=== PATIENT | male | born 1965 | race Caucasian/White ===

== ENCOUNTER 2017-01-05 07:19 | Emergency (ER) | payer MEDICAID ==
--- NOTE | 2017-01-05 07:18 | EDPHY ---
HPI/HX/ROS/PE/MDM Narrative: CHIEF COMPLAINT: Seizures HPI: The patient is a 51 y/o male arriving via EMS from the detox center after two witnessed seizures this morning. He was admitted to the [facility] yesterday morning at 10:00am with a RAMY of 305. This morning staff saw him seizing on the ground next to a low cot. The seizure broke for a short time and then started again and persisted until EMS arrived and gave 2.5mg IV Versed. EMS does not know if he received Librium while at the [facility]. He has been arousable to painful stimuli and disoriented en route. His prehospital BGL was 127. Upon assessment here he remains confused, but denies pain or injury anywhere. no pain REVIEW OF SYSTEMS: Unable to obtain secondary to patient's condition. PMH: Per ANGELO, he was at [facility] 1 week ago for chronic shoulder pain SOCIAL HISTORY: Lives in [place]. Alcohol abuse. PHYSICAL EXAM: General:Patient is alert, in no acute distress. ENT:Eyes are normal to inspection. ENT inspection shows mild tongue abrasions, otherwise normal. Neck: Normal inspection. Full range of motion. Respiratory:No respiratory distress. Breath sounds normal bilaterally. Cardiovascular: Tachycardic regular rate and rhythm. Strong peripheral pulses. Normal cap refill. Abdomen:The abdomen is nontender to palpation. There are no peritoneal signs. Back: Normal to inspection. No tenderness to palpation. Skin: Normal color. No rash. Warm and diaphoretic. Extremities: Normal appearance. Full range of motion. Neuro: Oriented to self only. Normal motor function. Normal sensory function. ED Course: This is a 51 y/o male who presents for evaluation after at least 2 witnessed tonic-clonic seizures this morning while at the detox center. He is disoriented , tachycardic, and diaphoretic upon arrival. He has mild tongue abrasions on exam. Plan for basic labs and symptom management. 2mg IV Ativan and 1L IV NS administered. Chest x-ray: negative. Reassessed patient. He is now completely alert and oriented. He is no longer tachycardic. He denies any injuries or pain. He does not want to go back to the [facility] because he thinks they will just discharge him since he's no longer intoxicated. He will receive a dose of Librium here prior to discharge. I've recommended going to the [facility] if he wishes to detox. He's also been referred to [facility] for further follow up. Case management has consulted on options for transportation from here as well as further treatment. Return precautions discussed. - Data Points Imaging: Discussed imaging studies w/ faculty i on call medical assistant Radiologist, I viewed and interpreted images myself Laboratory Results: Laboratory Results 01/05/17 07:17 01/05/17 07:17 01/05/17 01/05/17 07:17 07:17 WBC 6.10 10^3/uL 10^3/uL (3.80-9.50) RBC 4.32 10^6/uL L 10^6/uL (4.40-6.38) Hgb 13.6 g/dL L g/dL (13.7-17.5) Hct 39.8 % L % (40.0-51.0) MCV 92.1 fL fL (81.5-99.8) MCH 31.5 pg pg (27.9-34.1) MCHC 34.2 g/dL g/dL (32.4-36.7) RDW 15.0 % % (11.5-15.2) Plt Count 186 10^3/uL 10^3/uL (150-400) MPV 9.4 fL fL (8.7-11.7) Neut % (Auto) 51.7 % % (39.3-74.2) Lymph % (Auto) 31.3 % % (15.0-45.0) [place] % (Auto) 13.9 % H % (4.5-13.0) Eos % (Auto) 1.6 % % (0.6-7.6) Baso % (Auto) 1.3 % % (0.3-1.7) Nucleat RBC Rel Count 0.0 % % (0.0-0.2) Absolute Neuts (auto) 3.15 10^3/uL 10^3/uL (1.70-6.50) Absolute Lymphs (auto) 1.91 10^3/uL 10^3/uL (1.00-3.00) Absolute Monos (auto) 0.85 10^3/uL H 10^3/uL (0.30-0.80) Absolute Eos (auto) 0.10 10^3/uL 10^3/uL (0.03-0.40) Absolute Basos (auto) 0.08 10^3/uL 10^3/uL (0.02-0.10) Absolute Nucleated RBC 0.00 10^3/uL 10^3/uL (0-0.01) Immature Gran % 0.2 % % (0.0-1.1) Immature Gran # 0.01 10^3/uL 10^3/uL (0.00-0.10) Sodium 140 mEq/L mEq/L (134-144) Potassium 3.8 mEq/L mEq/L (3.5-5.2) Chloride 100 mEq/L mEq/L (97-110) Carbon Dioxide 14 mEq/l L mEq/l (22-31) Anion Gap 26 mEq/L H mEq/L (8-16) BUN 10 mg/dL mg/dL (7-23) Creatinine 0.9 mg/dL mg/dL (0.7-1.3) Estimated GFR > 60 Glucose 172 mg/dL H mg/dL (70-100) Calcium 9.4 mg/dL mg/dL (8.5-10.4) Medications Given: Discontinued Medications Chlordiazepoxide HCl (Librium) 25 mg PO EDNOW ONE Stop: 01/05/17 11:48 Last Admin: 01/05/17 12:36 Dose: 25 mg Sodium Chloride (Ns) 1,000 mls @ 0 mls/hr IV EDNOW ONE; Wide Open PRN Reason: Protocol Stop: 01/05/17 07:19 Last Admin: 01/05/17 07:32 Dose: 1,000 mls Lorazepam (Ativan Injection) 2 mg IVP EDNOW ONE Stop: 01/05/17 07:18 Last Admin: 01/05/17 07:32 Dose: 2 mg General Initial Vital Signs: Initial Vital Signs Temperature (C) 36.8 C 01/05/17 07:28 Heart Rate 130 H 01/05/17 07:28 Respiratory Rate 17 01/05/17 07:28 Blood Pressure 120/73 01/05/17 07:28 O2 Sat (%) 93 01/05/17 07:28 O2 Delivery Mode Nasal Cannula O2 (L/minute) 2 Allergies/Adverse Reactions: No Known Allergies Allergy (Unverified 01/05/17 07:31) Home Medications: Medication Instructions Recorded NK [No Known Home Meds] 01/05/17 Departure - Departure Disposition: Home, Routine, Self-Care Clinical Impression: Withdrawal seizures Qualifiers: Complication of substance-induced condition: uncomplicated Qualified Code(s): F19.230 - Other psychoactive substance dependence with withdrawal, uncomplicated Condition: Good Instructions: Nonepileptic Seizures (ED), Alcohol Withdrawal (ED) Additional Instructions: Follow up with the [facility] if you wish to detox from alcohol. Return to the ED for any worsening of condition. Referrals: Patient,NotPresent [Unknown] - As per Instructions Luis Fernando Haque MD [Non Staff Provider (MD)] - As per Instructions [facility],. [Clinic] - As per Instructions Report Scribed for: Demian Medley Report Scribed by: Roberta Dubois Date of Report: 01/05/17 Time of Report: 07:24 Physician Review and Approval Statement: Portions of this note were transcribed by an ED scribe. I personally performed the history, physical exam, and medical decision making; and confirm the accuracy of the information in the transcribed note.
[~2017-01-05 07:19] MED LIST: LORazepam 2 MG/ML INJ IVP ONE; NS 1,000 ML IV ONE
[2017-01-05 07:31] VITALS: TEMP 98.2
[2017-01-05 07:55] LABS: % IMMATURE GRANULYOCYTES 0.2 % (0.0-1.1); ABSOLUTE IMMATURE GRANULOCYTES 0.01 10^3/uL (0.00-0.10); ADD DIFF? NO; ADD MORPH? NO; ADD SCAN? NO; ATYPICAL LYMPHOCYTE FLAG 0 (0-99); FRAGMENT RBC FLAG 0 (0-99); HEMATOCRIT 39.8 % (40.0-51.0); HEMOGLOBIN 13.6 g/dL (13.7-17.5); LEFT SHIFT FLG 0 (0-99); LIPEMIA HEMOLYSIS FLAG 90 (0-99); MEAN CELL HEMOGLOBIN 31.5 pg (27.9-34.1); MEAN CELL HEMOGLOBIN CONCENTR. 34.2 g/dL (32.4-36.7); MEAN CELL VOLUME 92.1 fL (81.5-99.8); MEAN PLATELET VOLUME 9.4 fL (8.7-11.7); PLATELET CLUMPS FLAG 20 (0-99); PLATELET COUNT 186 10^3/uL (150-400); RED BLOOD CELL COUNT 4.32 10^6/uL (4.40-6.38)
[2017-01-05 08:12] LABS: ANION GAP 26 mEq/L (8-16); CALCIUM 9.4 mg/dL (8.5-10.4); CARBON DIOXIDE 14 mEq/l (22-31); CHLORIDE 100 mEq/L (97-110); CREATININE 0.9 mg/dL (0.7-1.3); GLOMERULAR FILTRATION RATE > 60; GLUCOSE 172 mg/dL (70-100); POTASSIUM 3.8 mEq/L (3.5-5.2); SODIUM 140 mEq/L (134-144)
[2017-01-05] MEDS ORDERED: chlordiazePOXIDE 25 MG CAP PO ONE ×2 (11:47)
[2017-01-05] MEDS ORDERED: IBUPROFEN 600 MG TAB PO ONE (13:04)
[2017-01-05] MEDS ORDERED: CHLORDIAZEPOXIDE 25MG PREPK#6 BTL TAKEHOME ONE (13:05)
[2017-01-05 13:09] VITALS: BP 129/80; PULSE 98; RESP 16; O2SAT 98
== END 2017-01-05 13:22 | disposition home or self-care (01) ==
LOC: EDUNIT#
PROC: 3E0337Z Introduction of Electrolytic and Water Balance Substance into Peripheral Vein, Percutaneous Approach (ICD-10-PCS; principal; 2017-01-05)
DX: R56.9 Unspecified convulsions (principal); F19.230 Other psychoactive substance dependence with withdrawal, uncomplicated; E86.9 Volume depletion, unspecified
CPT/HCPCS: 96374; J2060

== ENCOUNTER 2017-04-06 19:32 | Emergency (ER) | payer MEDICAID ==
[2017-04-06 19:41] VITALS: BP 120/83; PULSE 92; RESP 18; TEMP 98.2; O2SAT 93
[2017-04-06] MEDS ORDERED: DEXAMETHASONE 10 MG/ML VIAL ONE (20:28)
[2017-04-06] MEDS ORDERED: TDAP ADULT 0.5 ML INJ (BOOSTRIX) IM ONE ×2 (20:29→23:04)
--- NOTE | 2017-04-06 22:15 | EDPHY ---
General Narrative: CHIEF COMPLAINT: Mechanical fall, eyebrow laceration HISTORY OF PRESENT ILLNESS: Patient reports by EMS with reports of mechanical fall and intoxication. He is reportedly on an [facility] hold for acute alcohol intoxication. Patient denies falling. He says that "the [place] police did this to me," referring to laceration above the right eyebrow. He denies headache. Denies loss of consciousness. He denies neck pain. He denies any injury or pain elsewhere. He does want us to fix the laceration but has no other complaints of any kind. He does not know when his last tetanus shot was. Does have a strong odor of alcohol. No modifying factors. No other associated complaints. REVIEW OF SYSTEMS: Ten systems reviewed and are negative unless otherwise noted in the HPI PCP: [facility] SPECIALISTS: None PAST MEDICAL HISTORY: Denies PAST SURGICAL HISTORY: Denies SOCIAL HISTORY: Daily smoker. Daily alcohol user. Denies drug use FAMILY HISTORY: Noncontributory EXAMINATION General Appearance: Alert, no distress Head: normocephalic. Complex laceration over the right eyebrow per no Soto sign. No raccoon eyes. Eyes: Pupils equal and round, no conjunctival pallor or injection. EOMs intact ENT, Mouth: Mucous membranes moist. Airway patent Neck: C-collar in place. Midline trachea Respiratory: Mild rhonchi. No wheezing or crackles. No diminishment. Cardiovascular: Regular rate and rhythm. No murmur. Gastrointestinal: Abdomen is soft and nontender Back: non-tender, no bony abnormalities Neurological: GCS 15. Cranial nerves 2-12 grossly intact. A&O, nonfocal, strength is symmetric in all 4 limbs. No pronator drift. Normal finger-to- nose. Skin: Warm and dry, no rash. There is a 6 cm, complex, jagged laceration above the right eyebrow extending into the eyebrow. There is exposure of the subcutaneous tissue. No exposure of the galea or frontalis. No foreign body. Range of the eyebrow and eyelid is retain. Extremities: Nontender, no pedal edema. Symmetric range of motion. Psychiatric: Mood and affect normal DIFFERENTIAL DIAGNOSES: Including but not limited to complex laceration, intracranial hemorrhage, closed head injury, concussion, basilar skull fracture, frontal skull fracture, laceration with tendon injury, laceration with galea injury MDM: 8:30 p.m. Mechanical fall with apparent acute alcohol intoxication. Given the patient's toxication, he cannot be cleared with nexus criteria. He denies headache or neck pain but he is in a C-collar. I have ordered CT scans of the head and cervical spine. He appears to be neuro intact distally. There is an extensive laceration above the right eyebrow that will require suture repair. He is resting comfortably in no acute distress with stable vital signs. 9:30 p.m. Notified by radiologist Dr. Rahman. CT scan of the head reveals no acute findings. CT scan of the cervical spine reveals chronic changes without any acute findings. At this time I re-evaluated the patient cleared the C-collar. Also at this time he will not let me close the laceration. He is walking around the room trying to take pictures of the laceration. He will not let me start at this time. 11:05 p.m. Patient has finally come down and let me close laceration. This was a very complex laceration taking 60 min to closed. Three layer closure tolerated well. Excellent and symmetric range of motion of the eyebrows postprocedure. No injury to the galea or frontalis exposure. We discussed daily wound care. We discussed follow up with primary care physician for wound check. Augmentin prophylaxis due to the complexity of the laceration. First dose here. We discussed ED precautions. Return here in 7 days for suture removal. He is comfortable this plan. He is on an [facility] hold, and [place] [employer] been notified that he is ready for discharge back to the [facility]. I have provided the on-call plastic surgeon for him as he is asking for a non emergent, chronic issue to be addressed by plastic surgeon. PROCEDURE: Laceration repair Consent: Verbal Location: Right forehead and eyebrow Length of repair: 6 cm Complexity: Complex Layer involvement: Full-thickness Anesthesia: Local per 1% lidocaine plain and 0.5% Marcaine, 12 mL total Irrigation: Extensive Debridement: Small excisional debridement Procedure description: Following good anesthesia, the wound was copiously irrigated. Wound bed was explored with a sterile glove, and there is no foreign body noted. There was a total of 1 cm excisional debridement. No injury to the galea. No injury to the frontalis muscle. Normal movement of the levator palpebrae superioris. Wound borders were approximated well with good hemostasis. Tolerated well without complication. Suture/Staple material: Subcutaneous layer: 5-0 Vicryl, 11 simple running sutures. cutaneous layer: 6-0 Prolene, 21 simple interrupted sutures. Wound care: Routine as discussed Suture/Staple removal: 7 Days SUPERVISION: Patient was independently examined, but I discussed the case with my secondary supervising physician Dr. Campos - Diagnostics Imaging Results: Imaging Impressions Cervical Spine CT 04/06/17 20:24 Impression: Head CT: 1. No acute intracranial abnormalities. 2. Right frontal scalp laceration. 3. Mild generalized volume loss. 4. Subtle supratentorial chronic microvascular ischemic changes. Cervical Spine: 1. No acute abnormalities. 2. Multilevel degenerative changes, as above. 3. Cannot exclude ligament, spinal cord and/or vascular abnormalities on this exam. If there is persistent pain or neurologic deficit, consider MRI and/or flexion and extension radiographs of the cervical spine. Dr. Rahman discussed these findings by telephone with Cody Blackman on 2017 at 21:[address] 04/06/17 20:24 Impression: Head CT: 1. No acute intracranial abnormalities. 2. Right frontal scalp laceration. 3. Mild generalized volume loss. 4. Subtle supratentorial chronic microvascular ischemic changes. Cervical Spine: 1. No acute abnormalities. 2. Multilevel degenerative changes, as above. 3. Cannot exclude ligament, spinal cord and/or vascular abnormalities on this exam. If there is persistent pain or neurologic deficit, consider MRI and/or flexion and extension radiographs of the cervical spine. Dr. Rahman discussed these findings by telephone with Cody Blackman on 2017 at 21:54 hours. - History Smoking Status: Current every day smoker - Objective Vital Signs: Initial Vital Signs Temperature (C) 98.2 F 04/06/17 19:40 Heart Rate 92 04/06/17 19:40 Respiratory Rate 18 04/06/17 19:40 Blood Pressure 120/83 H 04/06/17 19:40 O2 Sat (%) 93 04/06/17 19:40 O2 Delivery Mode Room Air Allergies/Adverse Reactions: No Known Allergies Allergy (Verified 04/06/17 19:41) Home Medications: Medication Instructions Recorded Amoxicillin/Clavulanate Pot 875 mg PO BID #14 tab 04/06/17 [Augmentin 875 MG TAB (*)] Medications Given: Discontinued Medications Amoxicillin/Clavulanate Potassium (Augmentin 875mg) 875 mg PO EDNOW ONE PRN Reason: Protocol Stop: 04/06/17 23:08 Last Admin: 04/06/17 23:11 Dose: 875 mg Departure - Departure Disposition: Law Enforcement/Court/[facility] Clinical Impression: Laceration of eyebrow, right, complicated Qualifiers: Encounter type: initial encounter Qualified Code(s): S01.111A - Laceration without foreign body of right eyelid and periocular area, initial encounter Closed head injury Qualifiers: Encounter type: initial encounter Qualified Code(s): S09.90XA - Unspecified injury of head, initial encounter Acute alcohol intoxication Qualifiers: Complication of substance-induced condition: uncomplicated Qualified Code(s): F10.929 - Alcohol use, unspecified with intoxication, unspecified Condition: Good Instructions: Care For Your Stitches (ED), Facial Laceration (ED) Additional Instructions: 1. Daily wound care as discussed 2. Augmentin as prescribed to completion 3. Follow up with primary care physician as discussed and provided 4. Return to emergency department in 7 days for suture removal Referrals: Ida Sargent MD [[facility] Primary Care Provider] - As per Instructions [facility],. [Clinic] - As per Instructions Rasta Bloom MD [Medical Doctor] - As per Instructions Prescriptions: Amoxicillin/Clavulanate Pot [Augmentin 875 MG TAB (*)] 875 mg PO BID #14 tab
[2017-04-06] MEDS ORDERED: AMOXICILLIN/CLAVULANATE POT 875/125 MG TAB PO ONE (23:07)
== END 2017-04-06 23:53 ==
LOC: EDUNIT#
PROC: 0HQ1XZZ Repair Face Skin, External Approach (ICD-10-PCS; principal; 2017-04-06)
DX: S01.111A Laceration without foreign body of right eyelid and periocular area, initial encounter (principal); S09.90XA Unspecified injury of head, initial encounter; F10.929 Alcohol use, unspecified with intoxication, unspecified; F17.200 Nicotine dependence, unspecified, uncomplicated; W18.39XA Other fall on same level, initial encounter
CPT/HCPCS: J1100

== ENCOUNTER 2017-04-08 19:54 | Emergency (ER) | payer MEDICAID ==
[2017-04-08 20:07] VITALS: BP 141/109; PULSE 91; RESP 18; O2SAT 93
--- NOTE | 2017-04-08 20:24 | EDPHY ---
H & P Time Seen by Provider: 04/08/17 20:14 HPI/ROS: Chief complaint. Head injury HPI. 52-year-old male seen 2 days ago in the emergency department when he was drunk and fell down sustaining laceration to his right forehead. He had a negative head and cervical spine CT. He had stitches placed. He would like his stitches checked. He otherwise has no complaints ROS Constitutional. no fever/chills, no weakness Eyes. no problems with vision ENT. no sore throat, no nasal drainage Cardiovascular. no chest pain Respiratory. no shortness of breath, no cough Abdominal. no abdominal pain, no nausea/vomiting, no diarrhea . no problems urinating MS. no calf pain/swelling, no neck/back pain, no joint pain Skin. Stitches right forehead Lymph. no swollen glands Neuro. no headache, no dizziness, no difficulty walking or with speech Past Medical/Surgical History: Past medical history significant alcoholism and asthma Social History: Single, daily smoker, no alcohol Smoking Status: Current every day smoker Physical Exam: General Appearance: Alert well-developed male no distress vital signs stable Eyes: Pupils equal and round no pallor or injection. ENT, Mouth: Mucous membranes are moist. Respiratory: There are no retractions, lungs are clear to auscultation. Cardiovascular: Regular rate and rhythm. Gastrointestinal: Abdomen is soft and nontender, no masses, bowel sounds normal. Neurological: Awake and alert, sensory and motor exams grossly normal. Skin: Stitches in the right forehead are crusted over but intact. There is no signs of infection. Musculoskeletal: Neck is supple nontender. Extremities symmetrical, full range of motion. Psychiatric: Patient is oriented X 3, there is no agitation. Constitutional: Initial Vital Signs Heart Rate 91 04/08/17 20:05 Respiratory Rate 18 04/08/17 20:05 Blood Pressure 141/109 H 04/08/17 20:05 O2 Sat (%) 93 04/08/17 20:05 O2 Delivery Mode Room Air Allergies/Adverse Reactions: No Known Allergies Allergy (Verified 04/08/17 20:08) Home Medications: Medication Instructions Recorded Amoxicillin/Clavulanate Pot 875 mg PO BID #14 tab 04/06/17 [Augmentin 875 MG TAB (*)] Medical Decision Making ED Course/Re-evaluation: Patient remained stable. He and I discussed care of his sutures including daily cleaning and then use of antibiotic ointment. I gave the patient multiple packages of antibiotic ointment to be applied after gentle washcloth and water cleaning. We discussed time of return for stitches out. He expresses understanding and agreement Differential Diagnosis: I considered suture dehiscence, infection. Departure - Departure Disposition: Home, Routine, Self-Care Clinical Impression: Laceration Instructions: Care For Your Stitches (ED) Additional Instructions: Clean you stitches twice daily with washcloth and water. Apply antibiotic ointment twice daily. Return in 4 days for stitches out. Referrals: NONE *PRIMARY CARE P,. [Primary Care Provider] - As per Instructions
== END 2017-04-08 20:49 | disposition home or self-care (01) ==
DX: Z48.01 Encounter for change or removal of surgical wound dressing (principal); J45.909 Unspecified asthma, uncomplicated; F17.200 Nicotine dependence, unspecified, uncomplicated
CPT/HCPCS: G0463

== ENCOUNTER 2017-05-06 13:26 | Emergency (ER) | payer MEDICAID ==
--- NOTE | 2017-05-06 14:00 | EDPHY ---
H & P Time Seen by Provider: 05/06/17 13:45 HPI/ROS: CHIEF COMPLAINT: Altered mental status HISTORY OF PRESENT ILLNESS: Head laceration sutured 04/06/16. Patient admits to drinking heavily today , says beer. Found behind [employer] unable to walk. No other medical complaints. REVIEW OF SYSTEMS: Eye: no change in vision ENT: no sore throat Cardiac: no chest pain or syncope Pulmonary: no cough or SOB Abdomen: no vomiting, diarrhea, abdominal pain Musculoskeletal: no back pain Skin: no rash Neuro: no headache Constitutional: no fever : no urinary symptoms A comprehensive 10 point review of systems is otherwise negative aside from elements mentioned in the history of present illness. PAST MEDICAL HISTORY: Alcoholism and asthma Social history: Homeless General Appearance: Sleepy but conversant, cooperative. Eyes: No scleral icterus. ENT, Mouth: Normal mucous membranes. No tongue laceration or abrasion. Well- healed laceration or the right eyebrow. Respiratory: Normal respiratory effort, breath sounds equal, lungs are clear to auscultation. Cardiovascular: Regular rate and rhythm. Gastrointestinal: Abdomen is soft and non tender. Neurological: Face is symmetric and moves all 4 extremities. Does answer questions and follows commands but speech is slurred consistent with alcohol intoxication. Skin: Warm and dry, no rashes. No drainage pus redness or evidence of infection on the right eyebrow wound. Musculoskeletal: No extremity or spinal tenderness. Psychiatric: Unable due to intoxication Emergency Department course/MDM: Initial heart rate 121, O2 sat 88%. Will monitor with serial vital signs. Sutures removed in ED. 1933: Patient is ambulatory and has no complaints. Not tachycardic , 91% on room air, not tachypneic and no respiratory distress, does not feel short of breath, ambulatory Smoking Status: Current every day smoker Constitutional: Initial Vital Signs Temperature (C) 36.2 C 05/06/17 13:26 Heart Rate 121 H 05/06/17 13:26 Respiratory Rate 16 05/06/17 13:26 Blood Pressure 116/83 H 05/06/17 13:26 O2 Sat (%) 88 L 05/06/17 13:26 O2 Delivery Mode Room Air O2 (L/minute) 2 Home Medications: Medication Instructions Recorded Amoxicillin/Clavulanate Pot 875 mg PO BID #14 tab 04/06/17 [Augmentin 875 MG TAB (*)] Medical Decision Making Differential Diagnosis: Differential diagnosis considered for altered mental status including but not limited to hypoglycemia, infectious process, electrolyte abnormality, head injury and intoxicants. Departure - Departure Disposition: Home, Routine, Self-Care Clinical Impression: Alcoholic intoxication Qualifiers: Complication of substance-induced condition: uncomplicated Qualified Code(s): F10.920 - Alcohol use, unspecified with intoxication, uncomplicated Condition: Good Instructions: Alcohol Intoxication (ED) Referrals: [facility],. [Clinic] - As per Instructions
[2017-05-06 19:35] VITALS: BP 120/82; PULSE 97; RESP 16; TEMP 98.2; O2SAT 91
== END 2017-05-06 19:37 | disposition home or self-care (01) ==
LOC: EDUNIT#
DX: F10.920 Alcohol use, unspecified with intoxication, uncomplicated (principal); J45.909 Unspecified asthma, uncomplicated; F17.200 Nicotine dependence, unspecified, uncomplicated

== ENCOUNTER 2017-06-06 09:30 | Emergency (ER) | payer MEDICAID ==
--- NOTE | 2017-06-06 09:33 | EDPHY ---
H & P - Medical/Surgical History Hx Asthma: Yes Hx Chronic Respiratory Disease: No Hx Diabetes: No Hx Cardiac Disease: No Hx Renal Disease: No Hx Cirrhosis: No Hx Alcoholism: Yes Hx HIV/AIDS: No Hx Splenectomy or Spleen Trauma: No Other PMH: asthma, , ETOH - Social History Smoking Status: Current every day smoker Time Seen by Provider: 06/06/17 09:31 HPI/ROS: CHIEF COMPLAINT: "I kissed the concrete with my face" HISTORY OF PRESENT ILLNESS: 52-year-old homeless male, history of alcoholism, arrives via ambulance after the staff of [facility] called 911 because the patient was standing in front of the restaurant with blood on his face. Upon EMS arrival the patient was walking, was waving hello at the ambulance. Patient 's history of alcoholism, states that he last had a drink of alcohol few hours ago, states that he sustained a mechanical fall, tripped on the sidewalk impacting the forehead and bridge of his nose with positive loss of consciousness. This was a brief loss of consciousness. This was not a seizure according the patient. He currently states that he is feeling well. His main complaint is abrasion to the nose and chronic left shoulder pain. Regarding his left shoulder he states that he has a diagnosed rotator cuff tear left shoulder and has been unable to follow up with orthopedic surgeon. This has been ongoing issue for the patient he denies acute injury or acute trauma to this area. Otherwise he denies: Nausea, vomiting, chest pain or trauma, back pain or trauma, midline C-spine pain or trauma, peripheral paresthesia, weakness , numbness, assault. REVIEW OF SYSTEMS: A ten point review of systems was performed and is negative with the exception of the items mentioned in the HPI PAST MEDICAL/SURGICAL HISTORY: no anticoagulant use, asthma. Tetanus is up-to- date per patient. SOCIAL HISTORY: Homeless. History of alcoholism. Chronic tobacco use. PHYSICAL EXAM 1) GENERAL: Foul smelling, unkept, Appears to be in no acute distress. Answering questions appropriately. Alert oriented to person place time events 2) HEAD: Normocephalic, abrasion to the glabella 3) HEENT: Pupils equal, round, reactive to light bilaterally. Negative Horners. Nasopharynx, oropharynx, clear. No deformity or angulation of nose. Abrasion to the bridge of nose . No septal hematoma. No rhinorrhea. No oral trauma. Ears bilaterally with normal tympanic membranes. No hemotympanum. No fluid or blood in the external auditory canal. No raccoon eyes. No Soto sign. Poor dentition. Teeth are normally aligned with no gross malocclusion, TMJ bilaterally nontender, facial bones nontender including the zygomatic arch, maxilla mandible. No signs of trauma to the tongue such as abrasion laceration. 4) NECK: No cervical collar is on. Posterior cervical spine is nontender, no stepoff, no effusion. Full range of motion which does not elicit any midline cervical spine pain, no posterior midline tenderness, no step-off. 5) LUNGS: Clear to auscultation bilaterally, no wheezes, no rhonchi, no retractions. No obvious signs of trauma. No chest wall pain. No flaring, no grunting. Moving symmetrically. No crepitus. 6) HEART: [Regular rate and rhythm, 7) ABDOMEN: No guarding, no rebound, no focal tenderness, no peritoneal signs, no signs of trauma, no ecchymosis 8) MUSCULOSKELETAL: Bilateral socks are wet. Socks were taken off and the visualized. No evidence of trench foot. He has been given dry socks. 9) BACK: No midline vertebral tenderness, no fluctuance, no step-off, no obvious trauma, no visual or palpable abnormality. 10) SKIN: No laceration. DIFFERENTIAL DIAGNOSIS: Not necessarily in any particular order, my differential diagnosis includes, but is not limited to, concussion, skull fracture, intraparenchymal contusion, subarachnoid, subdural and epidural hematoma. The patient understands that this diagnosis is provisional and can never be 100% accurate. (Irvin Beard) Constitutional: Initial Vital Signs Temperature (C) 36.5 C 06/06/17 09:38 Heart Rate 79 06/06/17 09:38 Respiratory Rate 18 06/06/17 09:38 Blood Pressure 146/100 H 06/06/17 09:38 O2 Sat (%) 96 06/06/17 09:38 O2 Delivery Mode Room Air Allergies/Adverse Reactions: Sulfa (Sulfonamide Antibiotics) Allergy (Verified 06/06/17 09:41) Home Medications: Medication Instructions Recorded NK [No Known Home Meds] 06/06/17 Medical Decision Making - Diagnostics Imaging Results: Images reviewed myself (Irvin Berad) ED Course/Re-evaluation: 9:38 a.m.:Head CT ordered in this patient for trauma for the following indication: Loss of consciousness and visible head trauma. Will hold on imaging of cervical spine as he is clinically sober, answering questions appropriately, has negative Bruneian cervical spine CT decision-making tool. Care of patient under supervision of secondary supervising physician Dr Ryley Paul. 10:30 a.m.: Re-evaluation, is answering questions appropriately. CT imaging of the head interpreted by Dr. Grant Lopez is negative for posttraumatic sequelae. Patient has been re-evaluated with serial examinations. He does have a history of chronic tobacco abuse. I spent greater than 3 min with the patient discussing tobacco cessation and education. I think the patient can be discharged at this time with follow-up information. (Irvin Beard) I did not see this patient while he was in the emergency department. However his care was discussed with the PA while the patient was in the department. I agree with treatment plan and management (Ryley Paul) Departure - Departure Disposition: Home, Routine, Self-Care Clinical Impression: Forehead abrasion, Homeless single person, History of alcoholism, Abrasion of nose, Head injury Condition: Good Instructions: Head Injury (ED), Abrasion (ED) Additional Instructions: ALTHOUGH THERE IS NO EVIDENCE OF SERIOUS HEAD INJURY AT THIS TIME, DELAYED SIGNS CAN APPEAR 24 TO 48 HOURS AFTER INJURY. PLEASE RETURN TO THE EMERGENCY DEPARTMENT (ED) IMMEDIATELY IF YOU HAVE INCREASED HEADACHE, PERSISTENT HEADACHE , VOMITING, WEAKNESS, CONFUSION OR VISUAL PROBLEMS. Referrals: [facility],. [Clinic] - 1-2 days without fail
[2017-06-06 13:01] VITALS: BP 165/85
--- NOTE | 2017-06-06 19:08 | ASMTCMCOM ---
CM Note CM Note Notes: Pt presented to ED via EMS after sustaining a fall and hitting his head. Patient was intoxicated, tripped and fell. Pt medically cleared. Patient provided bus pass, a dry pair of pants, and resource lists. Pt states he has completed Coordinated Entry and can stay at the [facility] but prefers to sleep outside in his tent. Pt aware [facility] is open we discussed that he may want to stay at [facility] the next couple of nights. Pt offered a cab to the [facility] navigation center in order resume case mgmt and P[facility] services but pt declined stating he wants to go get his bike at [employer] but will follow up with them eventually. CM available for further assistance. Date Signed: 06/06/2017 07:08 PM Electronically Signed By:Shanita Lopez RN
--- NOTE | 2017-06-06 19:09 | ASDISCHSUM ---
Discharge Information Plan Status:Homeless/Group Home Medically Cleared to Leave: Discharge Date:06/06/2017 12:58 PM CM D/C Disposition:Streets (Homeless) ADT D/C Disposition:Home, Routine, Self-Care Projected Discharge Date:06/06/2017 12:58 PM Transportation at D/C:Bus Ticket Discharge Delay Reason: Follow-Up Date:06/06/2017 12:58 PM Discharge Slot: Final Diagnosis: Placement Information Patient Contact Information Contact Name:SHEEBATriston Relationship: Address: Home Phone: Work Phone: City: Alternate Phone: State/Zip Code: Email: Financial Information Financial Class:Medicaid Primary Plan Desc:MEDICAID HEALTH FIRST CLERICAL ADMINISTRATOR Primary Plan Number:[id number] Secondary Plan Desc: Secondary Plan Number: Assessment Information [facility] CM Progress Note CM Note CM Note Notes: Pt presented to ED via EMS after sustaining a fall and hitting his head. Patient was intoxicated, tripped and fell. Pt medically cleared. Patient provided bus pass, a dry pair of pants, and resource lists. Pt states he has completed Coordinated Entry and can stay at the [facility] but prefers to sleep outside in his tent. Pt aware [facility] is open we discussed that he may want to stay at [facility] the next couple of nights. Pt offered a cab to the [facility] navigation center in order resume case mgmt and [facility] services but pt declined stating he wants to go get his bike at [employer] but will follow up with them eventually. CM available for further assistance. Date Signed: 06/06/2017 07:08 PM Electronically Signed By:Shanita Lopez RN Intervention Information
== END 2017-06-06 12:58 | disposition home or self-care (01) ==
LOC: EDBD → EDUNIT#
DX: S09.90XA Unspecified injury of head, initial encounter (principal); S00.81XA Abrasion of other part of head, initial encounter; S00.31XA Abrasion of nose, initial encounter; F10.21 Alcohol dependence, in remission; J45.909 Unspecified asthma, uncomplicated; F17.200 Nicotine dependence, unspecified, uncomplicated; Z59.0 Homelessness; W01.198A Fall on same level from slipping, tripping and stumbling with subsequent striking against other object, initial encounter; Y92.480 Sidewalk as the place of occurrence of the external cause; Y99.8 Other external cause status; Y93.89 Activity, other specified

== ENCOUNTER 2017-06-09 16:47 | Emergency (ER) | payer MEDICAID ==
[2017-06-09] MEDS ORDERED: IBUPROFEN 800 MG TAB PO ONE (16:51)
--- NOTE | 2017-06-09 16:54 | EDPHY ---
H & P Stated Complaint: bilateral shoulder pain. chronic Time Seen by Provider: 06/09/17 16:51 HPI/ROS: HPI CHIEF COMPLAINT: Right shoulder pain. HISTORY OF PRESENT ILLNESS: Patient 52-year-old male he is homeless, drinks alcohol, presents emergency with right shoulder pain. Patient reports that he has been recently falling he had a recent fall was seen in the emergency room for this and had a CT scan that was negative for acute trauma. He presents today stating that his right shoulder is hurting him worse. It is musculoskeletal nature. It is worse after he moves his right shoulder. He is unsure if he fell. He has been drinking alcohol. He denies neck pain or headache. Denies abdominal pain chest pain or shortness of breath. Pain is located to the right lateral shoulder. It is worse with movement and tender to palpation over the lateral right shoulder. Past Medical History: Homelessness, alcohol use Past Surgical History: No recent surgery Social History: homeless, daily alcohol use Family History: Noncontributory ROS REVIEW OF SYSTEMS: A comprehensive 10 point review of systems is otherwise negative aside from elements mentioned in the history of present illness. Exam Constitutional smells of alcohol, triage nursing summary reviewed, vital signs reviewed, awake/alert. Eyes normal conjunctivae and sclera, EOMI, PERRLA. HENT normal inspection, atraumatic, moist mucus membranes, no epistaxis, neck supple/ no meningismus, no raccoon eyes. Respiratory clear to auscultation bilaterally, normal breath sounds, no respiratory distress, no wheezing. Cardiovascular rate normal, regular rhythm, no murmur, no edema, distal pulses normal. Gastrointestinal soft, non-tender, no rebound, no guarding, normal bowel sounds, no distension, no pulsatile mass. Genitourinary no CVA tenderness. Musculoskeletal right shoulder: Tender palpation over the right lateral shoulder. Full range of motion but with range of motion he has discomfort. Axillary nerve is intact. Distally his right arm has good distal pulse, good cap refill. 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 no midline vertebral tenderness, full range of motion, no calf swelling, no tenderness of extremities, no meningismus, good pulses, neurovascularly intact. Skin pink, warm, & dry, no rash, skin atraumatic. Neurologic awake, alert and oriented x 3, AAOx3, moves all 4 extremities equally, motor intact, sensory intact, CN II-XII intact, normal cerebellar, normal vision, normal speech. Psychiatric normal mood/affect. Heme/Lymph/Immune no lymphadenopathy. Differential Diagnosis: Includes but is not limited to alcohol intoxication, daily alcohol use, right shoulder strain, right shoulder dislocation, AC joint separation, shoulder fracture soft tissue injury Medical Decision Making: Plan for this patient ibuprofen 800 mg, x-ray the right shoulder. Re-evaluate. Re-evaluation: X-ray of the right shoulder reviewed by myself. Shows degenerative joint disease. Hardware appears to be in place. I do not appreciate any acute new fracture malalignment. X-ray reviewed. Degenerative joint disease and arthritis. No acute fracture. Recommend ice, anti-inflammatory pain medicine. Updated patient. Return precautions discussed. Source: Patient, EMS - Personal History Current Tetanus/Diphtheria Vaccine: Unsure Current Tetanus Diphtheria and Acellular Pertussis (TDAP): Unsure - Medical/Surgical History Hx Asthma: Yes Hx Chronic Respiratory Disease: No Hx Diabetes: No Hx Cardiac Disease: No Hx Renal Disease: No Hx Cirrhosis: No Hx Alcoholism: Yes Hx HIV/AIDS: No Hx Splenectomy or Spleen Trauma: No Other PMH: asthma, , ETOH - Social History Smoking Status: Current every day smoker Constitutional: Initial Vital Signs Temperature (C) 36.7 C 06/09/17 16:48 Heart Rate 108 H 06/09/17 16:48 Respiratory Rate 18 06/09/17 16:48 Blood Pressure 164/80 H 06/09/17 16:48 O2 Sat (%) 94 06/09/17 16:48 O2 Delivery Mode Room Air Allergies/Adverse Reactions: Sulfa (Sulfonamide Antibiotics) Allergy (Verified 06/09/17 16:48) Home Medications: Medication Instructions Recorded NK [No Known Home Meds] 06/06/17 Medical Decision Making - Diagnostics Imaging Results: Imaging Impressions Shoulder X-Ray 06/09/17 16:50 Impression: Old posttraumatic and postsurgical features with areas of secondarily-acquired degenerative osteoarthrosis, similar to a previous study of December 2016. - Data Points Medications Given: Discontinued Medications Ibuprofen (Motrin) 800 mg PO EDNOW ONE Stop: 06/09/17 16:52 Last Admin: 06/09/17 16:55 Dose: 800 mg Departure - Departure Disposition: Home, Routine, Self-Care Clinical Impression: Shoulder strain Qualifiers: Encounter type: initial encounter Laterality: right Qualified Code(s): S46.911A - Strain of unspecified muscle, fascia and tendon at shoulder and upper arm level, right arm, initial encounter Condition: Good Instructions: Rotator Cuff Injury (ED) Additional Instructions: 1. Please follow up with her primary care doctor. 2. Return emergency room if you have any worsening symptoms questions or concerns. 3. Your medically cleared for [facility]. Referrals: Patient,NotPresent [Primary Care Provider] - As per Instructions
[2017-06-09 17:48] VITALS: BP 133/77; PULSE 106; RESP 88; TEMP 97.9; O2SAT 105
== END 2017-06-09 18:05 | disposition home or self-care (01) ==
LOC: EDUNIT#
DX: S46.911A Strain of unspecified muscle, fascia and tendon at shoulder and upper arm level, right arm, initial encounter (principal); J45.909 Unspecified asthma, uncomplicated; F17.200 Nicotine dependence, unspecified, uncomplicated; X58.XXXA Exposure to other specified factors, initial encounter

== ENCOUNTER 2017-06-13 06:33 | Inpatient (IN) | payer MEDICAID ==
--- NOTE | 2017-06-13 06:49 | EDPHY ---
H & P Stated Complaint: fall from standing at [facility] - Personal History Current Tetanus/Diphtheria Vaccine: Unsure Current Tetanus Diphtheria and Acellular Pertussis (TDAP): Unsure - Medical/Surgical History Hx Asthma: Yes Hx Chronic Respiratory Disease: No Hx Diabetes: No Hx Cardiac Disease: No Hx Renal Disease: No Hx Cirrhosis: No Hx Alcoholism: Yes Hx HIV/AIDS: No Hx Splenectomy or Spleen Trauma: No Other PMH: asthma, , ETOH - Social History Smoking Status: Current every day smoker Time Seen by Provider: 06/13/17 06:37 Constitutional: Initial Vital Signs Temperature (C) 36.9 C 06/13/17 06:34 Heart Rate 123 H 06/13/17 06:34 Respiratory Rate 16 06/13/17 06:34 Blood Pressure 124/85 H 06/13/17 06:34 O2 Sat (%) 92 06/13/17 06:34 O2 Delivery Mode Room Air Allergies/Adverse Reactions: Sulfa (Sulfonamide Antibiotics) Allergy (Verified 06/09/17 16:48) Home Medications: Medication Instructions Recorded NK [No Known Home Meds] 06/06/17 Medical Decision Making - Diagnostics Imaging Results: Imaging Impressions Shoulder X-Ray 06/13/17 06:53 Impression: Negative for acute abnormality with postoperative and degenerative changes noted. Head CT 06/13/17 09:44 Impression: 1. No acute intracranial findings. 2. Diffuse cerebral atrophy with periventricular and subcortical low attenuation consistent with chronic microvascular ischemic gliosis. Findings discussed with Alexis Araya MD on 06/13/2017 at 10:33 a.m. Procedures: My involvement the care this patient is solely for procedure. Please see the note of the attending physician for all other aspects of care. PROCEDURE: Incision and Drainage Consent: Verbal and 2 provider consent Location: Left shoulder Length: 2 cm Complexity: Complex Anesthesia: Local per 1% lidocaine with epinephrine, 5 mL Procedure description: Left shoulder range of motion tested is symmetric to the right pre procedure. The radial pulses are symmetric pre procedure. After time-out the left shoulder was prepped, sterile fashion. The above was infused with good anesthesia. The shoulder was again prepped to chlorhexidine preps. 2 cm incision made over a previous existing scar. Blunt dissection performed. No loculations. Expression of nearly 50 mL of purulent appearing serous/ synovial fluid. This was swabbed for wound culture. The incision was flush with 30 cc sterile saline. I did not place any packing. I applied a sterile ABD dressing. Expressed: 50 mL serous and purulent appearing serous/synovial fluid. EBL minimal Wound care: Daily dressing changes as discussed Follow-up: 2 day wound check (Cody Blackman) ED Course/Re-evaluation: CHIEF COMPLAINT: Fall from standing HISTORY OF PRESENT ILLNESS: 52-year-old chronic alcohol abuser and alcoholic who was at the [facility] when he fell onto the concrete. It was witnessed by the [facility] staff. He fell onto his left shoulder. The patient is complaining of bilateral shoulder pain but has no other complaints. He states that the other shoulder was injury years ago. The acute injury today is the left shoulder. Although at times he says the acute injuries the right shoulder any is a spider bite on his left shoulder. He is fairly intoxicated. He came by ambulance. REVIEW OF SYSTEMS: A 10 point review of systems was performed and is negative with the exception of the elements mentioned in the history of present illness. PHYSICAL EXAM: HR, BP, O2 Sat, RR. Temp noted General Appearance: Alert, well hydrated, appropriate, and non-toxic appearing. Head: Atraumatic without scalp tenderness or obvious injury Eyes: Pupils equal, round, reactive to light and accommodation, EOMI, no trauma , no injection. Ears: Clear bilaterally, no perforation, normal landmarks Nose: Atraumatic, no rhinorrhea, clear. Throat: There is no erythema or exudates, no lesions, normal tonsils, mucus membranes moist. Neck: Supple, 2+ carotid upstroke, nontender, no lymphadenopathy. Respiratory: No retractions, no distress, no wheezes, and no accessory muscle use. Lungs are clear to auscultation bilaterally. Cardiovascular: Regular rate and rhythm, no murmurs, rubs, or gallops. Bilateral carotid, radial, dorsalis pedis, and posterior tibial pulses intact. Good capillary refill all extremities. Gastrointestinal: Abdomen is soft, nontender, non-distended, no masses, no rebound, no guarding, no peritoneal signs. Musculoskeletal: Normal active ROM of all extremities, atraumatic. Neurological: Alert, appropriate, and interactive. The patient has normal DTRs and non-focal cranial nerves, motor, sensory, and cerebellar exam. Skin: Abscess left shoulder, swelling right shoulder otherwise, No rashes, good turgor, no nodules on palpation. Past medical history: Chronic alcoholic Past surgical history: Patient denies Family history: Noncontributory Social history: Single, not employed, abuses alcohol, [place] [address] DIAGNOSTICS/PROCEDURES/CRITICAL CARE TIME: Study: Right shoulder Indication: Trauma Results: After viewing the images myself on the PACS system. My interpretation of the images is: no acute process. The radiologist interpretation is pending at the time of this dictation. I have discussed the above x-rays with the radiologist. Study: CT of the head Indication: Difficulty ambulating Results: CT scan of the body parts was obtained. The results of the study are negative for acute findings. The study was read by the radiologist, Dr. Roblero. I viewed the images myself on the PACS system. DIFFERENTIAL DIAGNOSIS: The differential diagnosis for the patient's trauma included but was not limited to intracranial injury, long bone and pelvic bone fractures, spinal injury, intra-abdominal injury, and intra-thoracic injury. MEDICAL DECISION MAKING: This patient is intoxicated and a poor historian. He claims both shoulders hurt. I believe the right shoulder maybe the traumatic shoulder since the looks slightly swollen although he has normal range of motion. The left shoulder appears to hurt him because there is an abscess. 9:30 AM- I reassessed this patient and attempted to have him walk. He had a very unsteady gait. He will continue to be monitored in the ED until his is able to ambulate and then will be discharge to the [facility]. 9:40 AM- The patient's breathalyzer was 0.00, though he continues to behave as though intoxicated. Plan for labs including CBC, basic metabolic panel, lipase, liver enzymes, and coagulation, and head CT to further evaluate patient's condition. 10:30 AM- The patient's CT shows cerebellar atrophy consistent with alcohol abuse but no acute findings. Labs are indicative of slight electrolyte abnormalities but no etiology of his symptoms. It is unclear what his baseline is. I will contact the [facility] to determine baseline. 10:42 AM- I consulted the [facility] who confirms his current stat is not his baseline. He usually is active, able to ride a bike and camp, and walks with a normal gait. He will be admitted for further evaluation. 10:50 AM- I spoke with the hospitalist service regarding admission for this patient. Dr. Papo Monaco will be the admitting physician. MRI ordered to evaluate cerebellar disfunction or possible stroke. I will consult with neurology. (Alexis Araya) - Data Points Laboratory Results: Laboratory Results 06/13/17 09:37 06/13/17 06/13/17 09:50 09:37 PT 14.4 SEC SEC (12.0-15.0) INR 1.10 (0.83-1.16) APTT 33.3 SEC SEC (23.0-38.0) Sodium 138 mEq/L mEq/L (135-145) Potassium 3.2 mEq/L L mEq/L (3.5-5.2) Chloride 102 mEq/L mEq/L (97-110) Carbon Dioxide 22 mEq/l mEq/l (22-31) Anion Gap 14 mEq/L mEq/L (8-16) BUN 47 mg/dL H mg/dL (7-23) Creatinine 1.5 mg/dL H mg/dL (0.7-1.3) Estimated GFR 49 Glucose 103 mg/dL H mg/dL (70-100) Calcium 9.7 mg/dL mg/dL (8.5-10.4) Total Bilirubin 1.0 mg/dL mg/dL (0.1-1.4) Conjugated Bilirubin 0.7 mg/dL H mg/dL (0.0-0.5) Unconjugated Bilirubin 0.3 mg/dL mg/dL (0.0-1.1) AST 51 IU/L IU/L (17-59) ALT 44 IU/L IU/L (21-72) Alkaline Phosphatase 90 IU/L IU/L (38-126) Total Protein 6.6 g/dL g/dL (6.3-8.2) Albumin 3.0 g/dL L g/dL (3.5-5.0) Lipase 14 IU/L L IU/L (23-300) Departure - Departure Disposition: [facility] Acute Clinical Impression: Unable to ambulate, unable to speak Condition: Fair Report Scribed for: Alexis Araya Report Scribed by: Suzanne Mooney Date of Report: 06/13/17 Time of Report: 09:51
[2017-06-13 09:52] LABS: PLATELET COUNT 131 10^3/uL (150-400)
[2017-06-13 10:01] LABS: INR 1.1 (0.83-1.16); PROTIME(PATIENT) 14.4 SEC (12.0-15.0)
[2017-06-13] MEDS ORDERED: NS 1,000 ML IV ONE (11:46)
--- NOTE | 2017-06-13 12:59 | ASMTCMCOM ---
CM Note CM Note Notes: Pt presented to the ED via EMS after having a mechanical fall at the [facility] this morning. Pt had stayed there overnight. Pt complained of shoulder pain after the fall and after a shoulder xray and head CT were negative for acute findings, pt was going to be discharged but pt was unable to walk or talk coherently. Pt's BAL is 0. Pt continues to present with incoherent speech, decreased alertness and ability to respond, a shuffled gait and is not able to provide medical history so unable to complete MRI form at this time. Pt admitted for continued monitoring and hoping patient's cognition improves in order to complete MRI form. It is unclear whether he had a withdrawal seizure but providers would think pt's postictal presentation would have cleared by now if he did. This CM called [facility] to see if they had any past medical history on patient. Patient has never been seen there but has a new patient appt scheduled for this 06/15/17. Spoke with [facility] staff to see if they had any PMH or info. on patient. Pt has never been enrolled with their services but patient has been at their detox center several times. This CM met patient in the ED on 06/06/18 and he was able to talk, walk, ride his bike, and carry his large backpack and camping gear. Pt stated he had completed the [facility] and was referred to the [facility] system but that he prefers to camp outside. Pt was seen at [facility] mid-December per ED MD's ANGELO search on pt's first visit to [facility] on 01/05/18. Pt has also been to the [facility] in the past (labs were recently drawn 06/10/17); spoke with medical staff ([phone]) there and they said they can't release information without his consent/VARSHA. Staff said that they do not ask a full PMH during intake anyway so it is unknown whether they have any valuable info. Exact DC needs unknown. CM to follow. Date Signed: 06/13/2017 12:58 PM Electronically Signed By:Shanita Lopez RN
[2017-06-13] MEDS: THIAMINE HCL 500 MG in NS 500 ML IV SCH ×2 (13:24→22:16)
[2017-06-13] MEDS ORDERED: NS 2,400 ML IV ONE (16:14)
--- NOTE | 2017-06-13 16:18 | PDGENHP ---
History and Physical History and Physical: CC: Patient comes to the ER having fallen with shoulder pain HISTORY: This patient who has a history of alcoholism has been to our ER several times just recently with falls and injuries including complaints of showed bilateral shoulder pain. He was for seen for the 1st time ever at our ER here in December 2016 sent over from the alcohol recovery center after having had a couple of alcohol withdrawal seizures. It is not clear to me how much or if at all he has been drinking recently but he was apparently outside the alcohol recovery center today when he fell to the ground on a concrete sidewalk and complained again of shoulder pain. The staff there called for paramedics and he was transported to the ER here complaining of shoulder pain. The patient is unable to provide any history to me now at this point due to altered mentation, which is much worse today than in the past and worse now than when he was in the ER today. Reviewing his ER chart however in a he has come here for most of his recent ER visits with reasonably good mentation able to have a fairly normal conversation other than 1 time when he reportedly had seizures. Today he was noted to be fairly confused. In the ER it seems that they were concerned today that he had acute changes in his cerebellar function as he was falling and had an abnormal cerebellar exam today. However quite notable is that he has had numerous falls with injury recently and has had previous ER visits so that I do not think his ataxia is necessarily new at this point but probably worsening. Other than a complaint of bilateral shoulder pain not able to really get any other acute history from the patient or the ER notes. The patient was repeat reportedly outside the alcohol recovery center when he fell today, is not clear to me whether he was visiting therefore a rehabilitation therapy session or had some other more acute issue going on related to alcohol. The patient apparently has had previous shoulder surgeries but I do not at this time no any of the details of those surgeries they were done elsewhere and I can 't tell where. ROS: A comprehensive 10 system review revealed no other significant findings PAST MEDICAL HISTORY: Alcoholism Alcohol withdrawal seizure Previous shoulder surgeries FAMILY MEDICAL HISTORY: Unknown, patient able to tell us SOCIAL HISTORY: As best I can tell he is homeless, known to drink alcohol heavily uncertain whether he is continuing to drink now or had stopped sometime in the recent past Unknown if he uses any street drugs MEDICATIONS: The patients list has been reconciled by our clinical pharmacist in the EMR. I have reviewed the list and ordered appropriate medicines. PHYSICAL EXAMINATION: Vital Signs: He has been tachycardic with sinus rhythm around 110-115 since arrival here, blood pressures have been good, respirations okay, highest temperature so far 37.7 Flat Finisher: Sinus tachycardia from ER Examination: General: It is awake but obtunded, mumbling incoherently, follows occasional commands for opening his mouth or something simple like that but basic otherwise is extremely confused and unable to communicate, quite weak, no tremor Skin: warm, dry, good color, no rash HEENT: Has overall poor dentition, but no obvious acute sores are infections, mouth is dry but otherwise normal Neck: no mass or jvd Resps: relaxed Lungs: clear breath sounds Heart: regular, no murmur audible but heart tones very quiet Abdomen: soft, nondistended, nontender, +BS, no mass Upper Extremities: Right shoulder has a very large effusion with warmth and clearly tenderness and almost no range of motion due to pain; left shoulder has been incised for a similar infusion in the ER apparently they report having removed 50 cc of purulent fluid. There is a 0.7 cm incision over the anterior lateral aspect of the left shoulder from which I was able to express approximately 100 cc of brown purulent fluid though this fluid continues to flow from the wound even after I have expressed all this fluid. Again the left shoulder like the right has almost no range of motion due to severe pain with movement. Still leave the upper extremities fairly unremarkable except for a couple of small recent abrasions. Lower Extremities: There is a significant blood blister between toes 4 and 5 on the right foot and a couple of other abrasions around the feet and ankles No Bleeding or bruising IV site: 1 peripheral IV in each arm with no abnormal findings there LABORATORY DATA: Chemistry panel with a creatinine of 1.5 with the recent baseline is 0.9, potassium a little bit low at 3.2 CBC with a white blood cell count 7.7 but with greater than 1000 bands, mild anemia and thrombocytopenia present and an INR is 1.1 Microbiology data: The initial study of the fluid from his left shoulder from the ER shows gram- positive cocci in chains and along with white blood cells RADIOLOGY STUDIES: X-rays of the right shoulder show evidence of hardware left over from previous surgery otherwise unremarkable No x-rays were done the left shoulder There is a CT scan of the head showing some diffuse atrophy but no acute changes ASSESSMENT: -acute severe sepsis with organ failure -acute bilateral septic arthritis of shoulders is highly suspected with streptococcal infection by g stain -acute encephalopathy * Suspect mostly due to sepsis however could not rule out Wernicke-Korsakoff syndrome encephalopathy at this time -acute renal failure due to sepsis -severe ataxia, with fall today and several recent falls in the outpatient setting with ER visits * Again Wernicke-Korsakoff syndrome is highly suspected but he may have a in alcohol cerebellar ataxia or other causes as well * Ongoing high fall risk with high risk of further injuries -hypokalemia -alcoholism PLANS: -as the left shoulder had been incised I expressed much pus as I could in the time available to me and this was I estimate well over 100 cc but fluid is still coming from the wound; I believe he is going to need both shoulders surgically cleaned out and followed very closely for resolution of the infection along with antibiotics -I ordered sepsis protocol at this time with further laboratory study, fluid boluses, blood cultures; will follow up on the laboratory data and the hemodynamic response to fluid resuscitation -I have ordered stat antibiotics with vancomycin and Zosyn -I asked Dr. Fraga to come to the room and examined the patient with her at the bedside -Dr. Fraga has hold the [employer] orthopedist [place] the patient he will be coming by shortly; NPO for now -will need to follow renal function very closely -stat doses of thiamin ordered by the [facility] Korsakoff syndrome protocol; will need to follow his neurologic function very closely -will order echocardiogram to assess valve function and anatomy and look for vegetations -this patient has had a whole withdrawal seizures in the past so I have ordered seizure precautions. Will treat need to trying get information from the alcohol recovery center in terms of what we know about whether he has been drinking recently. He could potentially have alcohol withdrawal here. He will need to be monitored closely for alcohol withdrawal syndromes -fall risk precautions -DVT prophylaxis I have reviewed the patient's case in detail with Dr. Yumiko Fraga I have reviewed the patient's past medical records as part of this assessment, including previous hospital records including several ER visits with imaging studies and laboratory data and physicians notes
[2017-06-13] MEDS ORDERED: PIPERACILLIN/TAZO 4.5 GM/DEX 100 ML IV SCH ×2 (16:30→18:00)
[2017-06-13] MEDS ORDERED: ONDANSETRON 4 MG/2 ML VIAL IVP PRN (16:38)
[2017-06-13 16:57] LABS: PLATELET COUNT 114 10^3/uL (150-400)
[2017-06-13] MEDS ORDERED: VANCOMYCIN 1.5 GM in D5W 250 ML IV SCH (17:00)
--- NOTE | 2017-06-13 17:34 | PDMN ---
Medical Necessity Medical necessity: Pt meets IP criteria per MD; est los >2 mn for eval/tx of severe sepsis w/organ failure, acute bilateral septic arthritis of shoulders, acute encephalopathy, severe ataxia & hypokalemia; admit for further workup/ monitoring, Surgery/ID consult, IVFs, IV Thiamine, IV abx & therapies; hx alcoholism, alcohol withdrawl seizures; per H&P & order 06/13/17
[2017-06-13] MEDS ORDERED: PROTOCOL POTASSIUM 1 DOSE MISC PRN (17:43)
[2017-06-13] MEDS: POTASSIUM Cl (KCl) 100 ML IV SCH ×4 (18:14→21:34)
[2017-06-13] MEDS: NS 1,000 ML IV SCH (18:29)
[2017-06-13 19:38] LABS: HEPATITIS B SURFACE ANTIGEN NEGATIVE (NEGATIVE)
[2017-06-13 19:55] LABS: HEPATITIS C ANTIBODY TOTAL NEGATIVE (NEGATIVE); HIV TYPE 1 AND 2 NEGATIVE (NEGATIVE)
--- NOTE | 2017-06-13 20:09 | GCON ---
[f rep st] CONSULTATION INFECTIOUS DISEASE CONSULTATION DATE OF CONSULTATION: 06/13/2017 REFERRING PHYSICIAN: Mingo Monaco MD REASON FOR CONSULTATION: Sepsis, likely due to bilateral shoulder septic arthritis versus abscess due to Streptococcus. HISTORY OF PRESENT ILLNESS: A 52-year-old male, who by review of medical records, is a chronic alcohol abuser and has multiple recent visits to the [facility] emergency room 05/06/2017, 05/09/2017, , , and today for a variety of reasons, most recently after several falls. Today, in the emergency room, he was at the [facility] and fell and subsequently was brought to the emergency room by ambulance for further evaluation. In the emergency room, patient was found to have a swollen shoulder and underwent superficial aspiration with Gram stain showing GPCs in chains. The patient was admitted by hospitalist and started on IV vancomycin. Blood cultures were taken prior to initiating IV antibiotics. Patient does endorse bilateral shoulder pain, left greater than right, otherwise is a difficult historian due to delirium from sepsis. PAST MEDICAL HISTORY: Only thing available is chronic alcohol abuse. It appears that he has had prior shoulder surgeries on exam. SOCIAL HISTORY: Single, not employed, [place] the [address], abuses alcohol. FAMILY HISTORY: Not obtainable due to confusion. ALLERGIES: Documented in his chart is sulfa. MEDICATIONS: Vancomycin 1.5 g IV daily. Also on fluids, thiamin, subcu heparin. REVIEW OF SYSTEMS: Review of records shows he did not endorse other complaints other than shoulder pain. PHYSICAL EXAMINATION: VITAL SIGNS: BP 124/96, HR 108, saturation 91% on room air, T 37.7. GENERAL: This is a disheveled male lying in bed in no respiratory distress. HEENT: Injected conjunctivae. Pupils are reactive bilaterally. No jaundice. OROPHARYNX: Very dry mucous membranes. Poor dentition. Tongue midline. NECK: Supple. No meningismus. CARDIOVASCULAR: Tachycardic, possible suggestion of systolic murmur. CHEST: Clear to auscultation bilaterally. ABDOMEN: Soft, nontender. EXTREMITIES: Patient has extreme limited range of motion of his bilateral shoulders with severe pain with motion. He had purulence draining laterally from the left shoulder and a softball sized swelling over his right shoulder that was warm to touch and tender to palpation. His hips, knees, ankles, wrist, and elbows had intact range of motion. SKIN: Patient had scattered excoriations throughout, including his bilateral knees. NEUROLOGIC: The patient is tremulous, is following simple commands. Full neuro exam is difficult. LABORATORY DATA: White count 7.7, hematocrit 36, platelets 131, 48% neutrophils , 21% bands, 8% lymphocytes, 23% monocytes. Creatinine 1.5. LFTs normal except a slightly elevated conjugated bilirubin 0.5. Lipase 14. Drug screen is pending. INR 1.1. Blood cultures are pending. IMAGING: The patient underwent a head CT without contrast that showed no acute intracranial findings with diffuse cerebral atrophy and chronic microvascular ischemic gliosis. ASSESSMENT AND PLAN: This is a 52-year-old male with low-grade fever, confusion , evidence of bilateral inflammation of bilateral shoulders, unclear depth abscess versus septic arthritis bilaterally with initial Gram stain of the left showing GPCs in chains. Although lactate is negative, hemodynamics are consistent with sepsis, likely due to a process at shoulder. Further strongly suspect simultaneous bacteremia and we will continue to follow blood cultures. Start empiric vancomycin, although unlikely that this is enterococcal. We will await further ID and likely narrow to Rocephin as soon as additional information is available. Thank you for this consultation. Time 75 min >50% time spent with review of records, coordination of care. The patient was discussed with Dr. Aponte, who will consult for therapeutics, and Dr. Monaco, who is managing medical components of patient's care. /[id number]/MODL MTDD
[2017-06-13] MEDS ORDERED: ACETAMINOPHEN 650 MG/20.3 ML UDCUP PO PRN (20:27)
[2017-06-13] MEDS: ACETAMINOPHEN 650 MG SUPP PR PRN (21:15)
[2017-06-13] MEDS: POTASSIUM Cl (KCl) 10 MEQ in D5W 100 ML IV SCH ×2 (22:50→23:59)
[2017-06-14] MEDS ORDERED: LIDO/EPI 2%** Not for Epidural 20 ML MDV IF ONE (00:30)
[2017-06-14] MEDS: POTASSIUM Cl (KCl) 10 MEQ in D5W 100 ML IV SCH ×6 (01:48→13:51)
[2017-06-14] MEDS: NS 1,000 ML IV SCH (04:59)
[2017-06-14] MEDS: THIAMINE HCL 500 MG in NS 500 ML IV SCH ×2 (05:00→13:49)
[2017-06-14 05:36] LABS: PLATELET COUNT 118 10^3/uL (150-400)
[2017-06-14] MEDS: HEPARIN 5,000 UNIT/0.5 ML INJ SC SCH ×2 (07:48→14:06)
[2017-06-14] MEDS ORDERED: POTASSIUM Cl (KCl) 100 ML IV SCH (08:15)
[2017-06-14] MEDS ORDERED: PROTOCOL MAGNESIUM 1 DOSE IV PRN (08:37)
--- NOTE | 2017-06-14 09:01 | GCON ---
[f rep st] CONSULTATION REFERRING PHYSICIAN: Dr. Araya/Dr. Fraga REASON FOR CONSULTATION: Bilateral shoulder swelling, possible infection. HISTORY OF PRESENT ILLNESS: This patient is a 52-year-old male, presented to the ER today after [facility], when he fell on the concrete. This was witnessed by the staff, onto his left shoulder and he was complaining about shoulder pain but had no other complaints. ER re ports that he came in by ambulance. He was very intoxicated. I was consulted by the ID staff about the findings in his shoulder as well as by the ER staff. An aspiration in the left shoulder was perf ormed with aspiration of a purulent material. The right shoulder was not aspirated. There was some swelling of the right shoulder. I saw the patient in his room on the floor. He was somewhat confuse d, mumbling however, he did indicate he had some pain in his left shoulder. REVIEW OF SYSTEMS: A 10-point review of systems was performed is negative, except for that mentioned above. PHYSICAL EXAM: GENERAL: The patient is alert and oriented to name. He has to be prompted. MUSCULO SKELETAL: Left shoulder, there is a small incision over the left shoulder with drainage of purulent material. Pressure on this area produces pain. There is diffuse swelling of the right shoulder. Th ere is a fluctuant area over the anterior right shoulder. I was notified by the ID staff that this i s a potential abscess. This was noted by the ER staff, and palpation of this area appears to cause s ome pain, however the patient is unable to verbalize this. LABORATORY DATA: The patient's white count was 7.77. Microbiology of the Gram stain of the shoulder aspiration yielded gram-positive cocci in chains. IMAGING: X-ray of the right shoulder is negative. ASSESSMENT/PLAN: The patient appears to have an abscess in the left shoulder. He, by exam, appears to have an abscess in the right shoulder. In speaking with Dr. Fraga, patient appears to be septic. It is unclear if he is stable for operative procedure at this moment. We discussed that at bedside and he may be a temporizing measure to decompress the abscess. I recommend CT of bilateral shoulder s with IV contrast to determine the exact site of abscess of both shoulders. I will tentatively plan on taking the patient to the operating room tomorrow afternoon, pending the review of his CT scans. DESCRIPTION OF PROCEDURE: Verbal consent was obtained. The bilateral shoulders were prepped and nate ped in the sterile fashion. 2% lidocaine with epinephrine was infiltrated. Left shoulder prior inci daniel was extended by a couple cm, straight down to the abscess cavity, purulent material was expresse d. This was irrigated copiously with sterile saline and then packed with iodoform packing strips. S terile dressing was applied. Over the anterior right shoulder, a small incision was made. No purule nt material was expressed from this area. This was irrigated with sterile saline. Decision was made to loosely close this area. No purulent material was expressed from here. This was closed with a 3 -0 nylon suture. A sterile dressing was applied to this as well. /[id number]/MODL
--- NOTE | 2017-06-14 09:03 | HOSPPROG ---
Hospitalist Progress Note Assessment/Plan: DIAGNOSES: -acute severe sepsis with organ failure * Sepsis notably improved since last evening, still a bit tachycardic and with significant bandemia and fever is present -streptococcal bacteremia, final identification pending -acute bilateral septic arthritis of shoulders with streptococcal infection by g stain -acute encephalopathy * Appears improved since yesterday with better alertness and attention, still hard to assess his mentation fully but seems better oriented * Suspect mostly due to sepsis however could not rule out Wernicke-Korsakoff syndrome encephalopathy at this time -acute renal failure due to sepsis * Improving in near baseline at this point -severe ataxia, with fall on day of admission and several recent injury falls in the outpatient setting with ER visits * Again Wernicke-Korsakoff syndrome is highly suspected but he may have a in alcohol related cerebellar ataxia or other causes as well * Ongoing high fall risk with high risk of further injuries -hypokalemia * Improving, needing ongoing replacement -alcoholism PLANS: -continue IV antibiotics follow cultures for complete identification of organisms -continue hydration -CT scan of shoulders now -anticipate likely trip to OR for further washout of shoulders -NPO for the moment until decision about OR -continue high dose thiamin for now and will add multivitamins -fall risk precautions -begin PT and OT -electrolyte replacements -will trying get more information from the alcohol recovery center regarding his recent alcohol use, will watch carefully for any signs of potential alcohol withdrawal starting up -once we have shoulder situation stabilized will get MRI of brain to see if any other abnormalities pertinent to his ataxia and his speech difficulties SUBJECTIVE: This morning the patient has admits to bilateral shoulder pain, though due to inability for him to speak clearly am unable to really converse with him well and not really able to clarify any other symptoms he may have He is able to indicate to us that he is hungry and thirsty OBJECTIVE Vitals reviewed: Current temperature 38 degrees, pulse still a bit fast in the mid 90s but has slow down from yesterday, blood pressure is good respirations look relaxed Manager Transfusion, my review: Sinus Exam: More alert today alert, and seems probably better oriented but neurologic exam is difficult due to inability of him to speak clearly. The inability to speak clearly appears likely due to weakness and dryness in his mouth, hard to rule out a more neurologic expressive aphasia but I do not think this is likely present. He is moving all of his extremities though again minimal movement of his shoulders due to pain; no tremor, no anxiety, does not seem really confused , is quite attentive to me in the nursing staff and appears to understand what I am saying him as he is able as a nod his head yes and no skin warm dry color ok; the abrasions on his arms lower legs and ankles look okay today with no sign of infection resps not labored lungs clear BSs heart regular abd soft nondistended nontender, bowel sounds present limbs both shoulders were further incised and drained yesterday at the bedside by Dr. Aponte; there is still drainage coming from each shoulder with some erythema and warmth though much less swelling, there is minimal range of motion of both shoulders due to pain but it is slightly better in the right shoulder today than last evening iv site ok Microbiology data: Strep growing from blood culture not fully identified, g stain on the left shoulder fluid has g positive cocci in chains Laboratory data: Now 3300 bands, stable mild anemia and thrombocytopenia Renal function improved now close to baseline, potassium still low after some replacement last night, Liver enzymes and TSH normal HIV, hepatitis C studies are negative, hepatitis-B studies pending Objective: Vital Signs Temp Pulse Resp BP Pulse Ox 38 C 92 20 141/94 H 93 06/14/17 07:18 06/14/17 07:18 06/14/17 07:18 06/14/17 07:18 06/14/17 07:18 Microbiology 06/13/17 16:55 Blood Panel (PCR) - Final Blood Streptococcus Laboratory Results 06/14/17 05:23 06/14/17 05:23 06/13/17 06/14/17 06/15/17 06:59 06:59 06:59 Intake Total 3350 Output Total 1850 Balance 1500 PT 14.4 SEC (12.0-15.0) 06/13/17 09:50 INR 1.10 (0.83-1.16) 06/13/17 09:50 ICD10 Worksheet Patient Problems: Problems Problem Status Onset Unable to ambulate Acute Acute alcohol intoxication Acute Closed head injury Acute Laceration of eyebrow, right, complicated Acute
--- NOTE | 2017-06-14 09:24 | PCMIDPN ---
Assessment/Plan: #Sepsis due to streptococcal bacteremia with B shoulder infection, with a suggestion of embolic lesions B great toes, concern for endocarditis. Improvement overnight, more interactive (oriented today), improved hemodynamics. Inappropriately low wbc, although large portion of bands. --dc vancomycin --start ceftriaxone 2gm IV daily. Sl elevated bili on admit now resolved, likely due to sepsis --repeat blood cx after 48 hours antibiotics --appreciate ortho, getting imaging R shoulder --TTE in light of bacteremia, multifocal disease and possible emboli lesions to eval for endocarditis #ARF : resolved meds vancomycin 1.5gm IV daily Microbiology 06/13/17 16:55 Blood Cx 2/2 Streptococcus 06/13/17 09:14 Shoulder - Swab Wound Culture - Preliminary Strep Dysgalactiae Grp C/G HIV, HCV negative Subjective: whispering responses but oriented x 4 B shoulder pain Objective: Vital Signs Temp Pulse Resp BP Pulse Ox 38 C 92 20 141/94 H 93 06/14/17 07:18 06/14/17 07:18 06/14/17 07:18 06/14/17 07:18 06/14/17 07:18 Microbiology 06/13/17 16:55 Blood Panel (PCR) - Final Blood Streptococcus Laboratory Results 06/14/17 05:23 06/14/17 05:23 06/13/17 06/14/17 06/15/17 05:59 05:59 05:59 Intake Total 3350 Output Total 1850 Balance 1500 - Physical Exam General Appearance: alert, other (discheveled ) EENT: pale conjunctiva, dry mucous membranes, poor dentition, No scleral icterus Respiratory: lungs clear, No accessory muscle use Neck: supple Cardiac/Chest: regular rate, rhythm Extremities: pedal edema (mild), other (scattered excoriations) Abdomen: non-tender, soft Skin: embolic lesions (possible B great toes) Neuro/Psych: alert, oriented x 3 - Line/s PIV Lines: other (R forearm), No drainage, No erythema - Time Spent With Patient Time Spent with Patient: greater than 35 minutes (reviewed with Dr. Monaco and Dr. Aponte) Time Spent with Patient: Greater than 35 minutes spent on this patients care, greater than 50% of time spent counseling, educating, and coordinating care regarding the above mentioned plan. ICD10 Worksheet Patient Problems: Problems Problem Status Onset Unable to ambulate Acute Acute alcohol intoxication Acute Closed head injury Acute Laceration of eyebrow, right, complicated Acute
[2017-06-14] MEDS ORDERED: IOPAMIDOL (ISOVUE-300) 100 ML BTL ONE (10:08)
[2017-06-14] MEDS: cefTRIAXone 2 GM in STERILE WATER INJ 20 ML IV SCH (11:57)
--- NOTE | 2017-06-14 14:10 | ECHO ---
[email or web address] [address] [address] Main: [phone] Fax: Transthoracic Echocardiogram Name: MAYURI WETZEL MR#: [id number] Study Date: 06/14/2017 Study Time: 10:58 AM Date of : 1965 Age: 52 year(s) Height: 172.7 cm (68 in.) Weight: 81.65 kg (180 lb.) BSA: 1.95 m2 Gender: Male Examination: Echo Indication: Streptococcus bacteremia, embolic lesions LE, Eval for Endocarditis Image Quality: Contrast: Requested by: Yumiko Fraga BP: 141 mmHg/94 mmHg Heart Rate: Rhythm: Indication: Streptococcus bacteremia, embolic lesions LE, Eval for Endocarditis Procedure Staff Extension Edger: Dominique Harrington RD Reading Physician: Kayla Arana MD Requesting Provider: Conclusions: Normal size left ventricle. Low normal left ventricular systolic function. The ejection fraction is visually estimated to be 50 %. No regional wall motion abnormality. Normal size right ventricle. Normal RV function. The left atrium is moderately dilated. Mild mitral valve regurgitation is present. Nonspecific mitral valve thickening. There is no previous echocardiogram for comparison. No obvious valvular vegetation. Consider DURAN if ongoing clinical suspicion for endocarditis. Measurements: Chambers Valvular Assessment AV/MV Valvular Assessment TV/PV Normal Normal Normal Name Value Range Name Value Range Name Value Range Ao Lorena (2D): 3.5 cm (1.4 cm-2.6 AV Vmax: 1.38 m/s (1 m/s-1.7 TR Vmax: 2.48 mm/s ( - ) cm) m/s) TR PGmax: 25 mmHg ( - ) IVSd (2D): 1.0 cm (0.6 cm-1.1 AV maxP mmHg ( - ) syst. PAP: 35 mmHg ( - ) cm) AV meanP mmHg ( - ) PV Vmax: 0.99 m/s (0.6 m/s-0.9 LVDd (2D): 5.2 cm (4.2 cm-5.9 LVOT Vmax: 1.08 m/s (0.7 m/s-1.1 m/s) cm) m/s) PV PGmax: 4 mmHg ( - ) LVDs (2D): 3.1 cm (2.1 cm-4 ROSEMARY (Vmax): 2.7 cm2 ( - ) cm) ROSEMARY (VTI): 2.7 cm ( - ) LVPWd (2D): 0.9 cm (0.6 cm-1 MV E Vmax: 0.74 m/s ( - ) cm) MV A Vmax: 0.58 m/s ( - ) LVOTd 2.1 cm 2.1 cm mm MV E/A: 1.28 ( - ) LVEF (BP): 48 % (>=55 %) MV PHT: 0.055 s ( - ) Visual EF: 50 % MVA (PHT): 4.0 s ( - ) Patient: MAYURI WETZEL Study Date: 06/14/2017 Page 1 of 2 10:58 AM RVDd(2D): 2.9 cm (1.9 cm-3.8 cmmm) Continued Measurements: Chambers Valvular Assessment AV/MV Valvular Assessment TV/PV Name Value Name Value Name Value LADs: 3.7 cm MV DecTime: 190 m/s CVP (est.): 10 mmHg LADs Lon.6 cm MV E/E' Septal: 6.80 LA Area: 19.7 cm2 MV E/E' Lateral: 5.00 LA Volume: 79 ml LA Volume Index: 40.5 ml/m2 RA Area: 21.8 cm2 Additional Vessels Name Value Ao Ascendin.2 cm Inferior Vena Cava: 2.7 cm Findings: Left Ventricle: Normal size left ventricle. Low normal left ventricular systolic function. The ejection fraction is visually estimated to be 50 %. No regional wall motion abnormality. Right Ventricle: Normal size right ventricle. Normal RV function. Left Atrium: The left atrium is moderately dilated. Right Atrium: The right atrium is normal in size. Mitral Valve: Mild mitral valve regurgitation is present. No mitral stenosis is present. There is no mitral valve vegetation. Nonspecific mitral valve thickening. Aortic Valve: The aortic valve is normal in appearance. There is no aortic valve regurgitation. No aortic valve stenosis is present. There is no aortic valve vegetation. Tricuspid Valve: The tricuspid valve appears normal. Trivial tricuspid valve regurgitation. Right ventricular systolic pressure measures 35mmHg. No tricuspid valve vegetation. Pulmonic Valve: The pulmonic valve is normal in appearance and function. There is no pulmonary valve vegetation. IVC: The IVC is dilated. Pericardium: No pericardial effusion. No pleural effusion. (No Signature Object) Patient: MAYURI WETZEL Study Date: 06/14/2017 Page 2 of 2 10:58 AM [id number]
--- NOTE | 2017-06-14 15:46 | SOAPPROG ---
SOAP Progress Note Assessment/Plan: Assessment: R shoulder abscess and septic shoulder joint, L shoulder abscess -CT scan with contrast of B/L shoulders reviewed. Images show large R shoulder fluid collection extending to shoulder joint. There is a more superficial L shoulder fluid collection that has been drained. In addition, images show severe end stage OA of B/L shoulders. Plan: -With a large R shoulder fluid collection extending into jt indicating likely abscess and septic joint, I would recommend I&D. Plan on surgery this evening. However, I have communicated with the pts nurse to contact the primary medical team to ascertain whether the patient is stable for general anesthesia and surgery. He has pos blood cx. Currently on 3L oxygen. The CT scan shows a poss fluid collection adjacent to the C-spine. If the primary service feels that this fluid collection is of concern, I woud recommend consultation with the spine team. 06/14/17 15:39 06/14/17 15:53 Subjective: Pt seen this afternoon. His mental status and improve somewhat and he was able to tell me that he has had shoulder pain for a long time. I recommended CT with contrast for both shoulders last night to determine site of possible infxn and to assess presence of septic jt. Objective: Vital Signs Temp Pulse Resp BP Pulse Ox 37.3 C 86 16 169/92 H 90 L 06/14/17 15:14 06/14/17 15:14 06/14/17 15:14 06/14/17 15:14 06/14/17 15:14 Microbiology 06/13/17 16:55 Blood Panel (PCR) - Final Blood Streptococcus Laboratory Results 06/14/17 05:23 06/14/17 05:23 06/13/17 06/14/17 06/15/17 05:59 05:59 05:59 Intake Total 3350 Output Total 1850 1225 Balance 1500 -1225 PT 14.4 SEC (12.0-15.0) 06/13/17 09:50 INR 1.10 (0.83-1.16) 06/13/17 09:50 Gen: lying in bed B/L shoulder -dressings in place with mild serosang breakthrough -passive motion of both shoulders produces pain ICD10 Worksheet Patient Problems: Problems Problem Status Onset Unable to ambulate Acute Acute alcohol intoxication Acute Closed head injury Acute Laceration of eyebrow, right, complicated Acute
[2017-06-14] MEDS ORDERED: BUPIVACAINE/EPI 0.5% 30 ML SDV ONE ×2 (18:39→21:40)
[2017-06-14] MEDS ORDERED: POLYMYXIN B SULFATE 500,000 UNIT/10 ML SYR IRR ONE ×2 (18:40→21:40)
[2017-06-14] MEDS ORDERED: BACITRACIN 50,000 UNITS/10 ML SYR IRR ONE (18:40)
[2017-06-14] MEDS ORDERED: LR 1,000 ML IV ONE (19:27)
--- NOTE | 2017-06-14 20:46 | PDHPUP ---
History & Physical Update H&P update statement: This history and physical update is based on an assessment of the patient which was completed after admission or registration (within 24 hours), but prior to the surgery/procedure. H&P update: H&P reviewed & patient examined, changes noted (CT scan performed showing large R shoulder abscess communicating with joint)
[2017-06-14] MEDS ORDERED: PROPOFOL 200 MG/20 ML VIAL ONE (20:58)
[2017-06-14] MEDS ORDERED: RANITIDINE 50 MG/2 ML VIAL ONE (21:01)
[2017-06-14] MEDS ORDERED: ONDANSETRON 4 MG/2 ML VIAL ONE (21:01)
[2017-06-14] MEDS ORDERED: VANCOMYCIN 1 GM VIAL ONE (21:27)
[2017-06-14] MEDS ORDERED: fentaNYL 100 MCG/2 ML INJ ONE (21:31)
[2017-06-14] MEDS ORDERED: fentaNYL 100 MCG/2 ML INJ IVP PRN (22:04)
[2017-06-14] MEDS ORDERED: ONDANSETRON 4 MG/2 ML VIAL IVP PRN (22:04)
[2017-06-14] MEDS ORDERED: NALOXONE HCL 0.4 MG/ML INJ IVP PRN (22:04)
--- NOTE | 2017-06-14 22:07 | PDANEPAE ---
ANE History of Present Illness Emergent I&D Shoulders ANE Past Medical History - Pulmonary History Hx Oxygen in Use at Home: No Hx Sleep Apnea: No Sleep Apnea Screening Result - Last Documented: Positive - Endocrine History Hx Diabetes: No ANE Review of Systems Review of Systems: - Exercise capacity Exercise capacity: unable to assess ANE Patient History - Allergies Allergies/Adverse Reactions: Sulfa (Sulfonamide Antibiotics) Allergy (Verified 06/09/17 16:48) - Home Medications Home Medications: NK [No Known Home Meds] 06/06/17 [Last Taken Unknown] - NPO status NPO Since - Liquids (Date): 06/13/17 NPO Since - Solids (Date): 06/13/17 - Smoking Hx Smoking Status: Current every day smoker ANE Labs/Vital Signs - Labs Result Diagrams: 06/14/17 05:23 06/14/17 05:23 - Vital Signs Blood Pressure: 136/77 Heart Rate: 86 Respiratory Rate: 16 O2 Sat (%): 91 Height: 172.72 cm Weight: 82 kg ANE Physical Exam - Airway Neck exam: FROM Mallampati Score: Class 2 Mouth exam: poor dentition - Pulmonary Pulmonary: clear to auscultation - Cardiovascular Cardiovascular: tachycardia ANE Anesthesia Plan Anesthesia Plan: GA w LMA Urgent/Emergent Case: Edward conteh completed preop but documented later for safe timely pt care
--- NOTE | 2017-06-14 23:28 | POSTANESTH ---
Post Anesthetic Evaluation Cardiovascular Status: Normal, Stable Respiratory Status: Normal, Stable Level of Consciousness/Mental Status: Mildly Sleepy, Arousable Pain Control: Adequate, Prn Tx Ordered Nausea/Vomiting Control: Adequate, Prn Tx Ordered
[2017-06-15] MEDS: THIAMINE HCL 500 MG in NS 500 ML IV SCH ×3 (01:03→13:47)
[2017-06-15] MEDS: HEPARIN 5,000 UNIT/0.5 ML INJ SC SCH ×2 (01:05→08:04)
[2017-06-15] MEDS ORDERED: NS IV SCH (01:53)
[2017-06-15] MEDS ORDERED: POTASSIUM ACETATE IV SCH (01:53)
[2017-06-15] MEDS: POTASSIUM Cl (KCl) 10 MEQ in NS 100 ML IV SCH ×6 (02:25→21:51)
[2017-06-15] MEDS: hydrALAZINE 20 MG/ML VIAL IVP PRN ×2 (04:44→12:50)
--- NOTE | 2017-06-15 09:19 | SOAPPROG ---
SOAP Progress Note Assessment/Plan: Assessment: POD#1 s/p I&D B/L shoulders -abcesses communicated with B/L GH joints Plan: -DARRYL drains in place, will be managed by me -reinforce dressings as needed -abx -appreciate care of medical and ID teams 06/14/17 15:39 06/14/17 15:53 06/15/17 09:15 Subjective: Sleeping this morning. Opens eyes to name. No issues per nursing staff Objective: Vital Signs Temp Pulse Resp BP Pulse Ox 36.8 C 89 20 158/84 H 97 06/15/17 08:00 06/15/17 08:00 06/15/17 08:00 06/15/17 08:00 06/15/17 08:00 Microbiology 06/14/17 21:55 Gram Stain - Final Shoulder - Eswab 06/14/17 21:55 Mycobacterial Smear (ANDREW) - Final Shoulder - Eswab Mycobacterial Culture - Final 06/13/17 16:55 Blood Panel (PCR) - Final Blood Streptococcus Laboratory Results 06/14/17 05:23 06/15/17 01:15 06/14/17 06/15/17 06/16/17 05:59 05:59 05:59 Intake Total 3350 1600 368 Output Total 1850 1305 40 Balance 1500 295 328 PT 14.4 SEC (12.0-15.0) 06/13/17 09:50 INR 1.10 (0.83-1.16) 06/13/17 09:50 DARRYL drains since surgery R shoulder 75cc L shoulder 40cc B/L shoulder -dressings in place with mild serosang breakthrough R shoulder -serosang drainage from DARRYL's ICD10 Worksheet Patient Problems: Problems Problem Status Onset Unable to ambulate Acute Acute alcohol intoxication Acute Closed head injury Acute Laceration of eyebrow, right, complicated Acute
--- NOTE | 2017-06-15 09:41 | HOSPPROG ---
Hospitalist Progress Note Assessment/Plan: DIAGNOSES: -acute severe sepsis with organ failure * Sepsis notably improved since last evening, still a bit tachycardic and with significant bandemia and fever is present -streptococcal dysgalactiae bacteremia * Significant suspicion for endocarditis, nothing on TTE, given his mentation and overall picture would question the utility of DURAN, may be best to just treat him for full course since he will need a prolonged course of antibiotic for his joint infections either way -acute bilateral septic arthritis of shoulders with strep -acute encephalopathy * Today appears worse, likely due to the anesthesia from last night but will need to continue following * Suspect mostly due to sepsis however could not rule out Wernicke-Korsakoff syndrome encephalopathy at this time; however at this time will want to get MRI to make sure that there is not either stroke or brain abscess or other possible contributor intracranially -acute renal failure due to sepsis * Improving in near baseline at this point -severe ataxia, with fall on day of admission and several recent injury falls in the outpatient setting with ER visits * Again Wernicke-Korsakoff syndrome is highly suspected but he may have a in alcohol related cerebellar ataxia or other causes as well * Unable to assess at this time due to his mental status, ongoing high fall risk with high risk of further injuries -hypokalemia * Improving, needing ongoing replacement -alcoholism PLANS: -continue IV antibiotics with Rocephin at this time -continue hydration -MRI of brain today to be certain no abscess or stroke or other concerning features -continue high dose thiamin for now and will add multivitamins as he becomes able to swallow -fall risk precautions -begin PT and OT as he is able -electrolyte replacements -will trying get more information from the alcohol recovery center regarding his recent alcohol use, will watch carefully for any signs of potential alcohol withdrawal starting up Will review case again today with Infectious Disease and with Dr. 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: Sinus Exam: More currently notably less alert today not very interactive at all skin warm dry color ok; the abrasions on his arms lower legs and ankles look okay today with no sign of infection resps not labored lungs clear BSs heart regular abd soft nondistended nontender, bowel sounds present limbs both shoulders explored and irrigated in the OR last night, drains in place with serosanguineous fluid at this point much better than what was originally coming from the joints; the patient's mentation at this point precludes examination for pain in range of motion iv site ok Microbiology data: Strep dysgalactiae growing from all cultures at this point Laboratory data: Potassium remains low, Hepatitis B studies now back negative so all viral serologies are negative Echocardiogram with no vegetations seen though some nonspecific mitral valve thickening on transthoracic study, no other concerning findings Objective: Vital Signs Temp Pulse Resp BP Pulse Ox 36.8 C 89 20 158/84 H 97 06/15/17 08:00 06/15/17 08:00 06/15/17 08:00 06/15/17 08:00 06/15/17 08:00 Microbiology 06/14/17 21:55 Gram Stain - Final Shoulder - Eswab 06/14/17 21:55 Mycobacterial Smear (ANDREW) - Final Shoulder - Eswab Mycobacterial Culture - Final 06/13/17 16:55 Blood Panel (PCR) - Final Blood Streptococcus Laboratory Results 06/14/17 05:23 06/15/17 01:15 06/14/17 06/15/17 06/16/17 06:59 06:59 06:59 Intake Total 3350 1968 Output Total 1850 1305 40 Balance 1500 663 -40 PT 14.4 SEC (12.0-15.0) 06/13/17 09:50 INR 1.10 (0.83-1.16) 06/13/17 09:50 - Time Spent With Patient Time Spent with Patient: greater than 35 minutes Time Spent with Patient: Greater than 35 minutes spent on this patients care, greater than 50% of time spent counseling, educating, and coordinating care regarding the above mentioned plan. ICD10 Worksheet Patient Problems: Problems Problem Status Onset Unable to ambulate Acute Acute alcohol intoxication Acute Closed head injury Acute Laceration of eyebrow, right, complicated Acute
[2017-06-15] MEDS: cefTRIAXone 2 GM in STERILE WATER INJ 20 ML IV SCH (10:02)
--- NOTE | 2017-06-15 12:38 | ASMTCMCOM ---
CM Note CM Note Notes: SWer consulted with beside RN today regarding Pt's medical status. RN states that Pt. is very ill and may have to go to ICU at some point due to aspiration concerns. Notably, Pt. had bilateral shoulder surgeries on 06/14/17. Pt. to have an MRI of the brain today to try to assess more about his cognitive status. Should Proxy decision-maker need to be established, RN states that Pt. has mumbled that he has a "sister in [place]" and friends in [place]. States father is incarcerated in [place]. Await completion of PT, OT, and EGG BUYER evals to help direct d/c planning process. Due to Pt's Medicaid benefit, will likely need to do ULTC 100 when PT/OT consults come in. Date Signed: 06/15/2017 12:38 PM Electronically Signed By:Shanita Dickinson LCSW
[2017-06-15] MEDS: KETOROLAC 30 MG/1 ML SDV IVP SCH (13:46)
[2017-06-15] MEDS ORDERED: MAGNESIUM SULF 1 GM/DEXTROSE 100 ML IV ONE ×2 (16:00→21:45)
--- NOTE | 2017-06-15 16:22 | PCMIDPN ---
Assessment/Plan: Assessment: Group C strep bacteremia with bilateral involvement of shoulder joints. Status post washout. Patient is stable on ceftriaxone. Will continue this treatment and anticipated duration of 4 weeks from blood culture clearance. 2D echocardiogram is negative for vegetation on all viewed valves. Plan: 1. Continue IV ceftriaxone. 2. Follow up with repeat blood cultures. 3. Follow clinical course. 06/15/17 16:19 Subjective: Patient is currently sleeping in his hospital bed. He has an oxygen face mask on. He is status post I and D of both shoulders. Objective: Ceftriaxone # 2 Vital Signs Temp Pulse Resp BP Pulse Ox 36.7 C 108 H 17 180/92 H 93 06/15/17 12:00 06/15/17 12:00 06/15/17 12:00 06/15/17 12:50 06/15/17 12:00 Microbiology 06/14/17 21:55 Gram Stain - Final Shoulder - Eswab 06/13/17 16:55 Blood Panel (PCR) - Final Blood Streptococcus 06/14/17 21:55 Mycobacterial Smear (ANDREW) - Final Shoulder - Eswab Mycobacterial Culture - Final Laboratory Results 06/14/17 05:23 06/15/17 14:30 06/14/17 06/15/17 06/16/17 05:59 05:59 05:59 Intake Total 3350 1600 368 Output Total 1850 1305 40 Balance 1500 295 328 - Physical Exam General Appearance: WD/WN, no apparent distress, non-toxic, No alert Respiratory: lungs clear, normal breath sounds, No respiratory distress Cardiac/Chest: regular rate, rhythm, No tachycardia Extremities: other (Bilateral shoulder status post incision and drainage.), No normal inspection, No inflammation Skin: normal color, warm/dry, No rash ICD10 Worksheet Patient Problems: Problems Problem Status Onset Unable to ambulate Acute Acute alcohol intoxication Acute Closed head injury Acute Laceration of eyebrow, right, complicated Acute
[2017-06-15] MEDS ORDERED: GADOBUTROL 10 ML VIAL IVP ONE (18:11)
[2017-06-16] MEDS: POTASSIUM Cl (KCl) 10 MEQ in NS 100 ML IV SCH ×6 (00:47→22:56)
[2017-06-16] MEDS: THIAMINE HCL 500 MG in NS 500 ML IV SCH ×4 (01:02→21:49)
[2017-06-16] MEDS: KETOROLAC 30 MG/1 ML SDV IVP SCH ×6 (01:03→23:55)
--- NOTE | 2017-06-16 08:43 | HOSPPROG ---
Hospitalist Progress Note Assessment/Plan: DIAGNOSES: -acute severe sepsis with organ failure * Sepsis notably improved since last evening, still a bit tachycardic and with significant bandemia and fever is present -streptococcal dysgalactiae bacteremia * Significant suspicion for endocarditis, nothing on TTE, given his mentation and overall picture would question the utility of DURAN, may be best to just treat him for full course since he will need a prolonged course of antibiotic for his joint infections either way -acute bilateral septic arthritis of shoulders with strep -acute encephalopathy - ?? MRI with dural enhancement * I can arouse him briefly today but remains still extremely obtunded, did get some narcotic pain medicine overnight * Differential diagnosis including meningitis, Wernicke Korsakoff's syndrome, delirium from sepsis and other factors -acute renal failure due to sepsis * Resolved -severe ataxia, with fall on day of admission and several recent injury falls in the outpatient setting with ER visits * Again Wernicke-Korsakoff syndrome is highly suspected but he may have an alcohol related cerebellar ataxia or other causes as well * Unable to assess at this time due to his mental status, ongoing high fall risk with high risk of further injuries -hypokalemia * Improving, needing ongoing replacement -alcoholism PLANS: -will review MRI findings with Infectious Disease -continue IV antibiotics with Rocephin at least 4 weeks of therapy -continue hydration -continue high dose thiamin for now and will add multivitamins as he becomes able to swallow -fall risk precautions -begin PT and OT as he is able -electrolyte replacements SUBJECTIVE: Unable to assess symptoms due to mentation today Yesterday evening did have some agitation associated with faster heart rates, appear to be in lot of pain and seem to respond to pain medication OBJECTIVE Vitals reviewed: Current temperature 38 degrees, blood pressure is good, still occasional mild tachycardia greater than 100 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, my review: Sinus Exam: Remains severely attended, moving all extremities, pupils normal, no tremor skin warm dry color ok; the abrasions on his arms lower legs and ankles look okay today with no sign of infection resps not labored lungs clear BSs heart regular abd soft nondistended nontender, bowel sounds present limbs both both shoulders with serosanguineous fluid in the surgical drains pain in range of motion difficult to assess due to his mentation iv site ok Microbiology data: Strep dysgalactiae growing from all cultures at this point Laboratory data: Potassium remains low, but improving I reviewed images of MRI scan: mostly remarkable for some dural enhancement suggesting possibility of meningitis; no abscess hemorrhage or stroke, some of the images are significantly degraded by motion artifact I reviewed images from his abdominal and chest x-rays. The abdomen is unremarkable. The chest x-ray is read by the radiologist as consistent with chronic heart failure though I think these changes are more likely related to other parts of his clinical scenario including recumbency and poor inspiration. He actually has normal echocardiogram in terms of muscle and valve function and does not clinically have any sign or history of heart failure Objective: Vital Signs Temp Pulse Resp BP Pulse Ox 38.0 C 107 H 18 127/67 H 92 06/16/17 07:59 06/16/17 07:59 06/16/17 07:59 06/16/17 07:59 06/16/17 07:59 Microbiology 06/14/17 21:55 Gram Stain - Final Shoulder - Eswab 06/14/17 21:55 Mycobacterial Smear (ANDREW) - Final Shoulder - Eswab Mycobacterial Culture - Final 06/13/17 16:55 Blood Panel (PCR) - Final Blood Streptococcus Laboratory Results 06/14/17 05:23 06/16/17 04:57 06/15/17 06/16/17 06/17/17 06:59 06:59 06:59 Intake Total 1968 3350 Output Total 1305 2570 Balance 663 780 PT 14.4 SEC (12.0-15.0) 06/13/17 09:50 INR 1.10 (0.83-1.16) 06/13/17 09:50 - Time Spent With Patient Time Spent with Patient: greater than 35 minutes Time Spent with Patient: Greater than 35 minutes spent on this patients care, greater than 50% of time spent counseling, educating, and coordinating care regarding the above mentioned plan. ICD10 Worksheet Patient Problems: Problems Problem Status Onset Unable to ambulate Acute Acute alcohol intoxication Acute Closed head injury Acute Laceration of eyebrow, right, complicated Acute
[2017-06-16] MEDS: POTASSIUM Cl (KCl) 50 ML IV SCH ×4 (08:44→13:09)
--- NOTE | 2017-06-16 09:32 | PCMIDPN ---
Assessment/Plan: 1. Group C/G streptococcal bacteremia with seeding of both shoulders status post incision and drainage: Appreciate orthopedic assistance. Please see #2 for antibiotic change. TTE negative. No murmur audible on exam. 2. Possible osteomyelitis of left 5th metatarsal head and left great toe, as well as right 1st metatarsal head: Foul-smelling pus extruded from left 5th metatarsal head and great toe. Will obtain MRIs of both feet today to further evaluate for osteomyelitis. Will call podiatry to see him today. Change ceftriaxone to Unasyn for additional anaerobic coverage. Would prefer to not add metronidazole given neurologic effects associated with this antibiotic, although these are typically seen with long-term use. Culture of left great toe purulence sent. 3. Altered mental status: Suspect this is multifactorial. The patient's neck is quite supple. Meningitis , or an infectious encephalitis seems less likely. Will obtain vitamin B12 and syphilis IgG. TSH was within normal limits. Over 35 min was spent with this patient today. 06/16/17 09:32 Subjective: Patient is difficult to arouse, but once I aroused him, he knew he was in [place], and knew he was at the hospital. Extremely somnolent. Objective: Ceftriaxone 2 g IV daily day 3 T-max 38 degrees Vital Signs Temp Pulse Resp BP Pulse Ox 38.0 C 107 H 18 127/67 H 92 06/16/17 07:59 06/16/17 07:59 06/16/17 07:59 06/16/17 07:59 06/16/17 07:59 Microbiology 06/14/17 21:55 Gram Stain - Final Shoulder - Eswab 06/14/17 21:55 Mycobacterial Smear (ANDREW) - Final Shoulder - Eswab Mycobacterial Culture - Final 06/13/17 16:55 Blood Panel (PCR) - Final Blood Streptococcus Laboratory Results 06/14/17 05:23 06/16/17 04:57 06/15/17 06/16/17 06/17/17 05:59 05:59 05:59 Intake Total 1600 3718 Output Total 1305 2570 Balance 295 1148 Blood cultures x2 on June 15 no growth so far June 14 shoulder cultures with group C/G Streptococcus Blood cultures June 13 with group C/G Streptococcus, ANDREW to ceftriaxone less than 0.0625 - Physical Exam General Appearance: other (Somnolent, facial mask in place.) EENT: other (Dry mucous membranes) Respiratory: lungs clear Cardiac/Chest: regular rate, rhythm Extremities: other (Left great toe with onychomycosis, gross pus squeezed out of plantar aspect of the great toe. Extremely foul smelling. Pus also extruded from plantar aspect of left 5th metatarsal head. No significant cellulitic component to these areas. Right foot notable for fluctuant area along plantar aspect of 1st metatarsal head, as well as dry cracked skin. The patient also has a hemorrhagic area noted between the 4th and 5th toes) Abdomen: non-tender, soft Skin: other (The patient's shoulders are covered in dressings. I did not take these off. DARRYL bulbs with sero sanguinous drainage), No embolic lesions Neuro/Psych: other (His neck is supple. Difficult to arouse. Knows that he is in [place], and knows that he is in the hospital. Pupils are pinpoint.) ICD10 Worksheet Patient Problems: Problems Problem Status Onset Unable to ambulate Acute Acute alcohol intoxication Acute Closed head injury Acute Laceration of eyebrow, right, complicated Acute
[2017-06-16] MEDS: MULTIVITAMINS 1 EACH TAB PO SCH (09:49)
[2017-06-16] MEDS: cefTRIAXone 2 GM in STERILE WATER INJ 20 ML IV SCH (09:51)
[2017-06-16] MEDS: AMPICILLIN/SULBACTAM 3 GM VIAL IV SCH ×4 (10:05→23:55)
--- NOTE | 2017-06-16 10:06 | PCMIDPN ---
Assessment/Plan: 1. Group C/G streptococcal bacteremia with seeding of both shoulders status post incision and drainage: Appreciate orthopedic assistance. Please see #2 for antibiotic change. TTE negative. No murmur audible on exam. 2. Possible osteomyelitis of left 5th metatarsal head and left great toe, as well as right 1st metatarsal head: Foul-smelling pus extruded from left 5th metatarsal head and great toe. Will obtain MRIs of both feet today to further evaluate for osteomyelitis. Will call podiatry to see him today. Change ceftriaxone to Unasyn for additional anaerobic coverage. Would prefer to not add metronidazole given neurologic effects associated with this antibiotic, although these are typically seen with long-term use. Culture of left great toe purulence sent. 3. Altered mental status: Suspect this is multifactorial. The patient's neck is quite supple. Meningitis , or an infectious encephalitis seems less likely. Will obtain vitamin B12 and syphilis IgG. TSH was within normal limits. Over 35 min was spent with this patient today. 06/16/17 09:32 Objective: Vital Signs Temp Pulse Resp BP Pulse Ox 38.0 C 107 H 18 127/67 H 92 06/16/17 07:59 06/16/17 07:59 06/16/17 07:59 06/16/17 07:59 06/16/17 07:59 Microbiology 06/14/17 21:55 Gram Stain - Final Shoulder - Eswab 06/14/17 21:55 Mycobacterial Smear (ANDREW) - Final Shoulder - Eswab Mycobacterial Culture - Final 06/13/17 16:55 Blood Panel (PCR) - Final Blood Streptococcus Laboratory Results 06/14/17 05:23 06/16/17 04:57 06/15/17 06/16/17 06/17/17 05:59 05:59 05:59 Intake Total 1600 3718 Output Total 3417 8290 Balance 295 1148 ICD10 Worksheet Patient Problems: Problems Problem Status Onset Unable to ambulate Acute Acute alcohol intoxication Acute Closed head injury Acute Laceration of eyebrow, right, complicated Acute
[2017-06-16] MEDS: ACETAMINOPHEN 650 MG SUPP PR PRN (10:07)
--- NOTE | 2017-06-16 10:37 | GOP ---
[f rep st] OPERATIVE REPORT DATE OF OPERATION: 06/14/2017 SURGEON: Eric Aponte MD ANESTHESIA: General. PREOPERATIVE DIAGNOSIS: Right shoulder septic arthritis and abscess; left shoulder abscess. POSTOPERATIVE DIAGNOSIS: Right shoulder septic arthritis and abscess; left shoulder septic arthritis and abscess. PROCEDURE PERFORMED: Irrigation, debridement, and arthrotomy of left and right glenohumeral joints for septic arthritis and abscess. FINDINGS: ESTIMATED BLOOD LOSS: 50 cc. INDICATIONS: This is a 52-year-old male, who presented to the hospital the prior day. He was found [facility] at [facility] by the staff. He is homeless, unknown to the ER staff. In the ER, the staff noticed changes in his mental status. Aspiration of left shoulder was performed by the ER staff, and purulent material was drained. I was notified by the ED staff of presence of possible abscesses with concern for possible septic joint. At the time, sepsis was impending and was unclear if the patient would be stable enough for the OR. I saw the patient that night, performed provisional I and D of both shoulders at bedside to decompress the abscesses. On I and D of the right shoulder, no purulent material was identified, although there was a large area of fluctuation and swelling of the right shoulder. As the target for I and D was unknown, I recommended a CT scan with IV contrast of the shoulders. This was done the following morning. I reviewed the CT scans. There was a large fluid collection in the right shoulder deep to the deltoid, extending to glenohumeral joint. In the left shoulder, there was a small mass, which appeared to have been drained. Thus, I decided to take the patient to the OR. Prior to the procedure, the patient was seen in the preoperative holding area. His mental status was fluctuating. I did discuss with both the hospitalist and ID physicians about the medical necessity for this procedure due to the patient' s condition as a life-saving procedure. The policy at this institution does not include 2 physician consent, however, I did confirm their recommendations in the preoperative holding area with a nurse as a witness. I was able to explain to the patient that I and D of both shoulders was necessary as a life-saving procedure. He was able to verbalize and nod. This was witnessed by the OR staff. It is my medical opinion that this procedure is necessary for the patient 's well-being, and decided to proceed. DESCRIPTION OF PROCEDURE: The patient was seen in the preoperative holding area and discussion with him was as noted above. He was then taken to the operative suite. Care was taken to transfer the patient from the [place] to the operating table. Care was taken to pad all bony prominences prior to induction of anesthesia. General anesthesia was induced by the anesthesia team. Time-out was called including surgical and anesthesia teams, confirming the surgical site and procedure to be performed. One gram of vancomycin was given prior to incision. I addressed the right shoulder first. I extended a deltopectoral-type approach to the prior small incision. I performed a standard deltopectoral approach. Upon entering the shoulder joint, visualized large swelling at the joint. The patient did not appear to have an intact subscapularis. This was a bulging capsule. Upon entering that capsule, there was release of pus under pressure about 200 cc worth. At this point, I then began irrigating copiously with sterile saline. I used many liters, over 6 L, and continued irrigating the glenohumeral joint. This patient had severe arthritis of the shoulder as seen on the CT scan, both shoulders actually, and likely has cuff arthropathy. I was able to palpate the subacromial space. I irrigated that. After irrigating, again , checked the shoulder. There was again some purulent material identified, and likely pockets of pus in the deltoid. These were manually decompressed and irrigated again with several more liters. After this was done, I left the shoulder joint open to drain, placed a Aj drain into the shoulder joint. I loosely closed the deltopectoral interval with monofilament suture, and then loosely closed the shoulder with nylon suture. A sterile dressing was applied. The drain was sewed in. I then turned my attention to the left side. This was prepped in usual sterile fashion. I extended the prior I and D incision by several centimeters, digitally palpated a split in the deltoid, and as I palpated the subacromial area, I immediately palpated the humeral head. This patient clearly has cuff arthropathy, essentially no rotator cuff. This prior abscess cavity clearly communicated with the joint. Most of it had decompressed , however, I was able to decompress some more pus. Then I irrigated copiously again with many liters sterile saline, and again placed a drain into the joint. A sterile dressing was applied. This patient tolerated the procedure well. He was then transferred to the PACU in fair condition. POSTOPERATIVE PLAN: The patient will be admitted to the hospitalist service. He will be followed by ID service and he will be followed by me in the hospital. We will follow his drain output. Plan on pulling the drain when this decreases. /[id number]/MODL MTDD
[2017-06-16] MEDS: NS 1,000 ML IV SCH (13:06)
--- NOTE | 2017-06-16 13:35 | PDCONSULT ---
[facility] Note: Podiatric Surgery Consult note Patient seen at bedside, awake and oriented. No lower extremity complaints Objective Superficial wounds noted between the 4th and 5th toes and sub 1st metatarsal head right foot. No edema, erythema, drainage, sign of infection noted. Open full thickness wounds noted sub 1st IPJ and sub 5th metatarsal head left foot. These wounds do not probe deep to bone. There is edema, erythema, purulent drainage, and mild malodor noted. No crepitation to suggest necrotizing infection. No proximal streaking noted. Neurovascular status is grossly intact to the foot bilaterally. DP/PT pulses are +3/4 bilaterally and CFT is <3 seconds to all digits. Assessment/Plan 1) Full thickness wounds left foot 2) Cellulitis left foot 3) Partial thickness wounds right foot Continue broad spectrum IV antibiotics. Would culture left foot. Proceed with MRIs to evaluate for abscess and osteomyelitis. If MRI is negative for surgical issue, infectious disease will manage pedal infections. Dry sterile dressing bilateral foot QD PRN.
[2017-06-16] MEDS: LORazepam 2 MG/ML INJ IV PRN ×2 (14:19→18:17)
--- NOTE | 2017-06-16 14:40 | WOCRNPDOC ---
MENG Advanced Assessment Note - Skin Integrity Problem, Advanced Assess Left Lateral Pedal Blister Dressing Type: Open to Air Wound Bed Color: Brown Wound Bed Constitution: Dried Exudate, Draining Sangenous Blister Wound Edges: Well Defined Site Measurement - Head-to-Toe Length X Width X Depth (cm): 1x1x0.2 Skin Integrity Problem Comment: Patient with wound of unknown etiology. This RN able to express purulent fluid from small wound. Cleaned with NS and gauze. Q tip to wound bed demonstrates discreet wound. Podiatry to see shortly. Wound care will round again next week. Left First Toe Blister Dressing Type: Open to Air Exudate Color: Yellow, Red Exudate Characteristic(s): Bloody, Purulent [place] Wound Tissue: Swollen, Dry [place] Wound Swelling: Moderate Wound Bed Color: Brown Wound Bed Constitution: Dried Exudate, De-roofed Sanguineous blister Wound Edges: Well Defined Site Measurement - Head-to-Toe Length X Width X Depth (cm): 1x1x0.2 Skin Integrity Problem Comment: Patient with wound to his left great toe of unknown etiology. Patient is homeless and is, at this time, unable to explain the origins. Currenlty awaiting MRI to rule out osteomyelitis. This RN able to express purulent fluid from small wound. Cleaned with NS and gauze. Q tip to wound bed demonstrates discreet wound. Podiatry to see shortly. Wound care will round again next week. Right Lateral Pedal Blister Dressing Type: Open to Air Exudate Amount: None Bushra Wound Tissue: Intact, Dry Wound Bed Color: Purple Wound Bed Constitution: Intact Sanguineous Blister Wound Edges: Well Defined Site Measurement - Head-to-Toe Length X Width X Depth (cm): 4.3x1.5xintact Skin Integrity Problem Comment: Patient with an intact sanguinous blister to the plantar surface just below the 5th digit and between the 4th and 5th digit. No fluctuance noted. As area is intact will work to keep dry. Wound care will round again early next week.
--- NOTE | 2017-06-16 18:06 | SOAPPROG ---
SOAP Progress Note Assessment/Plan: Assessment: POD#2 s/p I&D B/L shoulders -abcesses communicated with B/L GH joints -assisted nurse this evening in un-clogging the R shoulder drain. The patient appeared to have partially pulled out the drain as well. -has periods of tachycardia and a tmax of 38.6 this am. There may be other sources of infection. I will continue the drains and moniter the shoulders. Plan: -DARRYL drains in place, will be managed by me -reinforce dressings as needed -IV abx -appreciate care of medical and ID teams 06/16/17 18:07 Subjective: Pt condition has not changed much per staff. Mentation waxes and wanes. He has had periods of tachycardia. There appear to be new sources of infection, namely in the feet. Objective: Vital Signs Temp Pulse Resp BP Pulse Ox 36.9 C 91 18 150/99 H 92 06/16/17 15:40 06/16/17 15:40 06/16/17 15:40 06/16/17 15:40 06/16/17 15:40 Microbiology 06/14/17 21:55 Gram Stain - Final Shoulder - Eswab 06/16/17 09:28 Gram Stain - Final Toe - Anaerobic Tube/Swab 06/14/17 21:55 Mycobacterial Smear (ANDREW) - Final Shoulder - Eswab Mycobacterial Culture - Final 06/13/17 16:55 Blood Panel (PCR) - Final Blood Streptococcus Laboratory Results 06/14/17 05:23 06/16/17 16:47 06/15/17 06/16/17 06/17/17 05:59 05:59 05:59 Intake Total 1600 3718 Output Total 1305 2570 45 Balance 295 1148 -45 PT 14.4 SEC (12.0-15.0) 06/13/17 09:50 INR 1.10 (0.83-1.16) 06/13/17 09:50 Tmax 38.6 this am Drains R 125 L 90 R shoulder -dressing changed -the patient had partially pulled the drain. This was remedied. There is continued cloudy serosang output -wound clean L shoulder -dressing changed -cloudy serosang output ICD10 Worksheet Patient Problems: Problems Problem Status Onset Unable to ambulate Acute Acute alcohol intoxication Acute Closed head injury Acute Laceration of eyebrow, right, complicated Acute
[2017-06-17] MEDS: LORazepam 2 MG/ML INJ IV PRN ×3 (00:29→13:00)
[2017-06-17] MEDS: THIAMINE HCL 500 MG in NS 500 ML IV SCH ×3 (05:14→21:03)
[2017-06-17] MEDS: KETOROLAC 30 MG/1 ML SDV IVP SCH ×2 (05:15→11:35)
[2017-06-17 05:37] LABS: PLATELET COUNT 321 10^3/uL (150-400)
[2017-06-17] MEDS: AMPICILLIN/SULBACTAM 3 GM VIAL IV SCH ×4 (05:42→23:34)
[2017-06-17] MEDS: MULTIVITAMINS 1 EACH TAB PO SCH (10:49)
[2017-06-17] MEDS ORDERED: POTASSIUM CL 10 MEQ TAB PO ONE ×2 (11:12→21:08)
[2017-06-17] MEDS: hydrALAZINE 20 MG/ML VIAL IVP PRN (11:36)
--- NOTE | 2017-06-17 12:04 | ASMTCMCOM ---
CM Note CM Note Notes: Pt. is improving slowly per RN. PT was able to assess Pt. and is recommeding SNF at this time. Pt. has Medicaid and will require ULTC 100 process and a call to [facility] for LTC Medicaid financial application. Notably, RN states Pt. has told her that Pt. has historically traveled between [place] and [place] to live and has a sister in [place]. 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 Per RN, Pt. has been "living outside for months". CM to follow for d/c POC. Date Signed: 06/17/2017 12:03 PM Electronically Signed By:Shanita Dickinson LCSW
[2017-06-17] MEDS: IBUPROFEN 800 MG TAB PO PRN (16:04)
--- NOTE | 2017-06-17 17:32 | HOSPPROG ---
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 -IV thiamine * Etohism * Hypernatremia -taking lots of free liquids today - recheck AM * Ankylosing spondylitis Subjective: No complaints Objective: Vital Signs Temp Pulse Resp BP Pulse Ox 36.8 C 105 H 19 163/92 H 91 L 06/17/17 15:38 06/17/17 15:38 06/17/17 15:38 06/17/17 15:38 06/17/17 15:38 Microbiology 06/14/17 21:55 Gram Stain - Final Shoulder - Eswab 06/16/17 09:28 Gram Stain - Final Toe - Anaerobic Tube/Swab 06/13/17 16:40 Blood Culture - Final Blood Strep Dysgalactiae Grp C/G 06/13/17 16:55 Blood Culture - Final Blood Strep Dysgalactiae Grp C/G Blood Panel (PCR) - Final Streptococcus Laboratory Results 06/17/17 05:27 06/17/17 05:27 06/16/17 06/17/17 06/18/17 05:59 05:59 05:59 Intake Total 3718 1740 4347 Output Total 2570 2015 800 Balance 1148 -275 3547 PT 14.4 SEC (12.0-15.0) 06/13/17 09:50 INR 1.10 (0.83-1.16) 06/13/17 09:50 MRI brain - some dural enhancement CXR viewed, my personal interpretation is - possible CHF - Physical Exam Constitutional: no apparent distress, appears nourished, not in pain Cardiovascular: regular rate and rhythym, no murmur, rub, or gallop Respiratory: no respiratory distress, no rales or rhonchi, clear to auscultation Gastrointestinal: normoactive bowel sounds, soft, non-tender abdomen, no palpable masses Skin: no rashes or abrasions, no fluctuance, no induration Neurologic: AAOx3, sensation intact bilaterally Psychiatric: interacting appropriately, not anxious, not encephalopathic, thought process linear ICD10 Worksheet Patient Problems: Problems Problem Status Onset Unable to ambulate Acute Acute alcohol intoxication Acute Closed head injury Acute Laceration of eyebrow, right, complicated Acute
--- NOTE | 2017-06-17 18:55 | PCMIDPN ---
Assessment/Plan: Assessment/Plan: 1. Group C/G strep bacteremia with b/l septic shoulders: - Currently on Unasyn -cx from shoulders with Group c/G strep -s/p wash out (06/15/17) and drains in both shoulders -appreciate ortho - wbc elevated but likely multifactorial given #1,,#2, and recent wash out. - recheck labs in Am. 2. Left great tode and 5th toe wounds with purulent drainage, r/o osteo -Cx showing staph aurues and Group C/G strep -currently on unasyn - appreciate podiatry eval - MRI pending Meds unasyn 3g q6- Subjective: afebrile. wants to go home. denies sob, abd pain or diarrhea. drains in b/l shoulders. Objective: Vital Signs Temp Pulse Resp BP Pulse Ox 36.8 C 105 H 19 163/92 H 91 L 06/17/17 15:38 06/17/17 15:38 06/17/17 15:38 06/17/17 15:38 06/17/17 15:38 Microbiology 06/14/17 21:55 Gram Stain - Final Shoulder - Eswab 06/16/17 09:28 Gram Stain - Final Toe - Anaerobic Tube/Swab 06/13/17 16:40 Blood Culture - Final Blood Strep Dysgalactiae Grp C/G 06/13/17 16:55 Blood Culture - Final Blood Strep Dysgalactiae Grp C/G Blood Panel (PCR) - Final Streptococcus Laboratory Results 06/17/17 05:27 06/17/17 05:27 06/16/17 06/17/17 06/18/17 05:59 05:59 05:59 Intake Total 6438 1740 5482 Output Total 0019 2014 1100 Balance 9229 -069 7452 - Physical Exam General Appearance: alert, no apparent distress Respiratory: lungs clear Cardiac/Chest: regular rate, rhythm Extremities: other (left foot dressed) Abdomen: normal bowel sounds, non-tender, soft, No distended ICD10 Worksheet Patient Problems: Problems Problem Status Onset Unable to ambulate Acute Acute alcohol intoxication Acute Closed head injury Acute Laceration of eyebrow, right, complicated Acute
--- NOTE | 2017-06-17 19:24 | SOAPPROG ---
SOAP Progress Note Assessment/Plan: Assessment: POD#3 s/p I&D B/L shoulders -abcesses communicated with B/L GH joints -continues to be tachycardic. Afebrile today -drain output in L shoulder steadily dropping Drain output 4/5 4/6 Today L R L R L R 90 125 40 75 20 80 Plan: -DARRYL drains in place, will be managed by me -will cont to moniter labs, vitals, drain output to assess need for repeat washout -reinforce dressings as needed -IV abx -appreciate care of medical and ID teams 06/17/17 19:24 Subjective: Spoke with Mr. Al this evening. His mental status is the best I have experienced thus far. Does endorse pain in both shoulders. Objective: Vital Signs Temp Pulse Resp BP Pulse Ox 36.8 C 105 H 19 163/92 H 91 L 06/17/17 15:38 06/17/17 15:38 06/17/17 15:38 06/17/17 15:38 06/17/17 15:38 Microbiology 06/14/17 21:55 Gram Stain - Final Shoulder - Eswab 06/16/17 09:28 Gram Stain - Final Toe - Anaerobic Tube/Swab 06/13/17 16:40 Blood Culture - Final Blood Strep Dysgalactiae Grp C/G 06/13/17 16:55 Blood Culture - Final Blood Strep Dysgalactiae Grp C/G Blood Panel (PCR) - Final Streptococcus Laboratory Results 06/17/17 05:27 06/17/17 05:27 06/16/17 06/17/17 06/18/17 05:59 05:59 05:59 Intake Total 3718 1740 5427 Output Total 0 2014 1100 Balance 1148 -712 2593 PT 14.4 SEC (12.0-15.0) 06/13/17 09:50 INR 1.10 (0.83-1.16) 06/13/17 09:50 B/L shoulders -new dressings, reinforced by nursing staff -serosang drain output ICD10 Worksheet Patient Problems: Problems Problem Status Onset Unable to ambulate Acute Acute alcohol intoxication Acute Closed head injury Acute Laceration of eyebrow, right, complicated Acute
[2017-06-18] MEDS: IBUPROFEN 800 MG TAB PO PRN ×2 (02:36→09:40)
[2017-06-18] MEDS: THIAMINE HCL 500 MG in NS 500 ML IV SCH ×3 (04:43→21:41)
[2017-06-18 05:26] LABS: PLATELET COUNT 394 10^3/uL (150-400)
[2017-06-18] MEDS: AMPICILLIN/SULBACTAM 3 GM VIAL IV SCH ×3 (06:08→18:04)
[2017-06-18] MEDS ORDERED: MAGNESIUM SULF 1 GM/DEXTROSE 100 ML IV ONE (07:40)
[2017-06-18] MEDS: MULTIVITAMINS 1 EACH TAB PO SCH (09:41)
[2017-06-18] MEDS: ENOXAPARIN 40 MG/0.4 ML SYR SC SCH (09:41)
--- NOTE | 2017-06-18 12:41 | PCMIDPN ---
Assessment/Plan: Assessment/Plan: 1. Group C/G strep bacteremia with b/l septic shoulders: - Currently on Unasyn -cx from shoulders with Group c/G strep -s/p wash out (06/15/17) and drains in both shoulders -appreciate ortho - wbc elevated but likely multifactorial given #1,,#2, and recent wash out. starting to trend down. - recheck labs in Am. 2. Left great toe and 5th toe wounds with purulent drainage, r/o osteo -Cx showing staph aurues (sensi still pending) and Group C/G strep -currently on unasyn - appreciate podiatry eval - MRI pending. three unsuccessful attempts. -Reviewed limited Right foot MRI images with Dr. Wren. no obvious osteo. small joint effusion. no obvious abscess pocket but limited study. -will check plain xray Left foot to further evaluate erosion changes, gas in soft tissues, etc. -Recommend podiatry f/u to evaluate for possible I & D great toe wound etc. -will coordinate with hospitalist team and podiatry. - care coordinated with podiatry. plan for possible bedside I & D tomorrow. Meds unasyn 3g q6- Subjective: afebrile. more oriented today. c/o pain.. denies sob. occasional cough. denies abd pain. three attempts to have MRI have been unsuccessful. pt went again this morning. patient very restless in mri scanner. only few images maybe were captured. Objective: Vital Signs Temp Pulse Resp BP Pulse Ox 36.8 C 93 18 144/94 H 96 06/18/17 03:32 06/18/17 03:32 06/18/17 03:32 06/18/17 03:32 06/18/17 03:32 Microbiology 06/16/17 09:28 Gram Stain - Final Toe - Anaerobic Tube/Swab 06/14/17 21:55 Gram Stain - Final Shoulder - Eswab 06/13/17 16:40 Blood Culture - Final Blood Strep Dysgalactiae Grp C/G 06/13/17 16:55 Blood Culture - Final Blood Strep Dysgalactiae Grp C/G Blood Panel (PCR) - Final Streptococcus Laboratory Results 06/18/17 04:43 06/18/17 04:43 06/17/17 06/18/17 06/19/17 05:59 05:59 05:59 Intake Total 1740 8127 Output Total 2014 2843 Ejznvob -706 6110 - Physical Exam General Appearance: alert, no apparent distress Respiratory: lungs clear Cardiac/Chest: regular rate, rhythm Extremities: swelling, other (b/l shoulder dressing with drains) Abdomen: normal bowel sounds, non-tender, soft, No distended Skin: other (left foot: mild erythema involving great toe extending down medial side. able to express pus out from plantar wound. warm/hot to touch. tender. 5th toe wound with eschar. unable to express out pus. right foot wtih eschar also unable to express out any pus. right foot without erythema and not warm to touch. ) - Time Spent With Patient Time Spent with Patient: greater than 35 minutes Time Spent with Patient: Greater than 35 minutes spent on this patients care, greater than 50% of time spent counseling, educating, and coordinating care regarding the above mentioned plan. ICD10 Worksheet Patient Problems: Problems Problem Status Onset Unable to ambulate Acute Acute alcohol intoxication Acute Closed head injury Acute Laceration of eyebrow, right, complicated Acute
[2017-06-18] MEDS: LORazepam 2 MG/ML INJ IV PRN (13:00)
--- NOTE | 2017-06-18 15:50 | SOAPPROG ---
SOAP Progress Note Assessment/Plan: Assessment: POD#4 s/p I&D B/L shoulders -abcesses communicated with B/L GH joints -tachycardia improving, afebrile last 24 hr. WBC dropped today -drain output increased yesterday. The appearance of R drain output is improving. The left drain appeared somewhat seropurulent today. I flushed out the drain with 30cc saline. Will continue to monitor the appearance of the drainage. If a return to OR is necessary I would wash out both shoulders. Drain output 4/5 4/6 Today L R L R L R 90 125 40 75 70 195 Plan: -DARRYL drains in place, maintain -will cont to moniter labs, vitals, drain output to assess need for repeat washout -reinforce dressings as needed -there is purulent drainage from the left great toe that is being managed by the podiatry service -IV abx -appreciate care of medical and ID teams 06/18/17 15:55 Subjective: Mr. Al states that both shoulders are hurting. Objective: Vital Signs Temp Pulse Resp BP Pulse Ox 36.6 C 90 18 146/86 H 91 L 06/18/17 08:00 06/18/17 08:00 06/18/17 08:00 06/18/17 08:00 06/18/17 08:00 Microbiology 06/15/17 20:45 Urine Culture - Final Urine,Catheterized 06/16/17 09:28 Gram Stain - Final Toe - Anaerobic Tube/Swab 06/14/17 21:55 Gram Stain - Final Shoulder - Eswab 06/13/17 16:40 Blood Culture - Final Blood Strep Dysgalactiae Grp C/G 06/13/17 16:55 Blood Culture - Final Blood Strep Dysgalactiae Grp C/G Blood Panel (PCR) - Final Streptococcus Laboratory Results 06/18/17 04:43 06/18/17 04:43 06/17/17 06/18/17 06/19/17 05:59 05:59 05:59 Intake Total 2937 0347 Output Total 20146 4488 Balance -275 8406 -1071 PT 14.4 SEC (12.0-15.0) 06/13/17 09:50 INR 1.10 (0.83-1.16) 06/13/17 09:50 R shoulder -serosang drain output L shoulder -drain output seropurulent. I irrigated with 30 cc saline B/L UE NV intact distally - Time Spent With Patient Time Spent With Patient: 20m ICD10 Worksheet Patient Problems: Problems Problem Status Onset Unable to ambulate Acute Acute alcohol intoxication Acute Closed head injury Acute Laceration of eyebrow, right, complicated Acute
[2017-06-18] MEDS ORDERED: ALTEPLASE 2 MG VIAL IVP PRN (16:01)
--- NOTE | 2017-06-18 16:26 | HOSPPROG ---
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 Tried MRI 3 times and still didn't complete study Objective: Vital Signs Temp Pulse Resp BP Pulse Ox 36.6 C 98 14 158/93 H 91 L 06/18/17 16:00 06/18/17 16:00 06/18/17 16:00 06/18/17 16:00 06/18/17 16:00 Microbiology 06/16/17 09:28 Gram Stain - Final Toe - Anaerobic Tube/Swab 06/15/17 20:45 Urine Culture - Final Urine,Catheterized 06/14/17 21:55 Gram Stain - Final Shoulder - Eswab Laboratory Results 06/18/17 04:43 06/18/17 04:43 06/17/17 06/18/17 06/19/17 05:59 05:59 05:59 Intake Total 1740 8127 Output Total 2014 8940 6383 Balance -275 8752 -7553 PT 14.4 SEC (12.0-15.0) 06/13/17 09:50 INR 1.10 (0.83-1.16) 06/13/17 09:50 d/w Dr. Rothman - she think podiatry needs to bring to OR MRI feet - no obvious osteo Xray foot - no osteo seen - Physical Exam Constitutional: no apparent distress, appears nourished, not in pain Cardiovascular: regular rate and rhythym, no murmur, rub, or gallop Respiratory: no respiratory distress, no rales or rhonchi, clear to auscultation Gastrointestinal: normoactive bowel sounds, soft, non-tender abdomen, no palpable masses Musculoskeletal: joint tenderness, pain with ROM (shoulder bilateral), No normal joint ROM Neurologic: AAOx3, sensation intact bilaterally Psychiatric: interacting appropriately, not anxious, not encephalopathic, thought process linear ICD10 Worksheet Patient Problems: Problems Problem Status Onset Unable to ambulate Acute Acute alcohol intoxication Acute Closed head injury Acute Laceration of eyebrow, right, complicated Acute
[2017-06-18] MEDS ORDERED: POTASSIUM CL 10 MEQ TAB PO ONE (22:52)
[2017-06-19] MEDS: IBUPROFEN 800 MG TAB PO PRN ×3 (00:10→22:36)
[2017-06-19] MEDS: AMPICILLIN/SULBACTAM 3 GM VIAL IV SCH ×5 (00:14→23:46)
[2017-06-19] MEDS: THIAMINE HCL 500 MG in NS 500 ML IV SCH ×3 (04:45→21:45)
[2017-06-19 05:21] LABS: PLATELET COUNT 465 10^3/uL (150-400)
--- NOTE | 2017-06-19 07:48 | SOAPPROG ---
SOAP Progress Note Assessment/Plan: Assessment: 1) Full thickness wounds left foot with cellulitis. 2) Partial thickness wounds right foot with no SOI. Plan: 06/19/17 07:55 My intention was to perform bedside I&D/clean up of the left great toe this morning, however nursing is staff unprepared. I will return later today to perform this minor bedside procedure. Continue abx per ID. Continue BID DSD left foot prn. Subjective: Patient seen at bedside today for evaluation of bilateral feet. Patient denies any pain or other pedal complaints at this time. Objective: Vital Signs Temp Pulse Resp BP Pulse Ox 36.4 C 84 16 150/93 H 93 06/19/17 04:00 06/19/17 04:00 06/19/17 04:00 06/19/17 04:00 06/19/17 04:00 Microbiology 06/16/17 09:28 Gram Stain - Final Toe - Anaerobic Tube/Swab 06/15/17 20:45 Urine Culture - Final Urine,Catheterized Laboratory Results 06/19/17 04:45 06/19/17 04:45 06/18/17 06/19/17 06/20/17 05:59 05:59 05:59 Intake Total 8127 1000 Output Total 2665 6485 Balance 5462 -5485 PT 14.4 SEC (12.0-15.0) 06/13/17 09:50 INR 1.10 (0.83-1.16) 06/13/17 09:50 Patient is awake and oriented. Superficial wounds noted plantar right foot sub 1st metatarsal head and between toes 4-5. No edema, erythema, increased warmth noted. No fluctuance noted. No sign of infection noted. Full thickness wounds sub 1st IPJ and sub 5th metatarsal head left foot. Purulent drainage noted sub 1st IPJ. Mild edema, malodor, and erythema noted. No proximal streaking, no soft tissue crepitation. Neurovascular status is grossly intact to bilateral lower extremity. MRI right foot evaluated. incomplete study. No bony edema to suggest osteomyelitis, no fluid collection noted. ICD10 Worksheet Patient Problems: Problems Problem Status Onset Unable to ambulate Acute Acute alcohol intoxication Acute Closed head injury Acute Laceration of eyebrow, right, complicated Acute
--- NOTE | 2017-06-19 08:00 | SOAPPROG ---
SOAP Progress Note Assessment/Plan: Assessment: POD#5 s/p I&D B/L shoulders -abcesses communicated with B/L GH joints -tachycardia resolved. Afebrile. Leukocytosis continues to improve -drain output has dropped today. The appearance of the drainage is improved today - becoming more clear Drain output 4/5 4/6 4/7 4/8 L R L R L R L R 90 125 40 75 70 195 90 95 Plan: -DARRYL drains in place, maintain. I'll check on the drains again this afternoon. May pull this evening or tmrw. -will cont to moniter labs, vitals, drain output to assess need for repeat washout -reinforce dressings as needed -the left great toe is being managed by the podiatry service -IV abx -appreciate care of medical and ID teams 06/18/17 15:55 06/19/17 07:56 06/19/17 07:56 06/19/17 07:57 Subjective: Les states that his shoulder pain is "marginally improved" Objective: Vital Signs Temp Pulse Resp BP Pulse Ox 36.4 C 84 16 150/93 H 93 06/19/17 04:00 06/19/17 04:00 06/19/17 04:00 06/19/17 04:00 06/19/17 04:00 Microbiology 06/16/17 09:28 Gram Stain - Final Toe - Anaerobic Tube/Swab 06/15/17 20:45 Urine Culture - Final Urine,Catheterized Laboratory Results 06/19/17 04:45 06/19/17 04:45 06/18/17 06/19/17 06/20/17 05:59 05:59 05:59 Intake Total 8127 1000 Output Total 2665 6485 Balance 5172 -2013 PT 14.4 SEC (12.0-15.0) 06/13/17 09:50 INR 1.10 (0.83-1.16) 06/13/17 09:50 B/L shoulder -drain output serosanguinous, becoming more clear compared to last few days -dressings with mild breakthrough - Time Spent With Patient Time Spent With Patient: 15m ICD10 Worksheet Patient Problems: Problems Problem Status Onset Unable to ambulate Acute Acute alcohol intoxication Acute Closed head injury Acute Laceration of eyebrow, right, complicated Acute
[2017-06-19] MEDS ORDERED: BUPIVACAINE 0.5% 30 ML SDV IF ONE (08:15)
[2017-06-19] MEDS ORDERED: BUPIVACAINE/EPI 0.5% 30 ML SDV IF ONE (08:30)
[2017-06-19] MEDS: MULTIVITAMINS 1 EACH TAB PO SCH (08:42)
[2017-06-19] MEDS: ENOXAPARIN 40 MG/0.4 ML SYR SC SCH (08:42)
[2017-06-19] MEDS ORDERED: POTASSIUM CL 10 MEQ TAB PO ONE ×2 (10:53→21:46)
--- NOTE | 2017-06-19 13:46 | PCMIDPN ---
Assessment/Plan: 1. Group C/G streptococcal bacteremia with seeding of both shoulders status post incision and drainage: Appreciate orthopedic assistance. Drains may be pulled this evening. Continue Unasyn as is for now, please see# 2. Blood cultures have cleared. PICC line was placed earlier. 2. Left great toe infection/5th metatarsal superficial infection/right superficial 1st metatarsal head infection: Sincerely appreciate Podiatry assistance. To have bedside debridement of left great toe today. Of note, the MRI done was of the right lower extremity, which is the less worrisome foot, although plain film of the left foot showed no evidence of osteomyelitis. Suspect this has been going on for a while, therefore plain film should be helpful. I did call the micro lab; await anaerobic culture, which should be available later this afternoon. If no obvious anaerobes, fine to change back to ceftriaxone to cover MSSA and group C/ G strep. Subjective: Much more alert today. Knows where he is, the date, president, and is making jokes with me. To have bedside debridement of his left great toe and foot later today. Objective: Unasyn 3 g IV q.6 hours day 3, antibiotics day 6 Afebrile Vital Signs Temp Pulse Resp BP Pulse Ox 36.8 C 95 18 145/92 H 92 06/19/17 11:02 06/19/17 11:02 06/19/17 11:02 06/19/17 11:02 06/19/17 11:02 Microbiology 06/16/17 09:28 Gram Stain - Final Toe - Anaerobic Tube/Swab 06/15/17 20:45 Urine Culture - Final Urine,Catheterized Laboratory Results 06/19/17 04:45 06/19/17 04:45 06/18/17 06/19/17 06/20/17 05:59 05:59 05:59 Intake Total 8127 1000 500 Output Total 1475 1976 2950 Balance 8115 -5372 -7322 Toe cultures from June 16 show 4+ group C/G streptococci and 2+ MSSA Blood cultures June 15 no growth Right foot MRI without obvious osteomyelitis Left foot x-ray no obvious osteomyelitis - Physical Exam General Appearance: alert, no apparent distress EENT: pharynx normal, No thrush Respiratory: lungs clear Cardiac/Chest: regular rate, rhythm, No systolic murmur Extremities: other (Both of the patient's shoulders are dressed; I did not take the dressings down. DARRYL bulbs in place with minimal serosanguineous drainage. PICC line right upper extremity. Patient's left great toe, plantar aspect is callused, and extruding a small amount of purulence. The 5th metatarsal head, plantar aspect is bleeding slightly, with no obvious fluctuance or surrounding cellulitis. The right foot has a hemorrhagic area between his 4th and 5th toes on the plantar aspect. 1st metatarsal head on the right, plantar aspect callus , but no obvious fluctuance, cellulitis or other.) ICD10 Worksheet Patient Problems: Problems Problem Status Onset Unable to ambulate Acute Acute alcohol intoxication Acute Closed head injury Acute Laceration of eyebrow, right, complicated Acute
--- NOTE | 2017-06-19 15:08 | ASMTCMCOM ---
CM Note CM Note Notes: Spoke with patient briefly, however he was not well enough to sustain a conversation today. Patient's nurse states he needs to rest and everything else needs to wait until tomorrow. The ULTC was completed but I will need to get patient's signiture tomorrow and fax it then to [facility]. Contacted Tangela ([employer] outreach) who will start patient's LTM application tomorrow as well. ULTC 100 is in patient's chart in the back.CM will follow. Date Signed: 06/19/2017 03:07 PM Electronically Signed By:Celine Olsen LCSW
--- NOTE | 2017-06-19 15:41 | HOSPPROG ---
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 -IV thiamine Etohism Hypernatremia -resolved Ankylosing spondylitis marceol: dc proph: lmwh Subjective: case d./w dr rivera Objective: Vital Signs Temp Pulse Resp BP Pulse Ox 36.8 C 95 18 145/92 H 92 06/19/17 11:02 06/19/17 11:02 06/19/17 11:02 06/19/17 11:02 06/19/17 11:02 Microbiology 06/16/17 09:28 Gram Stain - Final Toe - Anaerobic Tube/Swab 06/14/17 21:55 Gram Stain - Final Shoulder - Eswab 06/15/17 20:45 Urine Culture - Final Urine,Catheterized Laboratory Results 06/19/17 04:45 06/19/17 04:45 06/18/17 06/19/17 06/20/17 05:59 05:59 05:59 Intake Total 8127 1000 500 Output Total 2665 6485 2840 Balance 5462 -5453 -2340 PT 14.4 SEC (12.0-15.0) 06/13/17 09:50 INR 1.10 (0.83-1.16) 06/13/17 09:50 - Physical Exam Constitutional: no apparent distress, chronically ill appearing Eyes: PERRL, anicteric sclera Ears, Nose, Mouth, Throat: moist mucous membranes, hearing normal Cardiovascular: regular rate and rhythym, no murmur, rub, or gallop, No tachycardia Respiratory: no respiratory distress, no rales or rhonchi Gastrointestinal: normoactive bowel sounds, soft, non-tender abdomen Genitourinary: no bladder fullness, marcelo in urethra Skin: warm, normal color Musculoskeletal: other (R shoulder incision c/d/i. drain in place. L shoulder w purulence in drain. ), No full muscle strength Neurologic: AAOx3, sensation intact bilaterally Psychiatric: interacting appropriately, not anxious Lymph, Heme, Immunologic: no cervical LAD ICD10 Worksheet Patient Problems: Problems Problem Status Onset Unable to ambulate Acute Acute alcohol intoxication Acute Closed head injury Acute Laceration of eyebrow, right, complicated Acute
[2017-06-19] MEDS ORDERED: MAGNESIUM SULF 1 GM/DEXTROSE 100 ML IV ONE (15:58)
--- NOTE | 2017-06-19 16:14 | SOAPPROG ---
SOAP Progress Note Assessment/Plan: Assessment: 1) Full thickness wound left great toe s/p I&D with debridement. 2) partial thickness wound sub 5th metatarsal head left foot. 2) Partial thickness wounds right foot with no SOI. Plan: 06/19/17 16:15 Patient seen at bedside. After written consent the left great toe was anesthetized with 2ml 0.5% Marcaine with epi. The foot was scrubbed, prepped, draped in the usual aseptic manner. All devitalized tissue was debrided from the plantar aspect of the left great toe and passed from the field. A small incision was made proximal to this wound which now measures 1.5 x 1.0 x 1.0 cm upon debridement. No drainable fluid collection noted. The wound was then flushed with normal saline solution and packed with iodoform gauze and a DSD was placed on the left foot. Patient tolerated procedure well. *Continue abx per ID. Appreciate ID management. *Continue BID iodoform packing and DSD left foot prn. *Patient may be full weightbearing and given a surgical shoe for help ambulating PRN. *Will follow. 06/19/17 16:14 06/19/17 16:19 Subjective: Patient seen at bedside, no pedal complains Objective: Vital Signs Temp Pulse Resp BP Pulse Ox 36.8 C 95 18 145/92 H 92 06/19/17 11:02 06/19/17 11:02 06/19/17 11:02 06/19/17 11:02 06/19/17 11:02 Microbiology 06/16/17 09:28 Gram Stain - Final Toe - Anaerobic Tube/Swab 06/14/17 21:55 Gram Stain - Final Shoulder - Eswab 06/15/17 20:45 Urine Culture - Final Urine,Catheterized Laboratory Results 06/19/17 04:45 06/19/17 04:45 06/18/17 06/19/17 06/20/17 05:59 05:59 05:59 Intake Total 8127 1000 500 Output Total 0392 6404 4791 Balance 1720 -7901 -7195 PT 14.4 SEC (12.0-15.0) 06/13/17 09:50 INR 1.10 (0.83-1.16) 06/13/17 09:50 Necrosis of the plantar aspect of the left great toe. Full thickness wound measuring 1.5cm x 1cm x 1cm. Exposed tendon and joint capsule, no exposed bone. Mild edema, erythema, and malodor. no increased warmth or proximal streaking. No drainable fluid collection or signs of osteomyelitis noted upon exploration. - Time Spent With Patient Time Spent With Patient: 30 min ICD10 Worksheet Patient Problems: Problems Problem Status Onset Unable to ambulate Acute Acute alcohol intoxication Acute Closed head injury Acute Laceration of eyebrow, right, complicated Acute
[2017-06-20] MEDS: THIAMINE HCL 500 MG in NS 500 ML IV SCH ×3 (04:25→21:44)
[2017-06-20] MEDS: IBUPROFEN 800 MG TAB PO PRN ×2 (05:01→14:57)
[2017-06-20] MEDS: AMPICILLIN/SULBACTAM 3 GM VIAL IV SCH ×3 (05:41→17:30)
[2017-06-20] MEDS: ENOXAPARIN 40 MG/0.4 ML SYR SC SCH (10:14)
[2017-06-20] MEDS: MULTIVITAMINS 1 EACH TAB PO SCH (10:15)
[2017-06-20] MEDS ORDERED: MAGNESIUM SULF 1 GM/DEXTROSE 100 ML IV ONE (10:22)
[2017-06-20] MEDS ORDERED: POTASSIUM CL 10 MEQ TAB PO ONE (10:22)
--- NOTE | 2017-06-20 11:21 | SOAPPROG ---
SOAP Progress Note Assessment/Plan: Assessment: POD#6 s/p I&D B/L shoulders -jj communicated with B/L GH joints. He has hardware in the R shoulder from a prior surgery. Discussed with ID about duration of treatment and possible need for suppression consider presence of hardware (2 small screws and an anchor) -drains pulled yesterday. Mod serous drainage from the L shoulder today -clinically improved today. He was sitting up in a chair and talking Plan: -daily dressing changes -reinforce dressings as needed -the left great toe is being managed by the podiatry service -IV abx -appreciate care of medical and ID teams -can start more aggressive PT/OT for shoulder ROM I had a discussion w/ Mr. Al regarding his shoulders. He has severe OA in both shoulders. He was likely compensating well prior to this episode. It will likely take him months to return to his prior level of function, and he may not return at all. At this point will encourage working on ROM to prevent stiffness. 06/20/17 11:22 Subjective: Feels better today. Sitting up in a chair. Concerned that shoulders hurt with movement Objective: Vital Signs Temp Pulse Resp BP Pulse Ox 36.8 C 94 14 145/84 H 88 L 06/20/17 08:00 06/20/17 08:00 06/20/17 08:00 06/20/17 08:00 06/20/17 08:00 Microbiology 06/16/17 09:28 Gram Stain - Final Toe - Anaerobic Tube/Swab 06/14/17 21:55 Gram Stain - Final Shoulder - Eswab Laboratory Results 06/19/17 04:45 06/20/17 04:20 06/19/17 06/20/17 06/21/17 05:59 05:59 05:59 Intake Total 1000 2143 Output Total 6485 7150 400 Balance -5485 -5007 -400 PT 14.4 SEC (12.0-15.0) 06/13/17 09:50 INR 1.10 (0.83-1.16) 06/13/17 09:50 L shoulder -dressing changed, there was mod serous breakthough R shoulder -dressing clean and dry -pain with any attempted elevation or FF of the shoulder - Time Spent With Patient Time Spent With Patient: 15m ICD10 Worksheet Patient Problems: Problems Problem Status Onset Unable to ambulate Acute Acute alcohol intoxication Acute Closed head injury Acute Laceration of eyebrow, right, complicated Acute
--- NOTE | 2017-06-20 11:50 | PCMIDPN ---
Assessment/Plan: Assessment/Plan: 1. Group C/G strep bacteremia with b/l septic shoulders: - Currently on Unasyn -cx from shoulders with Group c/G strep -s/p wash out (06/15/17) both shoulders, drains out -appreciate ortho.Discussed with ortho today. Has screws and anchor present in right shoulder from before that were surround by infectious fluid. Likely will need suppression after acute course of therapy. - wbc improving - follow labs periodically - care coordinated with hospitalist team 2. Left great toe and 5th toe wounds with purulent drainage, r/o osteo -Cx showing MSSA and Group C/G strep plus anaerobe. -currently on unasyn - appreciate podiatry eval -s/p I & D.wound packed. 3. Rue swelling: - Check USG to r/o DVT Meds unasyn 3g q6- Subjective: afebrile. d/o pain involving left foot occasionally and shoulders. denies sob, abd pain. had two loose stools today. Objective: Vital Signs Temp Pulse Resp BP Pulse Ox 36.8 C 94 14 145/84 H 88 L 06/20/17 08:00 06/20/17 08:00 06/20/17 08:00 06/20/17 08:00 06/20/17 08:00 Microbiology 06/16/17 09:28 Gram Stain - Final Toe - Anaerobic Tube/Swab 06/14/17 21:55 Gram Stain - Final Shoulder - Eswab Laboratory Results 06/19/17 04:45 06/20/17 04:20 06/19/17 06/20/17 06/21/17 05:59 05:59 05:59 Intake Total 1000 2143 Output Total 6485 7150 400 [facility]5485 -5007 -400 - Physical Exam General Appearance: alert, no apparent distress Respiratory: lungs clear Cardiac/Chest: regular rate, rhythm Extremities: swelling (RUE swelling with diffuse swelling down to hand. picc line noted. ) Abdomen: normal bowel sounds, non-tender, soft, No distended Skin: No erythema - Time Spent With Patient Time Spent with Patient: greater than 35 minutes Time Spent with Patient: Greater than 35 minutes spent on this patients care, greater than 50% of time spent counseling, educating, and coordinating care regarding the above mentioned plan. ICD10 Worksheet Patient Problems: Problems Problem Status Onset Unable to ambulate Acute Acute alcohol intoxication Acute Closed head injury Acute Laceration of eyebrow, right, complicated Acute
--- NOTE | 2017-06-20 14:48 | ASMTCMCOM ---
CM Note CM Note Notes: Patient signed ULTC 100 and it was faxed to [facility]. Patient states he does want rehab care to get stronger. Patient is in a great deal of pain today so he wasn't able to engage in a conversation about which choice of facilities he wants. Referrals were sent to [facility], [facility], and [facility] just to get the process started. A conversation is needed with patient when he is able to think clearly and can understand the requirements of a rehab stay. Tangela daily Ahmet did take application today for LTM. CM will follow. Date Signed: 06/20/2017 02:47 PM Electronically Signed By:Celine Olsen LCSW
--- NOTE | 2017-06-20 15:00 | HOSPPROG ---
Hospitalist Progress Note Assessment/Plan: 52 yo M w b/l septic arthritis of shoulder UE dvt: remove picc therapeutic lovenox Severe sepsis - Group C/G strep with seeding bilateral shoulders -IV Unasyn septic physiology has resolved Bilateral septic arthritis of shoulders s/p I&D Cellulitis/abscess of bilateral feet - possible osteomyelitis -MRI bilateral feet - poor study - patient could not tolerate study -podiatry following - suspect he just needs surgical exploration -still pus draining from toe appreciate podiatry assistance Metabolic encephalopathy - unclear significance of dural enhancement on MRI 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 -IV thiamine Etohism Hypernatremia -resolved Ankylosing spondylitis marcelo: dc proph: therapeutically anticoagulated Subjective: case d/w dr herring Objective: Vital Signs Temp Pulse Resp BP Pulse Ox 36.9 C 98 20 147/90 H 88 L 06/20/17 12:00 06/20/17 12:00 06/20/17 12:00 06/20/17 12:00 06/20/17 12:00 Microbiology 06/16/17 09:28 Gram Stain - Final Toe - Anaerobic Tube/Swab 06/14/17 21:55 Gram Stain - Final Shoulder - Eswab Laboratory Results 06/19/17 04:45 06/20/17 04:20 06/19/17 06/20/17 06/21/17 05:59 05:59 05:59 Intake Total 1000 2143 Output Total 6485 7150 400 Balance -5485 -5007 -400 PT 14.4 SEC (12.0-15.0) 06/13/17 09:50 INR 1.10 (0.83-1.16) 06/13/17 09:50 - Physical Exam Constitutional: no apparent distress, appears nourished, chronically ill appearing Eyes: PERRL, anicteric sclera Ears, Nose, Mouth, Throat: moist mucous membranes, hearing normal Cardiovascular: regular rate and rhythym, no murmur, rub, or gallop Respiratory: no respiratory distress, no rales or rhonchi Gastrointestinal: normoactive bowel sounds, soft, non-tender abdomen Genitourinary: no bladder fullness, No marcelo in urethra Skin: warm, normal color Musculoskeletal: other (RUE edematous) Neurologic: AAOx3 ICD10 Worksheet Patient Problems: Problems Problem Status Onset Unable to ambulate Acute Acute alcohol intoxication Acute Closed head injury Acute Laceration of eyebrow, right, complicated Acute
--- NOTE | 2017-06-20 16:28 | SOAPPROG ---
SOAP Progress Note Assessment/Plan: Assessment: 1) Full thickness wound left great toe s/p I&D with debridement. 2) partial thickness wound sub 5th metatarsal head left foot. 2) Partial thickness wounds right foot with no SOI. Plan: 06/19/17 16:15 *Continue abx per ID. Appreciate ID management. *Continue BID iodoform packing and DSD left foot prn. Wound care per nursing. *Patient may be full weightbearing and given a surgical shoe for help ambulating PRN. 06/19/17 16:14 06/19/17 16:19 06/20/17 16:27 Subjective: Patient seen at bedside, no pedal complains. He is awake and oriented Objective: Vital Signs Temp Pulse Resp BP Pulse Ox 36.9 C 98 20 147/90 H 88 L 06/20/17 12:00 06/20/17 12:00 06/20/17 12:00 06/20/17 12:00 06/20/17 12:00 Microbiology 06/16/17 09:28 Gram Stain - Final Toe - Anaerobic Tube/Swab 06/14/17 21:55 Gram Stain - Final Shoulder - Eswab Laboratory Results 06/19/17 04:45 06/20/17 04:20 06/19/17 06/20/17 06/21/17 05:59 05:59 05:59 Intake Total 1000 2143 Output Total 6485 7150 400 [facility] -5485 -5007 -400 PT 14.4 SEC (12.0-15.0) 06/13/17 09:50 INR 1.10 (0.83-1.16) 06/13/17 09:50 Full thickness wounds left foot as noted before. Left great toe is s/p debridement. wound is 1.5 x 1 x 1 cm with a healthy grannular base. No edema, erythema, drainage, or malodor noted. No gross sign of infection noted bilateral feet. Neurovascular status is grossly intact to the LE bilaterally. ICD10 Worksheet Patient Problems: Problems Problem Status Onset Unable to ambulate Acute Acute alcohol intoxication Acute Closed head injury Acute Laceration of eyebrow, right, complicated Acute
[2017-06-20] MEDS: ENOXAPARIN 80 MG/0.8 ML SYR SC SCH (21:44)
[2017-06-21] MEDS: AMPICILLIN/SULBACTAM 3 GM VIAL IV SCH ×5 (01:12→23:50)
[2017-06-21] MEDS: IBUPROFEN 800 MG TAB PO PRN (01:16)
[2017-06-21] MEDS: THIAMINE HCL 500 MG in NS 500 ML IV SCH ×2 (05:22→14:53)
[2017-06-21] MEDS ORDERED: POTASSIUM CL 10 MEQ TAB PO ONE (07:44)
[2017-06-21] MEDS ORDERED: MAGNESIUM SULF 1 GM/DEXTROSE 100 ML IV ONE (08:03)
--- NOTE | 2017-06-21 08:44 | SOAPPROG ---
SOAP Progress Note Assessment/Plan: Assessment: POD#7 s/p I&D B/L shoulders -yfnesses communicated with B/L GH joints. He has hardware in the R shoulder from a prior surgery. Discussed with ID about duration of treatment and possible need for suppression consider presence of hardware (2 small screws and an anchor) -R shoulder wound dry. Mod drainage from the L shoulder today -clinically improved today. He was sitting up in a chair and talking Plan: -daily dressing changes -reinforce dressings as needed -the left great toe is being managed by the podiatry service -IV abx -appreciate care of medical and ID teams -can start more aggressive PT/OT for shoulder ROM I had a discussion w/ Mr. Al regarding his shoulders. He has severe OA in both shoulders. He was likely compensating well prior to this episode. It will likely take him months to return to his prior level of function, and he may not return at all. At this point will encourage working on ROM to prevent stiffness. 06/20/17 11:22 06/21/17 08:41 Subjective: Sitting up eating breakfast. Complains that his shoulders don't work well Objective: Vital Signs Temp Pulse Resp BP Pulse Ox 36.8 C 108 H 18 133/84 H 90 L 06/21/17 07:10 06/21/17 07:10 06/21/17 07:10 06/21/17 07:10 06/21/17 07:10 Microbiology 06/15/17 17:19 Blood Culture - Final Blood 06/15/17 17:26 Blood Culture - Final Blood 06/16/17 09:28 Gram Stain - Final Toe - Anaerobic Tube/Swab 06/14/17 21:55 Gram Stain - Final Shoulder - Eswab Laboratory Results 06/19/17 04:45 06/21/17 06:10 06/20/17 06/21/17 06/22/17 05:59 05:59 05:59 Intake Total 2143 1310 Output Total 1077 2980 Balance -5007 -1665 PT 14.4 SEC (12.0-15.0) 06/13/17 09:50 INR 1.10 (0.83-1.16) 06/13/17 09:50 L shoulder -mod drainage from drain site -unable to abduct or FF at the shoulder R shoulder -incision is clean and dry ICD10 Worksheet Patient Problems: Problems Problem Status Onset Unable to ambulate Acute Acute alcohol intoxication Acute Closed head injury Acute Laceration of eyebrow, right, complicated Acute
[2017-06-21] MEDS: ENOXAPARIN 80 MG/0.8 ML SYR SC SCH ×2 (09:00→21:46)
[2017-06-21] MEDS: MULTIVITAMINS 1 EACH TAB PO SCH (09:04)
[2017-06-21] MEDS: LORazepam 2 MG/ML INJ IV PRN (14:35)
[2017-06-21] MEDS: [UNRECOGNIZED DRUG - MIXTURE] TP PRN (14:39)
--- NOTE | 2017-06-21 14:44 | ASMTCMCOM ---
CM Note CM Note Notes: Today SWer sent more LTC Medicaid referrals via Allscripts. Please see Allscripts for acceptances. [facility] is complete. Await contact from [facility]. Date Signed: 06/21/2017 02:44 PM Electronically Signed By:Shanita Dickinson LCSW
[2017-06-21] MEDS ORDERED: oxyCODONE IR 5 MG TAB PO PRN (14:47)
[2017-06-21] MEDS ORDERED: IBUPROFEN 800 MG TAB PO SCH (14:47)
--- NOTE | 2017-06-21 14:51 | HOSPPROG ---
Hospitalist Progress Note Assessment/Plan: 52 yo M w b/l septic arthritis of shoulder UE dvt: dvt below picc so left in follow exam therapeutic lovenox pain: uncontrolled today start scheduled ibuprofen and oxycodone plus prn oxycodone Severe sepsis - Group C/G strep with seeding bilateral shoulders -IV Unasyn septic physiology has resolved Bilateral septic arthritis of shoulders s/p I&D Cellulitis/abscess of bilateral feet - possible osteomyelitis -MRI bilateral feet - poor study - patient could not tolerate study -podiatry following - suspect he just needs surgical exploration -still pus draining from toe appreciate podiatry assistance Metabolic encephalopathy - unclear significance of dural enhancement on MRI 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 case d/w dr garcia Objective: Vital Signs Temp Pulse Resp BP Pulse Ox 36.6 C 98 16 145/90 H 94 06/21/17 11:01 06/21/17 11:01 06/21/17 11:01 06/21/17 11:01 06/21/17 11:01 Microbiology 06/16/17 09:28 Gram Stain - Final Toe - Anaerobic Tube/Swab 06/15/17 17:19 Blood Culture - Final Blood 06/15/17 17:26 Blood Culture - Final Blood 06/14/17 21:55 Gram Stain - Final Shoulder - Eswab Laboratory Results 06/19/17 04:45 06/21/17 06:10 06/20/17 06/21/17 06/22/17 05:59 05:59 05:59 Intake Total 2143 1310 Output Total 7114 2975 Balance -5009 -9755 PT 14.4 SEC (12.0-15.0) 06/13/17 09:50 INR 1.10 (0.83-1.16) 06/13/17 09:50 - Physical Exam Constitutional: no apparent distress, appears nourished, No not in pain Eyes: PERRL, anicteric sclera Ears, Nose, Mouth, Throat: moist mucous membranes, hearing normal Cardiovascular: regular rate and rhythym, no murmur, rub, or gallop Respiratory: no respiratory distress, no rales or rhonchi Gastrointestinal: normoactive bowel sounds, soft, non-tender abdomen Genitourinary: no bladder fullness, no bladder tenderness Skin: warm, normal color Musculoskeletal: full muscle strength Neurologic: AAOx3 ICD10 Worksheet Patient Problems: Problems Problem Status Onset Unable to ambulate Acute Acute alcohol intoxication Acute Closed head injury Acute Laceration of eyebrow, right, complicated Acute
[2017-06-21] MEDS: oxyCODONE IR 5 MG TAB PO SCH ×3 (15:19→21:47)
[2017-06-21] MEDS: IBUPROFEN 800 MG TAB PO SCH ×2 (15:19→21:47)
--- NOTE | 2017-06-21 16:10 | PCMIDPN ---
Assessment/Plan: # Sepsis due to multifocal disease due to streptococcal bacteremia with B shoulder infection now with changes under 5th metatarsal head on the left foot suggestive of osteo. Still with significant swelling B shoulder and R shoulder w persistent erythema. No labs for couple days but patient with initial bandemia then leukocytosis --continue IV unasyn to cover toe isolates --needs MRI L foot to understand 5th met head --check labs tomorrow # ARF : resolved # Severe seborrhea vs rosacea face/scalp: start by applying lubriderm to his face meds unaysn 3gm IV q6hrs Microbiology 06/13/17 16:55 Blood Cx 2/2 Streptococcus Grp C/G: PCN ANDREW <0.91805 06/13/17 09:14 Shoulder - Swab Wound Culture Strep Dysgalactiae Grp C/G HIV, HCV negative 06/15/17 blood cx (2) negative L great toe: MSSA, group strep, fingoldia Subjective: c/o R>L shoulder pain denies foot pain no diarrhea Objective: Vital Signs Temp Pulse Resp BP Pulse Ox 36.9 C 101 H 18 159/92 H 94 06/21/17 15:25 06/21/17 15:25 06/21/17 15:25 06/21/17 15:25 06/21/17 15:25 Microbiology 06/14/17 21:55 Gram Stain - Final Shoulder - Eswab 06/16/17 09:28 Gram Stain - Final Toe - Anaerobic Tube/Swab 06/15/17 17:19 Blood Culture - Final Blood 06/15/17 17:26 Blood Culture - Final Blood Laboratory Results 06/19/17 04:45 06/21/17 06:10 06/20/17 06/21/17 06/22/17 05:59 05:59 05:59 Intake Total 2143 1310 Output Total 5994 3513 Balance -9792 -1041 - Physical Exam General Appearance: alert, no apparent distress EENT: pale conjunctiva, poor dentition, No scleral icterus Respiratory: No accessory muscle use Cardiac/Chest: tachycardia, systolic murmur Extremities: other (L foot with small ulcertion tip of great toe, no obvious bone; 5th met sole of foot with bulla suggestive of underlying infetion) Abdomen: non-tender, soft Male Genitalia: No marcelo Skin: rash (scaly MP eruption face and scalp) Neuro/Psych: normal mood/affect, oriented x 3 - Time Spent With Patient Time Spent with Patient: greater than 35 minutes Time Spent with Patient: Greater than 35 minutes spent on this patients care, greater than 50% of time spent counseling, educating, and coordinating care regarding the above mentioned plan. ICD10 Worksheet Patient Problems: Problems Problem Status Onset Unable to ambulate Acute Acute alcohol intoxication Acute Closed head injury Acute Laceration of eyebrow, right, complicated Acute
[2017-06-21] MEDS ORDERED: GADOBUTROL 10 ML VIAL IVP ONE (17:56)
[2017-06-22] MEDS: oxyCODONE IR 5 MG TAB PO SCH ×6 (01:49→21:30)
[2017-06-22] MEDS: IBUPROFEN 800 MG TAB PO SCH ×2 (05:03→15:34)
[2017-06-22] MEDS: AMPICILLIN/SULBACTAM 3 GM VIAL IV SCH ×3 (05:04→19:24)
[2017-06-22 07:54] LABS: PLATELET COUNT 635 10^3/uL (150-400)
[2017-06-22] MEDS: MULTIVITAMINS 1 EACH TAB PO SCH (10:11)
[2017-06-22] MEDS: ENOXAPARIN 80 MG/0.8 ML SYR SC SCH ×2 (10:12→21:29)
--- NOTE | 2017-06-22 12:44 | SOAPPROG ---
SOAP Progress Note Assessment/Plan: Assessment: POD#8 s/p I&D B/L shoulders -jj communicated with B/L GH joints. He has hardware in the R shoulder from a prior surgery. Discussed with ID about duration of treatment and possible need for suppression consider presence of hardware (2 small screws and an anchor) -R shoulder wound dry. Mod drainage from the L shoulder drain site, appears to be clearing up. Will moniter -shoulders feel better today per pt Plan: -daily dressing changes -reinforce dressings as needed -the left great toe is being managed by the podiatry service -IV abx -appreciate care of medical and ID teams -can start more aggressive PT/OT for shoulder ROM -if the pt is still here at about 2 wks post op I will remove the sutures I had a discussion w/ Mr. Al regarding his shoulders. He has severe OA in both shoulders. He was likely compensating well prior to this episode. It will likely take him months to return to his prior level of function, and he may not return at all. At this point will encourage working on ROM to prevent stiffness. Subjective: "Shoulders feel a little better." Sitting up in a chair and taking a nap this afternoon Objective: Vital Signs Temp Pulse Resp BP Pulse Ox 36.8 C 117 H 18 96/71 L 91 L 06/22/17 11:25 06/22/17 11:25 06/22/17 11:25 06/22/17 11:25 06/22/17 11:25 Microbiology 06/16/17 09:28 Gram Stain - Final Toe - Anaerobic Tube/Swab 06/14/17 21:55 Gram Stain - Final Shoulder - Eswab 06/15/17 17:19 Blood Culture - Final Blood 06/15/17 17:26 Blood Culture - Final Blood Laboratory Results 06/22/17 07:40 06/22/17 07:40 06/21/17 06/22/17 06/23/17 05:59 05:59 05:59 Intake Total 1310 1620 Output Total 2975 350 Balance -1665 1270 PT 14.4 SEC (12.0-15.0) 06/13/17 09:50 INR 1.10 (0.83-1.16) 06/13/17 09:50 R shoulder -incision clean and dry and healing well L shoulder -incision clean and healing -there is mod serous drainage from the drain site - Time Spent With Patient Time Spent With Patient: 15m ICD10 Worksheet Patient Problems: Problems Problem Status Onset Unable to ambulate Acute Acute alcohol intoxication Acute Closed head injury Acute Laceration of eyebrow, right, complicated Acute
--- NOTE | 2017-06-22 14:12 | PCMIDPN ---
Assessment/Plan: Assessment: Group C strep bacteremia with bilateral involvement of shoulder joints. Status post washout. Patient also has soft tissue involvement in the dorsal lateral aspect of his left foot. No evidence of osteomyelitis on MRI with contrast. Patient is stable on Unasyn. Will continue this treatment and anticipated duration of 4 weeks from blood culture clearance. 2D echocardiogram is negative for vegetation on all viewed valves. Plan: 1. Continue IV Unasyn. 2. Follow up with repeat blood cultures. 3. Follow clinical course. 06/22/17 14:11 Subjective: Up in his chair in his hospital room. Patient states that he has had no fevers or chills. Tolerating antibiotic without issue. Is able to move his shoulders better than he was last week. No significant fevers or chills. Objective: Unasyn # 6 (antibiotics # 9) Vital Signs Temp Pulse Resp BP Pulse Ox 36.8 C 117 H 18 96/71 L 91 L 06/22/17 11:25 06/22/17 11:25 06/22/17 11:25 06/22/17 11:25 06/22/17 11:25 Microbiology 06/16/17 09:28 Gram Stain - Final Toe - Anaerobic Tube/Swab 06/14/17 21:55 Gram Stain - Final Shoulder - Eswab Laboratory Results 06/22/17 07:40 06/22/17 07:40 06/21/17 06/22/17 06/23/17 05:59 05:59 05:59 Intake Total 1310 1620 Output Total 2975 350 Balance -1665 1270 - Physical Exam General Appearance: WD/WN, alert, no apparent distress, non-toxic Respiratory: lungs clear, normal breath sounds, No respiratory distress Cardiac/Chest: regular rate, rhythm, No tachycardia, No systolic murmur Extremities: non-tender, normal inspection Skin: normal color, warm/dry, No rash Neuro/Psych: alert, normal mood/affect, oriented x 3 ICD10 Worksheet Patient Problems: Problems Problem Status Onset Unable to ambulate Acute Acute alcohol intoxication Acute Closed head injury Acute Laceration of eyebrow, right, complicated Acute
--- NOTE | 2017-06-22 16:14 | HOSPPROG ---
Hospitalist Progress Note Assessment/Plan: 52 yo M w b/l septic arthritis of shoulder UE dvt: dvt below picc so left in follow exam therapeutic lovenox pain: uncontrolled today start scheduled ibuprofen and oxycodone plus prn oxycodone improved today 06/22 Severe sepsis - Group C/G strep with seeding bilateral shoulders -IV Unasyn septic physiology has resolved Bilateral septic arthritis of shoulders s/p I&D Cellulitis/abscess of bilateral feet - possible osteomyelitis -MRI bilateral feet - poor study - patient could not tolerate study -podiatry following - suspect he just needs surgical exploration -still pus draining from toe appreciate podiatry assistance Metabolic encephalopathy - unclear significance of dural enhancement on MRI 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 -IV thiamine X 8 days Etohism Hypernatremia -resolved Ankylosing spondylitis marcelo: so proph: therapeutically anticoagulated dispo: will need snf Subjective: case d/w dr judge Objective: Vital Signs Temp Pulse Resp BP Pulse Ox 37.3 C 94 18 113/72 95 06/22/17 15:09 06/22/17 15:09 06/22/17 15:09 06/22/17 15:09 06/22/17 15:09 Microbiology 06/16/17 09:28 Gram Stain - Final Toe - Anaerobic Tube/Swab 06/14/17 21:55 Gram Stain - Final Shoulder - Eswab Laboratory Results 06/22/17 07:40 06/22/17 07:40 06/21/17 06/22/17 06/23/17 05:59 05:59 05:59 Intake Total 1310 1620 Output Total 2975 350 Balance -1665 1270 PT 14.4 SEC (12.0-15.0) 06/13/17 09:50 INR 1.10 (0.83-1.16) 06/13/17 09:50 - Physical Exam Constitutional: no apparent distress, appears nourished, other (more alert than yesterday) Eyes: PERRL, anicteric sclera Ears, Nose, Mouth, Throat: moist mucous membranes, hearing normal Cardiovascular: regular rate and rhythym, no murmur, rub, or gallop Respiratory: no respiratory distress, no rales or rhonchi Gastrointestinal: normoactive bowel sounds, soft, non-tender abdomen Genitourinary: no bladder fullness, No marcelo in urethra Skin: warm, normal color Musculoskeletal: No full muscle strength, No no muscle tenderness ICD10 Worksheet Patient Problems: Problems Problem Status Onset Unable to ambulate Acute Acute alcohol intoxication Acute Closed head injury Acute Laceration of eyebrow, right, complicated Acute
--- NOTE | 2017-06-22 16:39 | ASMTCMCOM ---
CM Note CM Note Notes: Today Zackery met w/ Pt. in room. He was groggy, sleepy and unable to have a conversation about d/c planning. Bladimir from [facility] came to see Pt. today. Bladimir reports that she was speaking with her administration and learned that her business office had contacted Pt. in his room. Pt. stated he didn't want to commit to a 30-day stay. Pt. quite groggy and may not have been educated about Medicaid rules. Pt. denied from several LTCs thus far. Please see Allscripts. OT still recommending SNF. PT has not been able to see Pt. in two days due to grogginess. CM to follow for d/c POC. CM Dielectric Tester has been alerted to difficulty of d/c plan thus far. Date Signed: 06/22/2017 04:38 PM Electronically Signed By:Shanita Dickinson LCSW
[2017-06-22] MEDS: ALTEPLASE 2 MG VIAL IVP PRN (19:54)
[2017-06-22] MEDS: IBUPROFEN 200 MG TAB PO SCH (21:30)
[2017-06-23] MEDS: AMPICILLIN/SULBACTAM 3 GM VIAL IV SCH ×4 (00:27→18:15)
[2017-06-23] MEDS: oxyCODONE IR 5 MG TAB PO SCH ×3 (01:35→09:51)
[2017-06-23] MEDS: IBUPROFEN 200 MG TAB PO SCH ×3 (05:00→20:59)
--- NOTE | 2017-06-23 10:03 | PCMIDPN ---
Assessment/Plan: 1. Group C/G streptococcal bacteremia with seeding of both shoulders status post incision and drainage: Continue Unasyn as is. No new recommendations at this point in time. 2. Left great toe infection/5th metatarsal superficial infection/right superficial 1st metatarsal head infection: No evidence of osteomyelitis on either side. Continue wound care. Continue Unasyn. Also needs to use lotion on the bottoms of his feet; nurse was informed. 3. Seborrheic dermatitis: Ketoconazole shampoo daily. 4. Disposition: Unclear at this point in time. The patient needs a snf facility, but has been refusing this. Presently, he is not able to answer questions about this and a cogent manner given recent ingestion of narcotics this morning for pain. Subjective: Alert, sitting up in chair, but very tangential. Denies diarrhea, or significant discomfort. Says his shoulders are still painful. Tried to broach a snf facility, but patient is really unable to answer questions as he received oxycodone this morning at 6:00 a.m. For pain and is mildly confused. Objective: Unasyn 3 g IV q.6 hours day 7 (antibiotics day 10) T-max 37.7 degrees Vital Signs Temp Pulse Resp BP Pulse Ox 36.8 C 85 15 152/88 H 90 L 06/23/17 04:00 06/23/17 08:30 06/23/17 08:30 06/23/17 08:30 06/23/17 08:30 Microbiology 06/16/17 09:28 Gram Stain - Final Toe - Anaerobic Tube/Swab 06/14/17 21:55 Gram Stain - Final Shoulder - Eswab Laboratory Results 06/22/17 07:40 06/22/17 07:40 06/22/17 06/23/17 06/24/17 05:59 05:59 05:59 Intake Total 1620 400 400 Output Total 350 200 Balance 1270 200 400 No new microbiology. presence of finegoldia from foot noted - Physical Exam General Appearance: alert, no apparent distress EENT: No thrush Respiratory: coarse breath sounds Cardiac/Chest: regular rate, rhythm, No systolic murmur Extremities: other (Shoulders dressed. I did take down the dressings. Incisions look fine with suture in place. Minimal harris-incisional erythema. Patient had decline in his right upper extremity with some distal forearm swelling consistent with history of clot. No tingling or numbness in the hands. Patient's left foot was unwrapped. Plantar aspect of left great toe looks better. Devitalized tissue has been removed, although the plantar aspect of his foot shows extremely dry, cracked skin. 5th metatarsal head with superficial ulceration that looks clean.) Abdomen: non-tender, soft ICD10 Worksheet Patient Problems: Problems Problem Status Onset Unable to ambulate Acute Acute alcohol intoxication Acute Closed head injury Acute Laceration of eyebrow, right, complicated Acute
[2017-06-23] MEDS: ENOXAPARIN 80 MG/0.8 ML SYR SC SCH ×2 (10:07→20:59)
[2017-06-23] MEDS: MULTIVITAMINS 1 EACH TAB PO SCH (10:07)
[2017-06-23] MEDS: KETOCONAZOLE 2% 120 ML SHAMPOO TP SCH (10:15)
--- NOTE | 2017-06-23 11:41 | HOSPPROG ---
Hospitalist Progress Note Assessment/Plan: 52 yo M w b/l septic arthritis of shoulder # Group C/G Streptococcus bacteremia - with seeding of the bilateral shoulders and soft tissue infection of bilateral feet Status post I&D of bilateral shoulders by Orthopedic surgery MRI foot (personally reviewed and interpreted) shows no evidence of osteomyelitis of the left foot Notable new patch of red erythema below the right shoulder incision - warm on palpation an indurated - continue IV Unasyn- will need minimum 4 weeks IV antibiotics - continue wound care - geovanna right arm erythema/cellulitis for monitoring - continue p.o. Anti inflammatories # Metabolic encephalopathy - patient reportedly clearing since initial admission - remains somnolent on examination today Oxygen saturations 90% on 2 L - stop scheduled narcotics - p.r.n. oxycodone - continue p.o. 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 Panda from Infectious Disease- we will continue current antibiotics and reduce the dosing on narcotic medications Subjective: Pain improved Objective: Vital Signs Temp Pulse Resp BP Pulse Ox 36.8 C 85 15 152/88 H 90 L 06/23/17 04:00 06/23/17 08:30 06/23/17 08:30 06/23/17 08:30 06/23/17 08:30 Microbiology 06/16/17 09:28 Gram Stain - Final Toe - Anaerobic Tube/Swab 06/14/17 21:55 Gram Stain - Final Shoulder - Eswab Laboratory Results 06/22/17 07:40 06/22/17 07:40 06/22/17 06/23/17 06/24/17 05:59 05:59 05:59 Intake Total 1620 400 400 Output Total 350 200 Balance 1270 200 400 PT 14.4 SEC (12.0-15.0) 06/13/17 09:50 INR 1.10 (0.83-1.16) 06/13/17 09:50 - Physical Exam Constitutional: chronically ill appearing Eyes: anicteric sclera Ears, Nose, Mouth, Throat: dry mucous membranes Cardiovascular: regular rate and rhythym Respiratory: no respiratory distress Gastrointestinal: normoactive bowel sounds Genitourinary: no bladder fullness Skin: other (10 x 15 cm patch of erythema low the right deltoid) Musculoskeletal: No asymmetric calves Neurologic: No AAOx3 Psychiatric: encephalopathic, other (Somnolent) Lymph, Heme, Immunologic: no cervical LAD ICD10 Worksheet Patient Problems: Problems Problem Status Onset Unable to ambulate Acute Acute alcohol intoxication Acute Closed head injury Acute Laceration of eyebrow, right, complicated Acute
[2017-06-23] MEDS: [UNRECOGNIZED DRUG - MIXTURE] TP PRN (12:01)
--- NOTE | 2017-06-23 18:27 | SOAPPROG ---
SOAP Progress Note Assessment/Plan: Assessment: POD#9 s/p I&D B/L shoulders -jj communicated with B/L GH joints. He has hardware in the R shoulder from a prior surgery. Discussed with ID about duration of treatment and possible need for suppression considering presence of hardware (2 small screws and an anchor) -R shoulder wound dry. The left shoulder drainage from the drain site persists, but appears to have decreased. Will continue to moniter -erythematous area over the R lateral arm is indurated, without fluctuance. Will moniter this area as well Plan: -daily dressing changes for L shoulder. -reinforce dressings as needed -the left great toe is being managed by the podiatry service -IV abx -appreciate care of medical and ID teams -can start more aggressive PT/OT for shoulder ROM. I discussed pendulums with the patient today. -if the pt is still here at about 2 wks post op I will remove the sutures I had a discussion w/ Mr. Al regarding his shoulders. He has severe OA in both shoulders. He was likely compensating well prior to this episode. It will likely take him months to return to his prior level of function, and he may not return at all. At this point will encourage working on ROM to prevent stiffness. 06/23/17 18:24 Subjective: Sleeping this evening. He is concerned about the decreased function of his shoulders Objective: Vital Signs Temp Pulse Resp BP Pulse Ox 36.8 C 90 12 115/72 90 L 06/23/17 15:21 06/23/17 15:21 06/23/17 15:21 06/23/17 15:21 06/23/17 15:21 Microbiology 06/16/17 09:28 Gram Stain - Final Toe - Anaerobic Tube/Swab Anaerobic Culture - Final Staphylococcus Aureus Strep Dysgalactiae Grp C/G Finegoldia Magna 06/14/17 21:55 Gram Stain - Final Shoulder - Eswab Laboratory Results 06/22/17 07:40 06/22/17 07:40 06/22/17 06/23/17 06/24/17 05:59 05:59 05:59 Intake Total 9721 636 2134 Output Total 350 200 Balance 9714 513 2732 PT 14.4 SEC (12.0-15.0) 06/13/17 09:50 INR 1.10 (0.83-1.16) 06/13/17 09:50 R shoulder -incision clean and dry -there is a marked ~4x4cm erythematous area of induration over the AL arm. This area is firm and not fluctuant L shoulder -dressing changed, there is still mod serosanguinous drainage from the drain site ICD10 Worksheet Patient Problems: Problems Problem Status Onset Unable to ambulate Acute Acute alcohol intoxication Acute Closed head injury Acute Laceration of eyebrow, right, complicated Acute
[2017-06-23] MEDS: oxyCODONE IR 5 MG TAB PO PRN (19:48)
[2017-06-24] MEDS: AMPICILLIN/SULBACTAM 3 GM VIAL IV SCH ×4 (00:22→18:14)
[2017-06-24] MEDS: oxyCODONE IR 5 MG TAB PO PRN ×4 (03:13→19:06)
[2017-06-24] MEDS: IBUPROFEN 200 MG TAB PO SCH ×3 (05:27→21:47)
[2017-06-24] MEDS: MULTIVITAMINS 1 EACH TAB PO SCH (07:57)
[2017-06-24] MEDS: ENOXAPARIN 80 MG/0.8 ML SYR SC SCH ×2 (07:57→21:47)
--- NOTE | 2017-06-24 09:45 | PCMIDPN ---
Assessment/Plan: # Sepsis due to multifocal disease due to streptococcal bacteremia with B shoulder septic arthritis s/p washout. Drains out bilaterally. Erythema on right shoulder is improving --continue IV unasyn to cover toe isolates and group C/G strep # Severe seborrhea vs rosacea face/scalp: Lubriderm and ketoconazole meds unaysn 3gm IV q6hrs Microbiology 06/13/17 16:55 Blood Cx 2/2 Streptococcus Grp C/G: PCN ANDREW <[id number] 06/13/17 09:14 Shoulder - Swab Wound Culture Strep Dysgalactiae Grp C/G HIV, HCV negative 06/15/17 blood cx (2) negative L great toe: MSSA, group strep, fingoldia Subjective: Patient reports a history of ankylosing spondylitis, also reports significant infection 1 year ago requiring IV antibiotics Roosevelt Choi Shoulder pain controlled Occasional loose stool Objective: Vital Signs Temp Pulse Resp BP Pulse Ox 36.7 C 110 H 18 140/78 H 90 L 06/24/17 07:47 06/24/17 07:47 06/24/17 07:47 06/24/17 07:47 06/24/17 07:47 Microbiology 06/16/17 09:28 Gram Stain - Final Toe - Anaerobic Tube/Swab Anaerobic Culture - Final Staphylococcus Aureus Strep Dysgalactiae Grp C/G Finegoldia Magna 06/14/17 21:55 Gram Stain - Final Shoulder - Eswab Laboratory Results 06/22/17 07:40 06/22/17 07:40 06/23/17 06/24/17 06/25/17 05:59 05:59 05:59 Intake Total 400 1540 Output Total 200 400 Balance 200 1140 - Physical Exam General Appearance: alert, no apparent distress EENT: poor dentition Respiratory: lungs clear, No accessory muscle use Cardiac/Chest: regular rate, rhythm, No systolic murmur Extremities: swelling (Right arm swelling with PICC line in place, known distal DVT), other (Mid range of motion of bilateral shoulders, right shoulder with [id number] swelling persisting, lateral erythema over the deltoid is significantly faded, patient's with minimal drainage.) Skin: other (Scaly maculopapular eruption on face and scalp consistent with seborrheic dermatitis) Neuro/Psych: alert, normal mood/affect, oriented x 3 - Line/s RUE PICC Lines: other (swelling), No drainage, No erythema - Time Spent With Patient Time Spent with Patient: greater than 35 minutes (Care coordinated Dr Cheng) Time Spent with Patient: Greater than 35 minutes spent on this patients care, greater than 50% of time spent counseling, educating, and coordinating care regarding the above mentioned plan. ICD10 Worksheet Patient Problems: Problems Problem Status Onset Unable to ambulate Acute Acute alcohol intoxication Acute Closed head injury Acute Laceration of eyebrow, right, complicated Acute
--- NOTE | 2017-06-24 14:45 | HOSPPROG ---
Hospitalist Progress Note Assessment/Plan: 52 yo M w b/l septic arthritis of shoulder # Group C/G Streptococcus bacteremia - with seeding of the bilateral shoulders and soft tissue infection of bilateral feet Status post I&D of bilateral shoulders by Orthopedic surgery MRI foot (personally reviewed and interpreted) shows no evidence of osteomyelitis of the left foot Improved erythema below the right shoulder incision - I&D incision healing well - continue IV Unasyn- will need minimum 4 weeks IV antibiotics - continue wound care - continue p.o. Anti inflammatories # Metabolic encephalopathy - patient reportedly clearing since initial admission - remains somnolent on examination today Oxygen saturations 92% on 2 L - stop scheduled narcotics - p.r.n. oxycodone - continue p.o. 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 Fraga- we will begin arranging long-term disposition Subjective: feeling a bit better today Objective: Vital Signs Temp Pulse Resp BP Pulse Ox 36.6 C 88 14 133/91 H 84 L 06/24/17 11:34 06/24/17 11:34 06/24/17 11:34 06/24/17 11:34 06/24/17 11:50 Microbiology 06/16/17 09:28 Gram Stain - Final Toe - Anaerobic Tube/Swab Anaerobic Culture - Final Staphylococcus Aureus Strep Dysgalactiae Grp C/G Finegoldia Magna 06/14/17 21:55 Gram Stain - Final Shoulder - Eswab Laboratory Results 06/22/17 07:40 06/22/17 07:40 06/23/17 06/24/17 06/25/17 05:59 05:59 05:59 Intake Total 400 1540 250 Output Total 200 400 Balance 200 1140 250 PT 14.4 SEC (12.0-15.0) 06/13/17 09:50 INR 1.10 (0.83-1.16) 06/13/17 09:50 - Physical Exam Constitutional: no apparent distress, chronically ill appearing Eyes: anicteric sclera Ears, Nose, Mouth, Throat: moist mucous membranes Cardiovascular: regular rate and rhythym Respiratory: no respiratory distress Gastrointestinal: normoactive bowel sounds Genitourinary: no bladder fullness Skin: warm Musculoskeletal: No asymmetric calves Neurologic: AAOx3 Psychiatric: interacting appropriately Lymph, Heme, Immunologic: no cervical LAD ICD10 Worksheet Patient Problems: Problems Problem Status Onset Unable to ambulate Acute Acute alcohol intoxication Acute Closed head injury Acute Laceration of eyebrow, right, complicated Acute
[2017-06-24] MEDS: KETOCONAZOLE 2% 120 ML SHAMPOO TP SCH (17:09)
--- NOTE | 2017-06-24 18:46 | ASMTCMCOM ---
CM Note CM Note Notes: Pt seems to be a difficult placement, needs SNF, has been declined by several places (see Shanita Castillo's note on 06/22). But has been approved by [facility] for SNF stay, call Lucinda at [facility] [phone] when placement found. Complicating matters is the fact that [facility] called pt and asked if he would agree to 30 day stay at SNF, pt extremely groggy and has poor insight to his present physical needs stated "no". So [facility] declined him, CM to meet with pt to explain the need for SNF and the fact that days in the hospital are a part of those 30 days, so stay at SNF may not be that long. DC Plan: SNF Date Signed: 06/24/2017 06:45 PM Electronically Signed By:Kirsten Perez RN
[2017-06-25] MEDS: AMPICILLIN/SULBACTAM 3 GM VIAL IV SCH ×5 (00:38→23:50)
[2017-06-25] MEDS: oxyCODONE IR 5 MG TAB PO PRN ×3 (03:14→17:41)
[2017-06-25] MEDS: IBUPROFEN 200 MG TAB PO SCH ×3 (05:16→21:01)
[2017-06-25] MEDS: ENOXAPARIN 80 MG/0.8 ML SYR SC SCH ×2 (08:29→21:01)
[2017-06-25] MEDS: MULTIVITAMINS 1 EACH TAB PO SCH (08:29)
[2017-06-25] MEDS: KETOCONAZOLE 2% 120 ML SHAMPOO TP SCH (08:30)
--- NOTE | 2017-06-25 11:56 | PCMIDPN ---
Assessment/Plan: # Sepsis due to multifocal disease due to streptococcal bacteremia with B shoulder septic arthritis s/p washout. The left great toe abscess s/p I&D with polymicrobial Gram stain including MSSA Streptococcus and Finegoldia. Erythema right lateral shoulder stable and fairly minimal --continue IV unasyn to cover toe isolates and group C/G strep --the guidelines suggest 2-3 weeks of IV therapy for septic arthritis due to Streptococcus but due to complexity of case including multifocal disease and concomitant bacteremia would probably increased duration to 4 weeks, stop date --main issue ongoing is lack of understanding of severity of infection and his general debility --ID to see every couple days # Severe seborrhea vs rosacea face/scalp: Lubriderm and ketoconazole meds unaysn 3gm IV q6hrs Microbiology 06/13/17 16:55 Blood Cx 2/2 Streptococcus Grp C/G: PCN ANDREW <0.01268, ceftriaxone <0.0625 06/13/17 09:14 Shoulder - Swab Wound Culture Strep Dysgalactiae Grp C/G HIV, HCV negative 06/15/17 blood cx (2) negative L great toe: MSSA, group strep, fingoldia Subjective: Patient less clear today, mumbling many responses. Pain is controlled Objective: Vital Signs Temp Pulse Resp BP Pulse Ox 36.7 C 101 H 16 120/70 92 06/25/17 08:36 06/25/17 08:36 06/25/17 08:36 06/25/17 08:36 06/25/17 08:36 Laboratory Results 06/25/17 05:20 06/25/17 05:20 06/24/17 06/25/17 06/26/17 05:59 05:59 05:59 Intake Total 1540 1450 Output Total 400 Balance 1140 1450 - Physical Exam General Appearance: alert, no apparent distress EENT: poor dentition Respiratory: lungs clear, No accessory muscle use Cardiac/Chest: regular rate, rhythm, No systolic murmur Extremities: other (Very faint erythema right deltoid with associated mild induration; incisions bilaterally on shoulders healing well) Skin: No rash Neuro/Psych: alert - Line/s RUE PICC Lines: other (Associated swelling with known DVT), No drainage, No erythema - Time Spent With Patient Time Spent with Patient: greater than 25 minutes (Care coordinated with Dr. Cheng) Time Spent with Patient: Greater than 25 minutes spent on this patients care, greater than 50% of time spent counseling, educating, and coordinating care regarding the above mentioned plan. ICD10 Worksheet Patient Problems: Problems Problem Status Onset Unable to ambulate Acute Acute alcohol intoxication Acute Closed head injury Acute Laceration of eyebrow, right, complicated Acute
--- NOTE | 2017-06-25 12:03 | PDIAF ---
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 PICC Care - Routine: Yes - Orders Diet Texture: Regular Texture Diet, Thin Liquids, Meds Whole in Puree, Meds Crushed in Puree - Labs/Radiology CBC w/diff Date: 07/03/17 (weekly monday) CMP Date: 07/03/17 (weekly monday) CRP Date: 07/03/17 (weekly monday) - Follow Up Care Current Providers and Referrals: NONE *PRIMARY CARE P,. [Primary Care Provider] - As per Instructions Yumiko Fraga MD [Medical Doctor] - follow up in 1 week
--- NOTE | 2017-06-25 13:09 | HOSPPROG ---
Hospitalist Progress Note Assessment/Plan: 52 yo M w b/l septic arthritis of shoulder # Group C/G Streptococcus bacteremia - with seeding of the bilateral shoulders and soft tissue infection of bilateral feet Status post I&D of bilateral shoulders by Orthopedic surgery MRI foot (personally reviewed and interpreted) shows no evidence of osteomyelitis of the left foot Improved erythema below the right shoulder incision - I&D incision healing well- decreased edema of left foot - continue IV Unasyn- will need minimum 4 weeks IV antibiotics - continue wound care - continue p.o. Anti inflammatories # Metabolic encephalopathy - much clearer today - stop scheduled narcotics - p.r.n. oxycodone - continue p.o. 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 Fraga- continue planning for dispo- incisions look stable Subjective: feels sad Objective: Vital Signs Temp Pulse Resp BP Pulse Ox 36.7 C 101 H 16 120/70 92 06/25/17 08:36 06/25/17 08:36 06/25/17 08:36 06/25/17 08:36 06/25/17 08:36 Laboratory Results 06/25/17 05:20 06/25/17 05:20 06/24/17 06/25/17 06/26/17 05:59 05:59 05:59 Intake Total 1540 1450 Output Total 400 Balance 1140 1450 PT 14.4 SEC (12.0-15.0) 06/13/17 09:50 INR 1.10 (0.83-1.16) 06/13/17 09:50 - Physical Exam Constitutional: no apparent distress Eyes: anicteric sclera Ears, Nose, Mouth, Throat: other (dermatitis improved) Cardiovascular: regular rate and rhythym Respiratory: no respiratory distress Gastrointestinal: normoactive bowel sounds Genitourinary: no bladder fullness Skin: warm Musculoskeletal: No asymmetric calves Neurologic: AAOx3 Psychiatric: poor insight Lymph, Heme, Immunologic: no cervical LAD ICD10 Worksheet Patient Problems: Problems Problem Status Onset Unable to ambulate Acute Acute alcohol intoxication Acute Closed head injury Acute Laceration of eyebrow, right, complicated Acute
--- NOTE | 2017-06-25 18:36 | SOAPPROG ---
SOAP Progress Note Assessment/Plan: Assessment: POD#11 s/p I&D B/L shoulders -jj communicated with B/L GH joints. He has hardware in the R shoulder from a prior surgery. Discussed with ID about duration of treatment and possible need for suppression considering presence of hardware (2 small screws and anchors) - L shoulder drainage from the drain site continues to decrease, will moniter -erythematous area over the R lateral arm is improving -leukocytosis has resolved Plan: -daily dressing changes for L shoulder. -reinforce dressings as needed -the left great toe is being managed by the podiatry service -IV abx -appreciate care of medical and ID teams -cont PT/OT for shoulder ROM. -if the pt is still here at about 2 wks post op I will remove the sutures I had a discussion w/ Mr. Al regarding his shoulders. He has severe OA in both shoulders. He was likely compensating well prior to this episode. It will likely take him months to return to his prior level of function, and he may not return at all. At this point will encourage working on ROM to prevent stiffness. 06/25/17 18:36 Subjective: Shoulder pain is stable. Concerned about function. Has been working ROM with PT Objective: Vital Signs Temp Pulse Resp BP Pulse Ox 37.2 C 90 16 127/82 H 94 06/25/17 15:33 06/25/17 15:33 06/25/17 15:33 06/25/17 15:33 06/25/17 15:33 Microbiology 06/14/17 21:55 Gram Stain - Final Shoulder - Eswab Laboratory Results 06/25/17 05:20 06/25/17 05:20 06/24/17 06/25/17 06/26/17 05:59 05:59 05:59 Intake Total 1540 1450 850 Output Total 400 Balance 1140 1450 850 PT 14.4 SEC (12.0-15.0) 06/13/17 09:50 INR 1.10 (0.83-1.16) 06/13/17 09:50 R shoulder -incision and drain site are clean and dry -normal passive ROM with arm at side, crepitus with motion L shoulder -incision clean and dry -there is serosanguinous drainage from the former drain site -normal passive ROM with arm at side, crepitus with motion ICD10 Worksheet Patient Problems: Problems Problem Status Onset Unable to ambulate Acute Acute alcohol intoxication Acute Closed head injury Acute Laceration of eyebrow, right, complicated Acute
[2017-06-26] MEDS: oxyCODONE IR 5 MG TAB PO PRN ×5 (01:30→23:01)
[2017-06-26] MEDS: AMPICILLIN/SULBACTAM 3 GM VIAL IV SCH ×3 (05:43→18:27)
[2017-06-26] MEDS: IBUPROFEN 200 MG TAB PO SCH ×3 (05:43→21:08)
[2017-06-26] MEDS: MULTIVITAMINS 1 EACH TAB PO SCH (10:01)
[2017-06-26] MEDS: ENOXAPARIN 80 MG/0.8 ML SYR SC SCH ×2 (10:01→21:08)
[2017-06-26] MEDS: KETOCONAZOLE 2% 120 ML SHAMPOO TP SCH (10:19)
--- NOTE | 2017-06-26 17:34 | ASMTCMCOM ---
CM Note CM Note Notes: Spoke with patient who states he is willing to stay in rehab for 30 days if he can figure out how to retrieve his belongings before he goes. Spoke with [employer] and they do have his backpack and bicycle and they can keep his things for 60 days until the end of July. Contacted [employer] to clear up the 30 day rule miscommunication, letting them know patient will commit to 30 days. Anisha said she would take it before her checking department supervisor but she was doubtful the disposition would be different. Spoke with patient again to let him know his belongings were safe. Patient was grateful and relieved.Patient espressed he would be interested in facilities in the [facility]. Will pursue this tomorrow with referrals to facilities in that area. Also contacted [facility] and sent them the [facility]. Sourav will get back to me tomorrow with their decision. CM will follow. Date Signed: 06/26/2017 05:33 PM Electronically Signed By:Celine Olsen LCSW
--- NOTE | 2017-06-26 19:19 | SOAPPROG ---
SOAP Progress Note Assessment/Plan: Assessment: POD#12 s/p I&D B/L shoulders -jj communicated with B/L GH joints. He has hardware in the R shoulder from a prior surgery. Discussed with ID about duration of treatment and possible need for suppression considering presence of hardware (2 small screws and anchors) - L shoulder drainage from the drain site continues unchanged today - mild serosang drainage. Will moniter. If it doesn't dry up I would consider repeat I&D, however the patient has been improving overall. He did inform me today that he had a wound over that shoulder from a "spider bite" in the past that drained for 7 months and was treated with IV abx, wound vac. -leukocytosis has resolved Plan: -daily dressing changes for L shoulder. -reinforce dressings as needed -the left great toe is being managed by the podiatry service -IV abx -appreciate care of medical and ID teams -cont PT/OT for shoulder ROM. -if the pt is still here at about 2 wks post op I will remove the sutures I had a discussion w/ Mr. Al regarding his shoulders. He has severe OA in both shoulders. He was likely compensating well prior to this episode. It will likely take him months to return to his prior level of function, and he may not return at all. At this point will encourage working on ROM to prevent stiffness. Subjective: Still having pain in the shoulders. Worked with PT today on the shoulders. Thinks he has advanced some ROM Objective: Vital Signs Temp Pulse Resp BP Pulse Ox 36.4 C 100 16 119/75 96 06/26/17 15:50 06/26/17 15:50 06/26/17 15:50 06/26/17 15:50 06/26/17 15:50 Microbiology 06/14/17 21:55 Gram Stain - Final Shoulder - Eswab Laboratory Results 06/25/17 05:20 06/25/17 05:20 06/25/17 06/26/17 06/27/17 05:59 05:59 05:59 Intake Total 1450 850 Balance 1450 850 PT 14.4 SEC (12.0-15.0) 06/13/17 09:50 INR 1.10 (0.83-1.16) 06/13/17 09:50 R shoulder -incision healing well L shoulder -mild serosang drainage in the gauze. Some dark serosang fluid can be expressed from the drain site ICD10 Worksheet Patient Problems: Problems Problem Status Onset Unable to ambulate Acute Acute alcohol intoxication Acute Closed head injury Acute Laceration of eyebrow, right, complicated Acute
--- NOTE | 2017-06-26 19:49 | HOSPPROG ---
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 Anti inflammatories # Metabolic encephalopathy - baseline today - stop scheduled narcotics - p.r.n. oxycodone - continue p.o. 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 -IV thiamine X 8 days # Etoh abuse # Hypernatremia-resolved # Ankylosing spondylitis # proph: therapeutically anticoagulated # disposition> 2 midnights as remains acutely quite ill requiring IV antibiotics and high-level monitoring and supportive care I have discussed the case with CM - working on placement Subjective: still very stiff in bilateral shoulders Objective: Vital Signs Temp Pulse Resp BP Pulse Ox 36.4 C 100 16 119/75 96 06/26/17 15:50 06/26/17 15:50 06/26/17 15:50 06/26/17 15:50 06/26/17 15:50 Microbiology 06/14/17 21:55 Gram Stain - Final Shoulder - Eswab Laboratory Results 06/25/17 05:20 06/25/17 05:20 06/25/17 06/26/17 06/27/17 05:59 05:59 05:59 Intake Total 1450 850 500 Balance 1450 850 500 PT 14.4 SEC (12.0-15.0) 06/13/17 09:50 INR 1.10 (0.83-1.16) 06/13/17 09:50 - Physical Exam Eyes: anicteric sclera Ears, Nose, Mouth, Throat: moist mucous membranes Cardiovascular: regular rate and rhythym Respiratory: no respiratory distress Gastrointestinal: normoactive bowel sounds Genitourinary: no bladder fullness Skin: warm Musculoskeletal: No asymmetric calves Neurologic: AAOx3 Psychiatric: interacting appropriately, No encephalopathic Lymph, Heme, Immunologic: no cervical LAD ICD10 Worksheet Patient Problems: Problems Problem Status Onset Unable to ambulate Acute Acute alcohol intoxication Acute Closed head injury Acute Laceration of eyebrow, right, complicated Acute
[2017-06-27] MEDS: AMPICILLIN/SULBACTAM 3 GM VIAL IV SCH ×5 (01:07→23:41)
[2017-06-27] MEDS: oxyCODONE IR 5 MG TAB PO PRN ×4 (06:20→23:50)
[2017-06-27] MEDS: IBUPROFEN 200 MG TAB PO SCH ×3 (06:21→22:23)
[2017-06-27] MEDS: ENOXAPARIN 80 MG/0.8 ML SYR SC SCH ×2 (09:50→22:24)
[2017-06-27] MEDS: MULTIVITAMINS 1 EACH TAB PO SCH (09:50)
[2017-06-27] MEDS: KETOCONAZOLE 2% 120 ML SHAMPOO TP SCH (11:10)
--- NOTE | 2017-06-27 13:21 | ASMTCMCOM ---
CM Note CM Note Notes: A notarized letter signed by the patient and witnessed will need to be prepared for patient's things to be picked up at the police department by anyone other than the patient. We may need to assist patient with this so he can have his glasses, cell phone and personal items before he goes to a SNF placement. Zee Ivan can pick them up and bring them to the hospital but it will have to be when she returns from vacation. She has meetings the rest of this week and vacation next week. Will see if our business banking manager, Mindy, might be able to do this prior to patient leaving. The SNF in [place] is unable to take patient at this time. Have another call in to [facility] to see if they can work with us to place patient. CM will follow. Date Signed: 06/27/2017 01:20 PM Electronically Signed By:Celine Olsen LCSW
--- NOTE | 2017-06-27 14:59 | PCMIDPN ---
Assessment/Plan: Assessment/Plan: 1. Group C/G strep bacteremia with b/l septic shoulders: - Currently on Unasyn -cx from shoulders with Group c/G strep -s/p wash out (06/15/17) both shoulders, drains out - Has screws and anchor present in right shoulder from before that were surround by infectious fluid. Likely will need suppression after acute course of therapy. - Discussed with ortho today. He will schedule for wash out of left shoulder tomorrow. Appreciate their care. - wbc improving - follow labs periodically - care coordinated with hospitalist team -Will need prolonged atbx plus oral suppression thereafter given HW as stated above. 2. Left great toe and 5th toe wounds with small abscess great toe -Cx showing MSSA and Group C/G strep, Finegoldia--left great toe -currently on unasyn - appreciate podiatry eval Meds unasyn 3g q6- Subjective: afebrile. much more oriented than last week. more interactive. wants to get better. denies sob, abd pain, or diarrhea. less pain involving left foot. shoulder still with decreased ROM but a little bettter. Objective: Vital Signs Temp Pulse Resp BP Pulse Ox 36.6 C 111 H 18 120/77 92 06/27/17 08:00 06/27/17 08:00 06/27/17 08:00 06/27/17 08:00 06/27/17 08:00 Microbiology 06/14/17 21:55 Gram Stain - Final Shoulder - Eswab Laboratory Results 06/25/17 05:20 06/25/17 05:20 06/26/17 06/27/17 06/28/17 05:59 05:59 05:59 Intake Total 850 500 Balance 850 500 - Physical Exam General Appearance: alert, no apparent distress Respiratory: lungs clear Cardiac/Chest: regular rate, rhythm Extremities: other (RUE picc noted. less overall swelling of forearm and arm compared to last week. ) Abdomen: normal bowel sounds, non-tender, soft, No distended Skin: erythema (Left shoulder wiht fluctuance and erythema. seropurulent drainage when area palpated. warmth. Right shoulder incision site without ovelrying erythema. one small area of erythema just medial to incision site. area lateral to incision site indurated but wihtout erythema. left foot: great toe wound noted, clean base, no pus expressed out. lateral foot with supeficial wound, no pus, less tender on palpation compared to last week. ) ICD10 Worksheet Patient Problems: Problems Problem Status Onset Unable to ambulate Acute Acute alcohol intoxication Acute Closed head injury Acute Laceration of eyebrow, right, complicated Acute
--- NOTE | 2017-06-27 15:16 | HOSPPROG ---
Hospitalist Progress Note Assessment/Plan: 52 yo M w b/l septic arthritis of shoulder # Group C/G Streptococcus bacteremia - with seeding of the bilateral shoulders and soft tissue infection of bilateral feet Status post I&D of bilateral shoulders by Orthopedic surgery- - will likely need I&D on left again - Dr. Rothman contacting [facility] today - continue IV Unasyn- will need minimum 4 weeks IV antibiotics - continue wound care - continue p.o. Anti inflammatories # Metabolic encephalopathy - baseline today - stop scheduled narcotics - p.r.n. oxycodone - continue p.o. Anti inflammatories # acute hypoxic respiratory failure - Oxygen saturations 92% on RA - work on weaning O2 today # RUE DVT- dvt below picc so left in place - follow exam - therapeutic lovenox - transition to Eliquis after final shoulder I&D complete- plan still pending # Severe sepsis - Group C/G strep with seeding bilateral shoulders- WBC 19-> 7 -septic physiology has resolved # Bilateral septic arthritis of shoulders s/p I&D- ortho following daily -left shoulder is more fluctuant and erythematous with draining - continue Unasyn - as above suspect may need repeat I&D # bilateral toe infections- MRI foot (personally reviewed and interpreted) shows no evidence of osteomyelitis of the left foot -continue wound care and IV antibiotics # 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 -IV thiamine X 8 days # Etoh abuse # Hypernatremia-resolved # Ankylosing spondylitis # proph: therapeutically anticoagulated # disposition> 2 midnights as remains acutely quite ill requiring IV antibiotics and high-level monitoring and supportive care I have discussed the case with ID - will review left should with Ortho - continue IV abx Subjective: left shoulder feels moran Objective: Vital Signs Temp Pulse Resp BP Pulse Ox 36.6 C 111 H 18 120/77 92 06/27/17 08:00 06/27/17 08:00 06/27/17 08:00 06/27/17 08:00 06/27/17 08:00 Microbiology 06/14/17 21:55 Gram Stain - Final Shoulder - Eswab Laboratory Results 06/25/17 05:20 06/25/17 05:20 06/26/17 06/27/17 06/28/17 05:59 05:59 05:59 Intake Total 850 500 Balance 850 500 PT 14.4 SEC (12.0-15.0) 06/13/17 09:50 INR 1.10 (0.83-1.16) 06/13/17 09:50 - Physical Exam Constitutional: chronically ill appearing Eyes: anicteric sclera Ears, Nose, Mouth, Throat: moist mucous membranes Cardiovascular: regular rate and rhythym Respiratory: no respiratory distress Gastrointestinal: normoactive bowel sounds Genitourinary: no bladder fullness Skin: warm, fluctuance (increased drainage and erythema), other Musculoskeletal: No asymmetric calves Neurologic: AAOx3 Psychiatric: interacting appropriately Lymph, Heme, Immunologic: no cervical LAD ICD10 Worksheet Patient Problems: Problems Problem Status Onset Unable to ambulate Acute Acute alcohol intoxication Acute Closed head injury Acute Laceration of eyebrow, right, complicated Acute
--- NOTE | 2017-06-27 16:31 | ASMTCMCOM ---
CM Note CM Note Notes: Yajaira Bucio did not call back today. CM to follow up with them tomorrow. CM will follow. Date Signed: 06/27/2017 04:30 PM Electronically Signed By:Celine Olsen LCSW
[2017-06-28] MEDS: IBUPROFEN 200 MG TAB PO SCH ×3 (05:39→23:46)
[2017-06-28] MEDS: oxyCODONE IR 5 MG TAB PO PRN ×2 (05:39→10:00)
[2017-06-28] MEDS: AMPICILLIN/SULBACTAM 3 GM VIAL IV SCH ×4 (05:39→23:49)
[2017-06-28 06:48] LABS: PLATELET COUNT 542 10^3/uL (150-400)
[2017-06-28] MEDS: ENOXAPARIN 80 MG/0.8 ML SYR SC SCH (09:13)
[2017-06-28] MEDS: MULTIVITAMINS 1 EACH TAB PO SCH (09:24)
--- NOTE | 2017-06-28 13:04 | HOSPPROG ---
Hospitalist Progress Note Assessment/Plan: 52 yo M w b/l septic arthritis of shoulder # Group C/G Streptococcus bacteremia - with seeding of the bilateral shoulders and soft tissue infection of bilateral feet Status post I&D of bilateral shoulders by Orthopedic surgery- Discussed with Dr. Aponte, back to OR today for washout - continue IV Unasyn- will need minimum 4 weeks IV antibiotics - continue wound care - continue p.o. Anti inflammatories # Metabolic encephalopathy - baseline today - stopped scheduled narcotics - p.r.n. 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 -s/p IV thiamine -start po thiamine # Etoh abuse # Hypernatremia-resolved # Ankylosing spondylitis # proph: therapeutically anticoagulated # disposition: cont inpt Objective: Vital Signs Temp Pulse Resp BP Pulse Ox 37.5 C 94 16 140/95 H 93 06/28/17 07:55 06/28/17 07:55 06/28/17 07:55 06/28/17 07:55 06/28/17 07:55 Microbiology 06/14/17 21:55 Gram Stain - Final Shoulder - Eswab Anaerobic Culture - Final Strep Dysgalactiae Grp C/G Laboratory Results 06/28/17 06:40 06/25/17 05:20 06/27/17 06/28/17 06/29/17 05:59 05:59 05:59 Intake Total 500 1500 Output Total 325 Balance 500 1175 PT 14.4 SEC (12.0-15.0) 06/13/17 09:50 INR 1.10 (0.83-1.16) 06/13/17 09:50 ICD10 Worksheet Patient Problems: Problems Problem Status Onset Unable to ambulate Acute Acute alcohol intoxication Acute Closed head injury Acute Laceration of eyebrow, right, complicated Acute
[2017-06-28] MEDS: KETOCONAZOLE 2% 120 ML SHAMPOO TP SCH (13:30)
[2017-06-28] MEDS ORDERED: EPINEPHrine 1 MG/ML INJ ONE (15:18)
[2017-06-28] MEDS ORDERED: POLYMYXIN B SULFATE 500,000 UNIT/10 ML SYR IRR ONE ×2 (15:19→17:22)
[2017-06-28] MEDS ORDERED: BACITRACIN 50,000 UNITS/10 ML SYR IRR ONE ×2 (15:19→17:22)
[2017-06-28] MEDS ORDERED: BUPIVACAINE/EPI 0.5% 30 ML SDV ONE (15:19)
[2017-06-28] MEDS ORDERED: LR 1,000 ML IV ONE (15:43)
--- NOTE | 2017-06-28 16:45 | PDHPUP ---
History & Physical Update H&P update statement: This history and physical update is based on an assessment of the patient which was completed after admission or registration (within 24 hours), but prior to the surgery/procedure. H&P update: H&P reviewed & patient examined, changes noted (The L shoulder has been persistently draining and is now more fluctuant. Decision made to repear I& D)
[2017-06-28] MEDS ORDERED: LIDO/EPI 1% **for epidural** 30 ML SDV ONE (16:46)
[2017-06-28] MEDS ORDERED: MIDAZOLAM 2 MG/2 ML VIAL ONE (16:59)
--- NOTE | 2017-06-28 17:03 | PDANEPAE ---
ANE History of Present Illness 52 yo male with septic shoulder. ANE Past Medical History - Cardiovascular History Hx Hypertension: No Hx Arrhythmias: No Hx Chest Pain: No Hx Coronary Artery / Peripheral Vascular Disease: No Hx Palpitations: No - Pulmonary History Hx COPD: No Hx Asthma/Reactive Airway Disease: Yes Hx Recent Upper Respiratory Infection: No Hx Oxygen in Use at Home: No Hx Sleep Apnea: No Sleep Apnea Screening Result - Last Documented: Positive - Endocrine History Hx Diabetes: No Hypothyroid: No Obesity: no - Renal History Hx Renal Disorders: No - Liver History Hx Hepatic Disorders: No - Cancer History Hx Cancer: No - GI History Hx Gastrointestinal Disorders: No ANE Review of Systems Review of Systems: - Systems Muscolosketal: Reports: joint pain (shoulder pain L > R, 10/20) ANE Patient History - Allergies Allergies/Adverse Reactions: Sulfa (Sulfonamide Antibiotics) Allergy (Verified 06/09/17 16:48) - Home Medications Home Medications: NK [No Known Home Meds] 06/06/17 [Last Taken Unknown] - NPO status NPO Since - Liquids (Date): 06/28/17 NPO Since - Liquids (Time): 07:30 (juice) NPO Since - Solids (Date): 06/28/17 NPO Since - Solids (Time): 07:30 (fruit) - Anes Hx Anes Hx: no prior problems - Smoking Hx Smoking Status: Never smoked (chewed tobacco for a few years) Marijuana use: Yes - Alcohol Use Alcohol Use: Heavy - Family Anes Hx Family Anes Hx: neg - N/A ANE Labs/Vital Signs - Labs Result Diagrams: 06/28/17 06:40 06/25/17 05:20 - Vital Signs Blood Pressure: 129/84 Heart Rate: 81 Respiratory Rate: 16 O2 Sat (%): 92 Height: 172.72 cm Weight: 82 kg ANE Physical Exam - Airway Neck exam: decreased ROM Mallampati Score: Class 3 Mouth exam: small mouth opening - Pulmonary Pulmonary: clear to auscultation - Cardiovascular Cardiovascular: regular rate and rhythym - ASA Status ASA Status: IV ANE Anesthesia Plan Anesthesia Plan: GA w LMA
[2017-06-28] MEDS ORDERED: MIDAZOLAM 2 MG/2 ML VIAL IVP ONE (17:05)
[2017-06-28] MEDS ORDERED: DEXAMETHASONE 4 MG/ML VIAL ONE (17:12)
[2017-06-28] MEDS ORDERED: LIDOCAINE 2% 5 ML SDV ONE (17:12)
[2017-06-28] MEDS ORDERED: PROPOFOL 200 MG/20 ML VIAL ONE (17:13)
[2017-06-28] MEDS ORDERED: ONDANSETRON 4 MG/2 ML VIAL ONE (18:52)
[2017-06-28] MEDS ORDERED: NALOXONE HCL 0.4 MG/ML INJ IVP PRN (18:54)
[2017-06-28] MEDS ORDERED: oxyCODONE IR 5 MG TAB PO PRN (18:54)
[2017-06-28] MEDS ORDERED: PROMETHAZINE HCL 25 MG/ML INJ IVP PRN (18:54)
[2017-06-28] MEDS ORDERED: LR 500 ML IV PRN (18:54)
[2017-06-28] MEDS ORDERED: DIAZEPAM 5 MG/ML 1 ML SYR IVP PRN (18:54)
[2017-06-28] MEDS ORDERED: ALBUTEROL 3 ML DEYVIAL IH PRN (18:54)
[2017-06-28] MEDS: THIAMINE HCL 100 MG TAB PO SCH (19:04)
--- NOTE | 2017-06-28 19:35 | POSTANESTH ---
Post Anesthetic Evaluation Cardiovascular Status: Normal, Stable Respiratory Status: Normal, Stable Level of Consciousness/Mental Status: Other, See Comment (Pt similar to baseline pre-op in that he will briefly attend to conversation, then closes eyes. Pt not currently oriented to where he is, though he was pre-op. He is asking if his bike and backpack are around.) Pain Control: Adequate, Prn Tx Ordered Nausea/Vomiting Control: Adequate, Prn Tx Ordered Complications Possibly Related to Anesthesia: None Noted
--- NOTE | 2017-06-28 21:07 | GOP ---
[f rep st] OPERATIVE REPORT DATE OF OPERATION: 06/28/2017 SURGEON: Eric Aponte MD ANESTHESIA: General. PREOPERATIVE DIAGNOSIS: Left septic shoulder. POSTOPERATIVE DIAGNOSIS: Left septic shoulder. PROCEDURE PERFORMED: Left shoulder arthroscopic and open irrigation and debridement of septic should er. FINDINGS: ESTIMATED BLOOD LOSS: 20 cc. INDICATIONS: Les is a 52-year-old male, who is known to me. He presented to the hospital about 2 weeks ago with bilateral septic shoulder and underwent I and D by me. He had been followed in the hospital by me as well as well as the ID and Hospitalist Services. After his drains were pulled fr om both shoulders in this past week, he had persistent drainage from the drain site in his left shoul anju. This drainage appeared to be slowing down and was clearing up over time. Clinically, he was im proving with less pain in the shoulder as well as improvement in labs. However, over the last 2 days the shoulder drainage was persistent and he had worsened erythema over the shoulder incision as well as onset of fluctuance and a persistent drainage. Thus, I felt that he was indicated for repeat I a nd D of that shoulder. I discussed with him the risks and benefits of I and D. Risks of surgery inc lude pain, bleeding, infection, stiffness, weakness, damage to surrounding structures, need for furth er surgeries, persistent infection. He understood these risks, and he wished to proceed. DESCRIPTION OF PROCEDURE: The patient was seen in preoperative holding area and was given opportunit y to ask questions. All questions were answered. Consent was signed. Surgical site was marked. He was transferred to operative suite. Great care was taken to transfer him from the [facility] to the ope rating table. Great care was taken to pad all bony prominences prior to induction of anesthesia. Ge neral anesthesia was induced by anesthesia team. Time-out was called, including surgical and anesthe patrick teams, confirming the surgical site and procedure to be performed. He was very carefully placed in the beach chair position. Great care was taken to ensure that all bony prominences were padded an d that his eyes were protected. The left upper extremity was prepped and draped in usual sterile fas hion for shoulder arthroscopy. I discussed with the patient prior to this, I made a decision to perf orm arthroscopic I and D as well as the I and D of the incision. As he was having slightly improved function of the left arm compared to the right, I wanted to preserve this function with arthroscopic I and D in lieu of a full deltopectoral incision. Thus, I marked over his prior incision and marked out an ellipse which included the drain site. Beginning with this, I ellipsed the margin of the skin over the lateral incision from prior. There was some organized purulent-appearing tissue and fibrin ous exudate as well as some fluid that was draining. I took new cultures. This stuff was sharply de brided. The skin edges were sharply debrided with a knife. There was some granulation-type tissue t hat was sharply debrided with a curette. Then, I used my finger to release the adhesions from the de ltoid to the bone, and then again palpated the humeral head through this split in the deltoid as he h ad no rotator cuff. After this was done, I then closed up this incision temporarily to prevent fluid externalization. Then made a standard posterior portal into the shoulder joint. This was somewhat d ifficult as he had a very arthritic and tight joint. After entering the joint, I flushed it out and then made an anterior portal. I performed a diagnostic arthroscopy, which again was difficult due to the marked rotator cuff arthropathy. 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 The labrum was m ostly atrophic and degenerative. In the subacromial space, the humeral head was essentially articula ting with the acromion. Again, he had no rotator cuff visible. I began running fluid to complete th e I and D, used the shaver to remove multiple loose bodies in the joint, and debrided the injected ap pearing synovium throughout the shoulder, and debrided the subacromial space and the flexor degenerat melyssa-appearing tissue. Continued debridement while running fluid through the shoulder. After about 8 L of fluid was run through the shoulder, I then opened up the lateral incision and continued I and D with fluid to again wash out that area. Prior to doing this, actually prior to opening of the later al incision, I placed a 19-Dominican DARRYL drain under arthroscopic visualization through the anterior port al incision. I placed this into the joint, and then after completing the I and D and the fluid was sh ut off, the posterior portal incision was closed with a 2-0 nylon. The lateral incision was closed l oosely with a 2-0 nylon to allow for some drainage. The drain was sutured in. A sterile dressing wa s applied. The patient was then awakened from general anesthesia in stable condition and taken to [facility] in stable condition. POSTOPERATIVE CONDITION: Stable. POSTOP PLAN: The patient will be admitted back to the floor under the care of the Hospitalist Rhianna valladares and ID service. I will follow him while he is in the hospital and follow the drain output. I will again have a discussion with the patient that, as mentioned in my prior notes and discussions with geraldine ruvalcaba, he has advanced rotator cuff arthropathy and arthritis in both shoulders and he may never regain the function that he had prior to these infections in both shoulders. /[id number]/MODL
[2017-06-29] MEDS: AMPICILLIN/SULBACTAM 3 GM VIAL IV SCH ×3 (05:48→18:38)
[2017-06-29] MEDS: IBUPROFEN 200 MG TAB PO SCH ×3 (05:48→21:27)
[2017-06-29 07:27] LABS: PLATELET COUNT 592 10^3/uL (150-400)
--- NOTE | 2017-06-29 08:33 | SOAPPROG ---
SOAP Progress Note Assessment/Plan: Assessment: POD#1 s/p I&D L shoulder POD#15 s/p I&D B/L shoulder -abcesses communicated with B/L GH joints. He has hardware in the R shoulder from a prior surgery. Discussed with ID about duration of treatment and possible need for suppression considering presence of hardware (2 small screws and anchors) -doing well this morning Plan: -record L shoulder drain output -reinforce dressings as needed -the left great toe is being managed by the podiatry service -IV abx -appreciate care of medical and ID teams -cont PT/OT for R shoulder ROM and strengthening, may weight bear L shoulder for transfers, but should avoid aggresive ROM with drain -will remove sutures R shoulder next week Subjective: Pain ctrl'd in L shoulder after yesterday's surgery. Doing ok this am Objective: Vital Signs Temp Pulse Resp BP Pulse Ox 36.4 C 87 14 115/69 91 L 06/29/17 07:30 06/29/17 07:30 06/29/17 07:30 06/29/17 07:30 06/29/17 07:30 Microbiology 06/28/17 18:04 Gram Stain - Final Shoulder - Eswab 06/14/17 21:55 Gram Stain - Final Shoulder - Eswab Anaerobic Culture - Final Strep Dysgalactiae Grp C/G Laboratory Results 06/29/17 05:50 06/29/17 05:50 06/28/17 06/29/17 06/30/17 05:59 05:59 05:59 Intake Total 1500 2540 Output Total 325 1030 Balance 1175 1510 PT 14.4 SEC (12.0-15.0) 06/13/17 09:50 INR 1.10 (0.83-1.16) 06/13/17 09:50 L shoulder -dressings and drain in place, no serosang breakthrough -bloody drain output 30cc output since surgery last night ICD10 Worksheet Patient Problems: Problems Problem Status Onset Unable to ambulate Acute Acute alcohol intoxication Acute Closed head injury Acute Laceration of eyebrow, right, complicated Acute
[2017-06-29] MEDS: MULTIVITAMINS 1 EACH TAB PO SCH (09:07)
[2017-06-29] MEDS: KETOCONAZOLE 2% 120 ML SHAMPOO TP SCH (09:07)
[2017-06-29] MEDS: THIAMINE HCL 100 MG TAB PO SCH (09:07)
[2017-06-29] MEDS: [UNRECOGNIZED DRUG - MIXTURE] TP PRN (09:11)
[2017-06-29] MEDS: oxyCODONE IR 5 MG TAB PO PRN (09:13)
[2017-06-29] MEDS: ENOXAPARIN 80 MG/0.8 ML SYR SC SCH ×2 (12:02→21:29)
--- NOTE | 2017-06-29 12:41 | PCMIDPN ---
Assessment/Plan: Assessment: Group C strep bacteremia with bilateral involvement of shoulder joints. Status post multiple washouts - most recent 1 yesterday. Patient continues to tolerate his treatment with Unasyn. Has gradually increasing range of motion albeit with some discomfort in his shoulders bilaterally. Plan: 1. Continue IV Unasyn. 2. Follow up with repeat blood cultures. 3. Follow clinical course. Subjective: Patient is resting in his hospital bed. He appears to be in better spirits. He is more alert and conversational. Both of his shoulders are painful when he moves them. They are gradually improving however. No fevers or chills. Objective: Unasyn # 13 Vital Signs Temp Pulse Resp BP Pulse Ox 36.6 C 86 14 113/70 93 06/29/17 11:34 06/29/17 11:34 06/29/17 11:34 06/29/17 11:34 06/29/17 11:34 Microbiology 06/28/17 18:04 Gram Stain - Final Shoulder - Eswab 06/14/17 21:55 Gram Stain - Final Shoulder - Eswab Anaerobic Culture - Final Strep Dysgalactiae Grp C/G Laboratory Results 06/29/17 05:50 06/29/17 09:00 06/28/17 06/29/17 06/30/17 05:59 05:59 05:59 Intake Total 1500 2540 1550 Output Total 325 1030 20 Balance 1175 1510 1530 - Physical Exam General Appearance: WD/WN, alert, no apparent distress, non-toxic Respiratory: lungs clear, normal breath sounds, No respiratory distress Cardiac/Chest: regular rate, rhythm, No tachycardia Extremities: No non-tender, No normal inspection, No erythema Skin: normal color, warm/dry, No rash Neuro/Psych: alert, normal mood/affect, oriented x 3 ICD10 Worksheet Patient Problems: Problems Problem Status Onset Unable to ambulate Acute Acute alcohol intoxication Acute Closed head injury Acute Laceration of eyebrow, right, complicated Acute
--- NOTE | 2017-06-29 13:06 | HOSPPROG ---
Hospitalist Progress Note Assessment/Plan: 52 yo M w b/l septic arthritis of shoulder # Group C/G Streptococcus bacteremia - with seeding of the bilateral shoulders and soft tissue infection of bilateral feet Status post I&D of bilateral shoulders by Orthopedic surgery, repeat I&D by Dr. Aponte - continue IV Unasyn- will need minimum 4 weeks IV antibiotics - 06/15 repeat BCx's neg, 06/28 gram stain- no orgs - continue wound care # Metabolic encephalopathy - baseline today - stopped scheduled narcotics, p.r.n. 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 6-7/10 pain in shoulder. No CP, SOB or cough. No fevers/chills. Taking po well. Objective: Vital Signs Temp Pulse Resp BP Pulse Ox 36.6 C 86 14 113/70 93 06/29/17 11:34 06/29/17 11:34 06/29/17 11:34 06/29/17 11:34 06/29/17 11:34 Microbiology 06/28/17 18:04 Gram Stain - Final Shoulder - Eswab 06/14/17 21:55 Gram Stain - Final Shoulder - Eswab Anaerobic Culture - Final Strep Dysgalactiae Grp C/G Laboratory Results 06/29/17 05:50 06/29/17 09:00 06/28/17 06/29/17 06/30/17 05:59 05:59 05:59 Intake Total 1500 2540 1550 Output Total 325 1030 20 Balance 1175 1510 1530 PT 14.4 SEC (12.0-15.0) 06/13/17 09:50 INR 1.10 (0.83-1.16) 06/13/17 09:50 - Physical Exam Constitutional: no apparent distress Eyes: PERRL Ears, Nose, Mouth, Throat: moist mucous membranes Cardiovascular: regular rate and rhythym Respiratory: no respiratory distress, clear to auscultation Gastrointestinal: normoactive bowel sounds, soft, non-tender abdomen Skin: warm, other (left foot dressing c/d/i, right foot plantar callous and wounds noted) Musculoskeletal: abnormal gait Neurologic: AAOx3 Psychiatric: interacting appropriately ICD10 Worksheet Patient Problems: Problems Problem Status Onset Unable to ambulate Acute Acute alcohol intoxication Acute Closed head injury Acute Laceration of eyebrow, right, complicated Acute
[2017-06-30] MEDS: AMPICILLIN/SULBACTAM 3 GM VIAL IV SCH ×5 (00:06→23:49)
[2017-06-30] MEDS: oxyCODONE IR 5 MG TAB PO PRN ×5 (00:38→23:49)
[2017-06-30] MEDS: IBUPROFEN 200 MG TAB PO SCH ×3 (05:18→21:23)
[2017-06-30] MEDS: MULTIVITAMINS 1 EACH TAB PO SCH (09:36)
[2017-06-30] MEDS: THIAMINE HCL 100 MG TAB PO SCH (09:36)
[2017-06-30] MEDS: ENOXAPARIN 80 MG/0.8 ML SYR SC SCH ×2 (09:42→21:23)
[2017-06-30] MEDS: KETOCONAZOLE 2% 120 ML SHAMPOO TP SCH (09:43)
--- NOTE | 2017-06-30 11:02 | PCMIDPN ---
Assessment/Plan: 1. Group C/G streptococcal bacteremia with seeding of both shoulders status post incision and drainage: Continue Unasyn as is. No new recommendations at this point in time. Will need 4 weeks of therapy after most recent washout 2. Left great toe infection/5th metatarsal superficial infection/right superficial 1st metatarsal head infection: Much better. Continue wound care, and Unasyn. 3. Seborrheic dermatitis: Ketoconazole shampoo daily. Much better. 4. Disposition: Unclear at this point in time. I do not feel comfortable discharging the patient to the street, and social work informed. Subjective: About to get in the shower. Feels much better overall. No diarrhea. Objective: Unasyn 3 g IV q.6 hours day 14 No fever Vital Signs Temp Pulse Resp BP Pulse Ox 36.3 C 60 16 160/78 H 96 06/30/17 07:25 06/30/17 07:25 06/30/17 07:25 06/30/17 07:25 06/30/17 07:25 Microbiology 06/28/17 18:04 Gram Stain - Final Shoulder - Eswab Laboratory Results 06/29/17 05:50 06/29/17 09:00 06/29/17 06/30/17 07/01/17 05:59 05:59 05:59 Intake Total 2540 3416 Output Total 1030 1315 Balance 1510 2101 June 28 Left shoulder: 4+ polys no organisms culture no growth so far - Physical Exam General Appearance: alert, no apparent distress EENT: pharynx normal, No thrush Respiratory: lungs clear Cardiac/Chest: regular rate, rhythm Extremities: other (Right shoulder incision looks fine with minimal harris- incisional erythema and no drainage. Left shoulder is wrapped in preparation for his shower. DARRYL bulb half full of serosanguineous fluid.) Abdomen: non-tender, soft Skin: other (Seborrheic dermatitis on his face is markedly better. Patient's left great toe, plantar aspect has become a dry eschar and also looks better. Patient has a dime-sized superficial ulceration over the plantar aspect of his left 5th metatarsal head. This is clean. Skin sloughing plantar aspects of both feet also better.) ICD10 Worksheet Patient Problems: Problems Problem Status Onset Unable to ambulate Acute Acute alcohol intoxication Acute Closed head injury Acute Laceration of eyebrow, right, complicated Acute
--- NOTE | 2017-06-30 12:15 | SOAPPROG ---
SOAP Progress Note Assessment/Plan: Assessment: POD#2 s/p I&D L shoulder POD#16 s/p I&D B/L shoulder -abcesses communicated with B/L GH joints. He has hardware in the R shoulder from a prior surgery. Discussed with ID about duration of treatment and possible need for suppression considering presence of hardware (2 small screws and anchors) -L shoulder stable, serosanguinous drainage Drain Output 4/ 65cc Plan: -record L shoulder drain output -will likely leave drain in until some time next week, depending on output -reinforce dressings as needed -the left great toe is being managed by the podiatry service -IV abx -appreciate care of medical and ID teams -cont PT/OT for R shoulder ROM and strengthening, may weight bear L shoulder for transfers, but should avoid aggresive ROM with drain -will remove sutures R shoulder next week 06/30/17 12:12 Subjective: Pain in the shoulders is stable. We again had a discussion about his shoulder function Objective: Vital Signs Temp Pulse Resp BP Pulse Ox 36.3 C 60 16 160/78 H 96 06/30/17 07:25 06/30/17 07:25 06/30/17 07:25 06/30/17 07:25 06/30/17 07:25 Microbiology 06/28/17 18:04 Gram Stain - Final Shoulder - Eswab Laboratory Results 06/29/17 05:50 06/29/17 09:00 06/29/17 06/30/17 07/01/17 05:59 05:59 05:59 Intake Total 2540 3416 550 Output Total 1030 1315 1130 Balance 1510 2101 -580 PT 14.4 SEC (12.0-15.0) 06/13/17 09:50 INR 1.10 (0.83-1.16) 06/13/17 09:50 L shoulder -dressing c/d/i, no breakthrough -serosang drainage in DARRYL ICD10 Worksheet Patient Problems: Problems Problem Status Onset Unable to ambulate Acute Acute alcohol intoxication Acute Closed head injury Acute Laceration of eyebrow, right, complicated Acute
--- NOTE | 2017-06-30 14:01 | HOSPPROG ---
Hospitalist Progress Note Assessment/Plan: 52 yo M w b/l septic arthritis of shoulder # Group C/G Streptococcus bacteremia - with seeding of the bilateral shoulders and soft tissue infection of bilateral feet Status post I&D of bilateral shoulders by Orthopedic surgery, repeat I&D by Dr. Aponte - continue IV Unasyn- will need minimum 4 weeks IV antibiotics, per ID he should not d/c to street - 06/15 repeat BCx's neg, 06/28 gram stain- no orgs - continue wound care # Metabolic encephalopathy - baseline today - stopped scheduled narcotics, p.r.n. 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 Denies CP or SOB. No fevers. Pain controlled. Ambulating. Objective: Vital Signs Temp Pulse Resp BP Pulse Ox 36.3 C 60 16 160/78 H 96 06/30/17 07:25 06/30/17 07:25 06/30/17 07:25 06/30/17 07:25 06/30/17 07:25 Microbiology 06/28/17 18:04 Gram Stain - Final Shoulder - Eswab Laboratory Results 06/29/17 05:50 06/29/17 09:00 06/29/17 06/30/17 07/01/17 05:59 05:59 05:59 Intake Total 2540 3416 550 Output Total 1030 1315 1130 Balance 1510 2101 -580 PT 14.4 SEC (12.0-15.0) 06/13/17 09:50 INR 1.10 (0.83-1.16) 06/13/17 09:50 - Physical Exam Constitutional: no apparent distress Eyes: PERRL Ears, Nose, Mouth, Throat: moist mucous membranes Cardiovascular: regular rate and rhythym Respiratory: no respiratory distress, reduced air movement Gastrointestinal: normoactive bowel sounds, soft, non-tender abdomen Skin: warm Musculoskeletal: full muscle strength, other (b/l shoulder I&D's, left shoulder drain with serosanguinous output) Neurologic: AAOx3 Psychiatric: interacting appropriately ICD10 Worksheet Patient Problems: Problems Problem Status Onset Unable to ambulate Acute Acute alcohol intoxication Acute Closed head injury Acute Laceration of eyebrow, right, complicated Acute
--- NOTE | 2017-06-30 17:37 | ASMTCMCOM ---
CM Note CM Note Notes: Pt. officially denied from all referrals made through [employer] thus far including Yajaira Bucio. Zackery consulted with CM Hand Nailer. Pt. may need to stay at [facility] until he is healthy enough to d/c to the [facility] system. Sunr tried to get Pt's belongings from the [facility] police today - Case #[id number]. Ganesh in the property and evidence division states Pt. does have a "backpack and bike" there. [facility] cannot assist Pt. in picking up his belongings without a notarized letter signed by Pt. per Ganesh. Pt's ID is either lost or in with his belongings. Cannot notarize a letter without ID per yissel Herndon at [facility]. Ganesh states that next week [facility] staff could ask for Sienna Manuel at to ask for special permission given the circumstances to bypass the notarized letter rule. Zackery left [facility] for Patient Rep regarding Pt's eyeglasses that he says were lost after his emergency room visit. Sunr updated Pt. on the above work for the day. CM to follow. Date Signed: 06/30/2017 05:36 PM Electronically Signed By:Shanita Dickinson LCSW
[2017-07-01] MEDS: IBUPROFEN 200 MG TAB PO SCH ×3 (05:08→20:57)
[2017-07-01] MEDS: AMPICILLIN/SULBACTAM 3 GM VIAL IV SCH ×3 (05:08→18:03)
[2017-07-01] MEDS: oxyCODONE IR 5 MG TAB PO PRN ×4 (06:05→20:58)
[2017-07-01] MEDS: MULTIVITAMINS 1 EACH TAB PO SCH (08:34)
[2017-07-01] MEDS: THIAMINE HCL 100 MG TAB PO SCH (08:34)
[2017-07-01] MEDS: ENOXAPARIN 80 MG/0.8 ML SYR SC SCH ×2 (08:35→20:57)
[2017-07-01] MEDS: KETOCONAZOLE 2% 120 ML SHAMPOO TP SCH (08:35)
[2017-07-01] MEDS: ACETAMINOPHEN 650 MG SUPP PR PRN (10:44)
--- NOTE | 2017-07-01 13:13 | PCMIDPN ---
Assessment/Plan: Assessment/Plan: * Group C/G streptococcal bacteremia with multifocal infection including both shoulder joints and feet: Patient underwent repeat incision and drainage of left shoulder on 06/28/17 with cultures being no growth to date. Continue Unasyn. Will need 4 weeks of therapy post last washout. May be able to simplify this to ceftriaxone as mixed therapy primarily being utilized for initial involvement of feet. Use of surgical shoe for left foot to decrease exposure to pressure over lateral plantar ulceration. 07/01/17 13:10 07/01/17 13:14 Subjective: Patient complains of decreased range of motion of both shoulders. Patient notes loose stool 2 times per day with Unasyn. Objective: Vital Signs Temp Pulse Resp BP Pulse Ox 36.7 C 107 H 16 114/90 H 92 07/01/17 08:00 07/01/17 08:00 07/01/17 08:00 07/01/17 08:00 07/01/17 08:00 Microbiology 06/28/17 18:04 Gram Stain - Final Shoulder - Eswab Laboratory Results 07/01/17 05:10 07/01/17 05:10 06/30/17 07/01/17 07/02/17 05:59 05:59 05:59 Intake Total 3416 550 Output Total 1315 3575 840 Balance 8461 -3025 -840 Unasyn # 15 Left shoulder joint culture from 06/28/2017 no growth - Physical Exam General Appearance: alert, no apparent distress EENT: No scleral icterus, No thrush Cardiac/Chest: regular rate, rhythm, No systolic murmur Extremities: inflammation (Right shoulder incision intact without erythema or drainage; decreased range of motion present; left shoulder dressed postoperatively; DARRYL drain with bloody output; left foot with shallow ulceration at base of 5th toe without surrounding cellulitis or purulence) Abdomen: non-tender, No distended - Line/s RUE PICC Lines: No drainage, No erythema ICD10 Worksheet Patient Problems: Problems Problem Status Onset Unable to ambulate Acute Acute alcohol intoxication Acute Closed head injury Acute Laceration of eyebrow, right, complicated Acute
--- NOTE | 2017-07-01 15:35 | ASMTCMCOM ---
CM Note CM Note Notes: Note: Perhaps Homeless Outreach Team (HOT) officers from the [place] [employer] department can bring Pt's belongings over to [facility] for him - Officer Rogelio or Officer Eva. CM to follow. Date Signed: 07/01/2017 03:35 PM Electronically Signed By:Shanita Dickinson LCSW
--- NOTE | 2017-07-01 16:07 | HOSPPROG ---
Hospitalist Progress Note Assessment/Plan: Subjective Follow-up on septic arthritis and strep bacteremia No acute events overnight. Patient is still under a considerable pain. Is also quite limited in his upper extremity mobility. I reviewed his case with social work and it is we do not feel he is able for discharge at this time as he is homeless. We feel he would be more appropriately placed. No complaints of tremor. Objective Vital signs as detailed below Physical exam General-patient appears comfortable he is awake alert no acute distress Cardiac-regular rate and rhythm no murmurs noted Lungs-Clear to auscultation with normal respiratory effort Abdomen-soft nontender nondistended -no Blunt catheter in place Extremities-significant limited mobility of his shoulder Labs as detailed below Assessment plan 1. Bacteremia-patient's blood cultures grew streptococcal bacteria. 2. Septic arthritis-patient will need long-term IV antibiotics continue per Infectious Disease resting recommendations 3. Acute hypoxic respiratory failure-patient is needing small amount of supplemental oxygen. Wean as able. Chest x-ray of having difficulty. 4. Deep vein thrombosis-patient was found to have thrombosis in his right upper extremity where his PICC line was placed. Continue anticoagulation. 5. Bilateral toe infection-these appear to be healing appropriately 6. Alcohol abuse-no signs or symptoms which brought this point time. Patient has as needed lorazepam ordered 7. Ataxia-concern for possible aortic he is. Continue daily thiamine. 8. Ankylosing spondylitis-patient is on scheduled NSAIDs. Considering that he is now on a full anticoagulation I will add a proton pump inhibitor to minimize risk of gastric ulceration. 9.DVT prophylaxis-patient is on anticoagulation 10. Disposition-awaiting placement. Objective: Vital Signs Temp Pulse Resp BP Pulse Ox 36.6 C 97 18 112/81 H 91 L 07/01/17 14:58 07/01/17 14:58 07/01/17 14:58 07/01/17 14:58 07/01/17 14:58 Microbiology 06/28/17 18:04 Gram Stain - Final Shoulder - Eswab Laboratory Results 07/01/17 05:10 07/01/17 05:10 06/30/17 07/01/17 07/02/17 05:59 05:59 05:59 Intake Total 3416 550 Output Total 1315 3575 840 Balance 2101 -3025 -840 PT 14.4 SEC (12.0-15.0) 06/13/17 09:50 INR 1.10 (0.83-1.16) 06/13/17 09:50 ICD10 Worksheet Patient Problems: Problems Problem Status Onset Unable to ambulate Acute Acute alcohol intoxication Acute Closed head injury Acute Laceration of eyebrow, right, complicated Acute
--- NOTE | 2017-07-01 18:13 | SOAPPROG ---
SOAP Progress Note Assessment/Plan: Assessment: POD#3 s/p I&D L shoulder POD#17 s/p I&D B/L shoulder -abcesses communicated with B/L GH joints. He has hardware in the R shoulder from a prior surgery. Discussed with ID about duration of treatment and possible need for suppression considering presence of hardware (2 small screws and anchors) -L shoulder stable, serosanguinous drainage Drain Output 406/30 65cc 50cc Plan: -record L shoulder drain output -will likely leave drain in until some time next week, depending on output -reinforce dressings as needed -the left great toe is being managed by the podiatry service -IV abx -appreciate care of medical and ID teams -cont PT/OT for R shoulder ROM and strengthening, may weight bear L shoulder for transfers, but should avoid aggresive ROM with drain -will remove sutures R shoulder next week 06/30/17 12:12 07/01/17 18:12 Subjective: Doing well this afternoon Objective: Vital Signs Temp Pulse Resp BP Pulse Ox 36.6 C 97 18 112/81 H 91 L 07/01/17 14:58 07/01/17 14:58 07/01/17 14:58 07/01/17 14:58 07/01/17 14:58 Microbiology 06/28/17 18:04 Gram Stain - Final Shoulder - Eswab Laboratory Results 07/01/17 05:10 07/01/17 05:10 06/30/17 07/01/17 07/02/17 05:59 05:59 05:59 Intake Total 3416 550 Output Total 1315 3575 1750 Balance 2101 -3025 -1750 PT 14.4 SEC (12.0-15.0) 06/13/17 09:50 INR 1.10 (0.83-1.16) 06/13/17 09:50 L shoulder -dressin changed, incisions clean and dry -serosang drain output ICD10 Worksheet Patient Problems: Problems Problem Status Onset Unable to ambulate Acute Acute alcohol intoxication Acute Closed head injury Acute Laceration of eyebrow, right, complicated Acute
[2017-07-02] MEDS: AMPICILLIN/SULBACTAM 3 GM VIAL IV SCH ×5 (00:07→23:29)
[2017-07-02] MEDS: oxyCODONE IR 5 MG TAB PO PRN ×5 (02:47→21:43)
[2017-07-02] MEDS: IBUPROFEN 200 MG TAB PO SCH ×3 (05:09→21:44)
[2017-07-02] MEDS: PANTOPRAZOLE SODIUM 40 MG TAB PO SCH (08:40)
[2017-07-02] MEDS: MULTIVITAMINS 1 EACH TAB PO SCH (08:40)
[2017-07-02] MEDS: THIAMINE HCL 100 MG TAB PO SCH (08:41)
[2017-07-02] MEDS: ENOXAPARIN 80 MG/0.8 ML SYR SC SCH ×2 (08:41→21:42)
[2017-07-02] MEDS: KETOCONAZOLE 2% 120 ML SHAMPOO TP SCH (12:02)
[2017-07-02] MEDS ORDERED: SENNOSIDES 1 TAB PO PRN (13:01)
--- NOTE | 2017-07-02 14:59 | HOSPPROG ---
Hospitalist Progress Note Assessment/Plan: Subjective Follow-up on septic arthritis No acute events overnight. Pain appears well controlled currently. He is using oxycodone as needed for pain. He states that his bowel movements have mostly been loose but has not had any watery diarrhea. We discussed the potential for constipation with narcotic pain medications but this has not been an issue for him. No complaints of epigastric discomfort or subjective fevers or chills Objective vital signs as detailed below Physical exam General-patient appears comfortable he is awake alert conversant no acute distress. Cardiac-regular rate and rhythm no murmurs appreciated. Lungs-Clear to auscultation with normal respiratory effort. Abdomen-soft nontender nondistended normal bowel sounds. -no Blunt catheter in place. Extremities-noted limited mobility of his shoulders. No significant pitting edema compression devices in place. Labs as detailed below Assessment and plan 1. Septic arthritis-continue IV antibiotics per Infectious Disease recommendation. The current recommendation is for 4 weeks of IV antibiotics. The patient was admitted on 06/13/2017. 2. Bacteremia-blood cultures previously grew streptococcal bacteria. 3. Acute hypoxic respiratory failure-this may be resolved. The patient is on room air today. Continue to monitor 4. Deep vein thrombosis-patient was found to have a deep vein thrombosis in his right upper extremity where his PICC line was placed. Continue anticoagulation with Lovenox the plan is for transition to Eliquis upon discharge. 5. Alcohol abuse-no signs or symptoms of withdrawal at the current time. The patient has as needed lorazepam ordered if needed. 6. Ataxia-concern for Wernicke's syndrome. Continue with the thiamine. 7. Ankylosing spondylitis-the patient is on scheduled ibuprofen. 8. DVT prophylaxis-patient is on anticoagulation. 9. GI prophylaxis-I started daily proton pump inhibitor considering he is on full anticoagulation and using scheduled NSAIDs. 10. Disposition-case management is looking at options for placement for him. Objective: Vital Signs Temp Pulse Resp BP Pulse Ox 36.5 C 79 14 120/85 H 92 07/02/17 07:35 07/02/17 07:35 07/02/17 07:35 07/02/17 07:35 07/02/17 07:35 Microbiology 06/28/17 18:04 Gram Stain - Final Shoulder - Eswab Laboratory Results 07/01/17 05:10 07/01/17 05:10 07/01/17 07/02/17 07/03/17 05:59 05:59 05:59 Intake Total 550 Output Total 1736 1758 Balance -3025 -175 PT 14.4 SEC (12.0-15.0) 06/13/17 09:50 INR 1.10 (0.83-1.16) 06/13/17 09:50 ICD10 Worksheet Patient Problems: Problems Problem Status Onset Unable to ambulate Acute Acute alcohol intoxication Acute Closed head injury Acute Laceration of eyebrow, right, complicated Acute
[2017-07-03] MEDS: oxyCODONE IR 5 MG TAB PO PRN ×5 (04:50→22:36)
[2017-07-03] MEDS: AMPICILLIN/SULBACTAM 3 GM VIAL IV SCH ×4 (05:42→23:15)
[2017-07-03] MEDS: IBUPROFEN 200 MG TAB PO SCH ×3 (05:42→21:49)
--- NOTE | 2017-07-03 07:31 | SOAPPROG ---
SOAP Progress Note Assessment/Plan: Assessment: POD#5 s/p I&D L shoulder POD#19 s/p I&D B/L shoulder -L shoulder stable, serosanguinous drainage Drain Output 06/29 06/30 07/01 07/02 65cc 50cc 53 50 Plan: -record L shoulder drain output -will likely leave drain in until some time this week, depending on output. I will remove farrah from R shoulder this week -06/28 shoulder cultures neg to date -reinforce dressings as needed -the left great toe is being managed by the podiatry service -IV abx -appreciate care of medical and ID teams -cont PT/OT for R shoulder ROM and strengthening, may weight bear L shoulder for transfers, but should avoid aggresive ROM with drain 07/03/17 07:30 Subjective: Doing well this morning. Sleeping Objective: Vital Signs Temp Pulse Resp BP Pulse Ox 36.4 C 95 16 124/88 H 90 L 07/02/17 22:48 07/02/17 22:48 07/02/17 22:48 07/02/17 22:48 07/02/17 22:48 Microbiology 06/28/17 18:04 Gram Stain - Final Shoulder - Eswab Laboratory Results 07/01/17 05:10 07/01/17 05:10 07/02/17 07/03/17 07/04/17 05:59 05:59 05:59 Output Total 1753 50 Balance -1753 -50 PT 14.4 SEC (12.0-15.0) 06/13/17 09:50 INR 1.10 (0.83-1.16) 06/13/17 09:50 L shoulder -dressing c/d/i, no breakthrough -serosang drainage in DARRYL ICD10 Worksheet Patient Problems: Problems Problem Status Onset Unable to ambulate Acute Acute alcohol intoxication Acute Closed head injury Acute Laceration of eyebrow, right, complicated Acute
[2017-07-03] MEDS: MULTIVITAMINS 1 EACH TAB PO SCH (10:26)
[2017-07-03] MEDS: ENOXAPARIN 80 MG/0.8 ML SYR SC SCH ×2 (10:26→21:49)
[2017-07-03] MEDS: THIAMINE HCL 100 MG TAB PO SCH (10:26)
[2017-07-03] MEDS: PANTOPRAZOLE SODIUM 40 MG TAB PO SCH (10:26)
[2017-07-03] MEDS: POLYETHYLENE GLYCOL 3350 17 GM PKT PO SCH (10:30)
--- NOTE | 2017-07-03 12:57 | PCMIDPN ---
Assessment/Plan: Assessment: Group C strep bacteremia with bilateral involvement of shoulder joints. Status post multiple washouts. Patient continues to tolerate his treatment with Unasyn. Has gradually increasing range of motion albeit with some discomfort in his shoulders bilaterally. Plan: 1. Continue IV Unasyn. 2. Follow up with repeat blood cultures. 3. Follow clinical course. 07/03/17 12:56 Subjective: Patient continues to complain of bilateral shoulder pain and reduced range of motion. No fevers or chills. He is alert and ambulatory today. Objective: Unasyn # 17 Vital Signs Temp Pulse Resp BP Pulse Ox 36.8 C 95 16 120/72 93 07/03/17 08:00 07/03/17 08:00 07/03/17 08:00 07/03/17 08:00 07/03/17 08:00 Microbiology 06/28/17 18:04 Gram Stain - Final Shoulder - Eswab Laboratory Results 07/01/17 05:10 07/01/17 05:10 07/02/17 07/03/17 07/04/17 05:59 05:59 05:59 Output Total 1753 50 Balance -1753 -50 - Physical Exam General Appearance: WD/WN, alert, no apparent distress, non-toxic Respiratory: lungs clear, normal breath sounds, No respiratory distress Cardiac/Chest: regular rate, rhythm, No tachycardia Skin: normal color, warm/dry, No rash Neuro/Psych: alert, normal mood/affect, oriented x 3 ICD10 Worksheet Patient Problems: Problems Problem Status Onset Unable to ambulate Acute Acute alcohol intoxication Acute Closed head injury Acute Laceration of eyebrow, right, complicated Acute
--- NOTE | 2017-07-03 15:20 | HOSPPROG ---
Hospitalist Progress Note Assessment/Plan: Subjective Follow-up on septic arthritis and bacteremia No acute events overnight. With the current oxycodone his pain appears well controlled. He stated yesterday that his bowels have been mostly loose but no diarrhea. No complaints of any subjective fevers or chills. No epigastric pain. Patient states he has been homeless for the past few years. He states he can't Louis is father lives in [place]. He apparently does not have any living space available to the patient. Case management is looking into placement options for him. 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 Objective Vital signs as detailed below Physical exam General-patient appears comfortable he is awake alert conversant no acute distress Cardiac-regular rhythm no murmurs noted. Lungs-Clear to auscultation normal respiratory effort. Abdomen-soft nontender nondistended bowel sounds normal. -no Blunt catheter in place. Extremities-noted limited mobility of his shoulders. I did take off his socks today to evaluate his feet and the left foot is bandaged with clean gauze no significant erythema or abscess collections noted. Labs as detailed below Assessment plan 1. Septic arthritis-bilateral shoulders. Cultures grew streptococcal bacteria. The current recommendation is for total 4 weeks of IV antibiotics. The patient was started on antibiotics on 06/13/2017. 2. Bacteremia-blood cultures also grew streptococcal bacteria. Repeat blood cultures have been clear. 3. Acute hypoxic respiratory failure-this appears resolved. Patient has been on room air the past couple of days. 4. Deep vein thrombosis-patient was found to have a deep vein thrombosis in the right upper extremity where his PICC line was placed. Continue anticoagulation with Lovenox with a plan to transition to Eliquis upon discharge. 5. Alcohol abuse-no signs or symptoms of withdrawal at the current time. Lorazepam as needed. 6. Ataxia-upon initial presentation was concern for potential Wernicke syndrome. Patient is on thiamine. Continue daily. 7. Ankylosing spondylitis-patient is on scheduled ibuprofen. 8. DVT prophylaxis-patient is anticoagulated 9. GI prophylaxis-I started a proton pump inhibitor considering he is on full anticoagulation and has scheduled use of NSAIDs. I would anticipate stopping the proton pump inhibitor once off of anticoagulation. 10. Disposition-case management is looking at placement options for him. Objective: Vital Signs Temp Pulse Resp BP Pulse Ox 36.8 C 95 16 120/72 93 07/03/17 08:00 07/03/17 08:00 07/03/17 08:00 07/03/17 08:00 07/03/17 08:00 Microbiology 06/28/17 18:04 Gram Stain - Final Shoulder - Eswab Laboratory Results 07/01/17 05:10 07/01/17 05:10 07/02/17 07/03/17 07/04/17 05:59 05:59 05:59 Output Total 1753 50 Balance -1753 -50 PT 14.4 SEC (12.0-15.0) 06/13/17 09:50 INR 1.10 (0.83-1.16) 06/13/17 09:50 ICD10 Worksheet Patient Problems: Problems Problem Status Onset Unable to ambulate Acute Acute alcohol intoxication Acute Closed head injury Acute Laceration of eyebrow, right, complicated Acute
--- NOTE | 2017-07-03 17:07 | ASMTCMCOM ---
CM Note CM Note Notes: Spoke with Officer Mercado who states he can bring patient's backpack to the hospital for patient. Hospital security did a safety search and took patient's pocket knife and sewing kit for safekeeping. Patient's phone and phone forensic photographer as well as his ID were found in the backpack. Patient was relieved to have them back. Patient's wallet and glasses were not in the backpack so CM will follow up with the [employer] tomorrow to see if they were kept separate. Application for medical respite was started today. CM will follow. Date Signed: 07/03/2017 05:06 PM Electronically Signed By:Celine Olsen LCSW
[2017-07-03] MEDS: KETOCONAZOLE 2% 120 ML SHAMPOO TP SCH (17:08)
[2017-07-04] MEDS: oxyCODONE IR 5 MG TAB PO PRN ×6 (02:34→23:29)
[2017-07-04] MEDS: AMPICILLIN/SULBACTAM 3 GM VIAL IV SCH ×4 (06:04→23:29)
[2017-07-04] MEDS: IBUPROFEN 200 MG TAB PO SCH ×3 (06:05→21:09)
[2017-07-04] MEDS: MULTIVITAMINS 1 EACH TAB PO SCH (09:11)
[2017-07-04] MEDS: THIAMINE HCL 100 MG TAB PO SCH (09:11)
[2017-07-04] MEDS: ENOXAPARIN 80 MG/0.8 ML SYR SC SCH ×2 (09:11→21:11)
[2017-07-04] MEDS: PANTOPRAZOLE SODIUM 40 MG TAB PO SCH (09:14)
[2017-07-04] MEDS: POLYETHYLENE GLYCOL 3350 17 GM PKT PO SCH (09:14)
--- NOTE | 2017-07-04 10:41 | HOSPPROG ---
Hospitalist Progress Note Assessment/Plan: 52 yo M w b/l septic arthritis of shoulder # Group C/G Streptococcus bacteremia - sec to b/l septic arthritis of shoulders and soft tissue infection of bilateral feet Status post I&D of bilateral shoulders by Orthopedic surgery, repeat I&D by Dr. Aponte - continue IV Unasyn- will need minimum 4 weeks IV antibiotics, per ID he should not d/c to street - 06/15 repeat BCx's neg, 06/28 wound Cx neg - continue wound care, PT/OT of shoulders - left shoulder DARRYL drain removal per ortho # Severe sepsis - Group C/G strep with seeding bilateral shoulders- WBC 19 -> 7 -septic physiology resolved # RUE DVT - dvt below picc so left in place - cont lovenox while inpt in case need for return trip to [place] - transition to 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 He is ambitious with PT rehab of shoulders. Pain controlled. No fevers/chills. EATing, ambulating. No complaints. Objective: Vital Signs Temp Pulse Resp BP Pulse Ox 36.6 C 85 16 112/72 94 07/04/17 08:00 07/04/17 08:00 07/04/17 08:00 07/04/17 08:00 07/04/17 08:00 Microbiology 06/28/17 18:04 Gram Stain - Final Shoulder - Eswab Laboratory Results 07/01/17 05:10 07/01/17 05:10 07/03/17 07/04/17 07/05/17 05:59 05:59 05:59 Intake Total 240 Output Total 50 70 10 Balance -50 170 -10 PT 14.4 SEC (12.0-15.0) 04/03/18 09:50 INR 1.10 (0.83-1.16) 06/13/17 09:50 - Physical Exam Constitutional: no apparent distress Eyes: PERRL Ears, Nose, Mouth, Throat: moist mucous membranes Cardiovascular: regular rate and rhythym Respiratory: no respiratory distress Gastrointestinal: normoactive bowel sounds, soft, non-tender abdomen Skin: warm Musculoskeletal: full muscle strength Neurologic: AAOx3 Psychiatric: interacting appropriately ICD10 Worksheet Patient Problems: Problems Problem Status Onset Unable to ambulate Acute Acute alcohol intoxication Acute Closed head injury Acute Laceration of eyebrow, right, complicated Acute
[2017-07-04] MEDS: KETOCONAZOLE 2% 120 ML SHAMPOO TP SCH (14:05)
--- NOTE | 2017-07-04 16:33 | ASMTCMCOM ---
CM Note CM Note Notes: Application completed and faxed to [facility] for medical respite for patient.Paper copy is in the back of patient's chart. CM will have to follow up tomorrow by calling Melissa at [phone] to see if she has reviewed and what the disposition is. CM will follow. Date Signed: 07/04/2017 04:33 PM Electronically Signed By:Celine Olsen LCSW
[2017-07-05] MEDS: oxyCODONE IR 5 MG TAB PO PRN ×5 (04:27→22:36)
[2017-07-05] MEDS: AMPICILLIN/SULBACTAM 3 GM VIAL IV SCH ×3 (05:40→18:52)
[2017-07-05] MEDS: IBUPROFEN 200 MG TAB PO SCH (05:41)
[2017-07-05] MEDS: ALTEPLASE 2 MG VIAL IVP PRN (06:14)
[2017-07-05] MEDS ORDERED: IBUPROFEN 200 MG TAB PO PRN (06:23)
[2017-07-05] MEDS: THIAMINE HCL 100 MG TAB PO SCH (08:11)
[2017-07-05] MEDS: PANTOPRAZOLE SODIUM 40 MG TAB PO SCH (08:11)
[2017-07-05] MEDS: ENOXAPARIN 80 MG/0.8 ML SYR SC SCH (08:12)
[2017-07-05] MEDS: MULTIVITAMINS 1 EACH TAB PO SCH (08:12)
[2017-07-05] MEDS: POLYETHYLENE GLYCOL 3350 17 GM PKT PO SCH (08:15)
--- NOTE | 2017-07-05 13:59 | HOSPPROG ---
Hospitalist Progress Note Assessment/Plan: 52 yo M w b/l septic arthritis of shoulder # Group C/G Streptococcus bacteremia - suspect 2/2 soft tissue infection of feet. Bacteremia complicated by b/l septic arthritis of shoulders, s/p I&D of bilateral shoulders by Orthopedic surgery, repeat I&D 06/[address] Aponte on left shoulder, drain in place - continue IV Unasyn- will need minimum 4 weeks IV antibiotics, per ID he should not d/c to street - 06/15 repeat BCx's neg, 06/28 wound Cx neg - left shoulder DARRYL drain removal per ortho, output decreasing # Incisional bleeding of left shoulder - Pt was doing way too many pendulums and likely provoked incisional bleeding on therapeutic Lovenox -STAT cbc -hold lovenox -if bleeding more aggressively, protamine would be the reversal agent of choice though I suspect this won't be necessary # Severe sepsis - Group C/G strep with seeding bilateral shoulders- WBC 19 -> 7 -septic physiology resolved # bilateral toe infections - MRI foot neg for osteo -continue wound care and IV antibiotics as above # RUE DVT - dvt below picc so left in place - holding lovenox due to bleeding as above # 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 RN notes a saturated dressing. He has been doing a lot of pendulum swings and still has a drain in his shoulder. No fevers/chills. C/O pain, requiring oxy Objective: Vital Signs Temp Pulse Resp BP Pulse Ox 36.7 C 98 16 142/78 H 93 07/05/17 08:00 07/05/17 08:00 07/05/17 08:00 07/05/17 08:00 07/05/17 08:00 Microbiology 06/28/17 18:04 Gram Stain - Final Shoulder - Eswab Laboratory Results 07/01/17 05:10 07/01/17 05:10 07/04/17 07/05/17 07/06/17 05:59 05:59 05:59 Intake Total 240 2000 Output Total 70 45 Balance 170 1955 PT 14.4 SEC (12.0-15.0) 06/13/17 09:50 INR 1.10 (0.83-1.16) 06/13/17 09:50 - Physical Exam Constitutional: no apparent distress Eyes: PERRL Ears, Nose, Mouth, Throat: moist mucous membranes Cardiovascular: regular rate and rhythym Respiratory: no respiratory distress Gastrointestinal: normoactive bowel sounds, soft, non-tender abdomen Skin: warm Musculoskeletal: other (Left shoulder incision with fresh clot over inferior aspect, prior site of bleeding. Drain site is clean, decreased output) Neurologic: AAOx3 Psychiatric: interacting appropriately ICD10 Worksheet Patient Problems: Problems Problem Status Onset Unable to ambulate Acute Acute alcohol intoxication Acute Closed head injury Acute Laceration of eyebrow, right, complicated Acute
[2017-07-05] MEDS: KETOCONAZOLE 2% 120 ML SHAMPOO TP SCH (17:03)
--- NOTE | 2017-07-05 17:52 | ASMTCMCOM ---
CM Note CM Note Notes: Today Zackery was able to speak with Melissa from the [facility] Medical Respite program. They are still considering Pt. Needed Pt's social security number. Will need more medical data as Pt's get's closer to being ready for d/c. Also Melissa would like some answers regarding Pt's social support systems and how he has been financially supporting himself. SWer to speak w/ Pt. tomorrow. Per colleagues notes, Pt. still has belongings - bicycle and possible wallet at the [employer]. SW to follow. Date Signed: 07/05/2017 05:51 PM Electronically Signed By:Shanita Dickinson LCSW
--- NOTE | 2017-07-05 19:09 | SOAPPROG ---
SOAP Progress Note Assessment/Plan: Assessment: POD#5 s/p I&D L shoulder POD#19 s/p I&D B/L shoulder -he may be draining a hematoma from the L shoulder wound, which is likely 2/2 therapeutic anticoagulation for the R arm DVT. Will continue to observe the wound, however bleeding may be an issue while he is anticoagulated Drain Output 4/ 4/ 4/ 407/03 65cc 50cc 53 50 70 45 Plan: -record L shoulder drain output -will likely leave drain in until some time this week, depending on output. -R shoulder farrah d/c'd -06/28 shoulder cultures neg to date -reinforce dressings as needed -the left great toe is being managed by the podiatry service -IV abx -appreciate care of medical and ID teams -cont PT/OT for R shoulder ROM and strengthening, may weight bear L shoulder for transfers, but should avoid aggresive ROM with drain 07/03/17 07:30 07/05/17 19:12 Subjective: I was notified this morning of bleeding in from Mr. Al's left shoulder wound. After his shower the patient was moving around in bed and the left shoulder began to drain. A compression dressing was placed. I saw the patient around 0730. The drainage had slowed down at the time. It appeared to be coming from the distal aspect of the wound. After I replaced the dressing the wound again began to drain. I was again notified by nursing staff. I spoke with Dr. Solis regarding need for possible reversal of anticoag. Fortunately his drainage slowed down after the pm lovenox dose was held. The patient was also seen this evening. The bleeding had stopped. Compression dressing in place. Objective: Vital Signs Temp Pulse Resp BP Pulse Ox 36.7 C 95 16 143/79 H 93 07/05/17 15:18 07/05/17 15:18 07/05/17 15:18 07/05/17 15:18 07/05/17 15:18 Microbiology 06/28/17 18:04 Gram Stain - Final Shoulder - Eswab Laboratory Results 07/05/17 13:50 07/01/17 05:10 07/04/17 07/05/17 07/06/17 05:59 05:59 05:59 Intake Total 240 2000 Output Total 70 45 Balance 170 1955 PT 14.4 SEC (12.0-15.0) 06/13/17 09:50 INR 1.10 (0.83-1.16) 06/13/17 09:50 R shoulder -incision well healed -sutures removed L shoulder -there is several mm of skin edge necrosis developing at the distal edge of the wound -a stream of blood was seen arising from the distal end of the wound -DARRYL drain output is serosang ICD10 Worksheet Patient Problems: Problems Problem Status Onset Unable to ambulate Acute Acute alcohol intoxication Acute Closed head injury Acute Laceration of eyebrow, right, complicated Acute
[2017-07-05] MEDS ORDERED: oxyCODONE IR 5 MG TAB PO ONE (19:15)
[2017-07-06] MEDS: AMPICILLIN/SULBACTAM 3 GM VIAL IV SCH ×5 (00:23→23:54)
[2017-07-06] MEDS ORDERED: ACETAMINOPHEN 325 MG TAB PO PRN (01:31)
[2017-07-06] MEDS: oxyCODONE IR 5 MG TAB PO PRN ×5 (05:18→23:54)
[2017-07-06] MEDS: PANTOPRAZOLE SODIUM 40 MG TAB PO SCH (07:49)
[2017-07-06] MEDS: MULTIVITAMINS 1 EACH TAB PO SCH (07:49)
[2017-07-06] MEDS: THIAMINE HCL 100 MG TAB PO SCH (07:50)
[2017-07-06] MEDS: POLYETHYLENE GLYCOL 3350 17 GM PKT PO SCH (07:50)
--- NOTE | 2017-07-06 08:25 | SOAPPROG ---
SOAP Progress Note Assessment/Plan: Assessment: POD#6 s/p I&D L shoulder POD#20 s/p I&D B/L shoulder -he may be draining a hematoma from the L shoulder wound, which is likely 2/2 therapeutic anticoagulation for the R arm DVT. Will continue to observe the wound, however bleeding may be an issue while he is anticoagulated -no bleeding today, will keep compression over the shoulder and change dressing tmrw Drain Output 06/29 06/30 07/01 07/02 07/03 07/04 07/05 65cc 50cc 53 50 70 45 40 Plan: -record L shoulder drain output -will likely leave drain in until some time this week, depending on output. -R shoulder farrah d/c'd -06/28 shoulder cultures neg to date -reinforce dressings as needed -the left great toe is being managed by the podiatry service -IV abx -appreciate care of medical and ID teams -cont PT/OT for R shoulder ROM and strengthening, may weight bear L shoulder for transfers, but should avoid aggresive ROM with drain 07/03/17 07:30 07/05/17 19:12 07/06/17 08:22 07/06/17 08:23 Subjective: No bleeding from the left shoulder overnight. Complaining about his pain ctrl this morning Objective: Vital Signs Temp Pulse Resp BP Pulse Ox 36.7 C 104 H 16 110/86 H 92 07/05/17 23:49 07/05/17 23:49 07/05/17 23:49 07/05/17 23:49 07/05/17 23:49 Microbiology 06/28/17 18:04 Gram Stain - Final Shoulder - Eswab Laboratory Results 07/06/17 05:30 07/01/17 05:10 07/05/17 07/06/17 07/07/17 05:59 05:59 05:59 Intake Total 1999 Output Total 45 615 Balance 1955 -615 PT 14.4 SEC (12.0-15.0) 06/13/17 09:50 INR 1.10 (0.83-1.16) 06/13/17 09:50 L shoulder -dressing in place, no breakthrough -DARRYL output serosang ICD10 Worksheet Patient Problems: Problems Problem Status Onset Unable to ambulate Acute Acute alcohol intoxication Acute Closed head injury Acute Laceration of eyebrow, right, complicated Acute
[2017-07-06] MEDS: KETOCONAZOLE 2% 120 ML SHAMPOO TP SCH (09:15)
[2017-07-06] MEDS ORDERED: HYDROmorphONE/DILAUDID 1 MG/ML INJ IVP PRN (09:48)
--- NOTE | 2017-07-06 09:50 | HOSPPROG ---
Hospitalist Progress Note Assessment/Plan: # Group C/G Streptococcus bacteremia - suspect 2/2 soft tissue infection of feet. Bacteremia complicated by b/l septic arthritis of shoulders, s/p I&D of bilateral shoulders by Ortho, repeat I&D 06/[address] Aponte on left shoulder, drain in place - continue IV Unasyn- will need minimum 4 weeks IV antibiotics, per ID he should not d/c to street (day ) - 06/15 repeat BCx's neg, 06/28 wound Cx neg - left shoulder DARRYL drain removal per ortho, output decreasing - poor pain control today likely due to hematoma in left shoulder, increase oxy and add prn dilaudid # Incisional bleeding of left shoulder - Significant bleeding yesterday. 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 No fevers/chills. No recurrent bleeding from shoulder overnight. No CP or SOB. Taking po. Objective: Vital Signs Temp Pulse Resp BP Pulse Ox 36.8 C 93 20 141/90 H 93 07/06/17 08:00 07/06/17 08:00 07/06/17 08:00 07/06/17 08:00 07/06/17 08:00 Microbiology 06/28/17 18:04 Gram Stain - Final Shoulder - Eswab Laboratory Results 07/06/17 05:30 07/01/17 05:10 07/05/17 07/06/17 07/07/17 05:59 05:59 05:59 Intake Total 1999 Output Total 45 615 Balance 1955 -615 PT 14.4 SEC (12.0-15.0) 06/13/17 09:50 INR 1.10 (0.83-1.16) 06/13/17 09:50 - Physical Exam Constitutional: no apparent distress Eyes: PERRL Ears, Nose, Mouth, Throat: moist mucous membranes Cardiovascular: regular rate and rhythym Respiratory: no respiratory distress, clear to auscultation Gastrointestinal: normoactive bowel sounds, soft, non-tender abdomen Skin: warm Musculoskeletal: other (Left shoulder drain with dried blood at insertion site, no active bleeding from incision) Neurologic: AAOx3 Psychiatric: interacting appropriately ICD10 Worksheet Patient Problems: Problems Problem Status Onset Unable to ambulate Acute Acute alcohol intoxication Acute Closed head injury Acute Laceration of eyebrow, right, complicated Acute
[2017-07-06] MEDS: HYDROmorphone HCL/NS 0.5 MG/ML SYR IVP PRN ×3 (10:13→21:40)
[2017-07-06] MEDS: ACETAMINOPHEN 500 MG TAB PO SCH ×2 (10:37→17:54)
[2017-07-07] MEDS: ACETAMINOPHEN 500 MG TAB PO SCH ×3 (03:11→18:57)
[2017-07-07] MEDS: HYDROmorphone HCL/NS 0.5 MG/ML SYR IVP PRN ×4 (03:11→23:18)
[2017-07-07] MEDS: oxyCODONE IR 5 MG TAB PO PRN ×5 (05:13→22:56)
[2017-07-07] MEDS: AMPICILLIN/SULBACTAM 3 GM VIAL IV SCH ×4 (06:21→22:57)
[2017-07-07] MEDS: MULTIVITAMINS 1 EACH TAB PO SCH (08:05)
[2017-07-07] MEDS: PANTOPRAZOLE SODIUM 40 MG TAB PO SCH (08:06)
[2017-07-07] MEDS: THIAMINE HCL 100 MG TAB PO SCH (08:06)
[2017-07-07] MEDS: KETOCONAZOLE 2% 120 ML SHAMPOO TP SCH (09:57)
[2017-07-07] MEDS ORDERED: BISACODYL 10 MG SUPP PR PRN (10:50)
[2017-07-07] MEDS ORDERED: MAGNESIUM HYDROXIDE 30 ML UDCUP PO PRN (10:50)
[2017-07-07] MEDS ORDERED: LACTULOSE 20 GM/30 ML UDCUP PO PRN (10:50)
--- NOTE | 2017-07-07 13:28 | SOAPPROG ---
SOAP Progress Note Assessment/Plan: Assessment: POD#7 s/p I&D L shoulder POD#21 s/p I&D B/L shoulder -today it is more evident that he developed and subsequently drained a hematoma from the L shoulder incision due to therapeutic anticoagulation. The hematoma caused some pressure necrosis over the incision and now has led to a 1cm open wound. The hematoma appears to be completely decompressed. Drain Output 4 407/01 65cc 50cc 53 50 70 45 40 30 Plan: -record L shoulder drain output. I will leave the drain in to drain the joint with the current open wound. -wound care team for secondary healing of L shoulder wound -reinforce dressings as needed -the left great toe is being managed by the podiatry service -IV abx -appreciate care of medical and ID teams -cont PT/OT for R shoulder ROM and strengthening, may weight bear L shoulder for transfers, but should avoid aggresive ROM with drain 07/07/17 13:28 Subjective: Doing well this afternoon. Pain better controlled. Objective: Vital Signs Temp Pulse Resp BP Pulse Ox 36.7 C 84 16 132/85 H 91 L 07/07/17 06:47 07/07/17 06:47 07/07/17 06:47 07/07/17 06:47 07/07/17 06:47 Microbiology 06/28/17 18:04 Gram Stain - Final Shoulder - Eswab Laboratory Results 07/06/17 05:30 07/01/17 05:10 07/06/17 07/07/17 07/08/17 05:59 05:59 05:59 Intake Total 210 Output Total 615 30 Balance -615 -30 210 PT 14.4 SEC (12.0-15.0) 06/13/17 09:50 INR 1.10 (0.83-1.16) 06/13/17 09:50 L shoulder -dressing removed, there is now a 1cm open wound over the center of incision. I expressed about 20 cc of clotted hematoma -DARRYL drain with serosang output ICD10 Worksheet Patient Problems: Problems Problem Status Onset Unable to ambulate Acute Acute alcohol intoxication Acute Closed head injury Acute Laceration of eyebrow, right, complicated Acute
--- NOTE | 2017-07-07 15:01 | ASMTCMCOM ---
CM Note CM Note Notes: Melissa from [facility] the [facility]eless Medical Respite program called and left ms today that Pt. is denied from admission to the program due to past criminal charges that [facility] could not overlook. Charges too concerning per Melissa. Per RN, Pt. angry at this moment due to another unrelated incident. SWer will wait to inform him of medical respite denial. CM colleagues to inform Pt. Pt. still not medically ready for d/c this week. SWer let CM [employer] know about d/c complications today. CM to follow for d/c POC. Date Signed: 07/07/2017 03:00 PM Electronically Signed By:Shanita Dickinson LCSW
--- NOTE | 2017-07-07 15:21 | HOSPPROG ---
Hospitalist Progress Note Assessment/Plan: 52 yo M with PMH of etoh abuse and multiple falls presenting with sepsis due to bilateral septic shoulders # bilateral septic shoulders: s/p bilateral shoulder I&D and subsequent left shoulder I&D with drain still in place on left. Cultures from shoulder with strep. Appreciate ortho and ID, continue unasyn # # strep bacteremia: with cultures positive on 06/13 and repeat from 06/15 with ngtd. Source as above. # sepsis: due to septic joint and bacteremia and now resolved, POA # hematoma: of left shoulder with associated pressure necrosis and open wound, now decompressed and in setting of therapeutic AC # pain: out of proportion to exam and what would be expected for current issues , fixated on receiving IV dilaudid for the "initial mosley", encouraged him to cut back and will utizlize IV pain meds only when unable to take PO # bilateral toe infection: with MRI negative for osteo # etoh abuse: no e/o w/d at this time, recommedning cessation # AHRF: resolved and now doing well on RA # hypernatremia: resolved # ankylosing spondylitis: patient notes this has been relatively quiescent as he has learned to control his sxs # IP status Patient new to my care. Old records reviewed and summarized as above. Subjective: no signficnat overnight events, patient states his pain remains severe Objective: Vital Signs Temp Pulse Resp BP Pulse Ox 36.7 C 84 16 132/85 H 91 L 07/07/17 06:47 07/07/17 06:47 07/07/17 06:47 07/07/17 06:47 07/07/17 06:47 Microbiology 06/28/17 18:04 Gram Stain - Final Shoulder - Eswab Laboratory Results 07/06/17 05:30 07/01/17 05:10 07/06/17 07/07/17 07/08/17 05:59 05:59 05:59 Intake Total 210 Output Total 615 30 Balance -615 -30 210 PT 14.4 SEC (12.0-15.0) 06/13/17 09:50 INR 1.10 (0.83-1.16) 06/13/17 09:50 awake alert nad anicteric op clear rrr no mrg cta b soft nt nd no cce drain from left shoulder with serosang ouptut warm dry well perfused oriented appropriate ICD10 Worksheet Patient Problems: Problems Problem Status Onset Laceration of eyebrow, right, complicated Acute Closed head injury Acute Acute alcohol intoxication Acute Unable to ambulate Acute
[2017-07-07] MEDS: POLYETHYLENE GLYCOL 3350 17 GM PKT PO SCH (16:31)
[2017-07-07] MEDS: SENNOSIDES/DOCUSATE SODIUM TAB PO SCH (20:21)
[2017-07-08] MEDS: ACETAMINOPHEN 500 MG TAB PO SCH ×3 (05:20→22:10)
[2017-07-08] MEDS: oxyCODONE IR 5 MG TAB PO PRN ×5 (05:20→22:10)
[2017-07-08] MEDS: AMPICILLIN/SULBACTAM 3 GM VIAL IV SCH ×3 (05:21→18:14)
[2017-07-08] MEDS: MULTIVITAMINS 1 EACH TAB PO SCH (08:41)
[2017-07-08] MEDS: PANTOPRAZOLE SODIUM 40 MG TAB PO SCH (08:41)
[2017-07-08] MEDS: THIAMINE HCL 100 MG TAB PO SCH (08:41)
[2017-07-08] MEDS: SENNOSIDES/DOCUSATE SODIUM TAB PO SCH ×2 (08:41→22:11)
[2017-07-08] MEDS: POLYETHYLENE GLYCOL 3350 17 GM PKT PO SCH (11:20)
--- NOTE | 2017-07-08 12:49 | HOSPPROG ---
Hospitalist Progress Note Assessment/Plan: 52 yo M with PMH of etoh abuse and multiple falls presenting with sepsis due to bilateral septic shoulders # bilateral septic shoulders: s/p bilateral shoulder I&D and subsequent left shoulder I&D with drain still in place on left. Cultures from shoulder with strep. Appreciate ortho and ID, continue unasyn with ultimate length of therapy to be determined # strep bacteremia: with cultures positive on 06/13 and repeat from 06/15 with ngtd. Source as above. # sepsis: due to septic joint and bacteremia and now resolved, POA # hematoma: of left shoulder with associated pressure necrosis and open wound, now decompressed and in setting of therapeutic AC # pain: out of proportion to exam and what would be expected for current issues , fixated on receiving IV dilaudid for the "initial mosley", encouraged him to cut back and will utizlize IV pain meds only when unable to take PO. Still remains an issue with the oral pain medications and definitely some concern for drug seeking behaviors with continued perseveration on pain meds and claims of being in severe pain despite being asleep when initially evaluated. # bilateral toe infection: with MRI negative for osteo, s/p I&D per podiatry, wound care per pods recs # etoh abuse: no e/o w/d at this time, recommending cessation # AHRF: resolved and now doing well on RA # hypernatremia: resolved # ankylosing spondylitis: patient notes this has been relatively quiescent as he has learned to control his sxs # IP status # dispo: at this time unclear, when drain removed he will be ready to dc, patient homeless and hoping to dc to snf Subjective: no acute overnight events, states pain remains uncontrolled Objective: Vital Signs Temp Pulse Resp BP Pulse Ox 36.9 C 85 16 115/92 H 93 07/08/17 08:00 07/08/17 08:00 07/08/17 08:00 07/08/17 08:00 07/08/17 08:00 Microbiology 06/28/17 18:04 Gram Stain - Final Shoulder - Eswab Laboratory Results 07/06/17 05:30 07/08/17 05:30 07/07/17 07/08/17 07/09/17 05:59 05:59 05:59 Intake Total 2260 Output Total 30 10 20 Balance -30 2250 -20 PT 14.4 SEC (12.0-15.0) 06/13/17 09:50 INR 1.10 (0.83-1.16) 06/13/17 09:50 awake alert nad anicteric op clear rrr no mrg cta b soft nt nd no cce drain from left shoulder with serosang ouptut warm dry well perfused oriented appropriate - Time Spent With Patient Time Spent with Patient: greater than 35 minutes Time Spent with Patient: Greater than 35 minutes spent on this patients care, greater than 50% of time spent counseling, educating, and coordinating care regarding the above mentioned plan. ICD10 Worksheet Patient Problems: Problems Problem Status Onset Unable to ambulate Acute Acute alcohol intoxication Acute Closed head injury Acute Laceration of eyebrow, right, complicated Acute
[2017-07-08] MEDS: KETOCONAZOLE 2% 120 ML SHAMPOO TP SCH (17:16)
[2017-07-09] MEDS: AMPICILLIN/SULBACTAM 3 GM VIAL IV SCH ×4 (00:30→18:28)
[2017-07-09] MEDS: ACETAMINOPHEN 500 MG TAB PO SCH ×3 (02:11→18:28)
[2017-07-09] MEDS: oxyCODONE IR 5 MG TAB PO PRN ×5 (02:11→19:57)
[2017-07-09] MEDS: THIAMINE HCL 100 MG TAB PO SCH (10:39)
[2017-07-09] MEDS: MULTIVITAMINS 1 EACH TAB PO SCH (10:39)
[2017-07-09] MEDS: PANTOPRAZOLE SODIUM 40 MG TAB PO SCH (10:39)
[2017-07-09] MEDS: SENNOSIDES/DOCUSATE SODIUM TAB PO SCH ×2 (10:41→19:56)
[2017-07-09] MEDS: POLYETHYLENE GLYCOL 3350 17 GM PKT PO SCH (10:43)
--- NOTE | 2017-07-09 11:16 | WOCRNPDOC ---
WOCRN Advanced Assessment Note - Skin Integrity Problem, Advanced Assess Left Lateral Shoulder Surgical Wound/Incision Dressing Type: ABD Pad, Dressing Sponge, Gauze, Xeroform Dressing Description: Intact Closure Description: Sutures Exudate Amount: Minimal Exudate Color: Red, Brown Exudate Characteristic(s): Bloody Integumentary Issue Intervention: Visualized Under Dressing Bushra Wound Tissue: Erythema, Swollen Bushra Wound Swelling: Moderate Wound Bed Color: Red Wound Bed Constitution: Undermining (0.5cm from 9-11 o'clock; 1cm from 12-3 o' clock) Site Odor: None Site Measurement - Head-to-Toe Length X Width X Depth (cm): 2.2cmx0.8cmx0.4cm Skin Integrity Problem Comment: Wound with remnants of hematoma on lateral aspect of L shoulder, w/ 2 intact sutures noted medially and at proximal aspect. Unable to visualize base as sutures made it difficult to remove hematoma. There is undermining from 9-3 o'clock. Periwound erythema and swelling present. Tentative plan is to have surgeon remove existing sutures if possible so that wound can be debrided and packed. Will have nursing cover w/ xeroform and ABD for now. Please notify wound care when sutures are removed; packing and/or dressing can be applied at that time. Report given to dragline oilerSKYE Junior.
[2017-07-09] MEDS: KETOCONAZOLE 2% 120 ML SHAMPOO TP SCH (11:17)
--- NOTE | 2017-07-09 13:31 | ASMTCMCOM ---
CM Note CM Note Notes: Chart reviewed. Met with patient as no placement has been found per previous CM reports. Patient seems to have no insight to his current situation. I explained that due to insurance restrictions, medicaid beds are extremely difficult to find. Complex care has also been involved. Still has drain in shoulder. 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 He has previously relied on friends and rastafari members for housing. Discharge plan is not in place. CM to follow. Plan: TBD Date Signed: 07/09/2017 01:31 PM Electronically Signed By:Reny Choi RN
--- NOTE | 2017-07-09 15:42 | PCMIDPN ---
Assessment/Plan: 1. Group C/G streptococcal bacteremia with seeding of both shoulders status post incision and drainage: Continue Unasyn as is. No new recommendations at this point in time. Will need 4 weeks of therapy after most recent washout, tentative stop date July 26. Antibiotic safety labs this week were fine. 2. Left great toe infection/5th metatarsal superficial infection/right superficial 1st metatarsal head infection: Much better. Continue wound care, and Unasyn. 3. Seborrheic dermatitis: Ketoconazole shampoo daily. Resolved. 4. Disposition: Unfortunately, he has no where to go at this point in time. Will likely be here for the remainder of his therapy. 07/09/17 15:30 Subjective: Still has a drain in the left shoulder. No real complaints other than mild shoulder pain, but he feels that this is improving. Objective: Unasyn 3 g IV q.6 hours day , tentative stop date July 26 Afebrile Vital Signs Temp Pulse Resp BP Pulse Ox 36.6 C 102 H 18 135/93 H 93 07/09/17 08:00 07/09/17 08:00 07/09/17 08:00 07/09/17 08:00 07/09/17 08:00 Laboratory Results 07/06/17 05:30 07/08/17 05:30 07/08/17 07/09/17 07/10/17 05:59 05:59 05:59 Intake Total 2260 Output Total 10 40 Balance 2250 -40 No new microbiology - Physical Exam General Appearance: alert, no apparent distress EENT: pharynx normal, No thrush Respiratory: lungs clear Cardiac/Chest: regular rate, rhythm Extremities: other (Drain in left shoulder with approximately 20 cc of sero sanguinous fluid. Right shoulder incision is well-healed, scar looks fine. Patient's right foot looks great, his left foot is notable for an eschar on the plantar aspect of his great toe, and a weeping ulceration that is superficial on the plantar aspect of his 5th metatarsal. Overall, improved.) Skin: other (Seborrheic dermatitis on his face has completely resolved.) ICD10 Worksheet Patient Problems: Problems Problem Status Onset Unable to ambulate Acute Acute alcohol intoxication Acute Closed head injury Acute Laceration of eyebrow, right, complicated Acute
--- NOTE | 2017-07-09 16:37 | HOSPPROG ---
Hospitalist Progress Note Assessment/Plan: 52 yo M with PMH of etoh abuse and multiple falls presenting with sepsis due to bilateral septic shoulders # bilateral septic shoulders: s/p bilateral shoulder I&D and subsequent left shoulder I&D with drain still in place on left. Cultures from shoulder with strep. Appreciate ortho and ID, continue unasyn with plan to continue for 4 weeks post last washout--stop date tentatively 07/26 # strep bacteremia: with cultures positive on 06/13 and repeat from 06/15 with ngtd. Source as above. # sepsis: due to septic joint and bacteremia and now resolved, POA # hematoma: of left shoulder with associated pressure necrosis and open wound, now decompressed and in setting of therapeutic AC # pain: out of proportion to exam and what would be expected for current issues , has improved recently and has been accepting that he no longer will be receiving dilaudid unless he is unable to tolerate PO # bilateral toe infection: with MRI negative for osteo, s/p I&D per podiatry, wound care per pods recs # etoh abuse: no e/o w/d at this time, recommending cessation # AHRF: resolved and now doing well on RA # hypernatremia: resolved # ankylosing spondylitis: patient notes this has been relatively quiescent as he has learned to control his sxs # IP status # dispo: at this time unclear, patient not accepted to snf and may need to remain in hospital until no longer on abx Subjective: no significant overnight events, patient walking, notes he is feeling that the pain is relatively controlled Objective: Vital Signs Temp Pulse Resp BP Pulse Ox 36.6 C 102 H 18 135/93 H 93 07/09/17 08:00 07/09/17 08:00 07/09/17 08:00 07/09/17 08:00 07/09/17 08:00 Laboratory Results 07/06/17 05:30 07/08/17 05:30 07/08/17 07/09/17 07/10/17 05:59 05:59 05:59 Intake Total 2260 Output Total 10 40 Balance 2250 -40 PT 14.4 SEC (12.0-15.0) 06/13/17 09:50 INR 1.10 (0.83-1.16) 06/13/17 09:50 awake alert nad anicteric op clear rrr no mrg cta b soft nt nd no cce drain from left shoulder with serosang [place] warm dry well perfused oriented appropriate ICD10 Worksheet Patient Problems: Problems Problem Status Onset Unable to ambulate Acute Acute alcohol intoxication Acute Closed head injury Acute Laceration of eyebrow, right, complicated Acute
[2017-07-10] MEDS: AMPICILLIN/SULBACTAM 3 GM VIAL IV SCH ×4 (00:56→20:22)
[2017-07-10] MEDS: ACETAMINOPHEN 500 MG TAB PO SCH ×3 (00:58→18:32)
[2017-07-10] MEDS: oxyCODONE IR 5 MG TAB PO PRN ×6 (00:59→22:31)
[2017-07-10] MEDS: THIAMINE HCL 100 MG TAB PO SCH (08:52)
[2017-07-10] MEDS: MULTIVITAMINS 1 EACH TAB PO SCH (08:53)
[2017-07-10] MEDS: PANTOPRAZOLE SODIUM 40 MG TAB PO SCH (08:53)
[2017-07-10] MEDS: SENNOSIDES/DOCUSATE SODIUM TAB PO SCH ×2 (08:53→20:23)
[2017-07-10] MEDS: POLYETHYLENE GLYCOL 3350 17 GM PKT PO SCH (08:54)
[2017-07-10] MEDS: KETOCONAZOLE 2% 120 ML SHAMPOO TP SCH (15:44)
--- NOTE | 2017-07-10 18:39 | HOSPPROG ---
Hospitalist Progress Note Assessment/Plan: 52 yo M with PMH of etoh abuse and multiple falls presenting with sepsis due to bilateral septic shoulders # bilateral septic shoulders: s/p bilateral shoulder I&D and subsequent left shoulder I&D with drain still in place on left. Cultures from shoulder with strep. Appreciate ortho and ID, continue unasyn with plan to continue for 4 weeks post last washout--stop date tentatively 07/26 # strep bacteremia: with cultures positive on 06/13 and repeat from 06/15 with ngtd. Source as above. # sepsis: due to septic joint and bacteremia and now resolved, POA # hematoma: of left shoulder with associated pressure necrosis and open wound, now decompressed and in setting of therapeutic AC # pain: out of proportion to exam and what would be expected for current issues , has improved recently and has been accepting that he no longer will be receiving dilaudid unless he is unable to tolerate PO # bilateral toe infection: with MRI negative for osteo, s/p I&D per podiatry, wound care per pods recs # etoh abuse: no e/o w/d at this time, recommending cessation # AHRF: resolved and now doing well on RA # hypernatremia: resolved # ankylosing spondylitis: patient notes this has been relatively quiescent as he has learned to control his sxs # IP status # dispo: at this time unclear, patient not accepted to snf and may need to remain in hospital until no longer on abx Objective: Vital Signs Temp Pulse Resp BP Pulse Ox 36.6 C 96 18 140/77 H 91 L 07/10/17 15:59 07/10/17 15:59 07/10/17 15:59 07/10/17 15:59 07/10/17 15:59 Microbiology 06/28/17 18:04 Gram Stain - Final Shoulder - Eswab Laboratory Results 07/06/17 05:30 07/08/17 05:30 07/09/17 07/10/17 07/11/17 05:59 05:59 05:59 Intake Total 50 1999 Output Total 40 25 Balance -40 25 1999 PT 14.4 SEC (12.0-15.0) 06/13/17 09:50 INR 1.10 (0.83-1.16) 06/13/17 09:50 ICD10 Worksheet Patient Problems: Problems Problem Status Onset Laceration of eyebrow, right, complicated Acute Closed head injury Acute Acute alcohol intoxication Acute Unable to ambulate Acute
--- NOTE | 2017-07-10 19:40 | SOAPPROG ---
SOAP Progress Note Assessment/Plan: Assessment: POD#10 s/p I&D L shoulder POD#24 s/p I&D B/L shoulder -L shoulder wound due to hematoma. This appears to have stabilized. Wound appears to be forming an eschar. Wound care to follow Drain Output 06/29 06/30 07/01 07/02 07/03 07/04 07/05 07/06 07/07 07/09 65cc 50cc 53 50 70 45 40 30 10 40 Plan: -record L shoulder drain output. I will leave the drain in to drain the joint with the current open wound. -sutures removed from L shoulder today -reinforce dressings as needed -the left great toe is being managed by the podiatry service -IV abx -appreciate care of medical and ID teams -cont PT/OT for R shoulder ROM and strengthening, may weight bear L shoulder for transfers, but should avoid aggresive ROM with drain Subjective: Doing well this evening. Wound care team came by earlier today. Objective: Vital Signs Temp Pulse Resp BP Pulse Ox 36.6 C 96 18 140/77 H 91 L 07/10/17 15:59 07/10/17 15:59 07/10/17 15:59 07/10/17 15:59 07/10/17 15:59 Microbiology 06/28/17 18:04 Gram Stain - Final Shoulder - Eswab Laboratory Results 07/06/17 05:30 07/08/17 05:30 07/09/17 07/10/17 05 05:59 05:59 05:59 Intake Total 50 2000 Output Total 40 25 Balance -40 25 1999 PT 14.4 SEC (12.0-15.0) 06/13/17 09:50 INR 1.10 (0.83-1.16) 06/13/17 09:50 R shoulder -incision well healed L shoulder -dressing changed, serosang drain output -no drainage seen from wound, appears to be drying up and forming eschar. No erythema ICD10 Worksheet Patient Problems: Problems Problem Status Onset Unable to ambulate Acute Acute alcohol intoxication Acute Closed head injury Acute Laceration of eyebrow, right, complicated Acute
--- NOTE | 2017-07-10 21:38 | HOSPPROG ---
Hospitalist Progress Note Assessment/Plan: 52 yo M with PMH of etoh abuse and multiple falls presenting with sepsis due to bilateral septic shoulders # bilateral septic shoulders: s/p bilateral shoulder I&D and subsequent left shoulder I&D with drain still in place on left. Cultures from shoulder with strep. Appreciate ortho and ID, continue unasyn with plan to continue for 4 weeks post last washout--stop date tentatively 07/26 # strep bacteremia: with cultures positive on 06/13 and repeat from 06/15 with ngtd. Source as above. # sepsis: due to septic joint and bacteremia and now resolved, POA # hematoma: of left shoulder with associated pressure necrosis and open wound, now decompressed and in setting of therapeutic AC # pain: out of proportion to exam and what would be expected for current issues , has improved recently and has been accepting that he no longer will be receiving dilaudid unless he is unable to tolerate PO # bilateral toe infection: with MRI negative for osteo, s/p I&D per podiatry, wound care per pods recs # etoh abuse: no e/o w/d at this time, recommending cessation # AHRF: resolved and now doing well on RA # hypernatremia: resolved # ankylosing spondylitis: patient notes this has been relatively quiescent as he has learned to control his sxs # IP status # dispo: at this time unclear, patient not accepted to snf and may need to remain in hospital until no longer on abx Subjective: no significant overnight events, patient with pain improved from prior Objective: Vital Signs Temp Pulse Resp BP Pulse Ox 36.9 C 97 17 131/71 H 89 L 07/10/17 19:34 07/10/17 19:34 07/10/17 19:34 07/10/17 19:34 07/10/17 19:34 Microbiology 06/28/17 18:04 Gram Stain - Final Shoulder - Eswab Laboratory Results 07/06/17 05:30 07/08/17 05:30 07/09/17 07/10/17 07/11/17 05:59 05:59 05:59 Intake Total 50 2000 Output Total 40 25 Balance -40 25 1999 PT 14.4 SEC (12.0-15.0) 06/13/17 09:50 INR 1.10 (0.83-1.16) 06/13/17 09:50 awake laert nad L shoulder with frain in place no cce warm dry well perfused ICD10 Worksheet Patient Problems: Problems Problem Status Onset Unable to ambulate Acute Acute alcohol intoxication Acute Closed head injury Acute Laceration of eyebrow, right, complicated Acute
[2017-07-11] MEDS: ACETAMINOPHEN 500 MG TAB PO SCH ×3 (00:55→18:19)
[2017-07-11] MEDS: AMPICILLIN/SULBACTAM 3 GM VIAL IV SCH ×4 (00:55→18:22)
[2017-07-11] MEDS: oxyCODONE IR 5 MG TAB PO PRN ×5 (02:45→22:25)
[2017-07-11] MEDS: POLYETHYLENE GLYCOL 3350 17 GM PKT PO SCH (09:29)
[2017-07-11] MEDS: PANTOPRAZOLE SODIUM 40 MG TAB PO SCH (09:30)
[2017-07-11] MEDS: MULTIVITAMINS 1 EACH TAB PO SCH (09:30)
[2017-07-11] MEDS: SENNOSIDES/DOCUSATE SODIUM TAB PO SCH ×2 (09:30→20:41)
[2017-07-11] MEDS: THIAMINE HCL 100 MG TAB PO SCH (09:31)
[2017-07-11] MEDS: KETOCONAZOLE 2% 120 ML SHAMPOO TP SCH (09:37)
--- NOTE | 2017-07-11 12:57 | ASMTCMCOM ---
CM Note CM Note Notes: Met with patient who is still concerned about his glasses. He thinks the police department may still have them. Patient needs 4 more weeks of IV ABX . Patient has been denied for placement with numerous SNF's and has also been denied placement with medical respite through [facility]. Deborah Coker is aware of this patient and the difficulties placing him. Currently, D/C plan is patient to finish his IV ABX here in the hospital until a solution can be found. CM will follow. Date Signed: 07/11/2017 12:56 PM Electronically Signed By:Celine Olsen LCSW
--- NOTE | 2017-07-11 14:09 | PCMIDPN ---
Assessment/Plan: Assessment/Plan: 1. Group C/G strep bacteremia with b/l septic shoulders: - Currently on Unasyn -cx from shoulders with Group c/G strep -s/p wash out (06/15/17) both shoulders, - s/p wash out of left shoulder 06/28/[address]. - Appreciate ortho - Has screws and anchor present in right shoulder from before that were surround by infectious fluid. Likely will need suppression after acute course of therapy. -labs from last week noted, will recheck in AM. - follow labs periodically -Will need prolonged atbx plus oral suppression thereafter given HW as stated above. 2. Left great toe and 5th toe wounds with small abscess great toe -Cx showing MSSA and Group C/G strep, [place]--left great toe -currently on unasyn - appreciate podiatry eval Meds unasyn 3g q6- Subjective: afebrile. feeling better. he wants to start doing more exercises with left shoulder. advised him to discuss further with Dr. Rog. donald sob, abd pain . having loose stools . less pain involving left foot Objective: Vital Signs Temp Pulse Resp BP Pulse Ox 36.6 C 102 H 20 153/85 H 93 07/11/17 08:00 07/11/17 08:00 07/11/17 08:00 07/11/17 08:00 07/11/17 08:00 Microbiology 06/28/17 18:04 Gram Stain - Final Shoulder - Eswab Laboratory Results 07/06/17 05:30 07/08/17 05:30 07/10/17 07/11/17 07/12/17 05:59 05:59 05:59 Intake Total 50 2500 Output Total 25 30 Balance 25 2470 - Physical Exam General Appearance: alert, no apparent distress Respiratory: lungs clear Cardiac/Chest: regular rate, rhythm Extremities: No swelling (LE) Abdomen: normal bowel sounds, non-tender, soft, No distended Skin: other (left shoulder with drain and dressing), No erythema ICD10 Worksheet Patient Problems: Problems Problem Status Onset Unable to ambulate Acute Acute alcohol intoxication Acute Closed head injury Acute Laceration of eyebrow, right, complicated Acute
--- NOTE | 2017-07-11 14:33 | WOCRNPDOC ---
WOCRN Advanced Assessment Note - Skin Integrity Problem, Advanced Assess Left Lateral Shoulder Surgical Wound/Incision Dressing Type: ABD Pad, Gauze Dressing Description: Intact Exudate Amount: Scant Exudate Color: Red, Brown Exudate Characteristic(s): Bloody, Dried Integumentary Issue Intervention: Dressing Changed, Dressing Initialed & Dated [place] Wound Tissue: Swollen (mild) [place] Wound Swelling: Mild Wound Bed Color: Red Wound Bed Constitution: Red/[place] - Non Granular Tissue Site Odor: None Skin Integrity Problem Comment: Intact, dried scab noted in wound bed. This was removed w/ forceps and gauze, as wound was deeper when previously assessed on . Flushed w/ NS and removed some residual hematoma in wound bed. Applied Hydrofera Blue Transfer to the wound bed to fill in, and covered w/ Allevyn Life. patient has some undermining from 9-3 o'clock, but this is very shallow; packing would likely keep those areas open. Will follow up on Friday 07/14.
--- NOTE | 2017-07-11 16:12 | HOSPPROG ---
Hospitalist Progress Note Assessment/Plan: 52 yo M with PMH of etoh abuse and multiple falls presenting with sepsis due to bilateral septic shoulders # bilateral septic shoulders: s/p bilateral shoulder I&D and subsequent left shoulder I&D with drain still in place on left. Cultures from shoulder with strep. Appreciate ortho and ID, continue unasyn with plan to continue for 4 weeks post last washout--stop date tentatively 07/26 # strep bacteremia: with cultures positive on 06/13 and repeat from 06/15 with ngtd. Source as above. # sepsis: due to septic joint and bacteremia and now resolved, POA # hematoma: of left shoulder with associated pressure necrosis and open wound, now decompressed and in setting of therapeutic AC # pain: out of proportion to exam and what would be expected for current issues , has improved recently and has been accepting that he no longer will be receiving dilaudid unless he is unable to tolerate PO # bilateral toe infection: with MRI negative for osteo, s/p I&D per podiatry, wound care will need new podiatry recommendations and they will see patient in am # etoh abuse: no e/o w/d at this time, recommending cessation # AHRF: resolved and now doing well on RA # hypernatremia: resolved # ankylosing spondylitis: patient notes this has been relatively quiescent as he has learned to control his sxs # IP status # dispo: at this time unclear, patient not accepted to snf and may need to remain in hospital until no longer on abx, discussed with CM Subjective: no significant overnight events, feeling better, concerned about wound on his foot and scared to walk on that foot bc of that Objective: Vital Signs Temp Pulse Resp BP Pulse Ox 36.6 C 102 H 20 153/85 H 93 07/11/17 08:00 07/11/17 08:00 07/11/17 08:00 07/11/17 08:00 07/11/17 08:00 Microbiology 06/28/17 18:04 Gram Stain - Final Shoulder - Eswab Laboratory Results 07/06/17 05:30 07/08/17 05:30 07/10/17 07/11/17 07/12/17 05:59 05:59 05:59 Intake Total 50 2500 Output Total 25 30 Balance 25 2470 PT 14.4 SEC (12.0-15.0) 06/13/17 09:50 INR 1.10 (0.83-1.16) 06/13/17 09:50 awake alert nad L shoulder with drain in place no cce warm dry well perfused ICD10 Worksheet Patient Problems: Problems Problem Status Onset Unable to ambulate Acute Acute alcohol intoxication Acute Closed head injury Acute Laceration of eyebrow, right, complicated Acute
[2017-07-12] MEDS: AMPICILLIN/SULBACTAM 3 GM VIAL IV SCH ×4 (00:49→17:48)
[2017-07-12] MEDS: ACETAMINOPHEN 500 MG TAB PO SCH ×3 (02:24→17:49)
[2017-07-12] MEDS: oxyCODONE IR 5 MG TAB PO PRN ×6 (02:25→22:47)
[2017-07-12] MEDS: MULTIVITAMINS 1 EACH TAB PO SCH (09:30)
[2017-07-12] MEDS: THIAMINE HCL 100 MG TAB PO SCH (09:30)
[2017-07-12] MEDS: PANTOPRAZOLE SODIUM 40 MG TAB PO SCH (09:30)
[2017-07-12] MEDS: KETOCONAZOLE 2% 120 ML SHAMPOO TP SCH (09:31)
[2017-07-12] MEDS: POLYETHYLENE GLYCOL 3350 17 GM PKT PO SCH (10:33)
[2017-07-12] MEDS: SENNOSIDES/DOCUSATE SODIUM TAB PO SCH ×2 (10:37→19:48)
--- NOTE | 2017-07-12 10:58 | HOSPPROG ---
Hospitalist Progress Note Assessment/Plan: New pt encounter records reviewed 52 yo M with PMH of etoh abuse and multiple falls presenting with sepsis due to bilateral septic shoulders # bilateral septic shoulders: s/p bilateral shoulder I&D and subsequent left shoulder I&D with drain still in place on left. Cultures from shoulder with strep. Appreciate ortho and ID, continue unasyn with plan to continue for 4 weeks post last washout--stop date tentatively 07/26 # strep bacteremia: with cultures positive on 06/13 and repeat from 06/15 with ngtd. Source as above. # sepsis: due to septic joint and bacteremia and now resolved, POA # hematoma: of left shoulder with associated pressure necrosis and open wound, now decompressed and in setting of therapeutic AC # pain: out of proportion to exam and what would be expected for current issues , has improved recently and has been accepting that he no longer will be receiving IV Dilaudid unless he is unable to tolerate PO # bilateral toe infection: with MRI negative for osteo, s/p I&D per podiatry, wound care will need new podiatry recommendations and they will see patient in am # etoh abuse: no e/o w/d at this time, recommending cessation # AHRF: resolved and now doing well on RA # hypernatremia: resolved # ankylosing spondylitis: patient notes this has been relatively quiescent as he has learned to control his sxs # IP status # dispo: at this time unclear, patient not accepted to snf and may need to remain in hospital until no longer on abx, discussed with CM Plan: Per above He c/o constipation and he will continue on the bowel regimen with preferred agent to use being Miralax Subjective: c/o intermittent constipation. no cp or sob. tolerating po well. no fever. Objective: Vital Signs Temp Pulse Resp BP Pulse Ox 36.4 C 87 16 133/82 H 90 L 07/12/17 08:00 07/12/17 08:00 07/12/17 08:00 07/12/17 08:00 07/12/17 08:00 Microbiology 06/28/17 18:04 Gram Stain - Final Shoulder - Eswab Laboratory Results 07/06/17 05:30 07/08/17 05:30 07/11/17 07/12/17 07/13/17 05:59 05:59 05:59 Intake Total 2500 2400 200 Output Total 30 400 35 Balance 2470 1999 165 PT 14.4 SEC (12.0-15.0) 06/13/17 09:50 INR 1.10 (0.83-1.16) 06/13/17 09:50 - Physical Exam Constitutional: no apparent distress, appears nourished Eyes: PERRL, EOMI Ears, Nose, Mouth, Throat: moist mucous membranes, hearing normal, ears appear normal Cardiovascular: regular rate and rhythym, No edema Respiratory: no respiratory distress, no rales or rhonchi, clear to auscultation Gastrointestinal: normoactive bowel sounds, soft, non-tender abdomen Genitourinary: no bladder fullness Skin: warm Neurologic: AAOx3 Psychiatric: interacting appropriately, not anxious, not encephalopathic, thought process linear Lymph, Heme, Immunologic: No petechiae ICD10 Worksheet Patient Problems: Problems Problem Status Onset Unable to ambulate Acute Acute alcohol intoxication Acute Closed head injury Acute Laceration of eyebrow, right, complicated Acute
--- NOTE | 2017-07-12 13:52 | SOAPPROG ---
SOAP Progress Note Assessment/Plan: Assessment: POD#12 s/p I&D L shoulder POD#26 s/p I&D B/L shoulder -L shoulder wound due to hematoma. Wound care following -drain output has been steady and low. The drainage has been serosanguinous. Will d/c today Plan: -L shoulder drain d/c'd -wound care following for the L shoulder incision -reinforce dressings as needed -the left great toe is being managed by the podiatry service -IV abx -appreciate care of medical and ID teams -cont PT/OT for R shoulder ROM and strengthening, may start more work on ROM of the L shoulder 07/12/17 13:48 Subjective: Doing well this afternoon. Wound care addressed L shoulder wound yesterday Objective: Vital Signs Temp Pulse Resp BP Pulse Ox 36.4 C 87 16 133/82 H 90 L 07/12/17 08:00 07/12/17 08:00 07/12/17 08:00 07/12/17 08:00 07/12/17 08:00 Microbiology 06/28/17 18:04 Gram Stain - Final Shoulder - Eswab Anaerobic Culture - Final Laboratory Results 07/06/17 05:30 07/08/17 05:30 07/11/17 07/12/17 07/13/17 05:59 05:59 05:59 Intake Total 2500 2400 200 Output Total 30 400 35 Balance 2470 2000 165 PT 14.4 SEC (12.0-15.0) 06/13/17 09:50 INR 1.10 (0.83-1.16) 06/13/17 09:50 L shoulder -wound covered by wound care team -serosang drain output -drain d/c'd without issue ICD10 Worksheet Patient Problems: Problems Problem Status Onset Unable to ambulate Acute Acute alcohol intoxication Acute Closed head injury Acute Laceration of eyebrow, right, complicated Acute
--- NOTE | 2017-07-12 16:45 | ASMTCMCOM ---
CM Note CM Note Notes: CM met w/ pt for dispo planning. Pt would like to locate his wallet and his prescription glasses. Pt reports that he might've left it at the skilled nursing. Pt left a msg for Officer Mercado and requested a call back. CM to follow up. Date Signed: 07/12/2017 04:44 PM Electronically Signed By:FARIDA Hathaway
[2017-07-13] MEDS: AMPICILLIN/SULBACTAM 3 GM VIAL IV SCH ×3 (00:49→11:41)
[2017-07-13] MEDS: ACETAMINOPHEN 500 MG TAB PO SCH ×3 (02:52→17:30)
[2017-07-13] MEDS: oxyCODONE IR 5 MG TAB PO PRN ×5 (02:53→20:12)
[2017-07-13 06:28] LABS: PLATELET COUNT 369 10^3/uL (150-400)
[2017-07-13] MEDS: PANTOPRAZOLE SODIUM 40 MG TAB PO SCH (07:30)
[2017-07-13] MEDS: POLYETHYLENE GLYCOL 3350 17 GM PKT PO SCH (07:31)
[2017-07-13] MEDS: MULTIVITAMINS 1 EACH TAB PO SCH (07:31)
[2017-07-13] MEDS: KETOCONAZOLE 2% 120 ML SHAMPOO TP SCH (07:31)
[2017-07-13] MEDS: THIAMINE HCL 100 MG TAB PO SCH (07:31)
[2017-07-13] MEDS: SENNOSIDES/DOCUSATE SODIUM TAB PO SCH ×2 (07:31→20:21)
--- NOTE | 2017-07-13 10:34 | HOSPPROG ---
Hospitalist Progress Note Assessment/Plan: 52 yo M with PMH of etoh abuse and multiple falls presenting with sepsis due to bilateral septic shoulders # bilateral septic shoulders: s/p bilateral shoulder I&D and subsequent left shoulder I&D. Drain removed on 07/12. -Cultures from shoulder with strep. -Appreciate ortho and ID, continue unasyn with plan to continue for 4 weeks post last washout--stop date tentatively 07/26 # strep bacteremia: with cultures positive on 06/13 and repeat from 06/15 with ngtd. Source as above. # sepsis: due to septic joint and bacteremia and now resolved, POA # hematoma: of left shoulder with associated pressure necrosis and open wound, now decompressed and in setting of therapeutic AC # pain: out of proportion to exam and what would be expected for current issues , has improved recently and has been accepting that he no longer will be receiving IV Dilaudid unless he is unable to tolerate PO # bilateral toe infection: with MRI negative for osteo, s/p I&D per podiatry # etoh abuse: no e/o w/d at this time, recommending cessation # AHRF: resolved and now doing well on RA # hypernatremia: resolved # ankylosing spondylitis: patient notes this has been relatively quiescent as he has learned to control his sxs #Anemia: confirmed today. Hgb is 8.1. Will check irons studies. Folate. B12 previously checked. # IP status # dispo: at this time unclear, patient not accepted to snf and may need to remain in hospital until no longer on abx, discussed with CM Plan: Per above BMP and CBC reviewed Anemia w/u per above No further constipation, cont Miralax Await placement Subjective: no o/n events. c/o shoulder pain. no further constipation. labs reviewed Objective: Vital Signs Temp Pulse Resp BP Pulse Ox 36.4 C 80 18 130/80 H 91 L 07/13/17 07:39 07/13/17 07:39 07/13/17 07:39 07/13/17 07:39 07/13/17 07:39 Microbiology 06/28/17 18:04 Gram Stain - Final Shoulder - Eswab Anaerobic Culture - Final Laboratory Results 07/13/17 06:15 07/13/17 06:15 07/12/17 07/13/17 07/14/17 05:59 05:59 05:59 Intake Total 2400 950 Output Total 400 35 Balance 1999 915 PT 14.4 SEC (12.0-15.0) 06/13/17 09:50 INR 1.10 (0.83-1.16) 06/13/17 09:50 - Physical Exam Constitutional: no apparent distress Eyes: PERRL, EOMI Ears, Nose, Mouth, Throat: moist mucous membranes, hearing normal, ears appear normal Cardiovascular: regular rate and rhythym Respiratory: no respiratory distress, no rales or rhonchi, clear to auscultation Gastrointestinal: normoactive bowel sounds, soft, non-tender abdomen Skin: warm Musculoskeletal: No generalized weakness Neurologic: AAOx3 Psychiatric: interacting appropriately, not anxious, not encephalopathic Lymph, Heme, Immunologic: No petechiae ICD10 Worksheet Patient Problems: Problems Problem Status Onset Unable to ambulate Acute Acute alcohol intoxication Acute Closed head injury Acute Laceration of eyebrow, right, complicated Acute
[2017-07-13] MEDS: AMPICILLIN/SULBACTAM 3 GM in NS 100 ML IV SCH (17:30)
[2017-07-14] MEDS: AMPICILLIN/SULBACTAM 3 GM in NS 100 ML IV SCH ×4 (00:50→17:50)
[2017-07-14] MEDS: oxyCODONE IR 5 MG TAB PO PRN ×6 (00:51→22:05)
[2017-07-14] MEDS: ACETAMINOPHEN 500 MG TAB PO SCH ×3 (03:00→17:49)
[2017-07-14] MEDS: THIAMINE HCL 100 MG TAB PO SCH (09:40)
[2017-07-14] MEDS: PANTOPRAZOLE SODIUM 40 MG TAB PO SCH (09:40)
[2017-07-14] MEDS: MULTIVITAMINS 1 EACH TAB PO SCH (09:40)
[2017-07-14] MEDS: POLYETHYLENE GLYCOL 3350 17 GM PKT PO SCH (09:40)
[2017-07-14] MEDS: SENNOSIDES/DOCUSATE SODIUM TAB PO SCH ×2 (10:06→22:12)
[2017-07-14] MEDS ORDERED: ENOXAPARIN 80 MG/0.8 ML SYR SC SCH (12:44)
--- NOTE | 2017-07-14 12:47 | HOSPPROG ---
Hospitalist Progress Note Assessment/Plan: 52 yo M with PMH of etoh abuse and multiple falls presenting with sepsis due to bilateral septic shoulders # bilateral septic shoulders: s/p bilateral shoulder I&D and subsequent left shoulder I&D. Drain removed on 07/12. -Cultures from shoulder with strep. -Appreciate ortho and ID, continue unasyn with plan to continue for 4 weeks post last washout--stop date tentatively 07/26 # strep bacteremia: with cultures positive on 06/13 and repeat from 06/15 with ngtd. Source as above. # sepsis: due to septic joint and bacteremia and now resolved, POA # hematoma: of left shoulder with associated pressure necrosis and open wound, now decompressed and in setting of therapeutic AC #RUE superficial thrombosis: Affecting the cephalic vein. Not symptomatic currently # pain: out of proportion to exam and what would be expected for current issues , has improved recently and has been accepting that he no longer will be receiving IV Dilaudid unless he is unable to tolerate PO # bilateral toe infection: with MRI negative for osteo, s/p I&D per podiatry # etoh abuse: no e/o w/d at this time, recommending cessation # AHRF: resolved and now doing well on RA # hypernatremia: resolved # ankylosing spondylitis: patient notes this has been relatively quiescent as he has learned to control his sxs #Anemia: -start iron -b12/folate at appropriate level # IP status # dispo: at this time unclear, patient not accepted to snf and may need to remain in hospital until no longer on abx, discussed with CM Plan: Iron start proph Lovenox recheck H/H No further constipation, cont Miralax Await placement Subjective: no complaints. no right arm pain or swelling. Objective: Vital Signs Temp Pulse Resp BP Pulse Ox 36.7 C 92 16 128/81 H 90 L 07/14/17 08:00 07/14/17 08:00 07/14/17 08:00 07/14/17 08:00 07/14/17 08:00 Laboratory Results 07/13/17 06:15 07/13/17 06:15 07/13/17 07/14/17 07/15/17 05:59 05:59 05:59 Intake Total 950 1000 Output Total 35 Balance 915 1000 PT 14.4 SEC (12.0-15.0) 06/13/17 09:50 INR 1.10 (0.83-1.16) 06/13/17 09:50 - Physical Exam Constitutional: no apparent distress Eyes: PERRL, EOMI Ears, Nose, Mouth, Throat: moist mucous membranes, hearing normal Cardiovascular: No edema Respiratory: no respiratory distress, no rales or rhonchi Gastrointestinal: normoactive bowel sounds Skin: warm Neurologic: AAOx3 Psychiatric: interacting appropriately, not anxious, not encephalopathic Lymph, Heme, Immunologic: No petechiae ICD10 Worksheet Patient Problems: Problems Problem Status Onset Unable to ambulate Acute Acute alcohol intoxication Acute Closed head injury Acute Laceration of eyebrow, right, complicated Acute
[2017-07-14] MEDS: KETOCONAZOLE 2% 120 ML SHAMPOO TP SCH (12:56)
[2017-07-14] MEDS: FERROUS SULFATE 325 MG TAB PO SCH ×2 (13:59→22:05)
--- NOTE | 2017-07-14 16:45 | SOAPPROG ---
SOAP Progress Note Assessment/Plan: Assessment: POD#14 s/p repeat I&D L shoulder s/p I&D B/L shoulder 06/14/17 -L shoulder wound due to hematoma. Wound care following Plan: -wound care following for the L shoulder incision. Dressing was changed by them today -reinforce dressings as needed -the left great toe is being managed by the podiatry service -IV abx -appreciate care of medical and ID teams -cont PT/OT for R shoulder ROM and strengthening, may start more work on ROM of the L shoulder 07/12/17 13:48 07/14/17 16:42 07/14/17 16:43 Subjective: Doing well this evening. Wound care in the room changing dressing. Objective: Vital Signs Temp Pulse Resp BP Pulse Ox 36.4 C 88 16 122/80 H 94 07/14/17 15:56 07/14/17 15:56 07/14/17 15:56 07/14/17 15:56 07/14/17 15:56 Laboratory Results 07/13/17 06:15 07/13/17 06:15 07/13/17 07/14/17 07/15/17 05:59 05:59 05:59 Intake Total 950 1000 Output Total 35 Balance 915 1000 PT 14.4 SEC (12.0-15.0) 06/13/17 09:50 INR 1.10 (0.83-1.16) 06/13/17 09:50 L shoulder -1.5x1cm wound over lateral shoulder. Clean, with healthy granulation. No drainage -the drain site is healing well with minimal drainage ICD10 Worksheet Patient Problems: Problems Problem Status Onset Unable to ambulate Acute Acute alcohol intoxication Acute Closed head injury Acute Laceration of eyebrow, right, complicated Acute
--- NOTE | 2017-07-14 16:58 | WOCRNPDOC ---
WOCRN Advanced Assessment Note - Skin Integrity Problem, Advanced Assess Left Lateral Shoulder Surgical Wound/Incision Dressing Type: Allevyn Life, Hydrofera Blue (transfer) Dressing Description: Intact Exudate Amount: Scant Exudate Color: Red Exudate Characteristic(s): Bloody Integumentary Issue Intervention: Dressing Changed, Dressing Initialed & Dated Bushra Wound Tissue: Erythema, Swollen Bushra Wound Swelling: Mild Wound Bed Color: Red Wound Bed Constitution: Granulation Tissue (80%), Smooth Tissue (20%) Wound Edges: Well Defined Site Odor: None Skin Integrity Problem Comment: Granulation tissue noted throughout wound bed, w / some areas of smooth tissue remaining along lateral margin. Previous undermining is now attached along margins. There remains some mild periwound swelling and erythema, tenderness when palpated. However patient reports site is less tender. Will continue w/ HFB transfer dressing q3, re-assess on Tuesday 07/18. Left Fifth Metatarsal Head Dressing Type: Gauze, Kya Dressing Description: Intact Exudate Amount: Scant Exudate Color: Reddish/Yellow Exudate Characteristic(s): Serosanguinous Integumentary Issue Intervention: Dressing Changed Bushra Wound Tissue: Calloused, Painful/Tender Bushra Wound Swelling: Mild Wound Bed Color: Red Wound Bed Constitution: Hypergranulation (100%) Wound Edges: Well Defined Site Odor: None Site Measurement - Head-to-Toe Length X Width X Depth (cm): 1.3gfn0ial5.1cm ( above skin level) Skin Integrity Problem Comment: Wound over L 5th metatarsal head, previously an I&D site, now w/ copious hypergranulation tissue throughout. Callous periwound, mild swelling, and no erythema. WC orders previously written by podiatry; orders changed today to reflect current state of the wound. Hypergranulation tissue indicative of excessive moisture in wound bed. Applied Durafiber Ag alginate over the wound today, followed by an off-loading dressing to relieve pressure over wound when patient ambulates. If hypergranulation persists, recommend use of silver nitrate to cauterize tissue back to skin level. Wound care will continue to follow. Left First Toe Dressing Type: Open to Air Exudate Characteristic(s): Dried Bushra Wound Tissue: Scaly, Dry, Calloused Bushra Wound Swelling: None Wound Bed Color: Black Wound Bed Constitution: Stable Eschar Site Odor: None Site Measurement - Head-to-Toe Length X Width X Depth (cm): 0.4cmx0.6cmx eschar Skin Integrity Problem Comment: Discrete area of stable eschar noted to distal aspect of L great toe, surrounded by calloused, dry skin. Likely that etiology was pressure-related, possibly from boot. No fluctuance palpated, and there is no swelling or erythema in this digit. Suspect that wound is epithelializing underneath, as eschar is loose around the margins. Will continue to keep wound dry and stable w/ Povidone Iodine BID.
--- NOTE | 2017-07-14 17:04 | ASMTCMCOM ---
CM Note CM Note Notes: Pt. states he never called the Police to find his belongings. SWer could not reach [place] [employer] HOT team via phone today. Sent email message to both Officers Rogelio and Eva and cc'ed CM colleagues. [place] from [employer] that Officer Rogelio is on leave. Hopefully Officer Eva will respond. Asked that Officer Eva try to locate Pt's eyeglasses and wallet at [facility] property room. Also provided Pt. with information with the following phone numbers so he could try to find his belongings by calling himself: Homeless Outreach Team (HOT) , non-emergent [employer] number and the [facility] number . Pt. grateful, but seems to be growing increasingly frustrated. Plan: Pt. likely to be d/c'ed to street/usp when ready due to being denied from medical respite. Currently hospitalized for IV antibiotic treatment. Date Signed: 07/14/2017 05:04 PM Electronically Signed By:Shanita Dickinson LCSW
[2017-07-15] MEDS: AMPICILLIN/SULBACTAM 3 GM in NS 100 ML IV SCH ×4 (01:45→18:00)
[2017-07-15] MEDS: ACETAMINOPHEN 500 MG TAB PO SCH ×3 (02:26→17:50)
[2017-07-15] MEDS: oxyCODONE IR 5 MG TAB PO PRN ×6 (02:26→22:32)
[2017-07-15 06:40] LABS: PLATELET COUNT 413 10^3/uL (150-400)
[2017-07-15] MEDS: POLYETHYLENE GLYCOL 3350 17 GM PKT PO SCH (10:02)
[2017-07-15] MEDS: PANTOPRAZOLE SODIUM 40 MG TAB PO SCH (10:03)
[2017-07-15] MEDS: FERROUS SULFATE 325 MG TAB PO SCH ×2 (10:03→22:32)
[2017-07-15] MEDS: THIAMINE HCL 100 MG TAB PO SCH (10:03)
[2017-07-15] MEDS: MULTIVITAMINS 1 EACH TAB PO SCH (10:03)
[2017-07-15] MEDS: KETOCONAZOLE 2% 120 ML SHAMPOO TP SCH (10:46)
[2017-07-15] MEDS: SENNOSIDES/DOCUSATE SODIUM TAB PO SCH ×2 (10:46→23:19)
--- NOTE | 2017-07-15 13:44 | HOSPPROG ---
Hospitalist Progress Note Assessment/Plan: 52 yo M with PMH of etoh abuse and multiple falls presenting with sepsis due to bilateral septic shoulders # bilateral septic shoulders: s/p bilateral shoulder I&D and subsequent left shoulder I&D. Drain removed on 07/12. -Cultures from shoulder with strep. -Appreciate ortho and ID, continue unasyn with plan to continue for 4 weeks post last washout--stop date tentatively 07/26 # strep bacteremia: with cultures positive on 06/13 and repeat from 06/15 with ngtd. Source as above. # sepsis: due to septic joint and bacteremia and now resolved, POA # hematoma: of left shoulder with associated pressure necrosis and open wound, now decompressed and in setting of therapeutic AC #RUE superficial thrombosis: Affecting the cephalic vein. Not symptomatic currently # pain: out of proportion to exam and what would be expected for current issues , has improved recently and has been accepting that he no longer will be receiving IV Dilaudid unless he is unable to tolerate PO # bilateral toe infection: with MRI negative for osteo, s/p I&D per podiatry # etoh abuse: no e/o w/d at this time, recommending cessation # AHRF: resolved and now doing well on RA # hypernatremia: resolved # ankylosing spondylitis: patient notes this has been relatively quiescent as he has learned to control his sxs #Anemia: -start iron -b12/folate at appropriate level # IP status #DVT proph * start lovenox # dispo: at this time unclear, patient not accepted to snf and may need to remain in hospital until no longer on abx, discussed with CM Subjective: no changes. working with PT on ROm shoulders. Objective: Vital Signs Temp Pulse Resp BP Pulse Ox 36.6 C 82 14 123/79 H 90 L 07/15/17 07:37 07/15/17 07:37 07/15/17 07:37 07/15/17 07:37 07/15/17 07:37 Laboratory Results 07/15/17 06:20 07/13/17 06:15 07/14/17 07/15/17 07/16/17 05:59 05:59 05:59 Intake Total 1000 Balance 1000 PT 14.4 SEC (12.0-15.0) 06/13/17 09:50 INR 1.10 (0.83-1.16) 06/13/17 09:50 - Physical Exam Constitutional: no apparent distress, appears nourished, not in pain Eyes: anicteric sclera, EOMI Ears, Nose, Mouth, Throat: moist mucous membranes, hearing normal Cardiovascular: regular rate and rhythym Respiratory: no respiratory distress Musculoskeletal: pain with ROM (shoulders), other Neurologic: AAOx3 Psychiatric: interacting appropriately, not anxious, not encephalopathic, thought process linear ICD10 Worksheet Patient Problems: Problems Problem Status Onset Unable to ambulate Acute Acute alcohol intoxication Acute Closed head injury Acute Laceration of eyebrow, right, complicated Acute
[2017-07-15] MEDS: ENOXAPARIN 40 MG/0.4 ML SYR SC SCH (14:37)
[2017-07-16] MEDS: AMPICILLIN/SULBACTAM 3 GM in NS 100 ML IV SCH ×4 (00:44→18:12)
[2017-07-16] MEDS: ACETAMINOPHEN 500 MG TAB PO SCH ×3 (03:12→18:12)
[2017-07-16] MEDS: oxyCODONE IR 5 MG TAB PO PRN ×5 (03:28→21:54)
[2017-07-16] MEDS: PANTOPRAZOLE SODIUM 40 MG TAB PO SCH (09:27)
[2017-07-16] MEDS: MULTIVITAMINS 1 EACH TAB PO SCH (09:28)
[2017-07-16] MEDS: FERROUS SULFATE 325 MG TAB PO SCH ×2 (09:28→21:54)
[2017-07-16] MEDS: THIAMINE HCL 100 MG TAB PO SCH (09:29)
[2017-07-16] MEDS: POLYETHYLENE GLYCOL 3350 17 GM PKT PO SCH (09:29)
[2017-07-16] MEDS: ENOXAPARIN 40 MG/0.4 ML SYR SC SCH (09:29)
[2017-07-16] MEDS: SENNOSIDES/DOCUSATE SODIUM TAB PO SCH ×2 (09:31→21:54)
--- NOTE | 2017-07-16 09:50 | HOSPPROG ---
Hospitalist Progress Note Assessment/Plan: 52 yo M with PMH of etoh abuse and multiple falls presenting with sepsis due to bilateral septic shoulders # bilateral septic shoulders: s/p bilateral shoulder I&D and subsequent left shoulder I&D. Drain removed on 07/12. -Cultures from shoulder with strep. -Appreciate ortho and ID, continue unasyn with plan to continue for 4 weeks post last washout--stop date tentatively 07/26 # strep bacteremia: with cultures positive on 06/13 and repeat from 06/15 with ngtd. Source as above. # sepsis: due to septic joint and bacteremia and now resolved, POA # hematoma: of left shoulder with associated pressure necrosis and open wound, now decompressed and in setting of therapeutic AC #RUE superficial thrombosis: Affecting the cephalic vein. Not symptomatic currently # pain: out of proportion to exam and what would be expected for current issues , has improved recently and has been accepting that he no longer will be receiving IV Dilaudid unless he is unable to tolerate PO # bilateral toe infection: with MRI negative for osteo, s/p I&D per podiatry # etoh abuse: no e/o w/d at this time, recommending cessation # AHRF: resolved and now doing well on RA # hypernatremia: resolved # ankylosing spondylitis: patient notes this has been relatively quiescent as he has learned to control his sxs #Anemia: -start iron -b12/folate at appropriate level # IP status #DVT proph * start lovenox # dispo: at this time unclear, patient not accepted to snf. - will get inpatient rehab consult. I think he can benefit from intensive rehab for his bilateral shoulder immobility Subjective: no new events Objective: Vital Signs Temp Pulse Resp BP Pulse Ox 36.7 C 98 16 135/83 H 91 L 07/16/17 07:58 07/16/17 07:58 07/16/17 07:58 07/16/17 07:58 07/16/17 07:58 Laboratory Results 07/15/17 06:20 07/13/17 06:15 PT 14.4 SEC (12.0-15.0) 06/13/17 09:50 INR 1.10 (0.83-1.16) 06/13/17 09:50 - Physical Exam Constitutional: no apparent distress, appears nourished, not in pain Respiratory: no respiratory distress Skin: warm Neurologic: AAOx3 Psychiatric: interacting appropriately, not anxious, not encephalopathic, thought process linear ICD10 Worksheet Patient Problems: Problems Problem Status Onset Unable to ambulate Acute Acute alcohol intoxication Acute Closed head injury Acute Laceration of eyebrow, right, complicated Acute
--- NOTE | 2017-07-16 16:32 | ASMTCMCOM ---
CM Note CM Note Notes: CM discussed with Dr. Huffman, ordering Inpt Rehab consult for bilateral shoulder immobility. CM to follow and available for further CM needs. Current d/c plan: Inpt rehab ordered, D/C dateTBD. Date Signed: 07/16/2017 04:31 PM Electronically Signed By:Lily Scruggs
[2017-07-16] MEDS: KETOCONAZOLE 2% 120 ML SHAMPOO TP SCH (19:29)
[2017-07-17] MEDS: ACETAMINOPHEN 500 MG TAB PO SCH ×3 (01:04→18:27)
[2017-07-17] MEDS: AMPICILLIN/SULBACTAM 3 GM in NS 100 ML IV SCH ×4 (01:04→18:27)
[2017-07-17] MEDS: oxyCODONE IR 5 MG TAB PO PRN ×5 (01:53→20:21)
[2017-07-17] MEDS: FERROUS SULFATE 325 MG TAB PO SCH ×2 (10:30→20:21)
[2017-07-17] MEDS: PANTOPRAZOLE SODIUM 40 MG TAB PO SCH (10:30)
[2017-07-17] MEDS: MULTIVITAMINS 1 EACH TAB PO SCH (10:31)
[2017-07-17] MEDS: ENOXAPARIN 40 MG/0.4 ML SYR SC SCH (10:31)
[2017-07-17] MEDS: KETOCONAZOLE 2% 120 ML SHAMPOO TP SCH (10:32)
[2017-07-17] MEDS: POLYETHYLENE GLYCOL 3350 17 GM PKT PO SCH (10:34)
[2017-07-17] MEDS: THIAMINE HCL 100 MG TAB PO SCH (10:35)
[2017-07-17] MEDS: SENNOSIDES/DOCUSATE SODIUM TAB PO SCH ×2 (10:36→20:26)
--- NOTE | 2017-07-17 16:14 | ASMTCMCOM ---
CM Note CM Note Notes: Spoke with patient's nurse who was inquiring about inpatient rehab. Spoke with Love who states patient is not eligible at this time due to only having one therapy. Patient needs at least 2 and PT has not been ordered. Spoke with Dr. Monaco who ordered PT and feels patient needs therapies everyday due to his shoulders being almost completely immobile. Patient needs to get stronger and have range of motion significantly improved. Patient is currently not functional with getting dressed and/or lifting. Per occupational therapist, patient is only capable of passive movement at this time.CM will follow. Date Signed: 07/17/2017 04:14 PM Electronically Signed By:Celine Olsen LCSW
--- NOTE | 2017-07-17 16:23 | PCMIDPN ---
Assessment/Plan: Assessment/Plan: * Group C/G streptococcal bacteremia with multifocal infection including both shoulder joints and feet: Clinically improved with residual significant limitation range of motion of both shoulders. No evidence of active infection in feet. Completing 4 weeks of Unasyn post last shoulder debridement. Stop date is 07/29/2017. Monitor CBC and CMP on therapy. 07/17/17 16:19 07/17/17 16:21 Subjective: Patient complains of difficulty with range of motion of both shoulders. Concerned about ultimate plans at time of discharge given decreased mobility. Concerned about being able to ambulate on left foot with plantar ulceration. Objective: Vital Signs Temp Pulse Resp BP Pulse Ox 36.9 C 90 18 133/73 H 91 L 07/17/17 15:26 07/17/17 15:26 07/17/17 15:26 07/17/17 15:26 07/17/17 15:26 Microbiology 06/14/17 21:55 Fungal Culture - Final Shoulder - Eswab Laboratory Results 07/15/17 06:20 07/13/17 06:15 07/16/17 07/17/17 07/18/17 05:59 05:59 05:59 Intake Total 550 Balance 550 Unasyn # 31 (antibiotics stop date 07/26/2017) - Physical Exam General Appearance: alert, no apparent distress EENT: No scleral icterus, No thrush, No conjunctival petechiae Extremities: inflammation (Right shoulder incision well healed without erythema or drainage; left shoulder with small open wound packed with Hydrofera Blue; left plantar aspect of foot laterally under 5th toe with small ulceration which is packed with overlying Steri-Strips; no surrounding erythema) Abdomen: non-tender, No distended ICD10 Worksheet Patient Problems: Problems Problem Status Onset Unable to ambulate Acute Acute alcohol intoxication Acute Closed head injury Acute Laceration of eyebrow, right, complicated Acute
--- NOTE | 2017-07-17 18:07 | HOSPPROG ---
Hospitalist Progress Note Assessment/Plan: DIAGNOSES: -acute severe sepsis with organ failure * Now resolved -streptococcal dysgalactiae bacteremia * No sign of endocarditis noted * Uncertain if 1 of the joints was a source of infection or more likely these are all seated from a skin source * -acute bilateral septic arthritis of shoulders with strep * Status post multiple surgical clean outs * Severe debility from pain and markedly decreased range of motion of both shoulders -acute encephalopathy - * Currently resolved -acute renal failure due to sepsis * Resolved -severe ataxia, and gait instability with fall on day of admission and several recent injury falls in the outpatient setting with ER visits * Currently largely resolved in terms of a neurologic ataxia, but his gait instability and ataxia related to his foot infections and shoulder problems persists * Still not really able to care for himself in terms of mobility very well -hypokalemia * Improving, needing ongoing replacement -alcoholism In addition to ongoing need for wound care and antibiotics, he is quite debilitated by his foot and shoulder problems. There is still some mild residual neurologic ataxia as well. At this point he could not dress himself or carry his belongings around and given his homelessness this is an extreme disability. He remains at fall risk, and has other issues in terms of self- care such as tooth brushing another hygiene issues. Will need ongoing institutional rehabilitation at least until his mobility and self reliance for activities of daily living or improved remarkably. Due to his social issues would been unable to get him into a [facility] facility, and will look at this point our inpatient rehabilitation center. I have asked for physical therapy to see the patient. Ongoing daily therapies are highly recommended at this point from an internal medicine standpoint PLANS: -will review MRI findings with Infectious Disease -continue IV antibiotics with Rocephin at least 4 weeks of therapy -continue hydration -continue high dose thiamin for now and will add multivitamins as he becomes able to swallow -fall risk precautions -begin PT and OT as he is able -electrolyte replacements SUBJECTIVE: Unable to assess symptoms due to mentation today Yesterday evening did have some agitation associated with faster heart rates, appear to be in lot of pain and seem to respond to pain medication OBJECTIVE Vitals reviewed: Current temperature 38 degrees, blood pressure is good, still occasional mild tachycardia greater than 100 [employer]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 [employer], my review: Sinus Exam: Remains severely attended, moving all extremities, pupils normal, no tremor skin warm dry color ok; the abrasions on his arms lower legs and ankles look okay today with no sign of infection resps not labored lungs clear BSs heart regular abd soft nondistended nontender, bowel sounds present limbs both both shoulders with serosanguineous fluid in the surgical drains pain in range of motion difficult to assess due to his mentation iv site ok Microbiology data: Strep dysgalactiae growing from all cultures at this point Laboratory data: Potassium remains low, but improving I reviewed images of MRI scan: mostly remarkable for some dural enhancement suggesting possibility of meningitis; no abscess hemorrhage or stroke, some of the images are significantly degraded by motion artifact I reviewed images from his abdominal and chest x-rays. The abdomen is unremarkable. The chest x-ray is read by the radiologist as consistent with chronic heart failure though I think these changes are more likely related to other parts of his clinical scenario including recumbency and poor inspiration. He actually has normal echocardiogram in terms of muscle and valve function and does not clinically have any sign or history of heart failure Objective: Vital Signs Temp Pulse Resp BP Pulse Ox 36.9 C 90 18 133/73 H 91 L 07/17/17 15:26 07/17/17 15:26 07/17/17 15:26 07/17/17 15:26 07/17/17 15:26 Microbiology 06/14/17 21:55 Fungal Culture - Final Shoulder - Eswab Laboratory Results 07/15/17 06:20 07/13/17 06:15 07/16/17 07/17/17 07/18/17 06:59 06:59 06:59 Intake Total 550 Balance 550 PT 14.4 SEC (12.0-15.0) 06/13/17 09:50 INR 1.10 (0.83-1.16) 06/13/17 09:50 - Time Spent With Patient Time Spent with Patient: greater than 35 minutes Time Spent with Patient: Greater than 35 minutes spent on this patients care, greater than 50% of time spent counseling, educating, and coordinating care regarding the above mentioned plan. ICD10 Worksheet Patient Problems: Problems Problem Status Onset Unable to ambulate Acute Acute alcohol intoxication Acute Closed head injury Acute Laceration of eyebrow, right, complicated Acute
[2017-07-18] MEDS: oxyCODONE IR 5 MG TAB PO PRN ×5 (00:47→19:44)
[2017-07-18] MEDS: AMPICILLIN/SULBACTAM 3 GM in NS 100 ML IV SCH ×4 (00:48→18:41)
[2017-07-18] MEDS: ACETAMINOPHEN 500 MG TAB PO SCH ×3 (00:48→18:40)
[2017-07-18] MEDS: PANTOPRAZOLE SODIUM 40 MG TAB PO SCH (10:35)
[2017-07-18] MEDS: FERROUS SULFATE 325 MG TAB PO SCH ×2 (10:35→19:44)
[2017-07-18] MEDS: MULTIVITAMINS 1 EACH TAB PO SCH (10:35)
[2017-07-18] MEDS: THIAMINE HCL 100 MG TAB PO SCH (10:36)
[2017-07-18] MEDS: ENOXAPARIN 40 MG/0.4 ML SYR SC SCH (10:37)
[2017-07-18] MEDS: SENNOSIDES/DOCUSATE SODIUM TAB PO SCH ×2 (10:37→19:47)
[2017-07-18] MEDS: POLYETHYLENE GLYCOL 3350 17 GM PKT PO SCH (10:38)
[2017-07-18] MEDS: KETOCONAZOLE 2% 120 ML SHAMPOO TP SCH (10:38)
--- NOTE | 2017-07-18 13:21 | WOCRNPDOC ---
WOCRN Advanced Assessment Note - Skin Integrity Problem, Advanced Assess Left Lateral Shoulder Surgical Wound/Incision Dressing Type: Hydrofera Blue (transfer) Dressing Description: Intact, Shadowed Exudate Amount: Minimal Exudate Characteristic(s): Bloody Integumentary Issue Intervention: Dressing Changed Harris Wound Tissue: Erythema (minimal harris wound ) Harris Wound Swelling: None Wound Bed Color: Red, Yellow Wound Bed Constitution: Granulation Tissue (90%), Adhered Slough (10%) Wound Edges: Epithelizing, Attached, Not Attached Site Measurement - Head-to-Toe Length X Width X Depth (cm): 2.3x1.2x0.3 Skin Integrity Problem Comment: HFB transfer adhered to wound bed and debrided some tissue despite soaking with saline. Wound orders will be ammended and collagen added in to help support healing process. Foam will be changed to non bordered/non transfer foam to reduce adhesion. Wound care will round again next week. Left Fifth Metatarsal Head Dressing Type: Alginate, Non-Bordered Foam Dressing Description: Clean/Dry, Intact Exudate Amount: Scant Exudate Characteristic(s): Serosanguinous Integumentary Issue Intervention: Dressing Changed Harris Wound Tissue: Macerated (a small amount), Calloused Wound Bed Constitution: Hypergranulation Site Measurement - Head-to-Toe Length X Width X Depth (cm): 1.1x0.9xraised granulation tissue. Skin Integrity Problem Comment: Wound bed still hyper granulated but appears healthy. Alginate working well. Patient agreed to silver nitrate application tomorrow with lidocaine to reduce the hypergranulation. RN Sandi in room for all care and discussion with patient. Left First Toe Dressing Type: Open to Air Skin Integrity Problem Comment: Healing scab/eschar. No concerns. Wound care will sign off this wound. Continue povidine application until eschar/scab peels off. Reconsult if open wound remains.
--- NOTE | 2017-07-18 14:45 | ASMTCMCOM ---
CM Note CM Note Notes: Met with patient who restarted PT today and understands the importance of working on range of motion with his shoulders. 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 Patient states Haroon is going to get him a stretch band to do his exercises. Contacted the property department with [employer] and they did not have any shrink wrapped property for patient. Patient requested we check the group home again to see if his wallet and glasses are there.CM will follow. Date Signed: 07/18/2017 02:44 PM Electronically Signed By:Celine Olsen LCSW
--- NOTE | 2017-07-18 18:26 | HOSPPROG ---
Hospitalist Progress Note Assessment/Plan: DIAGNOSES: -acute severe sepsis with organ failure * Now resolved -streptococcal dysgalactiae bacteremia * No sign of endocarditis noted * Uncertain if 1 of the joints was a source of infection or more likely these are all seated from a skin source * -acute bilateral septic arthritis of shoulders with strep * Status post multiple surgical clean outs * Severe debility from pain and markedly decreased range of motion of both shoulders -acute encephalopathy - * Currently resolved -acute renal failure due to sepsis * Resolved -severe ataxia, and gait instability with fall on day of admission and several recent injury falls in the outpatient setting with ER visits * Currently largely resolved in terms of a neurologic ataxia, but his gait instability and ataxia related to his foot infections and shoulder problems persists * Still not really able to care for himself in terms of mobility very well -hypokalemia * Improving, needing ongoing replacement -alcoholism PLANS: -continue current antibiotics through data as outlined by Infectious Disease -continue PT and OT -continue wound care In addition to ongoing need for wound care and antibiotics, he is quite debilitated by his foot and shoulder problems. There is still some mild residual neurologic ataxia as well. At this point he could not dress himself or carry his belongings around and given his homelessness this is an extreme disability. He remains at fall risk, and has other issues in terms of self- care such as tooth brushing another hygiene issues. Will need ongoing institutional rehabilitation at least until his mobility and self reliance for activities of daily living or improved remarkably. Due to his social issues would been unable to get him into a care home facility, and will look at this point our inpatient rehabilitation center. I have asked for physical therapy to see the patient. Ongoing daily therapies are highly recommended at this point from an internal medicine standpoint, at least until the patient can become self-sufficient which she is not given his homeless state. I reviewed today at the bedside in detail with case management and they are continue work on trying to arrange ongoing therapies for post hosp care SUBJECTIVE: Overall continues significant pain but using little in the way of pain medicine Still quite debilitated by be very poor range of motion and strength in both shoulders OBJECTIVE Vitals reviewed: Stable without fever Exam: Alert and oriented, talkative, good mentation overall skin warm dry color ok resps not labored lungs clear BSs heart regular abd soft nondistended nontender, bowel sounds present limbs both both shoulders with serosanguineous fluid in the surgical drains pain in range of motion difficult to assess due to his mentation iv site ok Microbiology data: Strep dysgalactiae growing from blood cultures initially but no growth from June 15 cultures Also a Finegoldia and a Staph in wound cultures Laboratory data: Metabolic panel today all stable Objective: Vital Signs Temp Pulse Resp BP Pulse Ox 36.6 C 98 18 145/91 H 96 07/18/17 15:17 07/18/17 15:17 07/18/17 15:17 07/18/17 15:17 07/18/17 15:17 Microbiology 06/14/17 21:55 Fungal Culture - Final Shoulder - Eswab Laboratory Results 07/15/17 06:20 07/18/17 05:05 07/17/17 07/18/17 07/19/17 06:59 06:59 06:59 Intake Total 550 Balance 550 PT 14.4 SEC (12.0-15.0) 06/13/17 09:50 INR 1.10 (0.83-1.16) 06/13/17 09:50 - Time Spent With Patient Time Spent with Patient: greater than 35 minutes Time Spent with Patient: Greater than 35 minutes spent on this patients care, greater than 50% of time spent counseling, educating, and coordinating care regarding the above mentioned plan. ICD10 Worksheet Patient Problems: Problems Problem Status Onset Unable to ambulate Acute Acute alcohol intoxication Acute Closed head injury Acute Laceration of eyebrow, right, complicated Acute
--- NOTE | 2017-07-18 18:51 | SOAPPROG ---
SOAP Progress Note Assessment/Plan: Assessment: s/p repeat repeat I&D L shoulder 06/28/17 s/p I&D B/L shoulder 06/14/17 -L shoulder wound due to hematoma. Wound care following - dressing changed today. Healing well per report -had a PT session for the shoulders today Plan: -wound care following for the L shoulder wound. Dressing was changed by them today -the left great toe is being managed by the podiatry service -IV abx -appreciate care of medical and ID teams -cont PT/OT for R shoulder ROM and strengthening. He will likely have shoulder dysfunction in the future due to severe OA. With h/o septic arthritis of shoulders and social situation, he is a very poor candidate for a replacement. He will greatly benefit from continued therapy to improve function 07/18/17 18:48 07/18/17 18:51 Subjective: Doing well this evening. L shoulder dressing changed by wound care service today. Working with PT on the shoulders Objective: Vital Signs Temp Pulse Resp BP Pulse Ox 36.6 C 98 18 145/91 H 96 07/18/17 15:17 07/18/17 15:17 07/18/17 15:17 07/18/17 15:17 07/18/17 15:17 Microbiology 06/14/17 21:55 Fungal Culture - Final Shoulder - Eswab Laboratory Results 07/15/17 06:20 07/18/17 05:05 07/17/17 07/18/17 07/19/17 05:59 05:59 05:59 Intake Total 550 Balance 550 PT 14.4 SEC (12.0-15.0) 06/13/17 09:50 INR 1.10 (0.83-1.16) 06/13/17 09:50 L shoulder -dressing in place R shoulder -incision well healed He has marked dysfunction of both shoulders with very limited abduction and FF. Compensates for loss of GH motion with scapular motion. ICD10 Worksheet Patient Problems: Problems Problem Status Onset Unable to ambulate Acute Acute alcohol intoxication Acute Closed head injury Acute Laceration of eyebrow, right, complicated Acute
[2017-07-19] MEDS: ACETAMINOPHEN 500 MG TAB PO SCH ×2 (00:12→13:09)
[2017-07-19] MEDS: AMPICILLIN/SULBACTAM 3 GM in NS 100 ML IV SCH ×5 (00:12→23:00)
[2017-07-19] MEDS: oxyCODONE IR 5 MG TAB PO PRN ×6 (00:12→21:46)
[2017-07-19] MEDS: PANTOPRAZOLE SODIUM 40 MG TAB PO SCH (08:34)
[2017-07-19] MEDS: SENNOSIDES/DOCUSATE SODIUM TAB PO SCH ×2 (08:34→21:13)
[2017-07-19] MEDS: MULTIVITAMINS 1 EACH TAB PO SCH (08:34)
[2017-07-19] MEDS: THIAMINE HCL 100 MG TAB PO SCH (08:34)
[2017-07-19] MEDS: FERROUS SULFATE 325 MG TAB PO SCH ×2 (08:34→21:46)
[2017-07-19] MEDS: POLYETHYLENE GLYCOL 3350 17 GM PKT PO SCH (08:35)
[2017-07-19] MEDS: ENOXAPARIN 40 MG/0.4 ML SYR SC SCH (08:37)
[2017-07-19] MEDS ORDERED: LIDOCAINE 2% JELLY 5 ML TUBE TP ONE (10:00)
[2017-07-19] MEDS: KETOCONAZOLE 2% 120 ML SHAMPOO TP SCH (10:20)
--- NOTE | 2017-07-19 10:56 | WOCRNPDOC ---
WOCRN Advanced Assessment Note - Skin Integrity Problem, Advanced Assess Left Fifth Metatarsal Head Dressing Type: Alginate, Mepilex Dressing Description: Clean/Dry, Intact Integumentary Issue Intervention: Silver Nitrate Application Bushra Wound Tissue: Calloused (debrided loose area with scissors to expose intact skin.) Skin Integrity Problem Comment: Per patient verbal consent applied Silver nitrate to hypergranulated area (to reduce hypergranulation) in wound after applying 2% topical lidocaine. Patient tolerated proceedure well. Cleaned area with ns and Sandi RN reapplied dressing. Wound care will follow. Would recommend a podiatry consult as patient needs nail care as well as follow up foot care.
--- NOTE | 2017-07-19 15:57 | ASMTCMCOM ---
CM Note CM Note Notes: Today Zackery reached out to team via email about the possibility of Pt. being able to d/c to Inpatient Rehab. Love Chun, admissions liaison called and we spoke. Love states that Pt. simply does not meet criteria for Inpatient Rehab even if he will be homeless and cannot carry his large pack or lift items that are heavy. Love's recommendation is that PT and OT start to work with Pt. directly about getting creative about how to live in the fdc system/street with his lack of ability to move his arms upward or manage heavy weights. Pt.'s last day of IV antibiotics is 07/29/17 per MD note. 10 days to work to prepare Pt. Zackery also spoke with Remedios at [facility] today regarding Pt's missing wallet and eyeglasses. Remedios checked with with "release desk" and Pt. did sign that at the time he had his wallet and eyglasses. Remedios states that records show that he was released from [facility] on 06/12/17. Pt. was admitted to [facility] on 06/13/17 and Pt. relates that police officers brought him to the ED that date. Something appears to have happened to his eyeglasses and wallet after Shelter and before Pt. regained his ability to think clearly during [facility] admission. Pt. has some recollection that his eyeglasses were placed on a metal side table of some kind in the ED. CM to follow for d/c POC. Date Signed: 07/19/2017 03:56 PM Electronically Signed By:Shanita Dickinson LCSW
--- NOTE | 2017-07-19 17:17 | HOSPPROG ---
Hospitalist Progress Note Assessment/Plan: DIAGNOSES: -acute severe sepsis with organ failure * Now resolved -streptococcal dysgalactiae bacteremia * No sign of endocarditis noted * Uncertain if 1 of the joints was a source of infection or more likely these are all seated from a skin source * -acute bilateral septic arthritis of shoulders with strep * Status post multiple surgical clean outs * Severe debility from pain and markedly decreased range of motion of both shoulders -acute encephalopathy - * Currently resolved -acute renal failure due to sepsis * Resolved -severe ataxia, and gait instability with fall on day of admission and several recent injury falls in the outpatient setting with ER visits * Currently largely resolved in terms of a neurologic ataxia, but his gait instability and ataxia related to his foot infections and shoulder problems persists * Still not really able to care for himself in terms of mobility very well -hypokalemia * Improving, needing ongoing replacement -alcoholism PLANS: -continue current antibiotics through July 29 as outlined by Infectious Disease -continue PT and OT -continue wound care In addition to ongoing need for wound care and antibiotics, he is quite debilitated by his foot and shoulder problems. There is still some mild residual neurologic ataxia as well. At this point he could not dress himself or carry his belongings around and given his homelessness this is an extreme disability. He remains at fall risk, and has other issues in terms of self- care such as tooth brushing another hygiene issues. Will need ongoing institutional rehabilitation at least until his mobility and self reliance for activities of daily living or improved remarkably. Due to his social issues would been unable to get him into a [place] [facility] facility, and will look at this point our inpatient rehabilitation center. I have asked for physical therapy to see the patient. Ongoing daily therapies are highly recommended at this point from an internal medicine standpoint, at least until the patient can become self-sufficient which she is not given his homeless state. I reviewed today at the bedside in detail with case management and they are continue work on trying to arrange ongoing therapies for post hosp care SUBJECTIVE: Little change in his symptoms overall today, still with significant pain in his shoulders and foot Still working with therapies on trying to improve range of motion, continues slow progress on passive range of motion but almost no active range of motion No other new symptoms, eating well OBJECTIVE Vitals reviewed: Stable without fever Exam: Alert and oriented, talkative, good mentation overall skin warm dry color ok resps not labored lungs clear BSs heart regular abd soft nondistended nontender, bowel sounds present limbs both both shoulders with serosanguineous fluid in the surgical drains pain in range of motion difficult to assess due to his mentation iv site ok Microbiology data: Strep dysgalactiae growing from blood cultures initially but no growth from June 15 cultures Also a Finegoldia and a Staph in wound cultures Laboratory data: Metabolic panel today all stable Objective: Vital Signs Temp Pulse Resp BP Pulse Ox 36.5 C 89 18 142/90 H 92 07/19/17 15:59 07/19/17 15:59 07/19/17 15:59 07/19/17 15:59 07/19/17 15:59 Laboratory Results 07/15/17 06:20 07/18/17 05:05 PT 14.4 SEC (12.0-15.0) 06/13/17 09:50 INR 1.10 (0.83-1.16) 06/13/17 09:50 ICD10 Worksheet Patient Problems: Problems Problem Status Onset Unable to ambulate Acute Acute alcohol intoxication Acute Closed head injury Acute Laceration of eyebrow, right, complicated Acute
[2017-07-20] MEDS: oxyCODONE IR 5 MG TAB PO PRN ×5 (02:35→20:29)
[2017-07-20] MEDS: ACETAMINOPHEN 500 MG TAB PO PRN ×2 (02:38→22:48)
[2017-07-20] MEDS: AMPICILLIN/SULBACTAM 3 GM in NS 100 ML IV SCH ×3 (05:16→18:05)
[2017-07-20] MEDS: ENOXAPARIN 40 MG/0.4 ML SYR SC SCH (09:27)
[2017-07-20] MEDS: PANTOPRAZOLE SODIUM 40 MG TAB PO SCH (09:27)
[2017-07-20] MEDS: FERROUS SULFATE 325 MG TAB PO SCH ×2 (09:27→20:29)
[2017-07-20] MEDS: MULTIVITAMINS 1 EACH TAB PO SCH (09:27)
[2017-07-20] MEDS: POLYETHYLENE GLYCOL 3350 17 GM PKT PO SCH (09:27)
[2017-07-20] MEDS: THIAMINE HCL 100 MG TAB PO SCH (09:34)
[2017-07-20] MEDS: SENNOSIDES/DOCUSATE SODIUM TAB PO SCH ×2 (10:32→20:29)
[2017-07-20] MEDS: KETOCONAZOLE 2% 120 ML SHAMPOO TP SCH (10:32)
--- NOTE | 2017-07-20 17:11 | ASMTCMCOM ---
CM Note CM Note Notes: Today Sunr called Patient Rep Judi [phone] to assist with speaking w/ Pt about his lost eyeglasses and wallet. Judi was able to meet w/ Pt. Zackery and Zackery CM colleague in room today. Unfortunately [facility] has not found his lost items yet. Judi will initiate a "sweep" of the ED to look for eyeglasses and wallet. To communicate with CM Manager Organizational Delia Fairchild about results since SWer and Pat Rep will not be here next week. Judi plans to do this. Pt. unhappy, but reasonable and able to cope with bad news. Pt still invested in finding eyeglasses and wallet in ED and possibly back at the [facility] after d/c. Note: Pt's bicycle still with [place] [employer]. Sunr sent link to CM Manager Organizational about a possible rolling cart for Pt. so that he doesn't have to lift a heavy pack if d/c'ed to alf/street. CM to follow. Date Signed: 07/20/2017 05:10 PM Electronically Signed By:Shanita Dickinson LCSW
[2017-07-21] MEDS: AMPICILLIN/SULBACTAM 3 GM in NS 100 ML IV SCH ×5 (00:40→23:27)
[2017-07-21] MEDS: oxyCODONE IR 5 MG TAB PO PRN ×6 (00:40→22:43)
[2017-07-21] MEDS: ACETAMINOPHEN 500 MG TAB PO PRN (08:36)
[2017-07-21] MEDS: POLYETHYLENE GLYCOL 3350 17 GM PKT PO SCH (08:37)
[2017-07-21] MEDS: PANTOPRAZOLE SODIUM 40 MG TAB PO SCH (08:37)
[2017-07-21] MEDS: ENOXAPARIN 40 MG/0.4 ML SYR SC SCH (08:37)
[2017-07-21] MEDS: FERROUS SULFATE 325 MG TAB PO SCH ×2 (08:38→20:18)
[2017-07-21] MEDS: MULTIVITAMINS 1 EACH TAB PO SCH (08:38)
[2017-07-21] MEDS: SENNOSIDES/DOCUSATE SODIUM TAB PO SCH ×2 (09:43→20:18)
[2017-07-21] MEDS: THIAMINE HCL 100 MG TAB PO SCH (09:44)
[2017-07-21] MEDS: KETOCONAZOLE 2% 120 ML SHAMPOO TP SCH (11:13)
--- NOTE | 2017-07-21 12:57 | ASMTCMCOM ---
CM Note CM Note Notes: Pt. wanted to speak w/ SWer about his bike which is being stored at the [employer] property and evidence office. Case # [id number]. Pt. would like [facility] to try to get his bike delivered. In the past [facility] could not picker box operator his bike due to not being able to provide a notarized letter from Pt. due to him not having ID which is required for notary. Zackery called Ganesh at [facility] property and evidence office. Ganesh took description of Pt's bike (black and white Diamondback) and was able to locate it. Cannot give bike to [facility] without notarized letter. Can't do letter due to Pt. not having ID. Pt. can picker box operator bike without ID by using a "declaration of ownership" form at the [facility] evidence office when he is released from [facility]. Bike will be held until 08/10/17 after which they will give bike away. Let Pt. know about the above. Gave him a piece of paper with his case # on it and how to ask for the declaration of ownership form. Also provided Pt. with information about how to get a photo ID. Pt. feels he can do this on his own. Pt. still very focused on staff either finding his glasses and wallet and in particular reimbursing him for his lost eyglasses. Informed Pt. that he was denied from Inpatient Rehab. Pt. likely to be d/c'ed to streets or [facility]p on IV antibiotic stop date - 07/29/17. CM to follow. Date Signed: 07/21/2017 12:56 PM Electronically Signed By:Shanita Dickinson LCSW
--- NOTE | 2017-07-21 18:27 | HOSPPROG ---
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 -s/p IV thiamine * Etohism * Hypernatremia -resolved * Ankylosing spondylitis Subjective: Doing better Objective: Vital Signs Temp Pulse Resp BP Pulse Ox 36.6 C 83 16 116/81 H 87 L 07/21/17 15:04 07/21/17 15:04 07/21/17 15:04 07/21/17 15:04 07/21/17 15:04 Laboratory Results 07/15/17 06:20 07/18/17 05:05 07/20/17 07/21/17 07/22/17 05:59 05:59 05:59 Intake Total 300 Balance 300 PT 14.4 SEC (12.0-15.0) 06/13/17 09:50 INR 1.10 (0.83-1.16) 06/13/17 09:50 - Physical Exam Constitutional: no apparent distress, appears nourished, not in pain Cardiovascular: regular rate and rhythym, no murmur, rub, or gallop Respiratory: no respiratory distress, no rales or rhonchi, clear to auscultation Gastrointestinal: normoactive bowel sounds, soft, non-tender abdomen, no palpable masses Skin: no rashes or abrasions, no fluctuance, no induration Neurologic: AAOx3, sensation intact bilaterally Psychiatric: interacting appropriately, not anxious, not encephalopathic, thought process linear ICD10 Worksheet Patient Problems: Problems Problem Status Onset Unable to ambulate Acute Acute alcohol intoxication Acute Closed head injury Acute Laceration of eyebrow, right, complicated Acute
[2017-07-22] MEDS: oxyCODONE IR 5 MG TAB PO PRN ×6 (02:56→23:55)
[2017-07-22] MEDS: AMPICILLIN/SULBACTAM 3 GM in NS 100 ML IV SCH ×4 (05:01→23:55)
[2017-07-22 05:33] LABS: PLATELET COUNT 437 10^3/uL (150-400)
[2017-07-22] MEDS: MULTIVITAMINS 1 EACH TAB PO SCH (08:08)
[2017-07-22] MEDS: FERROUS SULFATE 325 MG TAB PO SCH ×2 (08:08→21:11)
[2017-07-22] MEDS: ENOXAPARIN 40 MG/0.4 ML SYR SC SCH (08:08)
[2017-07-22] MEDS: SENNOSIDES/DOCUSATE SODIUM TAB PO SCH ×2 (08:08→21:11)
[2017-07-22] MEDS: PANTOPRAZOLE SODIUM 40 MG TAB PO SCH (08:08)
[2017-07-22] MEDS: THIAMINE HCL 100 MG TAB PO SCH (08:09)
[2017-07-22] MEDS: POLYETHYLENE GLYCOL 3350 17 GM PKT PO SCH (08:09)
[2017-07-22] MEDS: KETOCONAZOLE 2% 120 ML SHAMPOO TP SCH (09:06)
[2017-07-22] MEDS: ACETAMINOPHEN 500 MG TAB PO PRN (15:38)
--- NOTE | 2017-07-22 16:19 | HOSPPROG ---
Hospitalist Progress Note Assessment/Plan: * Severe sepsis - Group C/G strep with seeding bilateral shoulders -IV Unasyn - stop date 07/29 * Bilateral septic arthritis of shoulders s/p I&D * Cellulitis/abscess of bilateral feet - possible osteomyelitis * Metabolic encephalopathy - resolved * Etohism * Ankylosing spondylitis Subjective: Frustrated. No new medical complaint Objective: Vital Signs Temp Pulse Resp BP Pulse Ox 36.7 C 88 18 123/87 H 92 07/22/17 15:06 07/22/17 15:06 07/22/17 15:06 07/22/17 15:06 07/22/17 15:06 Laboratory Results 07/22/17 05:15 07/22/17 05:15 07/21/17 07/22/17 07/23/17 05:59 05:59 05:59 Intake Total 300 Balance 300 PT 14.4 SEC (12.0-15.0) 06/13/17 09:50 INR 1.10 (0.83-1.16) 06/13/17 09:50 - Physical Exam Constitutional: no apparent distress, appears nourished, not in pain Cardiovascular: regular rate and rhythym, no murmur, rub, or gallop Respiratory: no respiratory distress, no rales or rhonchi, clear to auscultation Gastrointestinal: normoactive bowel sounds, soft, non-tender abdomen, no palpable masses Skin: no rashes or abrasions, no fluctuance, no induration Neurologic: AAOx3, sensation intact bilaterally Psychiatric: interacting appropriately, not anxious, not encephalopathic, thought process linear ICD10 Worksheet Patient Problems: Problems Problem Status Onset Unable to ambulate Acute Acute alcohol intoxication Acute Closed head injury Acute Laceration of eyebrow, right, complicated Acute
[2017-07-23] MEDS: oxyCODONE IR 5 MG TAB PO PRN ×5 (04:36→21:18)
[2017-07-23] MEDS: AMPICILLIN/SULBACTAM 3 GM in NS 100 ML IV SCH ×3 (05:27→17:13)
[2017-07-23] MEDS: MULTIVITAMINS 1 EACH TAB PO SCH (08:21)
[2017-07-23] MEDS: SENNOSIDES/DOCUSATE SODIUM TAB PO SCH ×2 (08:21→21:18)
[2017-07-23] MEDS: THIAMINE HCL 100 MG TAB PO SCH (08:21)
[2017-07-23] MEDS: KETOCONAZOLE 2% 120 ML SHAMPOO TP SCH (08:22)
[2017-07-23] MEDS: PANTOPRAZOLE SODIUM 40 MG TAB PO SCH (08:22)
[2017-07-23] MEDS: FERROUS SULFATE 325 MG TAB PO SCH ×2 (08:22→21:17)
[2017-07-23] MEDS: POLYETHYLENE GLYCOL 3350 17 GM PKT PO SCH (08:22)
[2017-07-23] MEDS: ENOXAPARIN 40 MG/0.4 ML SYR SC SCH (08:22)
--- NOTE | 2017-07-23 15:27 | HOSPPROG ---
Hospitalist Progress Note Assessment/Plan: * Severe sepsis - Group C/G strep with seeding bilateral shoulders -IV Unasyn - stop date 07/29 * Bilateral septic arthritis of shoulders s/p I&D * Cellulitis/abscess of bilateral feet - possible osteomyelitis * Metabolic encephalopathy - resolved * Etohism -cessation advised * Ankylosing spondylitis Subjective: No new complaints. Objective: Vital Signs Temp Pulse Resp BP Pulse Ox 36.4 C 94 18 136/88 H 92 07/23/17 15:09 07/23/17 15:09 07/23/17 15:09 07/23/17 15:09 07/23/17 15:09 Laboratory Results 07/22/17 05:15 07/22/17 05:15 PT 14.4 SEC (12.0-15.0) 06/13/17 09:50 INR 1.10 (0.83-1.16) 06/13/17 09:50 - Physical Exam Constitutional: no apparent distress, appears nourished, not in pain Cardiovascular: regular rate and rhythym, no murmur, rub, or gallop Respiratory: no respiratory distress, no rales or rhonchi, clear to auscultation Gastrointestinal: normoactive bowel sounds, soft, non-tender abdomen, no palpable masses Skin: no rashes or abrasions, no fluctuance, no induration Neurologic: AAOx3, sensation intact bilaterally Psychiatric: interacting appropriately, not anxious, not encephalopathic, thought process linear ICD10 Worksheet Patient Problems: Problems Problem Status Onset Unable to ambulate Acute Acute alcohol intoxication Acute Closed head injury Acute Laceration of eyebrow, right, complicated Acute
[2017-07-23] MEDS: ACETAMINOPHEN 500 MG TAB PO PRN (19:27)
[2017-07-24] MEDS: AMPICILLIN/SULBACTAM 3 GM in NS 100 ML IV SCH ×5 (00:59→23:04)
[2017-07-24] MEDS: oxyCODONE IR 5 MG TAB PO PRN ×6 (01:54→23:05)
[2017-07-24] MEDS: MULTIVITAMINS 1 EACH TAB PO SCH (08:08)
[2017-07-24] MEDS: PANTOPRAZOLE SODIUM 40 MG TAB PO SCH (08:08)
[2017-07-24] MEDS: THIAMINE HCL 100 MG TAB PO SCH (08:08)
[2017-07-24] MEDS: FERROUS SULFATE 325 MG TAB PO SCH ×2 (08:08→21:29)
[2017-07-24] MEDS: ENOXAPARIN 40 MG/0.4 ML SYR SC SCH (08:08)
[2017-07-24] MEDS: POLYETHYLENE GLYCOL 3350 17 GM PKT PO SCH (08:09)
--- NOTE | 2017-07-24 08:13 | WOCRNPDOC ---
WOCRN Advanced Assessment Note - Skin Integrity Problem, Advanced Assess Left Lateral Shoulder Surgical Wound/Incision Dressing Type: Allevyn Life Dressing Description: Intact Exudate Amount: Scant Exudate Color: Reddish/Yellow Exudate Characteristic(s): Serosanguinous Integumentary Issue Intervention: Visualized Under Dressing Bushra Wound Tissue: Scarred Bushra Wound Swelling: None Wound Bed Color: Red Wound Bed Constitution: Granulation Tissue Wound Edges: Epithelizing Skin Integrity Problem Comment: Wound 100% granulation tissue, healing well w/ epithelialization along the margins. No periwound swelling or erythema observed. Will continue w/ plan of care. Left Fifth Metatarsal Head Dressing Type: Alginate, Non-Bordered Foam, Other Other Dressing Type: Medipore tape Dressing Description: Intact Exudate Amount: Minimal Exudate Color: Reddish/Yellow Exudate Characteristic(s): Serosanguinous Integumentary Issue Intervention: Dressing Changed Bushra Wound Tissue: Calloused Bushra Wound Swelling: None Wound Bed Color: Red Wound Bed Constitution: Granulation Tissue Wound Edges: Epithelizing Skin Integrity Problem Comment: Hypergranulation present upon previous assessment, now skin level r/t application of silver nitrate on 07/19. Wound dimensions smaller. Periwound remains calloused, which patient reports is baseline for him. Discussed with him the need for ongoing tx and eval from a relief worker r/t this wound, possibly including orthotics. He was resistant to this idea, and stated "I don't think orthotics do anything." Explained decreased tensile strength of healed tissues, and ongoing need for off-loading of some kind. comedian Jaimi present and assisting w/ dressing changes.
[2017-07-24] MEDS: SENNOSIDES/DOCUSATE SODIUM TAB PO SCH (08:34)
--- NOTE | 2017-07-24 11:46 | ASMTCMCOM ---
CM Note CM Note Notes: Patient discussed staying with a friend in [facility] when he is discharged. Patient will need to get his bicycle from the police department and then can take a bus to [place]. Will wait to see if patient's friends are able to take him in. Discharge date is July 29, 2017 when patient finishes his last IV ABX dose. CM will follow. Date Signed: 07/24/2017 11:45 AM Electronically Signed By:Celine Olsen LCSW
--- NOTE | 2017-07-24 16:52 | HOSPPROG ---
Hospitalist Progress Note Assessment/Plan: * Severe sepsis - Group C/G strep with seeding bilateral shoulders -IV Unasyn - stop date 07/29 * Bilateral septic arthritis of shoulders s/p I&D * Cellulitis/abscess of bilateral feet - possible osteomyelitis * Metabolic encephalopathy - resolved * Etohism -cessation advised * Ankylosing spondylitis -prefers ibuprofen over Celebrex Subjective: Doing well Objective: Vital Signs Temp Pulse Resp BP Pulse Ox 37 C 95 14 133/84 H 91 L 07/24/17 15:37 07/24/17 15:37 07/24/17 15:37 07/24/17 15:37 07/24/17 15:37 Laboratory Results 07/22/17 05:15 07/22/17 05:15 07/23/17 07/24/17 07/25/17 05:59 05:59 05:59 Intake Total 200 Balance 200 PT 14.4 SEC (12.0-15.0) 06/13/17 09:50 INR 1.10 (0.83-1.16) 06/13/17 09:50 - Physical Exam Constitutional: no apparent distress, appears nourished, not in pain Cardiovascular: regular rate and rhythym, no murmur, rub, or gallop Respiratory: no respiratory distress, no rales or rhonchi, clear to auscultation Gastrointestinal: normoactive bowel sounds, soft, non-tender abdomen, no palpable masses Skin: no rashes or abrasions, no fluctuance, no induration Neurologic: AAOx3, sensation intact bilaterally Psychiatric: interacting appropriately, not anxious, not encephalopathic, thought process linear ICD10 Worksheet Patient Problems: Problems Problem Status Onset Unable to ambulate Acute Acute alcohol intoxication Acute Closed head injury Acute Laceration of eyebrow, right, complicated Acute
[2017-07-24] MEDS: IBUPROFEN 800 MG TAB PO PRN (21:29)
[2017-07-25] MEDS: oxyCODONE IR 5 MG TAB PO PRN ×4 (03:23→22:06)
[2017-07-25] MEDS: AMPICILLIN/SULBACTAM 3 GM in NS 100 ML IV SCH ×3 (05:38→17:42)
[2017-07-25] MEDS: PANTOPRAZOLE SODIUM 40 MG TAB PO SCH (08:47)
[2017-07-25] MEDS: FERROUS SULFATE 325 MG TAB PO SCH ×2 (08:47→22:06)
[2017-07-25] MEDS: POLYETHYLENE GLYCOL 3350 17 GM PKT PO SCH (08:47)
[2017-07-25] MEDS: MULTIVITAMINS 1 EACH TAB PO SCH (08:47)
[2017-07-25] MEDS: THIAMINE HCL 100 MG TAB PO SCH (08:47)
[2017-07-25] MEDS: ENOXAPARIN 40 MG/0.4 ML SYR SC SCH (08:48)
[2017-07-25] MEDS: IBUPROFEN 800 MG TAB PO PRN ×2 (08:53→17:42)
--- NOTE | 2017-07-25 16:54 | HOSPPROG ---
Hospitalist Progress Note Assessment/Plan: * Severe sepsis - Group C/G strep with seeding bilateral shoulders -IV Unasyn - stop date 07/29 * Bilateral septic arthritis of shoulders s/p I&D * Cellulitis/abscess of bilateral feet - possible osteomyelitis * Metabolic encephalopathy - resolved * Etohism -cessation advised * Ankylosing spondylitis -prefers ibuprofen over Celebrex Subjective: no complaints Objective: Vital Signs Temp Pulse Resp BP Pulse Ox 36.6 C 99 18 130/89 H 91 L 07/25/17 08:00 07/25/17 15:59 07/25/17 15:59 07/25/17 15:59 07/25/17 15:59 Laboratory Results 07/22/17 05:15 07/22/17 05:15 07/24/17 07/25/17 07/26/17 05:59 05:59 05:59 Intake Total 200 1210 Balance 200 1210 PT 14.4 SEC (12.0-15.0) 06/13/17 09:50 INR 1.10 (0.83-1.16) 06/13/17 09:50 - Physical Exam Constitutional: no apparent distress, appears nourished, not in pain Cardiovascular: regular rate and rhythym, no murmur, rub, or gallop Respiratory: no respiratory distress, no rales or rhonchi, clear to auscultation Gastrointestinal: normoactive bowel sounds, soft, non-tender abdomen, no palpable masses Skin: no rashes or abrasions, no fluctuance, no induration Neurologic: AAOx3, sensation intact bilaterally Psychiatric: interacting appropriately, not anxious, not encephalopathic, thought process linear ICD10 Worksheet Patient Problems: Problems Problem Status Onset Unable to ambulate Acute Acute alcohol intoxication Acute Closed head injury Acute Laceration of eyebrow, right, complicated Acute
--- NOTE | 2017-07-25 17:16 | ASMTCMCOM ---
CM Note CM Note Notes: An appointment was made for patient with [facility] to get started with a PCP. His appointment is July 31, 2017 at 11:[address] Donna Newell on the blue side of the building. 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 Dr. Newell will make patient an appointment for outpatient physical therapy once he has established care on Monday. He reports to [address] [place] [address] for his appointment. Patient was also upset about his glasses and we discussed possible solutions. I am looking into [employer] ([employer] [phone]) to see if they can help pay for a new pair of glasses.CM will follow. Date Signed: 07/25/2017 05:03 PM Electronically Signed By:Celine Olsen LCSW
--- NOTE | 2017-07-25 17:27 | ASMTCMCOM ---
CM Note CM Note Notes: CM will need to follow up with [facility] [phone] tomorrow to see if patient can get assistance with a new pair of glasses. CM will follow. Date Signed: 07/25/2017 05:26 PM Electronically Signed By:Celine Olsen LCSW
[2017-07-26] MEDS: AMPICILLIN/SULBACTAM 3 GM in NS 100 ML IV SCH ×4 (00:08→17:54)
[2017-07-26] MEDS: oxyCODONE IR 5 MG TAB PO PRN ×5 (05:08→22:17)
[2017-07-26] MEDS: FERROUS SULFATE 325 MG TAB PO SCH ×2 (09:09→21:11)
[2017-07-26] MEDS: THIAMINE HCL 100 MG TAB PO SCH (09:10)
[2017-07-26] MEDS: POLYETHYLENE GLYCOL 3350 17 GM PKT PO SCH (09:10)
[2017-07-26] MEDS: ENOXAPARIN 40 MG/0.4 ML SYR SC SCH (09:10)
[2017-07-26] MEDS: PANTOPRAZOLE SODIUM 40 MG TAB PO SCH (09:10)
[2017-07-26] MEDS: MULTIVITAMINS 1 EACH TAB PO SCH (09:10)
[2017-07-26] MEDS: IBUPROFEN 800 MG TAB PO PRN ×3 (09:18→21:11)
--- NOTE | 2017-07-26 13:21 | HOSPPROG ---
Hospitalist Progress Note Assessment/Plan: Patient comes to the ER having fallen with shoulder pain. Today is my 1st encounter with the patient. Chart reviewed. * Severe sepsis - Group C/G strep with seeding bilateral shoulders and feet -IV Unasyn - stop date 07/29 * Bilateral septic arthritis of shoulders s/p I&D * anemia -due to acute illness * Cellulitis/abscess of bilateral feet - possible osteomyelitis * Metabolic encephalopathy - resolved * alcohol abuse -cessation advised * Ankylosing spondylitis -prefers ibuprofen over Celebrex * homelessness -had a trailer he was living in but not available at this time. He has a friend we will likely stay with on discharge *dvt prophylaxis:LMWH Subjective: Solo hasabrahan complaints. Objective: Vital Signs Temp Pulse Resp BP Pulse Ox 36.8 C 92 18 138/97 H 91 L 07/26/17 08:00 07/26/17 08:00 07/26/17 08:00 07/26/17 08:00 07/26/17 08:00 Laboratory Results 07/22/17 05:15 07/22/17 05:15 07/25/17 07/26/17 07/27/17 05:59 05:59 05:59 Intake Total 1210 440 Balance 1210 440 PT 14.4 SEC (12.0-15.0) 06/13/17 09:50 INR 1.10 (0.83-1.16) 06/13/17 09:50 - Physical Exam Constitutional: uncomfortable Eyes: PERRL Ears, Nose, Mouth, Throat: hearing normal Cardiovascular: regular rate and rhythym Respiratory: no respiratory distress Gastrointestinal: normoactive bowel sounds Skin: warm Musculoskeletal: generalized weakness Neurologic: AAOx3 Psychiatric: interacting appropriately ICD10 Worksheet Patient Problems: Problems Problem Status Onset Unable to ambulate Acute Acute alcohol intoxication Acute Closed head injury Acute Laceration of eyebrow, right, complicated Acute
--- NOTE | 2017-07-26 17:07 | ASMTCMCOM ---
CM Note CM Note Notes: Met with this patient today and provided a small cart on wheels for him to take upon discharge to help with his personal belongings. I am still trying to work with [facility] #[phone] for assistance with new eye glasses. The plan remains that patient will discharge back to [facility] and follow-up with [facility] (Appointment July 31 @ 11:10 a.m.). Case Management will continue to follow. Date Signed: 07/26/2017 05:06 PM Electronically Signed By:Delia Fairchild RN
--- NOTE | 2017-07-26 18:18 | SOAPPROG ---
[facility] Progress Note Assessment/Plan: Assessment: s/p repeat repeat I&D L shoulder 06/28/17 s/p I&D B/L shoulder 06/14/17 -L shoulder wound due to hematoma. Wound care following - dressing changed today 07/24. Healing well per report -PT working on the shoulders. He has been working on his own as well Plan: -wound care following for the L shoulder wound. Dressing was changed by them - healing well per report -IV abx -appreciate care of medical and ID teams -cont PT/OT for R shoulder ROM and strengthening. He will likely have shoulder dysfunction in the future due to severe OA. With h/o septic arthritis of shoulders and social situation, he is a very poor candidate for a replacement. He will greatly benefit from continued therapy to improve function -Solo may be discharged soon. He would benefit from outpt PT for the shoulders. He may also need f/u with a wound care clinic 07/18/17 18:48 07/18/17 18:51 07/26/17 18:16 Subjective: Les has been doing well. Has been working on rehabbing his shoulders on his own. The left shoulder dressing was changed by the wound care team 2 days ago - healing well per notes. Objective: Vital Signs Temp Pulse Resp BP Pulse Ox 36.6 C 96 18 141/89 H 93 07/26/17 15:43 07/26/17 15:43 07/26/17 15:43 07/26/17 15:43 07/26/17 15:43 Laboratory Results 07/22/17 05:15 07/22/17 05:15 07/25/17 07/26/17 07/27/17 05:59 05:59 05:59 Intake Total 1210 440 Balance 1210 440 PT 14.4 SEC (12.0-15.0) 06/13/17 09:50 INR 1.10 (0.83-1.16) 06/13/17 09:50 R shoulder -incision well healed -uses scapular motion to initiate flexion and abduction L shoulder -dressing in place -slightly better FF compared to R, about 45 deg ICD10 Worksheet Patient Problems: Problems Problem Status Onset Unable to ambulate Acute Acute alcohol intoxication Acute Closed head injury Acute Laceration of eyebrow, right, complicated Acute
[2017-07-27] MEDS: AMPICILLIN/SULBACTAM 3 GM in NS 100 ML IV SCH ×4 (00:17→17:44)
[2017-07-27] MEDS: oxyCODONE IR 5 MG TAB PO PRN ×5 (04:16→21:26)
[2017-07-27] MEDS: IBUPROFEN 800 MG TAB PO PRN ×2 (08:28→17:44)
[2017-07-27] MEDS: ENOXAPARIN 40 MG/0.4 ML SYR SC SCH (08:28)
[2017-07-27] MEDS: POLYETHYLENE GLYCOL 3350 17 GM PKT PO SCH (08:28)
[2017-07-27] MEDS: MULTIVITAMINS 1 EACH TAB PO SCH (08:29)
[2017-07-27] MEDS: PANTOPRAZOLE SODIUM 40 MG TAB PO SCH (08:29)
[2017-07-27] MEDS: FERROUS SULFATE 325 MG TAB PO SCH ×2 (08:29→21:26)
[2017-07-27] MEDS: THIAMINE HCL 100 MG TAB PO SCH (08:35)
[2017-07-27 08:50] LABS: PLATELET COUNT 375 10^3/uL (150-400)
[2017-07-27] MEDS: ACETAMINOPHEN 500 MG TAB PO PRN (12:28)
--- NOTE | 2017-07-27 12:51 | HOSPPROG ---
Hospitalist Progress Note Assessment/Plan: Patient comes to the ER having fallen with shoulder pain. Today is my 1st encounter with the patient. Chart reviewed. * Severe sepsis - Group C/G strep with seeding bilateral shoulders and feet IV Unasyn - stop date 07/29 * Bilateral septic arthritis of shoulders s/p I&D * anemia -due to acute illness * Cellulitis/abscess of bilateral feet * Metabolic encephalopathy - resolved * alcohol abuse -cessation advised * Ankylosing spondylitis -prefers ibuprofen over Celebrex * homelessness -had a trailer he was living in but not available at this time. He has a friend we will likely stay with on discharge *dvt prophylaxis:LMWH Subjective: C/O being tired. No pain currently. Objective: Vital Signs Temp Pulse Resp BP Pulse Ox 36.6 C 75 16 136/83 H 92 07/27/17 07:52 07/27/17 07:52 07/27/17 07:52 07/27/17 07:52 07/27/17 07:52 Laboratory Results 07/27/17 08:39 07/27/17 08:39 07/26/17 07/27/17 07/28/17 05:59 05:59 05:59 Intake Total 440 960 Balance 440 960 PT 14.4 SEC (12.0-15.0) 06/13/17 09:50 INR 1.10 (0.83-1.16) 06/13/17 09:50 - Physical Exam Constitutional: no apparent distress, appears nourished, not in pain Eyes: PERRL, anicteric sclera, EOMI Ears, Nose, Mouth, Throat: moist mucous membranes, hearing normal, ears appear normal Cardiovascular: No JVD, No tachycardia, No edema Respiratory: no respiratory distress, no rales or rhonchi, clear to auscultation Gastrointestinal: normoactive bowel sounds, No tenderness, No ascites Skin: warm, normal color, No mottled Musculoskeletal: normal joint ROM, no joint effusions, pain with ROM, generalized weakness Neurologic: AAOx3 Psychiatric: interacting appropriately, not anxious, not encephalopathic, thought process linear ICD10 Worksheet Patient Problems: Problems Problem Status Onset Laceration of eyebrow, right, complicated Acute Closed head injury Acute Acute alcohol intoxication Acute Unable to ambulate Acute
[2017-07-28] MEDS: AMPICILLIN/SULBACTAM 3 GM in NS 100 ML IV SCH ×5 (00:15→23:18)
[2017-07-28] MEDS: oxyCODONE IR 5 MG TAB PO PRN ×5 (02:18→22:13)
[2017-07-28] MEDS: IBUPROFEN 800 MG TAB PO PRN ×3 (02:18→18:32)
[2017-07-28] MEDS: FERROUS SULFATE 325 MG TAB PO SCH ×2 (09:41→22:13)
[2017-07-28] MEDS: POLYETHYLENE GLYCOL 3350 17 GM PKT PO SCH (09:41)
[2017-07-28] MEDS: THIAMINE HCL 100 MG TAB PO SCH (09:41)
[2017-07-28] MEDS: PANTOPRAZOLE SODIUM 40 MG TAB PO SCH (09:41)
[2017-07-28] MEDS: ENOXAPARIN 40 MG/0.4 ML SYR SC SCH (09:41)
[2017-07-28] MEDS: MULTIVITAMINS 1 EACH TAB PO SCH (09:42)
--- NOTE | 2017-07-28 13:07 | HOSPPROG ---
Hospitalist Progress Note Assessment/Plan: Patient comes to the ER having fallen with shoulder pain. * Severe sepsis - Group C/G strep with seeding bilateral shoulders and feet IV Unasyn - stop date 07/29 * Bilateral septic arthritis of shoulders s/p I&D * anemia -due to acute illness * Cellulitis/abscess of bilateral feet * Metabolic encephalopathy - resolved * alcohol abuse -cessation advised * Ankylosing spondylitis -prefers ibuprofen over Celebrex * homelessness -had a trailer he was living in but not available at this time. He has a friend we will likely stay with on discharge *dvt prophylaxis:LMWH Subjective: Complains about not having his glasses. Anxious about leaving the hospital. Objective: Vital Signs Temp Pulse Resp BP Pulse Ox 36.6 C 71 16 150/92 H 89 L 07/28/17 08:00 07/28/17 08:00 07/28/17 08:00 07/28/17 08:00 07/28/17 08:00 Laboratory Results 07/27/17 08:39 07/27/17 08:39 07/27/17 07/28/17 07/29/17 05:59 05:59 05:59 Intake Total 960 Balance 960 PT 14.4 SEC (12.0-15.0) 06/13/17 09:50 INR 1.10 (0.83-1.16) 06/13/17 09:50 - Physical Exam Constitutional: no apparent distress, appears nourished, uncomfortable Eyes: PERRL, anicteric sclera, EOMI Ears, Nose, Mouth, Throat: moist mucous membranes, hearing normal, ears appear normal Cardiovascular: No JVD, No tachycardia, No edema Respiratory: no respiratory distress, no rales or rhonchi, clear to auscultation Gastrointestinal: soft, non-tender abdomen, No tenderness, No ascites Skin: warm, normal color, No mottled Musculoskeletal: joint tenderness, pain with ROM, generalized weakness Neurologic: AAOx3 Psychiatric: not encephalopathic, anxious, poor insight, poor judgement ICD10 Worksheet Patient Problems: Problems Problem Status Onset Laceration of eyebrow, right, complicated Acute Closed head injury Acute Acute alcohol intoxication Acute Unable to ambulate Acute
--- NOTE | 2017-07-28 16:20 | ASMTCMCOM ---
CM Note CM Note Notes: Met with this patient to discuss discharge planning. D/W WELL SERVICE FLOORPERSON, patient will likely discharge on Monday. Spoke with patient who is requesting a [facility] skilled nursing bed upon discharge. Patient's appointment at [facility] has been scheduled for Monday (please refer to D/C Instructions for details). Patient continues to be concerned about his lost eye glasses. I have reiterated we are not paying for his exact same glasses. An appointment has been scheduled for him at [facility] #[phone] for next at 11 a.m., patient aware. I have received his eye glass information from the eye clinic in [place] and will send the paperwork to the disease case manager at [facility] ([email or web address]). Patient also requesting bus basses, three have been left in his chart. He has all of his clothing and a small cart to help with transporting. This patient will benefit from strict boundaries on discharge. He understands we will not be buying him glasses and he is to report to his appointments next week. 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 Discharge Plan: D/C to [facility] [place], follow-up at [facility] and [facility] Date Signed: 07/28/2017 04:20 PM Electronically Signed By:Delia Fairchild RN
[2017-07-29] MEDS: IBUPROFEN 800 MG TAB PO PRN ×2 (03:48→13:10)
[2017-07-29] MEDS: oxyCODONE IR 5 MG TAB PO PRN ×3 (03:48→13:11)
[2017-07-29] MEDS: AMPICILLIN/SULBACTAM 3 GM in NS 100 ML IV SCH ×2 (05:14→11:14)
--- NOTE | 2017-07-29 08:15 | HOSPPROG ---
Hospitalist Progress Note Assessment/Plan: Patient comes to the ER having fallen with shoulder pain. * Severe sepsis - Group C/G strep with seeding bilateral shoulders and feet -IV Unasyn - stop date 07/29 * Bilateral septic arthritis of shoulders s/p I&D * anemia -due to acute illness * Cellulitis/abscess of bilateral feet - possible osteomyelitis * Metabolic encephalopathy - resolved * alcohol abuse -cessation advised * Ankylosing spondylitis -prefers ibuprofen over Celebrex * homelessness -had a trailer he was living in but not available at this time. [facility]/ reviewed CM notes -he is very upset about not having glasses, wants 3 bags of food to be supplied by the hospital *dvt prophylaxis:LMWH *plan: will give noon iv abx and then dc. He is trying to get a hold of his aunt to see if she can help him out w money. He has an appt this for getting eyeglasses. Subjective: Solo is frustrated, wants the hospital to arrange for multiple things including food, bus passes, getting glasses, etc. Not c/o pain. Objective: Vital Signs Temp Pulse Resp BP Pulse Ox 36.8 C 88 16 128/78 H 93 07/28/17 22:15 07/28/17 22:15 07/28/17 22:15 07/28/17 22:15 07/28/17 22:15 Laboratory Results 07/27/17 08:39 07/27/17 08:39 07/28/17 07/29/17 07/30/17 05:59 05:59 05:59 Intake Total 450 Balance 450 PT 14.4 SEC (12.0-15.0) 06/13/17 09:50 INR 1.10 (0.83-1.16) 06/13/17 09:50 - Physical Exam Constitutional: no apparent distress, appears nourished, not in pain Eyes: PERRL Ears, Nose, Mouth, Throat: hearing normal Respiratory: no respiratory distress Skin: warm Musculoskeletal: full muscle strength Neurologic: AAOx3 Psychiatric: interacting appropriately ICD10 Worksheet Patient Problems: Problems Problem Status Onset Unable to ambulate Acute Acute alcohol intoxication Acute Closed head injury Acute Laceration of eyebrow, right, complicated Acute
[2017-07-29 08:32] VITALS: BP 120/75
[2017-07-29] MEDS: THIAMINE HCL 100 MG TAB PO SCH (09:22)
[2017-07-29] MEDS: PANTOPRAZOLE SODIUM 40 MG TAB PO SCH (09:22)
[2017-07-29] MEDS: MULTIVITAMINS 1 EACH TAB PO SCH (09:22)
[2017-07-29] MEDS: FERROUS SULFATE 325 MG TAB PO SCH (09:22)
[2017-07-29] MEDS: POLYETHYLENE GLYCOL 3350 17 GM PKT PO SCH (09:23)
[2017-07-29] MEDS: ENOXAPARIN 40 MG/0.4 ML SYR SC SCH (09:23)
--- NOTE | 2017-07-29 11:01 | ASMTCMCOM ---
CM Note CM Note Notes: Dc order received. Spoke with SECRETARY BOOKKEEPER & RN. Attempted to reserve [facility] long term bed for pt; informed pt is "banned from long term". Updated pt. Provided pt with a bag of clothing, 3 bus passes & a few sandwiches. Pt upset about not having all his stuff he came to [facility] with, mariaelena. his bifocals & wallet. Checked lost & found, both Security & Volunteer desk, only readers available. professor of apologetics offered pt a pair of reading glasses, but pt refused. Alerted pt he has an upcoming appointments scheduled at [facility]; details on dc paperwork; pt aware. Pt requesting to store his sleeping bag here, at the hospital; informed pt there is nowhere to store his belongings here & he will need to take all his stuff with him. Informed pt he will recieve a dose of IV abx at 1100 & should order lunch, pack up his things & plan to leave at 1300. Pt agreeable. Updated RN, professor of apologetics & SECRETARY BOOKKEEPER. Date Signed: 07/29/2017 11:00 AM Electronically Signed By:Colleen Cardozo RN
--- NOTE | 2017-07-29 11:03 | ASDISCHSUM ---
Discharge Information Plan Status:Homeless/[facility] Medically Cleared to Leave: Discharge Date: D/C Disposition: ADT D/C Disposition: Projected Discharge Date:06/28/2017 11:00 AM Transportation at D/C:Bus Ticket Discharge Delay Reason: Follow-Up Date:06/28/2017 11:00 AM Discharge Slot: Final Diagnosis: Placement Information Referral Type:*Half-Way/SNF Referral ID:[id number] Provider Name: Address 1: Phone Number: Address 2: Fax Number: City: Selection Factors: State: Patient Contact Information Contact Name:MUSTAPHA Relationship: Address: Home Phone: Work Phone: City: Alternate Phone: [facility] Code: Email: Financial Information Financial Class:Medicaid Primary Plan Desc:MEDICAID [place] Primary Plan Number:[id number] Secondary Plan Desc: Secondary Plan Number: Assessment Information [facility] CM Progress Note CM Note CM Note Notes: Pt presented to the ED via EMS after having a mechanical fall at the [facility] this morning. Pt had stayed there overnight. Pt complained of shoulder pain after the fall and after a shoulder xray and head CT were negative for acute findings, pt was going to be discharged but pt was unable to walk or talk coherently. Pt's BAL is 0. Pt continues to present with incoherent speech, decreased alertness and ability to respond, a shuffled gait and is not able to provide medical history so unable to complete MRI form at this time. Pt admitted for continued monitoring and hoping patient's cognition improves in order to complete MRI form. It is unclear whether he had a withdrawal seizure but providers would think pt's postictal presentation would have cleared by now if he did. This CM called [facility] to see if they had any past medical history on patient. Patient has never been seen there but has a new patient appt scheduled for this 06/15/17. Spoke with [facility] staff to see if they had any PMH or info. on patient. Pt has never been enrolled with their services but patient has been at their detox center several times. This CM met patient in the ED on 06/06/18 and he was able to talk, walk, ride his bike, and carry his large backpack and camping gear. Pt stated he had completed the Coordinated Entry and was referred to the [facility] alf system but that he prefers to camp outside. Pt was seen at [facility] mid-December per ED MD's CORHIO search on pt's first visit to [facility] on 01/05[facility]18. Pt has also been to the [facility] in the past (labs were recently drawn 06/10/17); spoke with medical staff ([phone]) there and they said they can't release information without his consent/VARSHA. Staff said that they do not ask a full PMH during intake anyway so it is unknown whether they have any valuable info. Exact DC needs unknown. CM to follow. Date Signed: 06/13/2017 12:58 PM Electronically Signed By:Shanita Lopez RN LACE LACE Comorbidities - select Answers: Chronic pulmonary disease all that apply History of falls # of Emergency department Answers: 5-8 visits in the last 6 months Social determinants Answers: History of substance abuse (ETOH, street drugs, prescription drugs, etc.) Homelessness (street, alf) Lack of community resources and/or lack of social support (no pcp, lives alone, transportation, cassidy d) Score: 19 Date Signed: 06/13/2017 12:49 PM Electronically Signed By:Shanita Lopez RN [facility] CM Progress Note CM Note CM Note Notes: SWer consulted with beside RN today regarding Pt's medical status. RN states that Pt. is very ill and may have to go to ICU at some point due to aspiration concerns. Notably, Pt. had bilateral shoulder surgeries on 06/14/17. Pt. to have an MRI of the brain today to try to assess more about his cognitive status. Should Proxy decision-maker need to be established, RN states that Pt. has mumbled that he has a "sister in [place]" and friends in [place]. States father is incarcerated in [place]. Await completion of PT, OT, and THREADING MACHINE SETTER evals to help direct d/c planning process. Due to Pt's Medicaid benefit, will likely need to do ULTC 100 when PT/OT consults come in. Date Signed: 06/15/2017 12:38 PM Electronically Signed By:Shanita Dickinson LCSW [facility] CM Progress Note CM Note CM Note Notes: Pt. is improving slowly per RN. PT was able to assess Pt. and is recommeding SNF at this time. Pt. has Medicaid and will require ULTC 100 process and a call to [facility] for LT Medicaid financial application. Notably, RN states Pt. has told her that Pt. has historically traveled between [place] and [place] to live and has a sister in [place]. 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 Per RN, Pt. has been "living outside for months". CM to follow for d/c POC. Date Signed: 06/17/2017 12:03 PM Electronically Signed By:Shanita Dickinson LCSW [facility] CM Progress Note CM Note CM Note Notes: Spoke with patient briefly, however he was not well enough to sustain a conversation today. Patient's nurse states he needs to rest and everything else needs to wait until tomorrow. The ULTC was completed but I will need to get patient's signiture tomorrow and fax it then to [facility]. Contacted Tangela ([facility] outreach) who will start patient's LTM application tomorrow as well. ULTC 100 is in patient's chart in the back.CM will follow. Date Signed: 06/19/2017 03:07 PM Electronically Signed By:Celine Olsen LCSW [facility] [place] Progress Note CM Note CM Note Notes: Patient signed ULTC 100 and it was faxed to [facility]. Patient states he does want rehab care to get stronger. Patient is in a great deal of pain today so he wasn't able to engage in a conversation about which choice of facilities he wants. Referrals were sent to [facility], [facility], and [facility] just to get the process started. A conversation is needed with patient when he is able to think clearly and can understand the requirements of a rehab stay. Tangela from [facility] did take application today for LTM. CM will follow. Date Signed: 06/20/2017 02:47 PM Electronically Signed By:Celine Olsen LCSW [facility] [place] Progress Note CM Note CM Note Notes: Today Zackery sent more LTC Medicaid referrals via Allscripts. Please see Allscripts for acceptances. ULTC 100 is complete. Await contact from [facility]. Date Signed: 06/21/2017 02:44 PM Electronically Signed By:Shanita Dickinson LCSW [facility] CM Progress Note CM Note CM Note Notes: Today Zackery met w/ Pt. in room. He was groggy, sleepy and unable to have a conversation about d/c planning. Bladimir from [facility] came to see Pt. today. Bladimir reports that she was speaking with her administration and learned that her business office had contacted Pt. in his room. Pt. stated he didn't want to commit to a 30-day stay. Pt. quite groggy and may not have been educated about Medicaid rules. Pt. denied from several LTCs thus far. Please see Allscripts. OT still recommending SNF. PT has not been able to see Pt. in two days due to grogginess. CM to follow for d/c POC. CM Community Case Manager has been alerted to difficulty of d/c plan thus far. Date Signed: 06/22/2017 04:38 PM Electronically Signed By:Shanita Dickinson LCSW [facility] CM Progress Note CM Note CM Note Notes: Pt seems to be a difficult placement, needs SNF, has been declined by several places (see Shanita Castillo's note on 06/22). But has been approved by [facility] for SNF stay, call Lucinda at [facility] [phone] when placement found. Complicating matters is the fact that [facility] called pt and asked if he would agree to 30 day stay at SNF, pt extremely groggy and has poor insight to his present physical needs stated "no". So [facility] declined him, CM to meet with pt to explain the need for SNF and the fact that days in the hospital are a part of those 30 days, so stay at SNF may not be that long. DC Plan: SNF Date Signed: 06/24/2017 06:45 PM Electronically Signed By:Kirsten Perez RN [facility] [place] Progress Note CM Note CM Note Notes: Spoke with patient who states he is willing to stay in rehab for 30 days if he can figure out how to retrieve his belongings before he goes. Spoke with [employer] and they do have his backpack and bicycle and they can keep his things for 60 days until the end of July. Contacted [facility] to clear up the 30 day rule miscommunication, letting them know patient will commit to 30 days. Anisha said she would take it before her continuous weld pipe mill supervisor but she was doubtful the disposition would be different. Spoke with patient again to let him know his belongings were safe. Patient was grateful and relieved.Patient espressed he would be interested in facilities in the [facility]. Will pursue this tomorrow with referrals to facilities in that area. Also contacted [facility] and sent them the PASSR by [employer]. Sourav will get back to me tomorrow with their decision. CM will follow. Date Signed: 06/26/2017 05:33 PM Electronically Signed By:Celine Olsen LCSW [facility] CM Progress Note CM Note CM Note Notes: A notarized letter signed by the patient and witnessed will need to be prepared for patient's things to be picked up at the police department by anyone other than the patient. We may need to assist patient with this so he can have his glasses, cell phone and personal items before he goes to a SNF placement. Zee Ivan can pick them up and bring them to the hospital but it will have to be when she returns from vacation. She has meetings the rest of this week and vacation next week. Will see if our business enterprise officer, Mindy, might be able to do this prior to patient leaving. The SNF in [place] is unable to take patient at this time. Have another call in to [facility] to see if they can work with us to place patient. CM will follow. Date Signed: 06/27/2017 01:20 PM Electronically Signed By:Celine Olsen LCSW [facility] [place] Progress Note CM Note CARINA Note Notes: [facility] did not call back today. CM to follow up with them tomorrow. CM will follow. Date Signed: 06/27/2017 04:30 PM Electronically Signed By:Celine Olsen LCSW [facility] CM Progress Note CM Note CM Note Notes: Pt. officially denied from all referrals made through Allscripts thus far including [facility]. Zackery consulted with CM Community Case Manager. Pt. may need to stay at [facility] until he is healthy enough to d/c to the [facility] system. Zackery tried to get Pt's belongings from the [facility] police today - Case #[id number]. Ganesh in the property and evidence division states Pt. does have a "backpack and bike" there. [facility] cannot assist Pt. in picking up his belongings without a notarized letter signed by Pt. per Ganesh. Pt's ID is either lost or in with his belongings. Cannot notarize a letter without ID per yissel Herndon at [facility]. Ganesh states that next week [facility] staff could ask for Sienna Manuel at to ask for special permission given the circumstances to bypass the notarized letter rule. Zackery left [facility] for Patient Rep regarding Pt's eyeglasses that he says were lost after his emergency room visit. Zackery updated Pt. on the above work for the day. CM to follow. Date Signed: 06/30/2017 05:36 PM Electronically Signed By:Shanita Dickinson LCSW [facility] CM Progress Note CM Note CM Note Notes: Note: Perhaps Homeless Outreach Team (HOT) officers from the [place] Police department can bring Pt's belongings over to [facility] for him - Officer Rogelio or Officer Eva. CM to follow. Date Signed: 07/01/2017 03:35 PM Electronically Signed By:Shanita Dickinson LCSW [facility] [place] Progress Note CM Note CARINA Note Notes: Spoke with Officer Rogelio who states he can bring patient's backpack to the hospital for patient. Hospital security did a safety search and took patient's pocket knife and sewing kit for safekeeping. Patient's phone and phone center maker hand as well as his ID were found in the backpack. Patient was relieved to have them back. Patient's wallet and glasses were not in the backpack so CM will follow up with the [employer] tomorrow to see if they were kept separate. Application for medical respite was started today. CM will follow. Date Signed: 07/03/2017 05:06 PM Electronically Signed By:Celine Olsen LCSW [facility] [place] Progress Note [place] CM Note Notes: [facility].Paper copy is in the back of patient's chart. CM will have to follow up tomorrow by calling Melissa at [phone] to see if she has reviewed and what the disposition is. CM will follow. Date Signed: 07/04/2017 04:33 PM Electronically Signed By:Celine Olsen LCSW [facility] [place] Progress Note CM Note CM Note Notes: Today Zackery was able to speak with Melissa from the [facility] Medical Respite program. They are still considering Pt. Needed Pt's social security number. Will need more medical data as Pt's get's closer to being ready for d/c. Also Melissa would like some answers regarding Pt's social support systems and how he has been financially supporting himself. SWer to speak w/ Pt. tomorrow. Per colleagues notes, Pt. still has belongings - bicycle and possible wallet at the [employer]. SW to follow. Date Signed: 07/05/2017 05:51 PM Electronically Signed By:Shanita Dickinson LCSW [facility] Progress Note CM Note CM Note Notes: Melissa from [facility] Homeless Medical Respite program called and left [facility] today that Pt. is denied from admission to the program due to past criminal charges that [facility] could not overlook. Charges too concerning per Melissa. Per RN, Pt. angry at this moment due to another unrelated incident. Zackery will wait to inform him of medical respite denial. CM colleagues to inform Pt. Pt. still not medically ready for d/c this week. SWer let CM Community Case Manager know about d/c complications today. CM to follow for d/c POC. Date Signed: 07/07/2017 03:00 PM Electronically Signed By:Shanita Dickinson LCSW [facility] Progress Note CM Note CM Note Notes: Chart reviewed. Met with patient as no placement has been found per previous CM reports. Patient seems to have no insight to his current situation. I explained that due to insurance restrictions, medicaid beds are extremely difficult to find. Complex care has also been involved. Still has drain in shoulder. 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 He has previously relied on friends and pentecostalism members for housing. Discharge plan is not in place. CM to follow. Plan: TBD Date Signed: 07/09/2017 01:31 PM Electronically Signed By:Reny Choi RN [facility] CM Progress Note CM Note CM Note Notes: Met with patient who is still concerned about his glasses. He thinks the police department may still have them. Patient needs 4 more weeks of IV ABX . Patient has been denied for placement with numerous SNF's and has also been denied placement with medical respite through [facility]. Deborah Coker is aware of this patient and the difficulties placing him. Currently, D/C plan is patient to finish his IV ABX here in the hospital until a solution can be found. CM will follow. Date Signed: 07/11/2017 12:56 PM Electronically Signed By:Celine Olsen LCSW [facility] CM Progress Note CM Note CM Note Notes: CM met w/ pt for dispo planning. Pt would like to locate his wallet and his prescription glasses. Pt reports that he might've left it at the residential. Pt left a msg for Officer Rogelio and requested a call back. CM to follow up. Date Signed: 07/12/2017 04:44 PM Electronically Signed By:FARIDA Hathaway [facility] Progress Note CM Note CM Note Notes: Pt. states he never called the Police to find his belongings. SWer could not reach [place] Police HOT team via phone today. Sent email message to both Officers Rogelio and Eva and cc'ed CM colleagues. Ovid from CM Community Case Manager that Officer Rogelio is on leave. Hopefully Officer Eva will respond. Asked that Officer Eva try to locate Pt's eyeglasses and wallet at [facility] property room. Also provided Pt. with information with the following phone numbers so he could try to find his belongings by calling himself: Homeless Outreach Team (HOT) , non-emergent [employer] number and the [facility] number . Pt. grateful, but seems to be growing increasingly frustrated. Plan: Pt. likely to be d/c'ed to street/alf when ready due to being denied from medical respite. Currently hospitalized for IV antibiotic treatment. Date Signed: 07/14/2017 05:04 PM Electronically Signed By:Shanita Dickinson LCSW [facility] [place] Progress Note CM Note CM Note Notes: CM discussed with Dr. Huffman, ordering Inpt Rehab consult for bilateral shoulder immobility. CM to follow and available for further CM needs. Current d/c plan: Inpt rehab ordered, D/C dateTBD. Date Signed: 07/16/2017 04:31 PM Electronically Signed By:Lily Scruggs [facility] CM Progress Note CM Note CM Note Notes: Spoke with patient's nurse who was inquiring about inpatient rehab. Spoke with Love who states patient is not eligible at this time due to only having one therapy. Patient needs at least 2 and PT has not been ordered. Spoke with Dr. Monaco who ordered PT and feels patient needs therapies everyday due to his shoulders being almost completely immobile. Patient needs to get stronger and have range of motion significantly improved. Patient is currently not functional with getting dressed and/or lifting. Per occupational therapist, patient is only capable of passive movement at this time.CM will follow. Date Signed: 07/17/2017 04:14 PM Electronically Signed By:Celine Olsen LCSW [facility] CM Progress Note CM Note CM Note Notes: Met with patient who restarted PT today and understands the importance of working on range of motion with his shoulders. 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 Patient states Haroon is going to get him a stretch band to do his exercises. Contacted the property department with [employer] and they did not have any shrink wrapped property for patient. Patient requested we check the residential again to see if his wallet and glasses are there.CM will follow. Date Signed: 07/18/2017 02:44 PM Electronically Signed By:Celine Olsen LCSW [facility] CM Progress Note CM Note CM Note Notes: Today Zackery reached out to team via email about the possibility of Pt. being able to d/c to Inpatient Rehab. Love Chun, admissions liaison called and we spoke. Love states that Pt. simply does not meet criteria for Inpatient Rehab even if he will be homeless and cannot carry his large pack or lift items that are heavy. Love's recommendation is that PT and OT start to work with Pt. directly about getting creative about how to live in the alf system/street with his lack of ability to move his arms upward or manage heavy weights. Pt.'s last day of IV antibiotics is 07/29/17 per note. 10 days to work to prepare Pt. Zackery also spoke with Remedios at [facility] today regarding Pt's missing wallet and eyeglasses. Remedios checked with with "release desk" and Pt. did sign that at the time he had his wallet and eyglasses. Remedios states that records show that he was released from [facility] on 06/12/17. Pt. was admitted to [facility] on 06/13/17 and Pt. relates that police officers brought him to the ED that date. Something appears to have happened to his eyeglasses and wallet after Senior Living and before Pt. regained his ability to think clearly during [facility] admission. Pt. has some recollection that his eyeglasses were placed on a metal side table of some kind in the ED. CM to follow for d/c POC. Date Signed: 07/19/2017 03:56 PM Electronically Signed By:Shanita Dickinson LCSW [facility] CM Progress Note CM Note CM Note Notes: Today SWer called Patient Rep Judi [phone] to assist with speaking w/ Pt about his lost eyeglasses and wallet. Judi was able to meet w/ Pt. SWer and SWer CM colleague in room today. Unfortunately [facility] has not found his lost items yet. Judi will initiate a "sweep" of the ED to look for eyeglasses and wallet. To communicate with CM Community Case Manager Delia Fairchild about results since SWer and Pat Rep will not be here next week. Judi plans to do this. Pt. unhappy, but reasonable and able to cope with bad news. Pt still invested in finding eyeglasses and wallet in ED and possibly back at the [facility] after d/c. Note: Pt's bicycle still with [place] Police. SWer sent link to CM Community Case Manager about a possible rolling cart for Pt. so that he doesn't have to lift a heavy pack if d/c'ed to alf/street. CM to follow. Date Signed: 07/20/2017 05:10 PM Electronically Signed By:Shanita Dickinson LCSW [facility] [place] Progress Note CM Note CM Note Notes: Pt. wanted to speak w/ SWer about his bike which is being stored at the [facility] property and evidence office. Case # [id number]. Pt. would like [facility] to try to get his bike delivered. In the past [facility] could not oyster picker his bike due to not being able to provide a notarized letter from Pt. due to him not having ID which is required for notary. Zackery called Ganesh at [facility] property and evidence office. Ganesh took description of Pt's bike (black and white Diamondback) and was able to locate it. Cannot give bike to [facility] without notarized letter. Can't do letter due to Pt. not having ID. Pt. can oyster picker bike without ID by using a "declaration of ownership" form at the [facility] evidence office when he is released from [facility]. Bike will be held until 08/10/17 after which they will give bike away. Let Pt. know about the above. Gave him a piece of paper with his case # on it and how to ask for the declaration of ownership form. Also provided Pt. with information about how to get a photo ID. Pt. feels he can do this on his own. Pt. still very focused on staff either finding his glasses and wallet and in particular reimbursing him for his lost eyglasses. Informed Pt. that he was denied from Inpatient Rehab. Pt. likely to be d/c'ed to streets or alf on IV antibiotic stop date - 07/29/17. CM to follow. Date Signed: 07/21/2017 12:56 PM Electronically Signed By:Shanita Dickinson LCSW [facility] CM Progress Note CM Note CM Note Notes: Patient discussed staying with a friend in [facility] when he is discharged. Patient will need to get his bicycle from the police department and then can take a bus to [place]. Will wait to see if patient's friends are able to take him in. Discharge date is July 29, 2017 when patient finishes his last IV ABX dose. CM will follow. Date Signed: 07/24/2017 11:45 AM Electronically Signed By:Celine Olsen LCSW [facility] [place] Progress Note CARINA Note CARINA Note Notes: An appointment was made for patient with [facility] to get started with a PCP. His appointment is July 31, 2017 at 11:[address] Donna Newell on the blue side of the building. 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 Dr. Newell will make patient an appointment for outpatient physical therapy once he has established care on Monday. He reports to [id number] [place] [address] for his appointment. Patient was also upset about his glasses and we discussed possible solutions. I am looking into [employer] ([employer] [phone]) to see if they can help pay for a new pair of glasses.CM will follow. Date Signed: 07/25/2017 05:03 PM Electronically Signed By:Celine Olsen LCSW [facility] [place] Progress Note CARINA Note CARINA Note Notes: CM will need to follow up with [facility] [phone] tomorrow to see if patient can get assistance with a new pair of glasses. CM will follow. Date Signed: 07/25/2017 05:26 PM Electronically Signed By:Celine Olsen LCSW [facility] Progress Note CM Note CM Note Notes: Met with this patient today and provided a small cart on wheels for him to take upon discharge to help with his personal belongings. I am still trying to work with [facility] #[phone] for assistance with new eye glasses. The plan remains that patient will discharge back to [facility] and follow[facility]up with [facility] (Appointment July 31 @ 11:10 a.m.). Case Management will continue to follow. Date Signed: 07/26/2017 05:06 PM Electronically Signed By:Delia Fairchild RN [facility] CM Progress Note CM Note CM Note Notes: Met with this patient to discuss discharge planning. D/W CARROTING MACHINE OFFBEARER, patient will likely discharge on Monday. Spoke with patient who is requesting a [facility] alf bed upon discharge. [facility] appointment at [facility] has been scheduled for Monday (please refer to D/C Instructions for details). Patient continues to be concerned about his lost eye glasses. I have reiterated we are not paying for his exact same glasses. An appointment has been scheduled for him at [facility] #[phone] for next at 11 a.m., patient aware. I have received his eye glass information from the eye clinic in [place] and will send the paperwork to the case manager at [facility] ([email or web address]). Patient also requesting bus basses, three have been left in his chart. He has all of his clothing and a small cart to help with transporting. This patient will benefit from strict boundaries on discharge. He understands we will not be buying him glasses and he is to report to his appointments next week. Patient also has a copy of his [employer] company driver's license and needs to follow-up with the DMV. Discharge Plan: D/C to [facility], follow-up at [facility] and [facility] Date Signed: 07/28/2017 04:20 PM Electronically Signed By:Delia Fairchild RN [facility] CM Progress Note CM Note CM Note Notes: Dc order received. Spoke with CARROTING MACHINE OFFBEARER & RN. Attempted to reserve [facility] alf bed for pt; informed pt is "banned from alf". Updated pt. Provided pt with a bag of clothing, 3 bus passes & a few sandwiches. Pt upset about not having all his stuff he came to [facility] with, mariaelena. his bifocals & wallet. Checked lost & found, both Security & Volunteer desk, only readers available. weights and measures sealer offered pt a pair of reading glasses, but pt refused. Alerted pt he has an upcoming appointments scheduled at [facility] & [facility]; details on dc paperwork; pt aware. Pt requesting to store his sleeping bag here, at the hospital; informed pt there is nowhere to store his belongings here & he will need to take all his stuff with him. Informed pt he will recieve a dose of IV abx at 1100 & should order lunch, pack up his things & plan to leave at 1300. Pt agreeable. Updated RN, weights and measures sealer & CARROTING MACHINE OFFBEARER. Date Signed: 07/29/2017 11:00 AM Electronically Signed By:Colleen Cardozo RN Intervention Information Intervention Type:Health Clinic Date of Service:06/13/2017 12:59 PM Patient Type:Observation Staff Member:SKYE Lopez, Shanita Hours:0.5 Discipline:Hash Slinger Severity: Comment:[facility], [facility], and [facility] lionel in efforts to find out more PMH. Intervention Type:*Incorrect Registration Date of Service:06/13/2017 04:34 PM Patient Type:Observation Staff Member:SKYE Cardozo, Colleen Hours: Discipline: Severity: Comment:
--- NOTE | 2017-07-30 00:55 | GDS ---
[f rep st] DISCHARGE SUMMARY DISCHARGE DIAGNOSES: 1. Severe sepsis. 2. Bilateral septic arthritis of shoulder, status post incision and drainage. 3. Anemia. 4. Cellulitis and abscess of bilateral feet, concern for osteomyelitis. 5. Metabolic encephalopathy. 6. Alcohol abuse. 7. Ankylosing spondylitis. 8. Homelessness. CONSULTATIONS: 1. Eric Aponte MD. 2. Yumiko Fraga MD. BRIEF HISTORY: The patient is a 52-year-old male, who has had multiple visits to [facility], from 05/06/2017, 05/09/2017, , 2017 and then on 06/13/2017, for a variety of reasons, but most recently after having multiple falls. He was at the [facility] and fell, and was brought to the emergency room for further evaluation. He was found to have a swollen shoulder and underwent superficial aspiration. He was admitted and started on a sepsis protocol. He had a CT of his head, which showed no acute intracranial findings. He was seen and evaluated by Dr. Aponte. He had a CT of his extremity, which showed a large fluid collection contiguous with the right shoulder joint extending into the upper arm, consistent with the patient's known abscess. It also showed that he had scatter ill-defined fluid collection in left shoulder without a dominant abscess. He had indeterminate fluid collection adjacent to the right C4-C5 facet that appeared new since a CT of cervical spine from April 06, 2017. He underwent an I and D of both shoulders and had DARRYL drains. He improved. Of note, he had an echocardiogram because of positive blood cultures. Noted that his EF is 50% without any regional wall abnormality. he had normal RV function. His left atrium was moderately dilated. His IVC is dilated. He had no pericardial effusion. He slowly improved and required long- term IV antibiotics. He required treatment in the hospital due to being homeless. Today, he received his last dose of IV Unasyn, and he will be discharged. HOSPITAL COURSE: 1. Severe sepsis. He had group C, G strep with seeding in bilateral shoulders and feet. He was treated with antibiotics. Has done overall well. 2. Bilateral septic arthritis of the shoulder. He is status post I and D. 3. Anemia. This is due to his acute illness. 4. Cellulitis and abscess of bilateral feet, treated. 5. Metabolic encephalopathy, resolved. 6. Alcohol abuse. Cessation has been advised. 7. Ankylosing spondylitis. He gets good relief with ibuprofen. 8. Homelessness. He says he has a trailer, but is not available at this time. He is unable to go to the prison. He is going to stay at a coffee shop today. He also says his dad lives in the area, but, per the patient, is in care home. At this point, he will be discharged and given as much support from the case management as possible. DISCHARGE CONDITION: Stable. Blood pressure is 120/75, heart rate is 75, respiratory rate is 16, O2 sats on room air are 92%, temperature 36.4 Celsius. MEDICATIONS AT DISCHARGE: Tylenol and ibuprofen. DISCHARGE INSTRUCTIONS: 1. Abstain from alcohol. 2. Return to the ER if he develops fever, chills, chest pain, or shortness of breath. Greater than 30 minutes discharging and coordinating the patient's care. /[id number]/MODL MTDD
--- NOTE | 2017-08-02 10:31 | PQFORM ---
PHYSICIAN QUERY FORM Needs Your Response This query form is being sent to you to assure this patient record is coded properly. Please respond to the question below: CLIENT SERVER DEVELOPER QUESTION: Dear Dr. Aponte, For coding purposes (there is a different code choice for excisional versus non excisional debridement)- please clarify if the debridement done on 28 June 2017 was: ___~ Excisional ___~ Non Excisional __x_~ Other: [place] [address], or "Arthrotomy, glenohumeral joint, including exploration, drainage, or removal of foreign body " - this debridement code is specific for the shoulder. Thank You Lolly Mercado, [facility] HIM/Coding Dept. [phone] INSTRUCTIONS FOR RESPONSE: Answer question by clicking on the "Edit Document" button. Move cursor to area below the stars. When complete, hit "Save." Click on the "Sign" button, then click "Sign" again. Type in your PIN and hit "Enter." MTDD
== END 2017-07-29 14:30 | disposition home or self-care (01) | DRG 710 ==
LOC: EDUNIT# → F3E 12:13 → OBSVTOIN 12:59
PROVIDERS: ADMIT Internal Medicine; ATTEND Internal Medicine
DX: A40.8 Other streptococcal sepsis (principal); R65.20 Severe sepsis without septic shock; J96.01 Acute respiratory failure with hypoxia; M00.811 Arthritis due to other bacteria, right shoulder; M00.812 Arthritis due to other bacteria, left shoulder; G93.41 Metabolic encephalopathy; N17.9 Acute kidney failure, unspecified; D64.9 Anemia, unspecified; R27.0 Ataxia, unspecified; E87.6 Hypokalemia; L03.115 Cellulitis of right lower limb; L03.116 Cellulitis of left lower limb; L02.611 Cutaneous abscess of right foot; L02.612 Cutaneous abscess of left foot; F10.20 Alcohol dependence, uncomplicated; M45.9 Ankylosing spondylitis of unspecified sites in spine; R29.6 Repeated falls; Z59.0 Homelessness; Z72.0 Tobacco use; W18.39XA Other fall on same level, initial encounter; Y92.198 Other place in other specified residential institution as the place of occurrence of the external cause; M86.172 Other acute osteomyelitis, left ankle and foot; L21.9 Seborrheic dermatitis, unspecified; L71.9 Rosacea, unspecified; T82.868A Thrombosis due to vascular prosthetic devices, implants and grafts, initial encounter
CPT/HCPCS: 80307; 82607-90; 92523-GN; 92526-GN; 92610-GN; 97110-GO; 97110-GP; 97112-GO; 97116-GP; 97140-GP; 97163-GP; 97164-GP; 97166-GO; 97530-GO; 97530-GP; 97535-GO; A9585; C1751; G0472; G0480; J0171; J0295; J0360; J0696; J1100; J1170; J1200; J1644; J1650; J1885; J2060; J2250; J2270; J2405; J2543; J2704; J2780; J2997; J3010; J3370; J3411; J3475; J3480; Q9967

== ENCOUNTER 2017-07-30 19:24 | Emergency (ER) | payer MEDICAID ==
--- NOTE | 2017-07-30 19:40 | EDPHY ---
H & P Time Seen by Provider: 07/30/17 19:31 HPI/ROS: CHIEF COMPLAINT: Medical screening for incarceration HISTORY OF PRESENT ILLNESS: 52-year-old homeless male arrives in custody of police for medical screening prior to incarceration. The long term nurse has expressed concerns that he be evaluated in the ER as he was discharged from the hospital yesterday after history of sepsis, bilateral septic arthritis of the shoulder. He has no complaints of pain or discomfort. He does expresses displeasure at being under arrest. He denies: Fever, chills, nausea, vomiting , malaise. REVIEW OF SYSTEMS: A ten point review of systems was performed and is negative with the exception of the items mentioned in the HPI PAST MEDICAL & SURGICAL HISTORY: History of sepsis, history of septic arthritis of shoulder, history of alcohol abuse, history of homelessness SOCIAL HISTORY: History of homelessness PHYSICAL EXAM (Prior to examination, patient consented to physical exam, hands were washed and my usual and customary physical exam procedures followed) 1) GENERAL: Well-developed, well-nourished, alert and oriented. Appears to be in no acute distress. 2) HEAD: Normocephalic, atraumatic 3) HEENT: Pupils equal, round, reactive to light bilaterally. Sclera anicteric. 4) NECK: Full range of motion, no meningeal signs. 5) LUNGS: Clear auscultation bilaterally, no wheezes, no rhonchi, no retractions. 6) HEART: Regular rate and rhythm, no murmur, no heave, no gallop. 7) ABDOMEN: No guarding, no rebound, no focal tenderness 8) MUSCULOSKELETAL: Left upper extremity: Bandage in place, taken down revealing normal appearing incision with no signs of infection, no fetid odor, no erythema, some pain with range of motion. No fluctuant. Neurovascular intact distally. Soft compartments. 9) BACK: No visual or palpable abnormality. 10) SKIN: No rash, no petechiae. 11) Psychiatric: Patient is oriented X 3, there is no agitation. DIFFERENTIAL DIAGNOSIS: In no particular include but limited to septic arthritis, sepsis, medical screening for incarceration - Medical/Surgical History Hx Asthma: Yes Hx Chronic Respiratory Disease: No Hx Diabetes: No Hx Cardiac Disease: No Hx Renal Disease: No Hx Cirrhosis: No Hx Alcoholism: Yes Hx HIV/AIDS: No Hx Splenectomy or Spleen Trauma: No Other PMH: asthma, , ETOH - Social History Smoking Status: Never smoked (chewed tobacco for a few years) Constitutional: Initial Vital Signs Temperature (C) 36.8 C 07/30/17 19:25 Heart Rate 100 07/30/17 19:25 Respiratory Rate 18 07/30/17 19:25 Blood Pressure 136/88 H 07/30/17 19:25 O2 Sat (%) 95 07/30/17 19:25 O2 Delivery Mode Room Air Allergies/Adverse Reactions: Sulfa (Sulfonamide Antibiotics) Allergy (Verified 07/30/17 19:44) Rash Home Medications: Medication Instructions Recorded Acetaminophen [Tylenol ES 500 mg 1,000 mg PO Q8H PRN tab 07/29/17 (*)] Ibuprofen [Motrin (*)] 800 mg PO TID PRN tab 07/29/17 Medical Decision Making ED Course/Re-evaluation: 7:36 p.m.: I have reviewed this patient's medical records. Specifically, his discharge note from yesterday notes that he has received his last dose of IV Unasyn. He currently appears well, is shoulder appears well, the incision site is granulating appropriately with no signs of acute infection. At this time I think he can be discharged to the long term, is medically cleared for incarceration. Care of patient under supervision of secondary supervising physician Dr Friend. Departure - Departure Disposition: Law Enforcement/Court/Correction Clinical Impression: History of septic arthritis shoulder Condition: Good Instructions: Septic Arthritis (DC) Additional Instructions: MEDICALLY CLEARED FOR GROUP HOME Return to the ER if you develop fever, increased pain, or any other symptoms that concern you. Referrals: [facility] (ED,. [Edm Groups for Call Sched] - 2-3 days, call for appt.
[2017-07-30 19:44] VITALS: BP 136/88
== END 2017-07-30 19:53 ==
DX: Z02.89 Encounter for other administrative examinations (principal); Z86.19 Personal history of other infectious and parasitic diseases

== ENCOUNTER 2017-08-02 12:34 | Emergency (ER) | payer MEDICAID ==
--- NOTE | 2017-08-02 13:42 | EDPHY ---
H & P Stated Complaint: pt wants his bandages changed/missed his appt at pc Time Seen by Provider: 08/02/17 13:19 HPI/ROS: CHIEF COMPLAINT: Wound care HISTORY OF PRESENT ILLNESS: The patient is a 52-year-old homeless man who was hospitalized for several weeks and discharged few days ago. He was treated for severe sepsis complicated by seeding of the infection into both shoulders as well as both feet. He was on IV antibiotics for some time and had bilateral I and D his shoulders. He finished his course of antibiotics. He is now receiving chronic wound care was supposed to follow up with his primary for dressing changes today which she did not do. He came here to have his dressings changed. No fevers or increase in illness or pain. teral REVIEW OF SYSTEMS: Constitutional: denies: chills, fever, recent illness, recent injury EENTM: denies: blurred vision, double vision, nose congestion Respiratory: denies: cough, shortness of breath Cardiac: denies: chest pain, irregular heart rate, lightheadedness, palpitations Gastrointestinal/Abdominal: denies: abdominal pain, diarrhea, nausea, vomiting, blood streaked stools Genitourinary: denies: dysuria, frequency, hematuria, pain Musculoskeletal: denies: joint pain, muscle pain Skin: See HPI Neurological: denies: headache, numbness, paresthesia, tingling, dizziness, weakness Hematologic/Lymphatic: denies: blood clots, easy bleeding, easy bruising Immunologic/allergic: denies: HIV/AIDS, transplant EXAM: GENERAL: Well-appearing, well-nourished and in no acute distress. HEAD: Atraumatic, normocephalic. EYES: Pupils equal round and reactive to light, extraocular movements intact, sclera anicteric, conjunctiva are normal. ENT: TMs normal, nares patent, oropharynx clear without exudates. Moist mucous membranes. NECK: Normal range of motion, supple without lymphadenopathy or JVD. LUNGS: Breath sounds clear to auscultation bilaterally and equal. No wheezes rales or rhonchi. HEART: Regular rate and rhythm without murmurs, rubs or gallops. ABDOMEN: Soft, nontender, normoactive bowel sounds. No guarding, no rebound. No masses appreciated. BACK: No CVA tenderness, no spinal tenderness, step-offs or deformities EXTREMITIES: Normal range of motion, no pitting or edema. No clubbing or cyanosis. NEUROLOGICAL: Cranial nerves II through XII grossly intact. Normal speech, normal gait. 5/5 strength, normal movement in all extremities, normal sensation PSYCH: Normal mood, normal affect. SKIN: Well-healing incisions to both shoulders, left wound dressed, no drainage. No dehiscence. Left foot with 2 ulcerated lesions 1 on the great toe and 1 on the lateral aspect of the foot. Both appear to be healing well. Source: Patient Exam Limitations: No limitations - Personal History Current Tetanus/Diphtheria Vaccine: Yes - Medical/Surgical History Hx Asthma: Yes Hx Chronic Respiratory Disease: No Hx Diabetes: No Hx Cardiac Disease: No Hx Renal Disease: No Hx Cirrhosis: No Hx Alcoholism: Yes Hx HIV/AIDS: No Hx Splenectomy or Spleen Trauma: No Other PMH: asthma, , ETOH septic shoulders - Social History Smoking Status: Never smoked Constitutional: Initial Vital Signs Temperature (C) 37 C 08/02/17 12:39 Heart Rate 90 08/02/17 12:39 Respiratory Rate 18 08/02/17 12:39 Blood Pressure 115/76 08/02/17 12:39 O2 Sat (%) 95 08/02/17 12:39 O2 Delivery Mode Room Air Allergies/Adverse Reactions: Sulfa (Sulfonamide Antibiotics) Allergy (Verified 08/02/17 12:38) Rash Home Medications: Medication Instructions Recorded Acetaminophen [Tylenol ES 500 mg 1,000 mg PO Q8H PRN tab 07/29/17 (*)] Ibuprofen [Motrin (*)] 800 mg PO TID PRN tab 07/29/17 Medical Decision Making ED Course/Re-evaluation: The patient's bandages have been changed and dressed and he was encouraged to follow up with his primary doctor. No need to initiate antibiotics at this time. Differential Diagnosis: Partial list of the Differential diagnosis considered include but were not limited to; wound care, wound infection and although unlikely based on the history and physical exam, I also considered foreign body, cellulitis, sepsis, abscess. Departure - Departure Disposition: Home, Routine, Self-Care Clinical Impression: Encounter for wound care Condition: Fair Instructions: Chronic Wounds (ED) Additional Instructions: You have an appointment at [facility] tomorrow 08/03/17 at 3:20pm, please arrive by 3:00pm. You also have an appointment with [facility] tomorrow 08/03/17 at 11:00a.m. [facility] is located at [address] [place] [address] ([phone]). Referrals: [facility],. [Clinic] - As per Instructions Donna Newell PA [Primary Care Provider] - 2-3 days, call for appt.
[2017-08-02 14:24] VITALS: BP 131/91
--- NOTE | 2017-08-02 17:04 | ASMTCMCOM ---
CM Note CM Note Notes: Pt presented to the ED for wound check. Pt d/c'd from [facility] 07/30/17 and then was ticketed/detained for illegal camping within city limits on Monday. Pt was released from [facility] this morning. Pt had an appt with [facility] this past Monday 07/31 but was in [facility] at the time. This CM called [facility] and was able to get patient an appt tomorrow at 3:20pm. Pt insisted on having his wounds checked out by an ED provider; he was assessed and bandages provided and discharged. Pt attempted to discuss all of his missing belongings (see previous CM assessment notes from his admission 06/13/17 - 07/30/17), but this CM had reviewed all the notes and would not entertain patient's requests. Pt redirected to follow up with [facility] as scheduled, follow up with [facility] tomorrow as scheduled in order to get eyeglasses (pt provided [employer] address and # again, per request), and to follow up with [facility] as he plans to do this afternoon. Pt aware of [facility] appt and agrees to follow up tomorrow. Pt offered information on Coordinated Entry and strongly recommended he complete that process and stay in the shelters but pt adamantly declines/refuses to stay at the local shelters. Pt has a bike, his own camping gear, etc. and prefers to camp. Pt aware that it is illegal to camp in [place] and so he may get ticketed/detained again and risk losing more of his belongings but pt still insists on camping and understands the risks. CM available for further assistance if needed. Date Signed: 08/02/2017 05:03 PM Electronically Signed By:Shanita Lopez RN
--- NOTE | 2017-08-02 17:05 | ASDISCHSUM ---
Discharge Information Plan Status:Homeless/Long Term Medically Cleared to Leave: Discharge Date:08/02/2017 02:24 PM D/C Disposition:Streets (Homeless) ADT D/C Disposition:Home, Routine, Self-Care Projected Discharge Date:08/02/2017 02:24 PM Transportation at D/C:None or Unknown Discharge Delay Reason: Follow-Up Date:08/02/2017 02:24 PM Discharge Slot: Final Diagnosis: Placement Information Patient Contact Information Contact Name:SHEEBATriston Relationship: Address: Home Phone: Work Phone: City: Alternate Phone: State/Zip Code: Email: Financial Information Financial Class:Medicaid Primary Plan Desc:MEDICA[employer] [place] Primary Plan Number:[id number] Secondary Plan Desc: Secondary Plan Number: Assessment Information [facility] Progress Note CM Note CM Note Notes: Pt presented to the ED for wound check. Pt d/c'd from [facility] 07/30/17 and then was ticketed/detained for illegal camping within city limits on Monday. Pt was released from assisted this morning. Pt had an appt [facility] this past Monday 07/31 but was in assisted at the time. This CM called [facility] and was able to get patient an appt tomorrow at 3:20pm. Pt insisted on having his wounds checked out by an ED provider; he was assessed and bandages provided and discharged. Pt attempted to discuss all of his missing belongings (see previous CM assessment notes from his admission 06/13/17 - 07/30/17), but this CM had reviewed all the notes and would not entertain patient's requests. Pt redirected to follow up with [facility] as scheduled, follow up with [facility] tomorrow as scheduled in order to get eyeglasses (pt provided [facility] address and # again, per request), and to follow up with [facility] as he plans to do this afternoon. Pt aware of [facility] appt and agrees to follow up tomorrow. Pt offered information on Coordinated Entry and strongly recommended he complete that process and stay in the shelters but pt adamantly declines/refuses to stay at the local shelters. Pt has a bike, his own camping gear, etc. and prefers to camp. Pt aware that it is illegal to camp in [place] and so he may get ticketed/detained again and risk losing more of his belongings but pt still insists on camping and understands the risks. CM available for further assistance if needed. Date Signed: 08/02/2017 05:03 PM Electronically Signed By:Shanita Lopez RN Intervention Information Intervention Type:Community Resources Date of Service:08/02/2017 05:03 PM Patient Type:Emergency Room Staff Member:SKYE Lopez [place] Hours:0.25 Discipline:Automation Qa Analyst Severity: Comment: Intervention Type:Health Clinic Date of Service:08/02/2017 05:03 PM Patient Type:Emergency Room Staff Member:SKYE Lopez [place] Hours:0.25 Discipline:Automation Qa Analyst Severity: Comment: Intervention Type:Education Family/Patient Date of Service:08/02/2017 05:03 PM Patient Type:Emergency Room Staff Member:SKYE Lopez [place] Hours:0.25 Discipline:Automation Qa Analyst Severity: Comment:
== END 2017-08-02 14:24 | disposition home or self-care (01) ==
DX: Z48.00 Encounter for change or removal of nonsurgical wound dressing (principal); J45.909 Unspecified asthma, uncomplicated

== ENCOUNTER 2017-08-24 07:20 | Emergency (ER) | payer MEDICAID ==
[~2017-08-24 07:20] MED LIST changes: +ALBUTEROL 60 PUFFS/8 GM MDI IH SCH; -LORazepam 2 MG/ML INJ IVP ONE; -NS 1,000 ML IV ONE; +predniSONE 20 MG TAB PO SCH
[2017-08-24] MEDS ORDERED: IPRATROPIUM/ALBUTEROL 3 ML DEYVIAL IH ONE ×2 (07:43→07:55)
[2017-08-24] MEDS ORDERED: predniSONE 20 MG TAB PO ONE (07:55)
--- NOTE | 2017-08-24 07:59 | EDPHY ---
H & P Time Seen by Provider: 08/24/17 07:49 HPI/ROS: HPI Asthma exacerbation. 52-year-old male. He is homeless. He has a history of asthma. He reports that he ran out of his inhaler months ago. He reports that this morning, he believes secondary to the pollen in the air he started having shortness of breath and wheezing. He came to the emergency department because of this. No other associated signs or symptoms. He reports that this is typical of an asthma exacerbation for him. ROS: Constitutional: No fever, no chills. No weakness. Eyes: No discharge. No changes in vision. ENT: No sore throat. No nasal congestion or rhinorrhea. Respiratory: No cough. As above. Cardiac: No chest pain, no palpitations. Gastrointestinal: No abdominal pain, no vomiting, no diarrhea. Genitourinary: No hematuria. No dysuria or increased frequency with urination. Musculoskeletal: No back pain. No neck pain. No myalgias or arthralgias. Skin: No rashes. Neurological: No headache. No focal weakness or altered sensation. Past medical history: Asthma. Alcohol abuse. Social history: Homeless. Smoker. Alcohol abuse. Here by himself. Physical Exam: General Appearance: Alert, no distress. This patient is responding to questions appropriately and in full sentences. This patient appears well- hydrated and well-nourished. Eyes: Pupils equal and round no pallor or injection. No lid edema, erythema or injection. Respiratory: There are no retractions, decent air movement but wheezing throughout the mid and upper lung [place] more prominent on exhalation. No tachypnea. Cardiovascular: Regular rate and rhythm. No murmur. Neurological: Motor sensory function is grossly intact. Cranial nerves are normal. Gait is normal. Skin: Warm and dry, no rashes. Musculoskeletal: Neck is supple and nontender. Extremities are symmetrical. All joints range without pain or impingement. Psychiatric: No agitation. No depression. Database: EKG: Imaging: Procedures: Emergency department course: Triage vital signs reviewed. Tachycardic at 132. Pulse oximetry 85% on room air. Respiratory rate of 20. Patient was started on albuterol/Atrovent nebulizers, 3 to be given [id number] and he was given 80 mg of oral prednisone. 7:50 a.m., patient re-evaluated. Feeling better after completing 1st nebulizer treatment. Scant wheezing now and improved air movement on repeat lung exam. 9:10 a.m., patient re-evaluated. Feeling much better. Repeat pulmonary exam lungs are clear with good air movement by laterally. Room air pulse oximetry is between 92 and 94% at this time. He feels comfortable going home and I feel he is safe for discharge. I filled prescriptions for both albuterol and prednisone through our assistance program at the hospital. He was given these medications. He with has been instructed to follow up at [facility] tomorrow for re-evaluation. Return to emergency department precautions were thoroughly reviewed with him. All of his questions were answered. He was discharged from the emergency department in good condition. Differential Diagnosis: The differential diagnosis on this patient includes but is not limited to asthma exacerbation. CHF, pneumonia, pneumothorax unlikely. This represents a partial list of diagnoses considered. These considerations are based on history , physical exam, past history, reassessment and diagnostic testing. Smoking Status: Never smoked Constitutional: Initial Vital Signs Temperature (C) 37 C 08/24/17 07:22 Heart Rate 132 H 08/24/17 07:22 Respiratory Rate 20 08/24/17 07:22 Blood Pressure 136/94 H 08/24/17 07:22 O2 Sat (%) 85 L 08/24/17 07:22 O2 Delivery Mode Room Air Allergies/Adverse Reactions: Sulfa (Sulfonamide Antibiotics) Allergy (Verified 08/24/17 07:20) Rash Home Medications: Medication Instructions Recorded ALBUTEROL SULFATE 08/24/17 Albuterol [Proventil Inhaler HFA 2 puffs IH Q2-4PRN PRN #1 mdi 08/24/17 (*)] Meloxicam 08/24/17 predniSONE [prednisone 20mg (RX)] 60 mg PO DAILY #9 tab 08/24/17 Medical Decision Making - Data Points Medications Given: Discontinued Medications Albuterol Sulfate (Proventil Inh Prepack) 1 mdi TAKEHOME EDNOW ONE Stop: 08/24/17 09:35 Last Admin: 08/24/17 09:45 Dose: Not Given Albuterol/Ipratropium (Duoneb) 3 ml IH EDNOW ONE Stop: 08/24/17 07:44 Last Admin: 08/24/17 07:48 Dose: 3 ml Albuterol/Ipratropium (Duoneb) 6 ml IH EDNOW ONE Stop: 08/24/17 07:56 Last Admin: 08/24/17 08:00 Dose: 6 ml Prednisone (Prednisone) 80 mg PO EDNOW ONE Stop: 08/24/17 07:56 Last Admin: 08/24/17 08:00 Dose: 80 mg Departure - Departure Disposition: Home, Routine, Self-Care Clinical Impression: Exacerbation of asthma Condition: Good Instructions: Bronchospasm (ED) Additional Instructions: Read and follow provided instructions. Follow-up with your primary care physician at [facility], in 1-2 days for re-evaluation. Take medication as prescribed. Albuterol inhaler: 1-2 puffs every 2-4 hours as needed for shortness of breath and wheezing. Return to the emergency department for worsening symptoms, wheezing, difficulty breathing or other serious concerns. Referrals: [facility],. [Clinic] - As per Instructions Prescriptions: Albuterol [Proventil Inhaler HFA (*)] 2 puffs IH Q2-4PRN PRN #1 mdi PRN Reason: Sob/Dyspnea predniSONE [prednisone 20mg (RX)] 60 mg PO DAILY #9 tab
[2017-08-24] MEDS ORDERED: IPRATROPIUM/ALBUTEROL 3 ML DEYVIAL ONE (08:02)
[2017-08-24] MEDS ORDERED: ALBUTEROL INH PREPACK MDI TAKEHOME ONE (09:34)
[2017-08-24 09:48] VITALS: BP 122/89
--- NOTE | 2017-08-24 11:06 | ASMTCMCOM ---
CM Note CM Note Notes: Patient presented to the ER this morning with c/o SOB and wheezing. He was treated in the ER and given "mapped" medication for Prednisone 60 mg X 9 days, and an Albuterol inhaler. This was done per the ER charge entry as CM was not yet here. Upon chart review (see CM notes from 08/02/17), CM in ER has been working with patient in an effort to establish primary care at [facility]. An appointment was made for patient at the clinic for 08/03/17. I contacted the clinic to confirm that patient did not go to this appointment, but was seen at the clinic on 08/14/17. He then missed a follow up appointment on 08/17/17. [facility] informed by this CM of the ER visit this morning and the medication that was provided to patient. They will review ER notes and follow up with patient when he returns. At this time patient does not have a pending appointment scheduled at the clinic Date Signed: 08/24/2017 11:05 AM Electronically Signed By:Michelle Stewart RN
== END 2017-08-24 09:46 | disposition home or self-care (01) ==
DX: J45.901 Unspecified asthma with (acute) exacerbation (principal)
CPT/HCPCS: J7512

== ENCOUNTER 2017-09-12 13:36 | Emergency (ER) | payer MEDICAID, OTHER ==
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
[2017-09-12] MEDS ORDERED: ONDANSETRON 4 MG/2 ML VIAL IVP ONE (15:01)
[2017-09-12] MEDS ORDERED: NS 1,000 ML IV ONE (15:01)
[2017-09-12] MEDS ORDERED: HYDROmorphONE/DILAUDID 2 MG/ML INJ IVP ONE (15:01)
[2017-09-12 19:15] VITALS: BP 176/93
== END 2017-09-12 18:05 | disposition home or self-care (01) ==
LOC: EDUNIT#
DX: F10.920 Alcohol use, unspecified with intoxication, uncomplicated (principal)

== ENCOUNTER 2018-01-21 15:24 | Emergency (ER) | payer MEDICAID ==
[2018-01-21] MEDS ORDERED: DIAZEPAM 5 MG TAB PO ONE (16:02)
--- NOTE | 2018-01-21 16:10 | EDPHY ---
H & P Time Seen by Provider: 01/21/18 15:56 HPI/ROS: HPI Bilateral knee pain from fall. 52-year-old male, homeless, history of alcohol abuse, very familiar to our emergency department. He presents after he fell forward and sustained abrasions to both knees. He is asking for wound care for his knee abrasions. He states his last drink was yesterday. He is currently tremulous. He denies hitting his head. No neck or back pain. No loss of sensation or weakness in his extremities. No other complaint. ROS: Constitutional: No fever, no chills. No weakness. Eyes: No discharge. No changes in vision. ENT: No sore throat. No nasal congestion or rhinorrhea. Respiratory: No cough. No shortness of breath. Cardiac: No chest pain, no palpitations. Gastrointestinal: No abdominal pain, no vomiting, no diarrhea. Genitourinary: No hematuria. No dysuria or increased frequency with urination. Musculoskeletal: No back pain. No neck pain. No myalgias or arthralgias. As above. Skin: No rashes. Abrasions to both knees. Neurological: No headache. No focal weakness or altered sensation. Past medical history: Asthma, alcohol abuse, shoulder and knee surgeries. Social history: Homeless, alcohol abuse, smokes cigarettes occasionally. Denies alcohol or drug use. As above. Physical Exam: General Appearance: Alert, mildly tremulous, not in distress. This patient is responding to questions appropriately and in full sentences. This patient appears well-hydrated and well-nourished. Head: Normocephalic atraumatic. Eyes: Pupils equal and round no pallor or injection. No lid edema, erythema or injection. Lower extremity exam: He has superficial abrasions about the size of a half dollar over both anterior knees, the lower patellar region. No bony step-off or deformity noted on palpation of this area. No significant bleeding. No suturable lacerations. Both knees are stable to anterior and posterior drawer testing. They are stable to valgus and varus stress testing. No pain elicited by axial compression of the knees. He has chronic lower extremity edema, at this time right side is greater than left side. He states that it seems to switch which side is more swollen. He reports that last week the left side was more swollen. He has a diffuse a venous stasis dermatitis without significant skin breakdown over the ankles and up through the mid legs. I do not feel at this time that this is cellulitic. It is not significantly warm. The skin is intact. The lower extremities are neurovascularly intact. Neurological: Motor sensory function is grossly intact. Cranial nerves are normal. Gait is normal. Mildly tremulous. Skin: Warm and dry, no rashes. Musculoskeletal: Neck is supple and nontender. Extremities are symmetrical. All joints range without pain or impingement. Psychiatric: No agitation. No depression. Database: EKG: Imaging: Bilateral lower extremity Doppler ultrasounds: Negative for DVT. Lower extremity edema noted. Results were discussed with staff radiologist Dr. Grant Lopez. Procedures: Emergency department course: Triage vital signs reviewed. He is afebrile. He is mildly hypertensive. Vital signs are otherwise normal. He will be given 10 mg of oral Valium for alcohol withdrawal. Ultrasounds of the bilateral lower extremities to be obtained to rule out DVT. Bilateral knee abrasions appropriately cleansed and dressed. 5:35 p.m., patient re-evaluated, resting comfortably at this time. Feels better after Valium as above. Results of ultrasound discussed. He feels comfortable being discharged at this time. Follow-up and return to emergency department precautions reviewed with him. All of his questions were answered. He was discharged from the emergency department in good condition. Differential Diagnosis: The differential diagnosis on this patient includes but is not limited to bilateral knee abrasions, venous stasis dermatitis of the lower extremities, chronic lower extremity edema. DVT, cellulitis, fracture, subluxation, dislocation of the knees, other significant traumatic injury unlikely. This represents a partial list of diagnoses considered. These considerations are based on history, physical exam, past history, reassessment and diagnostic testing. Smoking Status: Never smoked Constitutional: Initial Vital Signs Temperature (C) 36.7 C 01/21/18 15:38 Heart Rate 98 01/21/18 15:38 Respiratory Rate 18 01/21/18 15:38 Blood Pressure 145/92 H 01/21/18 15:38 O2 Sat (%) 91 L 01/21/18 15:38 O2 Delivery Mode Room Air Allergies/Adverse Reactions: Sulfa (Sulfonamide Antibiotics) Allergy (Verified 01/21/18 15:42) Rash Home Medications: Medication Instructions Recorded NK [No Known Home Meds] 09/12/17 Medical Decision Making - Diagnostics Imaging Results: Imaging Impressions Extremity Venous Study 01/21/18 16:02 Impression: There is no sonographic evidence of deep or superficial venous thrombosis in either lower extremity. Findings were discussed with Willie Walls MD at 17:27, on 2017. - Data Points Medications Given: Discontinued Medications Diazepam (Valium) 10 mg PO EDNOW ONE Stop: 01/21/18 16:03 Last Admin: 01/21/18 16:32 Dose: 10 mg Departure - Departure Disposition: Home, Routine, Self-Care Clinical Impression: Alcohol withdrawal, Abrasion of both knees, Venous stasis dermatitis of both lower extremities, Lower leg edema Condition: Good Instructions: Stasis Dermatitis (ED), Alcohol Withdrawal (ED), Abrasion (ED) Additional Instructions: Read and follow provided instructions. Follow-up with your [facility] at [facility] in 1-2 days for re -evaluation. You can go to their walk-in clinic on [facility]. Return to the emergency department for worsening symptoms, fever, pain, worsening swelling or discoloration in your legs or other serious concerns. Referrals: [facility],. [Clinic] - As per Instructions
[2018-01-21 17:52] VITALS: BP 152/74
--- NOTE | 2018-01-22 14:13 | ASMTCMCOM ---
CM Note CM Note Notes: Followed up with [facility] today re:pt needing follow-up appt. Pt has not been seen at since August 2017. Pt has a history of refusing to stay at any of the alf options. See previous CM Reports. *CM will continue to attempt scheduling another appt for patient when he presents to the ED again* CM available for further assistance if needed. Date Signed: 01/22/2018 02:13 PM Electronically Signed By:Shanita Lopez RN
== END 2018-01-21 17:49 | disposition home or self-care (01) ==
DX: S80.211A Abrasion, right knee, initial encounter (principal); S80.212A Abrasion, left knee, initial encounter; W19.XXXA Unspecified fall, initial encounter; Z59.0 Homelessness; F10.239 Alcohol dependence with withdrawal, unspecified; I83.11 Varicose veins of right lower extremity with inflammation; I83.12 Varicose veins of left lower extremity with inflammation

== ENCOUNTER 2018-01-22 21:28 | Inpatient (IN) | payer MEDICAID ==
[2018-01-22] MEDS ORDERED: ALBUTEROL INH PREPACK MDI TAKEHOME ONE (21:36)
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
[2018-01-22] MEDS ORDERED: NS 2,600 ML IV ONE (21:54)
[2018-01-22] MEDS ORDERED: IPRATROPIUM/ALBUTEROL 3 ML DEYVIAL IH ONE (21:54)
[2018-01-22] MEDS ORDERED: AZITHROMYCIN 250 MG TAB PO ONE (22:20)
--- NOTE | 2018-01-22 22:25 | CPEKG ---
Test Reason : OPEN Blood Pressure : / mmHG Vent. Rate : 102 BPM Atrial Rate : 102 BPM P-R Int : 163 ms QRS Dur : 102 ms QT Int : 352 ms P-R-T Axes : 077 091 058 degrees QTc Int : 459 ms Sinus tachycardia Probable inferior infarct, old Confirmed by Murali Oshea ([id number]) on 01/22/2018 10:25:09 PM Referred By: Confirmed By:Murali Oshea
[2018-01-22 22:30] LABS: PLATELET COUNT 144 10^3/uL (150-400)
[2018-01-22 22:38] LABS: INR 1.05 (0.83-1.16); PROTIME(PATIENT) 13.9 SEC (12.0-15.0)
[2018-01-22] MEDS ORDERED: ONDANSETRON 4 MG/2 ML VIAL IVP PRN (23:18)
[2018-01-22] MEDS ORDERED: ONDANSETRON DISINTEGRATING 4 MG TAB PO PRN (23:18)
[2018-01-22] MEDS ORDERED: ALBUTEROL 3 ML DEYVIAL IH PRN (23:18)
[2018-01-22] MEDS ORDERED: FLUMAZENIL 0.5 MG/5 ML MDV IVP PRN (23:20)
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
[2018-01-23] MEDS ORDERED: IBUPROFEN 200 MG TAB PO PRN ×2 (02:27→09:31)
[2018-01-23 05:18] LABS: PLATELET COUNT 113 10^3/uL (150-400)
[2018-01-23] MEDS: ALBUTEROL 3 ML DEYVIAL IH SCH ×4 (06:00→21:30)
--- NOTE | 2018-01-23 08:25 | ASMTLACE ---
LISA Comorbidities - select Answers: Opioid dependence all that apply / Chronic pain Other Notes: Asthma # of Emergency department Answers: 5-8 visits in the last 6 months Social determinants Answers: History of substance abuse (ETOH, street drugs, prescription drugs, etc.) Homelessness (street, senior living) Score: 15 Date Signed: 01/23/2018 08:25 AM Electronically Signed By:Colette Ayala
--- NOTE | 2018-01-23 08:55 | HOSPPROG ---
Hospitalist Progress Note Assessment/Plan: 52 yo M w/ hx of asthma presents with mild exacerbation. First encounter, chart reviewed. *asthma, acute exacerbation -albuterol, steroids -PCR is negative -blood cx pending *ETOH abuse -drinks 48 ounces of malt liquor daily *anemia, normocytic *thrombocytopenia -from alcohol use *plan: will get a chest x ray to r/o any TB, can't stay at the [facility]. Will recheck on him later today to see if he can be dc. Subjective: Les says he feels terrible, not anything specific. Objective: Vital Signs Temp Pulse Resp BP Pulse Ox 37.1 C 93 18 137/80 H 94 01/23/18 08:39 01/23/18 08:39 01/23/18 08:39 01/23/18 08:39 01/23/18 08:39 Laboratory Results 01/23/18 05:02 01/23/18 05:02 01/22/18 01/23/18 01/24/18 05:59 05:59 05:59 Intake Total 240 Output Total 750 1400 Balance -510 -1400 PT 13.9 SEC (12.0-15.0) 01/22/18 22:15 INR 1.05 (0.83-1.16) 01/22/18 22:15 - Physical Exam Constitutional: chronically ill appearing, unkempt Eyes: PERRL Ears, Nose, Mouth, Throat: hearing normal Cardiovascular: regular rate and rhythym, edema (bilateral lower extremity) Respiratory: no respiratory distress Skin: warm Neurologic: AAOx3 Psychiatric: interacting appropriately ICD10 Worksheet Patient Problems: Problems Problem Status Onset Acute bronchitis Acute Hypoxia Acute Acute alcohol intoxication Acute Closed head injury Acute Laceration of eyebrow, right, complicated Acute Unable to ambulate Acute
[2018-01-23] MEDS: MULTIVITAMINS 1 EACH TAB PO SCH (09:39)
[2018-01-23] MEDS: FOLIC ACID 1 MG TAB PO SCH (09:39)
[2018-01-23] MEDS: THIAMINE HCL 100 MG TAB PO SCH (09:39)
[2018-01-23] MEDS: predniSONE 20 MG TAB PO SCH (09:39)
[2018-01-23] MEDS: ENOXAPARIN 40 MG/0.4 ML SYR SC SCH (09:39)
[2018-01-23] MEDS: IBUPROFEN 200 MG TAB PO PRN ×2 (13:27→21:21)
[2018-01-23] MEDS: LORazepam 2 MG/ML INJ IVP PRN ×2 (13:29→22:17)
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
--- NOTE | 2018-01-23 18:00 | ECHO ---
[email or web address] [address] [address] Main: [phone] Fax: Transthoracic Echocardiogram Name: MAYURI WETZEL MR#: [id number] Study Date: 01/23/2018 Study Time: 02:04 PM Date of : 1965 Age: 52 year(s) Height: 182.9 cm (72 in.) Weight: 86.18 kg (190 lb.) BSA: 2.08 m2 Gender: Male Examination: Echo Indication: new lower extremity swelling Image Quality: Adequate Contrast: Requested by: Vanita Mantilla BP: 153 mmHg/90 mmHg Heart Rate: Rhythm: Indication: new lower extremity swelling Procedure Staff Differential Repairer: Dominique Harrington BOLA Reading Physician: Timur Galvan MD Requesting Provider: Conclusions: Normal size left ventricle. No LV hypertrophy. Normal global systolic LV function. EF is 56 %. No regional wall motion abnormality. Normal diastolic LV function. Normal size right ventricle. Normal RV function. The left atrium is normal in size. The right atrium is normal in size. The mitral valve is normal in appearance and function. Mild mitral valve regurgitation is present. No mitral stenosis is present. The aortic valve is tri-leaflet. There is no significant aortic valve regurgitation. No aortic valve stenosis is present. The tricuspid valve is normal in appearance and function. Trivial tricuspid valve regurgitation. The pulmonic valve is normal in appearance and function. There is no pulmonic regurgitation seen. The aorta is normal. Normal size aortic root measuring 3.5 cm. Normal size ascending aorta measuring 3.4 cm. The IVC is normal sized. No pericardial effusion. No pleural effusion. A cause for the patient's lower extremity swelling is not identified on the basis of this study. Measurements: Patient: MAYURI WETZEL Study Date: 01/23/2018 Page 1 of 3 02:04 PM Chambers Valvular Assessment AV/MV Valvular Assessment TV/PV Normal Normal Normal Name Value Range Name Value Range Name Value Range Ao Lorena (2D): 3.5 cm (1.4 cm-2.6 AV Vmax: 1.72 m/s (1 m/s-1.7 PV Vmax: 1.32 m/s (0.6 m/s-0.9 cm) m/s) m/s) IVSd (2D): 1.0 cm (0.6 cm-1.1 AV maxP mmHg ( - ) PV PGmax: 7 mmHg ( - ) cm) AV meanP mmHg ( - ) LVDd (2D): 4.5 cm (4.2 cm-5.9 ROSEMARY (VTI): 3.9 cm ( - ) cm) MV E Vmax: 0.76 m/s ( - ) LVDs (2D): 3.2 cm (2.1 cm-4 MV A Vmax: 0.88 m/s ( - ) cm) MV E/A: 0.86 ( - ) LVPWd (2D): 1.1 cm (0.6 cm-1 cm) MV PHT: 0.040 s ( - ) LVOTd 2.4 cm 2.4 cm mm MVA (PHT): 5.5 s ( - ) LVEF (BP): 56 % (>=55 %) RVDd(2D): 3.6 cm (1.9 cm-3.8 cmmm) Continued Measurements: Chambers Valvular Assessment AV/MV Name Value Name Value LADs: 3.7 cm MV DecTime: 148 m/s LADs Lon.6 cm MV E' Septal: 0.09 m/s LA Area: 20.9 cm2 MV E/E' Septal: 8.70 LA Volume: 62 ml MV E/E' Lateral: 7.00 LA Volume Index: 29.8 ml/m2 RA Area: 17.9 cm2 Additional Vessels Name Value Ao Ascendin.4 cm Findings: Left Ventricle: Normal size left ventricle. No LV hypertrophy. Normal global systolic LV function. EF is 56 %. No regional wall motion abnormality. Normal diastolic LV function. Right Ventricle: Normal size right ventricle. Normal RV function. Left Atrium: The left atrium is normal in size. Right Atrium: The right atrium is normal in size. Mitral Valve: The mitral valve is normal in appearance and function. Mild mitral valve regurgitation is present. No mitral stenosis is present. Aortic Valve: The aortic valve is tri-leaflet. There is no significant aortic valve regurgitation. No aortic valve stenosis is present. Tricuspid Valve: The tricuspid valve is normal in appearance and function. Trivial tricuspid valve regurgitation. Pulmonic Valve: The pulmonic valve is normal in appearance and function. There is no pulmonic regurgitation seen. Aorta: The aorta is normal. Normal size aortic root measuring 3.5 cm. Normal size ascending aorta measuring 3.4 cm. IVC: The IVC is normal sized. Pericardium: Patient: MAYURI WETZEL Study Date: 01/23/2018 Page 2 of 3 02:04 PM No pericardial effusion. No pleural effusion. (No Signature Object) Patient: MAYURI WETZEL Study Date: 01/23/2018 Page 3 of 3 02:04 PM [id number]
[2018-01-23] MEDS: ACETAMINOPHEN 325 MG TAB PO PRN (18:14)
[2018-01-23] MEDS ORDERED: MELATONIN 3 MG TAB PO SCH (22:00)
[2018-01-24] MEDS: ALBUTEROL 3 ML DEYVIAL IH SCH ×2 (05:25→11:07)
--- NOTE | 2018-01-24 10:32 | HOSPPROG ---
Hospitalist Progress Note Assessment/Plan: 52 yo M w/ hx of asthma presents with mild exacerbation. *asthma, acute exacerbation -albuterol, steroids -PCR is negative -blood cx show no growth *ETOH abuse -drinks 48 ounces of malt liquor daily *anemia, normocytic *thrombocytopenia -from alcohol use *lower extremity swelling -echo shows nothing acute -had a recent ultrasound which showed no dvt -suspect it is from the ibuprofen *plan: dc today w [facility] Subjective: Les has chronic low back pain, comfortable this morning. Objective: Vital Signs Temp Pulse Resp BP Pulse Ox 37.1 C 89 16 157/102 H 89 L 01/24/18 08:00 01/24/18 08:00 01/24/18 08:00 01/24/18 08:00 01/24/18 08:00 Laboratory Results 01/23/18 05:02 01/23/18 05:02 01/23/18 01/24/18 01/25/18 05:59 05:59 05:59 Intake Total 240 250 Output Total 750 1625 Balance -510 -1375 PT 13.9 SEC (12.0-15.0) 01/22/18 22:15 INR 1.05 (0.83-1.16) 01/22/18 22:15 - Physical Exam Constitutional: no apparent distress, appears nourished Eyes: PERRL Ears, Nose, Mouth, Throat: hearing normal Cardiovascular: regular rate and rhythym Respiratory: no respiratory distress, rhonchi (few scattered) Skin: warm Musculoskeletal: full muscle strength Neurologic: AAOx3 Psychiatric: interacting appropriately ICD10 Worksheet Patient Problems: Problems Problem Status Onset Acute bronchitis Acute Hypoxia Acute Acute alcohol intoxication Acute Closed head injury Acute Laceration of eyebrow, right, complicated Acute Unable to ambulate Acute
[2018-01-24] MEDS: ENOXAPARIN 40 MG/0.4 ML SYR SC SCH (10:45)
[2018-01-24] MEDS: THIAMINE HCL 100 MG TAB PO SCH (10:45)
[2018-01-24] MEDS: FOLIC ACID 1 MG TAB PO SCH (10:45)
[2018-01-24] MEDS: predniSONE 20 MG TAB PO SCH (10:45)
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
[2018-01-24] MEDS: MULTIVITAMINS 1 EACH TAB PO SCH (10:46)
[2018-01-24] MEDS: IBUPROFEN 200 MG TAB PO PRN (10:55)
[2018-01-24] MEDS: ACETAMINOPHEN 325 MG TAB PO PRN (10:56)
--- NOTE | 2018-01-24 10:58 | ASMTDCNOTE ---
Case Management Discharge Discharge Order Complete? Answers: Yes Patient to Obtain Answers: Independently Medications Transportation Arranged Answers: Bus Tokens EMTALA Complete Answers: No Case Management Transport Answers: No Form Complete Faxed Final Orders Answers: No Agency/Facility Transfer Answers: No Report Printed & Faxed to Receiving Agency Family Notified Answers: No Discharge Comments Notes: Pt is being discharged today to the streets. CM spoke to the [facility], director of [facility] and pt cannot return at this time. CM provided pt w/ a bus pass. CM made pt a [facility]. CM provided pt w/ the appointment on a piece of paper. No other needs at this time. CM available for changes. Plan: Independent Please follow up with Viki Alvarez NP 01/25/18 - 3:40PM [address] [place] [id number] [address] Date Signed: 01/24/2018 10:57 AM Electronically Signed By:FARIDA Hathaway
[2018-01-24 11:20] VITALS: BP 150/96
--- NOTE | 2018-01-24 11:25 | GDS ---
DISCHARGE DIAGNOSES: 1. Acute asthma exacerbation. 2. Alcohol abuse. 3. Normocytic anemia. 4. Thrombocytopenia. 5. Lower extremity swelling. HISTORY: Briefly, the patient is a homeless gentleman who presented with exacerbation of his asthma symptoms. He was treated with steroids. He is markedly improved. PCR is negative. His blood culture showed no growth. HOSPITAL COURSE: 1. Acute exacerbation of asthma, much better. He has an inhaler at this time. Will give him steroids for 5 more days. 2. Alcohol abuse. He drinks 48 ounces of malt liquor daily. 3. Normocytic anemia. 4. Thrombocytopenia. This is from alcohol use. 5. Lower extremity swelling. He had a recent ultrasound, which was negative for DVTs. Echocardiogram showed normal LV function. I suspect his swelling is secondary from use of ibuprofen. DISCHARGE CONDITION: Stable. Blood pressure is 157/102, heart rate of 89, respiratory rate of 16. O2 sats on room air are 89-93 percent. Temperature is 37.1 Celsius. DISCHARGE MEDICATIONS: Please see the EMR. DISCHARGE INSTRUCTIONS: 1. Recommending abstaining from alcohol. 2. Take prednisone for the next 5 days with food. 3. To [facility] up with [facility]. /[id number]/MODL MTDD
== END 2018-01-24 14:55 | disposition home or self-care (01) | DRG 141 ==
LOC: EDUNIT# → F3E 01-23 01:32 → OBSVTOIN 01-23 16:05
PROVIDERS: ADMIT Student in an Organized Health Care Education/Training Program; ATTEND Student in an Organized Health Care Education/Training Program
DX: J45.901 Unspecified asthma with (acute) exacerbation (principal); F10.20 Alcohol dependence, uncomplicated; Z59.0 Homelessness; D64.9 Anemia, unspecified; D69.6 Thrombocytopenia, unspecified; R60.0 Localized edema
CPT/HCPCS: 97165-GO; G0378; G0480; J1650; J2060; J7512; J7613

== ENCOUNTER 2018-02-23 23:40 | Emergency (ER) | payer MEDICAID ==
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
[2018-02-24] MEDS ORDERED: CHLORDIAZEPOXIDE 25MG PREPK#6 BTL TAKEHOME ONE (00:17)
[2018-02-24 00:32] VITALS: BP 134/74
== END 2018-02-24 00:33 | disposition home or self-care (01) ==
LOC: EDUNIT#
PROC: 0HQ1XZZ Repair Face Skin, External Approach (ICD-10-PCS; principal; 2018-02-23)
DX: S01.112A Laceration without foreign body of left eyelid and periocular area, initial encounter (principal); F10.929 Alcohol use, unspecified with intoxication, unspecified; W19.XXXA Unspecified fall, initial encounter; Y92.9 Unspecified place or not applicable; Y93.9 Activity, unspecified; Y99.9 Unspecified external cause status

== ENCOUNTER 2018-03-13 13:59 | Emergency (ER) | payer MEDICAID ==
--- NOTE | 2018-03-13 14:02 | EDPHY ---
HPI/HX/ROS/PE/MDM Narrative: CHIEF COMPLAINT: Found in the snow HPI: The patient is a 53 y/o male with a history of alcoholism arriving via EMS after being found in the snow. Per EMS, the patient was found in a parking lot on top of the snow. When EMS arrived they noticed that the patient's extremities were cold but his core was still warm. They also noticed that the patient appeared intoxicated. Per the patient, he last drank beer 4 hours ago. While en route to the hospital the patient was tachycardic and had a BGL of 109. No fever, headache, chest pain, shortness of breath, abdominal pain, urinary or bowel complaints, numbness, paresthesias. REVIEW OF SYSTEMS: Aside from elements discussed in the HPI, a comprehensive 10-point review of systems was reviewed and is negative. PMH: Alcoholism, asthma, septic shoulders/surgery SOCIAL HISTORY: Transient, single, not employed PHYSICAL EXAM: General: Patient is intoxicated, alert, in no acute distress. ENT: Eyes are normal to inspection. ENT inspection normal. Neck: Normal inspection. Full range of motion. Respiratory: No respiratory distress. Breath sounds normal bilaterally. Cardiovascular: Regular rate and rhythm. Strong peripheral pulses. Normal cap refill. Abdomen: The abdomen is nontender to palpation. There are no peritoneal signs. There are normal bowel sounds. Back: Normal to inspection. No tenderness to palpation. Skin: Normal color. No rash. Extremities are cool to the touch. Extremities: Normal appearance. Full range of motion. Neuro: Oriented x3. Normal motor function. Normal sensory function. (Demian Medley) ED Course: 1402: I met EMS upon arrival. 1500: Patient care transferred to Dr. Araya at shift change. Patient is still receiving 1L IV warm NS. (Demian Medley) MDM: I took over care of this patient at shift change pending sobriety. Patient's EtOH level is 475. 2130: Patient is sober, ambulatory, and was discharged to the [facility]. (Alexis Araya) - Data Points Laboratory Results: Laboratory Results 03/13/18 14:20 03/13/18 14:20 03/13/18 03/13/18 14:20 14:20 WBC 7.45 10^3/uL 10^3/uL (3.80-9.50) RBC 4.44 10^6/uL 10^6/uL (4.40-6.38) Hgb 12.4 g/dL L g/dL (13.7-17.5) Hct 39.2 % L % (40.0-51.0) MCV 88.3 fL fL (81.5-99.8) MCH 27.9 pg pg (27.9-34.1) MCHC 31.6 g/dL L g/dL (32.4-36.7) RDW 15.6 % H % (11.5-15.2) Plt Count 233 10^3/uL 10^3/uL (150-400) MPV 8.8 fL fL (8.7-11.7) Neut % (Auto) Not Reported Lymph % (Auto) Not Reported Calloway % (Auto) Not Reported Eos % (Auto) Not Reported Baso % (Auto) Not Reported Nucleat RBC Rel Count Not Reported Absolute Neuts (auto) Not Reported Absolute Lymphs (auto) Not Reported Absolute Monos (auto) Not Reported Absolute Eos (auto) Not Reported Absolute Basos (auto) Not Reported Absolute Nucleated RBC Not Reported Immature Gran % Not Reported Seg Neutrophils % 41.0 % % Band Neutrophils % 0.0 % % Lymphocytes % 46.0 % % Monocytes % 9.0 % % Eosinophils % 2.0 % % Basophils % 2.0 % % Metamyelocytes % 0.0 % % Myelocytes % 0.0 % % Promyelocytes % 0.0 % % Blast Cells % 0.0 % % Immature Gran # Not Reported Absolute Seg Neuts 3.05 10^3/uL 10^3/uL (1.70-6.50) Absolute Band Neuts 0.00 10^3/uL 10^3/uL (0.00-0.70) Absolute Lymphocytes 3.43 10^3/uL H 10^3/uL (1.00-3.00) Absolute Monocytes 0.67 10^3/uL 10^3/uL (0.30-0.80) Absolute Eosinophils 0.15 10^3/uL 10^3/uL (0.03-0.40) Absolute Basophils 0.15 10^3/uL H 10^3/uL (0.02-0.10) Absolute Metamyelocyte 0.00 10^3/mL 10^3/mL (0.00-0.00) Absolute Myelocytes 0.00 10^3/mL 10^3/mL (0.00-0.00) Absolute Promyelocytes 0.00 10^3/uL 10^3/uL (0.00-0.00) Absolute Plasma Cells 0.00 10^3/uL 10^3/uL (0.00-0.00) Nucleated RBCs 0 /100 WBC /100 WBC (0-0) Atypical Lymphocytes 2+ H Absolute Blast Cells 0.00 10^3/uL 10^3/uL (0.00-0.00) Plasma Cells % 0.0 % % Platelet Estimate ADEQUATE (ADEQ) Oval Macrocytes 1+ H Smear Review By Pending Sodium 147 mEq/L H mEq/L (135-145) Potassium 3.7 mEq/L mEq/L (3.5-5.2) Chloride 112 mEq/L H mEq/L (97-110) Carbon Dioxide 24 mEq/l mEq/l (22-31) Anion Gap 11 mEq/L mEq/L (6-14) BUN 7 mg/dL mg/dL (7-23) Creatinine 0.6 mg/dL L mg/dL (0.7-1.3) Estimated GFR > 60 Glucose 105 mg/dL H mg/dL (70-100) Calcium 8.3 mg/dL L mg/dL (8.5-10.4) Ethyl Alcohol 475 mg/dL H* mg/dL (0-10) Medications Given: Discontinued Medications Chlordiazepoxide (Librium 25 Mg Prepack#6) 1 btl TAKEHOME EDNOW ONE Stop: 03/13/18 21:16 Last Admin: 03/13/18 21:27 Dose: 1 btl Sodium Chloride (Ns) 1,000 mls @ 0 mls/hr IV EDNOW ONE; Wide Open PRN Reason: Protocol Stop: 03/13/18 14:04 Last Admin: 03/13/18 14:20 Dose: 1,000 mls Sodium Chloride (Ns) 1,000 mls @ 3,000 mls/hr IV ONCE ONE Stop: 03/13/18 19:19 Last Admin: 03/13/18 20:24 Dose: Not Given General Time Seen by Provider: 03/13/18 14:00 Initial Vital Signs: Initial Vital Signs Temperature (C) 34.5 C L 03/13/18 14:00 Heart Rate 94 03/13/18 14:00 Respiratory Rate 20 03/13/18 14:00 Blood Pressure 134/89 H 03/13/18 14:00 O2 Sat (%) 94 03/13/18 14:00 O2 Delivery Mode Nasal Cannula O2 (L/minute) 3 Allergies/Adverse Reactions: Sulfa (Sulfonamide Antibiotics) Allergy (Verified 03/13/18 14:28) Rash Departure - Departure Clinical Impression: Acute alcohol intoxication Qualifiers: Complication of substance-induced condition: uncomplicated Qualified Code(s): F10.929 - Alcohol use, unspecified with intoxication, unspecified Condition: Good Instructions: Alcohol Intoxication (ED) Additional Instructions: Please refrain from abusing alcohol. Return to the emergency department immediately for fever, vomiting, confusion, headache, abdominal pain or other worsening of condition. Followup with your primary care physician within 72 hours for reevaluation. Referrals: [facility] [Outside] - As per Instructions Report Scribed for: Demian Medley Report Scribed by: Julienne Pike Date of Report: 03/13/18 Time of Report: 14:03 Physician Review and Approval Statement: Portions of this note were transcribed by an ED scribe. I personally performed the history, physical exam, and medical decision making; and confirm the accuracy of the information in the transcribed note.
[2018-03-13] MEDS ORDERED: NS 1,000 ML IV ONE ×2 (14:03→19:00)
[2018-03-13 14:31] LABS: PLATELET COUNT 233 10^3/uL (150-400)
[2018-03-13] MEDS ORDERED: CHLORDIAZEPOXIDE 25MG PREPK#6 BTL TAKEHOME ONE (21:15)
[2018-03-13 22:12] VITALS: BP 119/69
== END 2018-03-13 22:00 | disposition home or self-care (01) ==
LOC: EDUNIT#
DX: F10.929 Alcohol use, unspecified with intoxication, unspecified (principal); Y90.8 Blood alcohol level of 240 mg/100 ml or more; E86.9 Volume depletion, unspecified; J45.909 Unspecified asthma, uncomplicated; Z59.0 Homelessness; Z88.2 Allergy status to sulfonamides
CPT/HCPCS: G0480

== ENCOUNTER 2018-03-20 20:12 | Emergency (ER) | payer MEDICAID ==
--- NOTE | 2018-03-20 20:17 | EDPHY ---
H & P Time Seen by Provider: 03/20/18 20:14 HPI/ROS: CHIEF COMPLAINT: Intoxication HISTORY OF PRESENT ILLNESS: Patient is a 53-year-old alcoholic homeless man who was found lying on the side of the street. Passersby called police who brought him here. The patient denies any pain or injury. He denies suicidality. He is clearly intoxicated. He is not able to ambulate without assistance. No signs of trauma. Does have a history of asthma. Denies shortness of breath. Severity: Moderate Modifying factors: None REVIEW OF SYSTEMS: Unable to obtain secondary to condition Physical Exam General Appearance: WD/WN, no apparent distress, obtunded (But arousable with painful stimulation) EENT: PERRL/EOMI, normal ENT inspection, TMs normal, pharynx normal Neck: non-tender, full range of motion, supple, normal inspection Respiratory: chest non-tender, lungs clear, normal breath sounds Cardiac/Chest: normal peripheral pulses, regular rate, rhythm, P Peripheral Pulses: 2+: carotid (R), carotid (L), femoral (R), femoral (L), dorsalis-pedis (R), dorsalis-pedis (L) Abdomen: normal bowel sounds, non-tender, soft Extremities: normal range of motion, non-tender, normal inspection, normal capillary refill Neurological: calm, 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 No: alert (Somnolent) Appearance: appropriate appearance, appropriate insight, neat, denies illness Behavior/Eye Contact/Speech: cooperative, decreased rate of speech Thoughts/Hallucinations: normal thought pattern, no apparent hallucination Skin: normal color, warm/dry Source: Patient, Police, Old records Exam Limitations: Intoxication - Personal History Tetanus Vaccine Date: 2017 - Medical/Surgical History Hx Asthma: Yes Hx Chronic Respiratory Disease: No Hx Diabetes: No Hx Cardiac Disease: No Hx Renal Disease: No Hx Cirrhosis: No Hx Alcoholism: Yes Hx HIV/AIDS: No Hx Splenectomy or Spleen Trauma: No Other PMH: asthma, , ETOH septic shoulders/surgery, MULT ORTHO SX, ankylosis spondylitis - Family History Significant Family History: No pertinent family hx - Social History Smoking Status: Never smoked Alcohol Use: Heavy Drug Use: Marijuana Constitutional: Initial Vital Signs Temperature (C) 36.7 C 03/20/18 20:18 Heart Rate 107 H 03/20/18 20:18 Respiratory Rate 16 03/20/18 20:18 Blood Pressure 131/88 H 03/20/18 20:18 O2 Sat (%) 94 03/20/18 20:18 O2 Delivery Mode Room Air Allergies/Adverse Reactions: Sulfa (Sulfonamide Antibiotics) Allergy (Verified 03/13/18 14:28) Rash Home Medications: Medication Instructions Recorded Ibuprofen 03/20/18 NK [No Known Home Meds] 03/20/18 Medical Decision Making ED Course/Re-evaluation: The patient is here on an arc hold by police. He has no complaints at this time. We will observe. When he is sober if he continues to have no complaints and has stable vital signs will discharge to the arc. 9:20 p.m. the patient is able to ambulate but is still slightly unstable. Will continue to observe. Differential Diagnosis: Partial list of the Differential diagnosis considered include but were not limited to; intoxication, substance abuse and although unlikely based on the history and physical exam, I also considered head injury, infection. - Data Points Medications Given: Discontinued Medications Chlordiazepoxide (Librium 25 Mg Prepack#6) 1 btl [place] EDNOW ONE Stop: 03/20/18 21:43 Last Admin: 03/20/18 23:27 Dose: 1 btl Departure - Departure Disposition: Home, Routine, Self-Care Clinical Impression: Alcoholic intoxication Qualifiers: Complication of substance-induced condition: uncomplicated Qualified Code(s): F10.920 - Alcohol use, unspecified with intoxication, uncomplicated Condition: Fair Instructions: Chlordiazepoxide (By mouth), Alcohol Intoxication (ED) Referrals: NONE *PRIMARY CARE P,. [Primary Care Provider] - As per Instructions [facility],. [Clinic] - As per Instructions
[2018-03-20] MEDS ORDERED: CHLORDIAZEPOXIDE 25MG PREPK#6 BTL TAKEHOME ONE (21:42)
[2018-03-21 00:22] VITALS: BP 130/75
== END 2018-03-21 00:22 | disposition home or self-care (01) ==
LOC: EDUNIT#
DX: F10.920 Alcohol use, unspecified with intoxication, uncomplicated (principal); Z59.0 Homelessness

== ENCOUNTER 2018-05-05 06:31 | Emergency (ER) | payer MEDICAID, OTHER ==
--- NOTE | 2018-05-05 07:22 | EDPHY ---
H & P Stated Complaint: DETOX Time Seen by Provider: 05/05/18 07:19 HPI/ROS: CHIEF COMPLAINT: Intoxication HISTORY OF PRESENT ILLNESS: Patient is a 53-year-old homeless alcoholic man who was [facility] the [facility] for intoxication. He was initially there but they are concerned because he had a black eye on the right. Patient tells me that this happened about a week ago. It does appear to be resolving. He also has a very minor abrasion to his left forehead. The patient denies any significant pain. He admits to heavy drinking. He is ambulating without difficulty. Severity: Mild Modifying factors: None REVIEW OF SYSTEMS: Constitutional: denies: chills, fever, recent illness, recent injury EENTM: See HPI denies: blurred vision, double vision, nose congestion Respiratory: denies: cough, shortness of breath Cardiac: denies: chest pain, irregular heart rate, lightheadedness, palpitations Gastrointestinal/Abdominal: denies: abdominal pain, diarrhea, nausea, vomiting, blood streaked stools Genitourinary: denies: dysuria, frequency, hematuria, pain Musculoskeletal: denies: joint pain, muscle pain Skin: See HPI Neurological: denies: headache, numbness, paresthesia, tingling, dizziness, weakness Hematologic/Lymphatic: denies: blood clots, easy bleeding, easy bruising Immunologic/allergic: denies: HIV/AIDS, transplant 10 systems reviewed and negative except as noted EXAM: GENERAL: Disheveled, intoxicated HEAD: Small abrasion left forehead, normocephalic. EYES: Bruising to inferior aspect of her right eye, appears to be healing in several days old. Pupils equal round and reactive to light, extraocular movements intact, sclera anicteric, conjunctiva are normal. ENT: TMs normal, nares patent, oropharynx clear without exudates. Moist mucous membranes. NECK: Normal range of motion, supple without lymphadenopathy or JVD. LUNGS: Breath sounds clear to auscultation bilaterally and equal. No wheezes rales or rhonchi. HEART: Regular rate and rhythm without murmurs, rubs or gallops. ABDOMEN: Soft, nontender, normoactive bowel sounds. No guarding, no rebound. No masses appreciated. BACK: No CVA tenderness, no spinal tenderness, step-offs or deformities EXTREMITIES: Normal range of motion, no pitting or edema. No clubbing or cyanosis. NEUROLOGICAL: Cranial nerves II through XII grossly intact. Normal speech, normal gait. 5/5 strength, normal movement in all extremities, normal sensation , normal reflexes PSYCH: Normal mood, normal affect. SKIN: Warm, dry, normal turgor, no visible rashes or lesions. Source: Patient, EMS Exam Limitations: Intoxication - Personal History Current Tetanus Diphtheria and Acellular Pertussis (TDAP): Yes Tetanus Vaccine Date: 2017 - Medical/Surgical History Hx Asthma: Yes Hx Chronic Respiratory Disease: No Hx Diabetes: No Hx Cardiac Disease: No Hx Renal Disease: No Hx Cirrhosis: No Hx Alcoholism: Yes Hx HIV/AIDS: No Hx Splenectomy or Spleen Trauma: No Other PMH: asthma, , ETOH septic shoulders/surgery, MULT ORTHO SX, ankylosis spondylitis - Social History Smoking Status: Never smoked Alcohol Use: Heavy Constitutional: Initial Vital Signs Temperature (C) 36.3 C 05/05/18 06:41 Heart Rate 102 H 05/05/18 06:41 Respiratory Rate 16 05/05/18 06:41 Blood Pressure 147/109 H 05/05/18 06:41 O2 Sat (%) 90 L 05/05/18 06:41 O2 Delivery Mode Room Air Allergies/Adverse Reactions: Sulfa (Sulfonamide Antibiotics) Allergy (Verified 03/13/18 14:28) Rash Home Medications: Medication Instructions Recorded Ibuprofen 03/20/18 NK [No Known Home Meds] 03/20/18 Medical Decision Making ED Course/Re-evaluation: The patient is intoxicated. He does have a black eye which is several days old. He denies having any pain or injury currently. He is able to ambulate. Will release back to the alcohol recovery Center. Differential Diagnosis: Partial list of the Differential diagnosis considered include but were not limited to; intoxication, contusion, abrasion and although unlikely based on the history and physical exam, I also considered infection, intracranial hemorrhage, CVA. Departure - Departure Disposition: Home, Routine, Self-Care Clinical Impression: Alcohol dependence Qualifiers: Substance use status: uncomplicated Qualified Code(s): F10.20 - Alcohol dependence, uncomplicated Condition: Fair Instructions: Alcohol Intoxication (ED) Referrals: NONE *PRIMARY CARE P,. [Primary Care Provider] - As per Instructions [facility],. [Clinic] - As per Instructions
[2018-05-05 07:32] VITALS: BP 129/99
== END 2018-05-05 07:51 | disposition home or self-care (01) ==
DX: F10.20 Alcohol dependence, uncomplicated (principal); S00.81XA Abrasion of other part of head, initial encounter

== ENCOUNTER 2018-05-17 00:29 | Emergency (ER) | payer MEDICAID, OTHER ==
--- NOTE | 2018-05-17 02:00 | EDPHY ---
H & P Stated Complaint: ETOH Time Seen by Provider: 05/17/18 01:57 HPI/ROS: Chief Complaint: Intoxication HPI: Found intoxicated with sedation. Patient well known to this emergency department. Denies falls or hitting his head. No evidence of trauma. Patient unable to ambulate on his own. Brought in for further evaluation. ROS: 10 systems were reviewed and were negative except those elements noted in the HPI. PMH: Chronic alcohol abuse Social History: No smoking, daily heavy alcohol Family History: non-contributory Physical Exam: Gen: Somnolent, arousable, smells of alcohol, maintaining his airway HEENT: Nose: no rhinorrhea Eyes: PERRLA, EOMI Mouth: Moist mucosa Neck: Supple, no JVD Chest: nontender, lungs clear to auscultation Heart: S1, S2 normal, no murmur Abd: Soft, non-tender, no guarding Back: no CVA tenderness, no midline tenderness Ext: no edema, non-tender Skin: no rash Neuro: CN II-XII intact, Sensation grossly intact, Strength 5/5 in bilateral upper and lower extremities - Personal History Current Tetanus/Diphtheria Vaccine: Yes Tetanus Vaccine Date: 2017 - Medical/Surgical History Hx Asthma: Yes Hx Chronic Respiratory Disease: No Hx Diabetes: No Hx Cardiac Disease: No Hx Renal Disease: No Hx Cirrhosis: No Hx Alcoholism: Yes Hx HIV/AIDS: No Hx Splenectomy or Spleen Trauma: No Other PMH: asthma, , ETOH septic shoulders/surgery, MULT ORTHO SX, ankylosis spondylitis - Social History Smoking Status: Never smoked Constitutional: Initial Vital Signs Temperature (C) 36.4 C 05/17/18 00:50 Heart Rate 79 05/17/18 00:50 Respiratory Rate 18 05/17/18 00:50 Blood Pressure 134/91 H 05/17/18 00:50 O2 Sat (%) 92 05/17/18 00:50 O2 Delivery Mode Room Air Allergies/Adverse Reactions: Sulfa (Sulfonamide Antibiotics) Allergy (Verified 05/17/18 00:52) Rash Home Medications: Medication Instructions Recorded Ibuprofen 03/20/18 Medical Decision Making ED Course/Re-evaluation: Patient is now awake and appropriate. Ambulating unassisted to the bathroom. No current complaints. Patient is tolerating oral fluids. Patient is ready for discharge with sober ride. Reviewed his past micro biology reports. There is no evidence of MRSA anywhere in his health records here. He does not currently have a rash or any findings suggestive of cellulitis or infection. - Data Points Medications Given: Discontinued Medications Chlordiazepoxide (Librium 25 Mg Prepack#6) 1 btl [place] EDNOW ONE Stop: 05/17/18 05:51 Last Admin: 05/17/18 06:07 Dose: 1 btl Departure - Departure Disposition: Law Enforcement/Court/[facility] Clinical Impression: Alcoholic intoxication Condition: Good Instructions: Chlordiazepoxide (By mouth), Alcohol Intoxication (ED) Additional Instructions: Medically cleared for the [facility]. No evidence of MRSA. Review of his medical records reveal no evidence of MRSA in any prior medical visits. Referrals: NONE *PRIMARY CARE P,. [Primary Care Provider] - As per Instructions
[2018-05-17] MEDS ORDERED: CHLORDIAZEPOXIDE 25MG PREPK#6 BTL TAKEHOME ONE (05:50)
[2018-05-17 06:55] VITALS: BP 130/74
== END 2018-05-17 07:00 ==
LOC: EDUNIT# → EDBD
DX: F10.920 Alcohol use, unspecified with intoxication, uncomplicated (principal); Z88.2 Allergy status to sulfonamides

== ENCOUNTER 2018-05-25 09:06 | Emergency (ER) | payer MEDICAID ==
[2018-05-25 09:16] VITALS: BP 146/92
--- NOTE | 2018-05-25 09:46 | EDPHY ---
H & P Time Seen by Provider: 05/25/18 09:26 HPI/ROS: CHIEF COMPLAINT: Requesting evaluation of wounds HISTORY OF PRESENT ILLNESS: 53 year old homeless male well known to emergency department staff. History of alcoholism. He took the bus to the emergency department resting evaluation of erythema and skin sloughing to his face after being prescribed doxycycline on May 15 2018. Patient notes erythema only to sun-exposed areas. He would also like me to check chronic wounds to his bilateral prepatellar region. Last drink of alcohol yesterday afternoon. He denies: Fever, chills, flu-like symptoms, nausea, vomiting, hallucination, seizure, trauma, fall, gait instability. PRIMARY CARE PROVIDER: [facility] REVIEW OF SYSTEMS: 10 systems reviewed and negative with the exception of the elements mentioned in the history of present illness PAST MEDICAL & SURGICAL HISTORY: history of alcoholism. SOCIAL HISTORY: Homeless. Last drink of alcohol yesterday afternoon PHYSICAL EXAM (Prior to examination, patient consented to physical exam, hands were washed and my usual and customary physical exam procedures followed) 1) GENERAL: Well-developed, well-nourished, alert and oriented. Appears to be in no acute distress. Smiling, answering questions appropriately. 2) HEAD: Normocephalic, atraumatic 3) HEENT: Pupils equal, round, reactive to light bilaterally. Sclera anicteric. No injection. Erythema to face neck in sun-exposed areas with some sloughing of skin. Nasopharynx, oropharynx, clear, no lesions. Moist Mucous membranes. No intraoral lesions. 4) NECK: Full range of motion, no meningeal signs. 5) LUNGS: Clear auscultation bilaterally, no wheezes, no rhonchi, no retractions. 6) HEART: Regular rate and rhythm, no murmur, no heave, no gallop. 7) ABDOMEN: No guarding, no rebound, no focal tenderness, 8) MUSCULOSKELETAL: Bilateral prepatellar wounds show no signs of acute infection. These appear subacute. Nontender. No lymphangitic streaking. No crepitus. Soft compartments lower extremities. Moving all extremities, no focal areas of tenderness, no obvious trauma. No peripheral edema or discoloration. 9) BACK: No visual or palpable abnormality. 10) SKIN: Erythema to face. No vesicles. No induration. No signs of cellulitis. 11) Psychiatric: Patient is oriented X 3, there is no agitation. DIFFERENTIAL DIAGNOSIS: In no particular order including but not limited to photodermatitis, cellulitis, Brothers-Efrain Smoking Status: Never smoked Constitutional: Initial Vital Signs Temperature (C) 36.5 C 05/25/18 09:14 Heart Rate 127 H 05/25/18 09:14 Respiratory Rate 18 05/25/18 09:14 Blood Pressure 146/92 H 05/25/18 09:14 O2 Sat (%) 90 L 05/25/18 09:14 O2 Delivery Mode Room Air Allergies/Adverse Reactions: Sulfa (Sulfonamide Antibiotics) Allergy (Verified 05/25/18 09:16) Rash Home Medications: Medication Instructions Recorded Ibuprofen 03/20/18 MDM/Departure - MDM ED Course/Re-evaluation: Patient's primary complaint in the ER is erythema to his face while concurrently on doxycycline for wounds to his hands. The wounds on his hands are granulating appropriately with no signs of acute infection, no signs of infectious tenosynovitis, no signs of deep space infection, abscess or cellulitis. However, I think the erythema to his face and skin sloughing are more than likely secondary to photodermatitis as his erythema is only in sun- exposed areas. Doubt Brothers Efrain or TEN. We discussed wearing sunscreen in the future , we discussed skin hygiene. He has no signs of super infection to his face. Recommend he not pick at any areas. Have applied antibiotic ointment to his face in the ER. He also requested that I evaluate chronic wound on his bilateral prepatellar regions. I have evaluated these areas do not acute year acutely infected. He has been given Band-Aids to cover these areas. Recommend not picking at these areas. Given my usual and customary wound precautions instructions. At this time I do not identify indication for hospital admission, diagnostic studies or antibiotic therapy. Patient also noted to be tachycardic, last drink of alcohol was yesterday afternoon sometime. He denies hallucination, observed her ambulating stable steady gait, no ataxia. No seizure. We discussed more than likely acute alcohol withdrawal discomfort tachycardia. I have offered Librium and I have offered to transport the [facility]. He declines both of these stating that he has no long-term plans to remain sober. He is discharged appearing well. Leave him to have decision-making capacity. More than welcome to return to the ER at any point to discuss sobriety or dermatologic issues. Patient feels comfortable being discharged. All questions and concerns addressed by myself. Patient given my usual and customary discharge precautions and instructions regarding their clinical impression. Care of patient under supervision of secondary supervising physician Dr Campos with whom I discussed case. - Depart Disposition: Home, Routine, Self-Care Clinical Impression: Photodermatitis due to sun Alcohol withdrawal Qualifiers: Complication of substance-induced condition: uncomplicated Qualified Code(s): F10.230 - Alcohol dependence with withdrawal, uncomplicated Condition: Good Instructions: Alcohol Withdrawal (ED), Photosensitivity (ED) Additional Instructions: Please wear sunscreen, keep your skin moist. We have offered to send you to the [facility] which have declined. If you change your mind you may return to the ER at any time to discuss this. Referrals: [facility],. [Clinic] - 1-2 days without fail
== END 2018-05-25 10:18 | disposition home or self-care (01) ==
DX: L56.8 Other specified acute skin changes due to ultraviolet radiation (principal); F10.230 Alcohol dependence with withdrawal, uncomplicated; Z88.2 Allergy status to sulfonamides; Z59.0 Homelessness

== ENCOUNTER 2018-06-12 11:46 | Emergency (ER) | payer MEDICAID ==
[2018-06-12] MEDS ORDERED: OFLOXACIN 0.3% SOLN PREPACK OPHT.BTL TAKEHOME ONE (12:33)
--- NOTE | 2018-06-12 12:33 | EDPHY ---
H & P Time Seen by Provider: 06/12/18 12:22 HPI/ROS: CHIEF COMPLAINT: "I think I have pink eye" HISTORY OF PRESENT ILLNESS: 53-year-old homeless male, no history of corrective lens use, arrives via ambulance from the [facility]. He is in the ER for evaluation of right eye discharge, crusting this morning when he woke at the [facility]. He denies exposure to high speed projectiles. Denies pain with extraocular movements. Denies visual acuity changes. Denies photophobia. Denies foreign body sensation. REVIEW OF SYSTEMS: 10 systems reviewed and negative with the exception of the elements mentioned in the history of present illness PAST MEDICAL & SURGICAL HISTORY: Alcoholism SOCIAL HISTORY:Last drink of alcohol yesterday afternoon PHYSICAL EXAM (Prior to examination, patient consented to physical exam, hands were washed and my usual and customary physical exam procedures followed) 1) GENERAL: Sleeping, easily woken. Well-developed, well-nourished, alert and oriented. Appears to be in no acute distress. 2) HEAD: Normocephalic, atraumatic 3) HEENT: Pupils equal, round, reactive to light bilaterally. Sclera anicteric. Nasopharynx, oropharynx, clear, no lesions. No vesicles. Moist mucous membranes. Skin to the patient's face appears significantly improved verses last evaluation by myself approximately 15 days ago. There is no sloughing of tissue. There are no vesicles. There is no erythema or induration. There is no crepitus. There is no tenderness. There is no asymmetry. Nasolabial folds are symmetrical. OCULAR EXAM: Visual Acuity (without correction) right eye, 20/70, left eye 20/70, both eyes 20/50 Pupils:equal round and reactive to light EOMI Lids: no edema or swelling, upper and lower lids were everted and no foreign bodies were visualized,. Skin: no proptosis, no periorbital erythema or swelling, no vesicles, no pain with extraocular movements. Conjunctivae: Mild injection with discharge right eye. Left eye clear no discharge no injection. 4) NECK: Full range of motion, no meningeal signs. 5) LUNGS: Clear auscultation bilaterally, no wheezes, no rhonchi, no retractions. Breathing comfortably 6) HEART: Regular rate and rhythm, no murmur, no heave, no gallop. 7) ABDOMEN: No guarding, no rebound, no focal tenderness, negative McBurney's, negative Hendrix's, negative Rovsing's, negative peritoneal sign, 8) MUSCULOSKELETAL: Moving all extremities, no focal areas of tenderness, no obvious trauma. No peripheral edema or discoloration. 9) BACK: No visual or palpable abnormality. 10) SKIN: No rash, no petechiae. 11) Psychiatric: Patient is oriented X 3, there is no agitation. DIFFERENTIAL DIAGNOSIS: In no particular order including but not limited to conjunctivitis, orbital cellulitis, periorbital cellulitis, facial cellulitis Smoking Status: Never smoked Constitutional: Initial Vital Signs Temperature (C) 36.5 C 06/12/18 11:53 Heart Rate 88 06/12/18 11:53 Respiratory Rate 17 06/12/18 11:53 Blood Pressure 159/105 H 06/12/18 11:53 O2 Sat (%) 95 06/12/18 11:53 O2 Delivery Mode Room Air O2 (L/minute) 1 Allergies/Adverse Reactions: Sulfa (Sulfonamide Antibiotics) Allergy (Verified 05/25/18 09:16) Rash Home Medications: Medication Instructions Recorded Ibuprofen 03/20/18 MDM/Departure - MDM Medications Given: Discontinued Medications Ofloxacin (Ocuflox 0.3% Opht Drops Prepack) [facility] Stop: 06/12/18 12:34 Last Admin: 06/12/18 12:44 Dose: 1 btl ED Course/Re-evaluation: This patient has evidence of conjunctivitis of the right eye. Suspect more than likely infectious etiology. Doubt periorbital or orbital cellulitis. Doubt zoster.I do not think that imaging studies indicated at this time. Regarding his subacute wounds to his face, I previously evaluated the patient most recently on 05/25/2018 for evaluation of wounds thought to be more than likely secondary to photodermatitis while being on doxycycline and living outdoors. These patient wounds have feels significantly are barely noticeable at this time. He has no evidence of facial cellulitis. There is no indication for systemic antibiotics at this time. He will be discharged. Patient feels comfortable being discharged. All questions and concerns addressed by myself. Patient given my usual and customary discharge precautions and instructions regarding their clinical impression. Care of patient under supervision of secondary supervising physician Dr Friend . - Depart Disposition: Home, Routine, Self-Care Clinical Impression: Conjunctivitis Qualifiers: Conjunctivitis type: acute Acute conjunctivitis type: bacterial Laterality: right Qualified Code(s): H10.31 - Unspecified acute conjunctivitis, right eye Condition: Good Instructions: Ofloxacin (Into the eye), Conjunctivitis (ED) Referrals: [facility],. [Clinic] - As per Instructions
[2018-06-12 13:33] VITALS: BP 160/106
== END 2018-06-12 13:32 | disposition home or self-care (01) ==
LOC: EDUNIT#
DX: H10.31 Unspecified acute conjunctivitis, right eye (principal); F10.10 Alcohol abuse, uncomplicated; Z59.0 Homelessness

== ENCOUNTER 2018-06-16 06:06 | Emergency (ER) | payer MEDICAID, OTHER ==
--- NOTE | 2018-06-16 06:15 | EDPHY ---
H & P Stated Complaint: ETOH, irritable, concerns about "frostbite" on hands, L eye red Time Seen by Provider: 06/16/18 06:15 HPI/ROS: HPI CHIEF COMPLAINT: Alcohol intoxication HISTORY OF PRESENT ILLNESS: 53-year-old male, homeless, history of alcoholism daily alcohol use, has been drinking alcohol this evening. He contacted the ambulance on the street asking if he can get a ride to the detox center. After EMS evaluated him they realize that he had some flaky skin on the back of both hands. He has a history of frostbite. No new injury. They decided to bring him here to the emergency room for further evaluation. The patient here in the emergency room is nontoxic appearing, has a fingerstick blood glucose by EMS of 136. He really does not have any significant complaint. Past Medical History: History of alcoholism daily alcohol use, homelessness, previous frostbite, previous photosensitivity of his skin, and a recent ER visit for eye irritation. Past Surgical History: No recent surgical history Social History: Homeless, daily alcohol use. Family History: Noncontributory ROS REVIEW OF SYSTEMS: 10 Systems were reviewed and negative with the exception of the elements mentioned in the history of present illness. Exam Constitutional intoxicated, smells of alcohol, triage nursing summary reviewed , vital signs reviewed, awake/alert. Eyes normal conjunctivae and sclera, EOMI, PERRLA. Left eye conjunctiva red. HENT normal inspection, atraumatic, moist mucus membranes, no epistaxis, neck supple/ no meningismus, no raccoon eyes. Respiratory clear to auscultation bilaterally, normal breath sounds, no respiratory distress, no wheezing. Cardiovascular rate normal, regular rhythm, no murmur, no edema, distal pulses normal. Gastrointestinal soft, non-tender, no rebound, no guarding, normal bowel sounds, no distension, no pulsatile mass. Genitourinary no CVA tenderness. Musculoskeletal no midline vertebral tenderness, full range of motion, no calf swelling, no tenderness of extremities, no meningismus, good pulses, neurovascularly intact. Skin pink, warm, & dry, no rash, skin atraumatic. Neurologic awake, alert and oriented x 3, AAOx3, moves all 4 extremities equally, motor intact, sensory intact, CN II-XII intact, normal cerebellar, normal vision, normal speech. Psychiatric normal mood/affect. Heme/Lymph/Immune no lymphadenopathy. Differential Diagnosis: Includes but is not limited to in a particular order acute alcohol intoxication, dehydration, electrolyte disturbance. Medical Decision Making: Plan for this patient breath alcohol. Monitor for worsening of condition, monitor for sobriety if patient ambulatory believe he can be discharged appropriately to the arc. Re-evaluation: Breath alcohol 0.083 6:40 a.m. Patient resting comfortably no acute distress. He is ambulatory. Stable gait. Safe for discharge to detox. Source: Patient - Personal History Current Tetanus/Diphtheria Vaccine: Yes Current Tetanus Diphtheria and Acellular Pertussis (TDAP): Yes Tetanus Vaccine Date: 2017 - Medical/Surgical History Hx Asthma: Yes Hx Chronic Respiratory Disease: No Hx Diabetes: No Hx Cardiac Disease: No Hx Renal Disease: No Hx Cirrhosis: No Hx Alcoholism: Yes Hx HIV/AIDS: No Hx Splenectomy or Spleen Trauma: No Other PMH: asthma, , ETOH septic shoulders/surgery, MULT ORTHO SX, ankylosis spondylitis - Social History Smoking Status: Never smoked Constitutional: Initial Vital Signs Temperature (C) 36.5 C 06/16/18 06:11 Heart Rate 94 06/16/18 06:11 Respiratory Rate 20 06/16/18 06:11 Blood Pressure 153/113 H 06/16/18 06:11 O2 Sat (%) 93 06/16/18 06:11 O2 Delivery Mode Room Air Allergies/Adverse Reactions: Sulfa (Sulfonamide Antibiotics) Allergy (Verified 05/25/18 09:16) Rash Home Medications: Medication Instructions Recorded Ibuprofen 03/20/18 Departure - Departure Disposition: Home, Routine, Self-Care Clinical Impression: Alcohol intoxication Condition: Good Instructions: Alcohol Intoxication (ED), Abuse of Alcohol (ED) Additional Instructions: 1. Please stop drinking alcohol. Referrals: NONE *PRIMARY CARE P,. [Primary Care Provider] - As per Instructions [facility],. [Clinic] - As per Instructions
[2018-06-16] MEDS ORDERED: CHLORDIAZEPOXIDE 25MG PREPK#6 BTL TAKEHOME ONE (07:01)
[2018-06-16 07:15] VITALS: BP 103/79
== END 2018-06-16 07:12 | disposition home or self-care (01) ==
LOC: EDUNIT#
DX: F10.920 Alcohol use, unspecified with intoxication, uncomplicated (principal); Z59.0 Homelessness

== ENCOUNTER 2018-07-20 00:42 | Inpatient (IN) | payer MEDICAID ==
[2018-07-20 02:19] LABS: PLATELET COUNT 138 10^3/uL (150-400)
--- NOTE | 2018-07-20 03:04 | EDPHY ---
H & P Stated Complaint: bilat le swelling Source: Patient Exam Limitations: No limitations - Personal History Current Tetanus/Diphtheria Vaccine: Yes Current Tetanus Diphtheria and Acellular Pertussis (TDAP): Yes Tetanus Vaccine Date: 2017 - Medical/Surgical History Hx Asthma: Yes Hx Chronic Respiratory Disease: No Hx Diabetes: No Hx Cardiac Disease: No Hx Renal Disease: No Hx Cirrhosis: No Hx Alcoholism: Yes Hx HIV/AIDS: No Hx Splenectomy or Spleen Trauma: No Other PMH: asthma, , ETOH septic shoulders/surgery, MULT ORTHO SX, ankylosis spondylitis - Social History Smoking Status: Never smoked <Clari Richardson - Last Filed: 07/20/18 07:03> <Alexis Araya - Last Filed: 07/20/18 08:34> Time Seen by Provider: 07/20/18 01:04 HPI/ROS: HPI The patient presents with bilateral lower extremity edema. This is been present over the last several days he says. He was getting arrested by police and began to complain that his legs were swollen and they brought him here and dropped his arrest. The patient says that his legs are not painful though are swollen. He says he went to [facility] about a month ago for the same thing and was started on a course of Keflex which did not help his symptoms. He has not had any fevers or chills. He has not had any chest pain or dyspnea on exertion. He is not on any new medications. REVIEW OF SYSTEMS 10 systems were reviewed and negative with the exception of the elements mentioned in the history of present illness. PMHx: Longstanding history of alcohol abuse, has been seen at [facility] but does not like it there Soc Hx: Homeless, sleeps outside PHYSICAL General Appearance: Alert, no distress Eyes: Pupils equal and round no pallor or injection ENT, Mouth: Mucous membranes moist Respiratory: There are no retractions, lungs are clear to auscultation Cardiovascular: Regular rate and rhythm Gastrointestinal: Abdomen is soft and non-tender, no masses, bowel sounds normal Neurological: A&O, moves all extremities Skin: Warm and dry, no rashes Musculoskeletal: Neck is supple non tender Extremities: Diffuse lower extremity edema which is pitting to the mid thigh with edema throughout his calves with erythema which is symmetric Psychiatric: Patient is oriented X 3, there is no agitation (Clari Richardson) Constitutional: Initial Vital Signs Temperature (C) 36.5 C 07/20/18 00:56 Heart Rate 106 H 07/20/18 00:56 Respiratory Rate 18 07/20/18 00:56 Blood Pressure 143/100 H 07/20/18 00:56 O2 Sat (%) 92 07/20/18 00:56 O2 Delivery Mode Nasal Cannula O2 (L/minute) 2 Allergies/Adverse Reactions: Sulfa (Sulfonamide Antibiotics) Allergy (Verified 05/25/18 09:16) Rash Home Medications: Medication Instructions Recorded Ibuprofen 03/20/18 Furosemide [Lasix 20 MG (*)] 20 mg PO DAILY 5 Days tab 07/20/18 Medical Decision Making - Diagnostics Imaging: I viewed and interpreted images myself <Clari Richardson - Last Filed: 07/20/18 07:03> - Diagnostics Imaging: Discussed imaging studies w/ cigarette making machine catcher Radiologist, I viewed and interpreted images myself <Alexis Araya - Last Filed: 07/20/18 08:34> - Diagnostics EKG Interpretation: EKG: Complete interpretation has been separately recorded in the [email or web address] archive. Summary impression: Normal sinus rhythm (Clari Richardson) Imaging Results: Imaging Impressions Chest/Thorax CTA 07/20/18 07:13 Impression: 1. No evidence for pulmonary embolic disease or cardiac failure. 2. Prominent inferior vena cava. Might this patient have elevated heart pressures or tricuspid valve disease? 3. Steatosis of the liver. Results discussed with Dr. Araya at 8:23 AM. General information for patients regarding this examination can be found at [email or web address]. If you have questions or comments about this report, please contact me at [phone] (hospital) or [phone] (cell). Chest x-ray single view shows no cardiomegaly, no effusion, no pulmonary edema, interpreted by me, radiology interpretation pending. (Clari Richardson) ED Course/Re-evaluation: 0700: I assumed care of this patient from Dr. Richardson at shift change. 0715: After reviewing patient's chest x-ray, I believe there is an underlying pulmonary process. He also has fluid in his major fissure and numerous compression fractures. Due to his hypoxemia he will need a Chest CTA ordered. 0725: Patient's nurse has informed me that the patient has an unknown bug crawling on the pillow. We will identify the bug and potentially call orkin or another schedule announcer. 0730: Patient's D-dimer is elevated. 0825: I spoke with Dr. Moran, radiologist, who reports that there are no acute findings on the chest CTA. Patient does not have a PE, CHF, or pulmonary fibrosis. Patient did not improve after the DuoNeb. Patient will need to be admitted for hypoxemia; I will page the hospitalist service. Patient also had hypoalbuminemia. 0829: I consulted with the hospitalist service, Dr. Howard accepts admission. Patient also appears to have borderline lower extremity cellulitis; 1gm IV Cefazolin administered. (Alexis Araya) Differential Diagnosis: 53-year-old male with longstanding history of alcohol abuse, homelessness presents after being arrested complaining of lower extremity edema. He does have fairly significant lower extremity edema without any dyspnea on exertion. Here, EKG, chest x-ray, BNP were all normal making new onset CHF unlikely. His AST is slightly elevated which is likely related to his alcohol abuse. Renal function appears to be normal. I suspect his edema is related to some venous stasis, and possibly alcoholic cirrhosis though I have not confirmed this. I reviewed his outside records and about 1 month ago he was at [facility] with similar complaints. He is seem to have lower extremity edema at that time and given the appearance of his legs is seems to be more of a chronic than acute problem for him. Here, I did give him a dose of Lasix and he had appropriate diuresis of approximately 1800 mL of urine. He required oxygen while he was here. When we sat him up in bed he is continually hypoxic with sats of 82% with good waveform. While chest x-ray did not reveal any pulmonary edema, I do not feel he is safe for discharge with this hypoxia. I have added on a D-dimer though the patient does not have any chest pain or shortness of breath. I have consulted with the hospitalist Dr. Lepe. He was able to find record of asthma as patient's past medical history. Patient did not report this initially. We plan to do a trial of a DuoNeb and await D-dimer result prior to admission. We will re-consult if the patient requires admission. At 7:00 a.m., case will be signed out to the oncoming provider Dr. Araya. (Clari Richardson) - Data Points Laboratory Results: Laboratory Results 07/20/18 01:15 07/20/18 01:15 07/20/18 07/20/18 07/20/18 07:05 01:15 01:15 WBC RBC Hgb Hct MCV MCH MCHC RDW Plt Count MPV Neut % (Auto) Lymph % (Auto) Hamblen % (Auto) Eos % (Auto) Baso % (Auto) Nucleat RBC Rel Count Absolute Neuts (auto) Absolute Lymphs (auto) Absolute Monos (auto) Absolute Eos (auto) Absolute Basos (auto) Absolute Nucleated RBC Immature Gran % Immature Gran # D-Dimer 3.66 ug/mLFEU H ug/mLFEU (0.00-0.50) Sodium 136 mEq/L mEq/L (135-145) Potassium 4.2 mEq/L mEq/L (3.5-5.2) Chloride 108 mEq/L mEq/L (97-110) Carbon Dioxide 22 mEq/l mEq/l (22-31) Anion Gap 6 mEq/L mEq/L (6-14) BUN 9 mg/dL mg/dL (7-23) Creatinine 0.7 mg/dL mg/dL (0.7-1.3) Estimated GFR > 60 Glucose 97 mg/dL mg/dL (70-100) Calcium 7.4 mg/dL L mg/dL (8.5-10.4) Total Bilirubin 0.3 mg/dL mg/dL (0.1-1.4) AST 142 IU/L H IU/L (17-59) ALT 60 IU/L IU/L (21-72) Alkaline Phosphatase 136 IU/L H IU/L (38-126) NT-Pro-B Natriuret Pep 24 pg/mL pg/mL (0-125) Total Protein 5.3 g/dL L g/dL (6.3-8.2) Albumin 2.2 g/dL L g/dL (3.5-5.0) 07/20/18 01:15 WBC 4.66 10^3/uL 10^3/uL (3.80-9.50) RBC 4.40 10^6/uL 10^6/uL (4.40-6.38) Hgb 12.9 g/dL L g/dL (13.7-17.5) Hct 37.8 % L % (40.0-51.0) MCV 85.9 fL fL (81.5-99.8) MCH 29.3 pg pg (27.9-34.1) MCHC 34.1 g/dL g/dL (32.4-36.7) RDW 18.5 % H % (11.5-15.2) Plt Count 138 10^3/uL L 10^3/uL (150-400) MPV 9.7 fL fL (8.7-11.7) Neut % (Auto) 44.1 % % (39.3-74.2) Lymph % (Auto) 28.5 % % (15.0-45.0) Hamblen % (Auto) 16.3 % H % (4.5-13.0) Eos % (Auto) 9.4 % H % (0.6-7.6) Baso % (Auto) 1.5 % % (0.3-1.7) Nucleat RBC Rel Count 0.0 % % (0.0-0.2) Absolute Neuts (auto) 2.05 10^3/uL 10^3/uL (1.70-6.50) Absolute Lymphs (auto) 1.33 10^3/uL 10^3/uL (1.00-3.00) Absolute Monos (auto) 0.76 10^3/uL 10^3/uL (0.30-0.80) Absolute Eos (auto) 0.44 10^3/uL H 10^3/uL (0.03-0.40) Absolute Basos (auto) 0.07 10^3/uL 10^3/uL (0.02-0.10) Absolute Nucleated RBC 0.00 10^3/uL 10^3/uL (0-0.01) Immature Gran % 0.2 % % (0.0-1.1) Immature Gran # 0.01 10^3/uL 10^3/uL (0.00-0.10) D-Dimer Sodium Potassium Chloride Carbon Dioxide Anion Gap BUN Creatinine Estimated GFR Glucose Calcium Total Bilirubin AST ALT Alkaline Phosphatase NT-Pro-B Natriuret Pep Total Protein Albumin Medications Given: Discontinued Medications Albuterol/Ipratropium (Duoneb) 3 ml IH EDNOW ONE Stop: 07/20/18 07:04 Last Admin: 07/20/18 07:34 Dose: 3 ml Furosemide (Lasix Injection) 20 mg IVP EDNOW ONE Stop: 07/20/18 03:22 Last Admin: 07/20/18 04:05 Dose: 20 mg Departure <Clari Richardson - Last Filed: 07/20/18 07:03> <Alexis Araya - Last Filed: 07/20/18 08:34> - Departure Disposition: [facility] Clinical Impression: Bilateral lower extremity edema, Venous stasis, Hypoxia, Hypoalbuminemia Cellulitis Qualifiers: Site of cellulitis: extremity Site of cellulitis of extremity: lower extremity Laterality: unspecified laterality Qualified Code(s): L03.119 - Cellulitis of unspecified part of limb Condition: Fair Instructions: Leg Edema (ED) Additional Instructions: You are retaining fluid in her legs and that is why they are swollen. I am giving you a short course of a diuretic that may help decrease some of the swelling in her legs. You must follow up with a primary care doctor if you would like to continue this medication. Please return to the emergency department if your worse in any way. Referrals: [facility],. [Clinic] - As per Instructions Prescriptions: Furosemide [Lasix 20 MG (*)] 20 mg PO DAILY 5 Days tab
[2018-07-20] MEDS ORDERED: FUROSEMIDE 20 MG/2 ML VIAL IVP ONE (03:21)
[2018-07-20] MEDS ORDERED: IPRATROPIUM/ALBUTEROL 3 ML DEYVIAL IH ONE (07:03)
[2018-07-20] MEDS ORDERED: IOPAMIDOL (ISOVUE 370) 100 ML BTL IV ONE ×2 (07:24→07:59)
[2018-07-20] MEDS ORDERED: ONDANSETRON 4 MG/2 ML VIAL IVP PRN (09:15)
[2018-07-20] MEDS ORDERED: ONDANSETRON DISINTEGRATING 4 MG TAB PO PRN (09:15)
[2018-07-20] MEDS ORDERED: IPRATROPIUM/ALBUTEROL 3 ML DEYVIAL IH PRN (09:16)
[2018-07-20] MEDS ORDERED: FLUMAZENIL 0.5 MG/5 ML MDV IVP PRN (09:56)
--- NOTE | 2018-07-20 10:31 | ASMTCMCOM ---
CM Note CM Note Notes: Patient is a homeless gentleman admitted with hypoxia. Patient has visited this ER 8 times since March and had 13 visits last year. Please see various CM notes regarding attempts to connect patient with services at the [facility] and [facility]. This CM contacted [facility] this morining and confirmed that patient has seen CESAR Giraldo in the past and that patient has not been seen at the clinic since August of 2017. Per chart review (CM notes) patient has not consistently utilized [facility] services and prefers to stay outdoors. CM to follow and assess for resources prior to discharge. [facility] has patient as "active" in their system and CM to contact clinic to schedule a follow up appointment at discharge and/or update the clinic at time of discharge. [facility] backline for CM ONLY . Please do NOT give number to patient's Date Signed: 07/20/2018 10:30 AM Electronically Signed By:Michelle Stewart RN
--- NOTE | 2018-07-20 10:33 | ASMTLACE ---
LISA Comorbidities - select Answers: Moderate or severe liver all that apply or renal disease # of Emergency department Answers: 5-8 visits in the last 6 months Social determinants Answers: History of substance abuse (ETOH, street drugs, prescription drugs, etc.) Homelessness (street, senior living) Score: 14 Date Signed: 07/20/2018 10:31 AM Electronically Signed By:Michelle Stewart RN
--- NOTE | 2018-07-20 10:37 | GHP ---
[f rep st] HISTORY AND PHYSICAL DATE OF ADMISSION: 07/20/2018 CHIEF COMPLAINT: Bilateral leg swelling. HISTORY OF PRESENT ILLNESS: A 53-year-old male with asthma, alcohol dependence, ankylosing spondylit is, presents with several months of bilateral leg swelling. He was being arrested by the police, beg an complaining that his legs were swollen, so they brought him to the ER. He went to [facility] a month ago for the same thing and was started on a course of Keflex which did not help his symptoms . He denies any fevers, chills, or sweats, no chest pain or shortness of breath. Has had a mildly p roductive cough with yellow sputum over the last few days. No PND, pillow orthopnea, or wheezing. D rinks two 24-ounce beers a day. Echo January 2018, showed EF of 56%. No wall motion abnormality. No valvular heart disease. In the ER, patient is hypoxic to 84%. CTA was negative for PE, pneumonia or pleural effusion. PAST MEDICAL HISTORY: Asthma, alcohol dependence, ankylosing spondylitis. PAST SURGICAL HISTORY: Bilateral shoulder I and D, secondary to recluse spider bite. FAMILY HISTORY: No asthma. SOCIAL HISTORY: He is homeless. He drinks two 24-ounce beers a day. Occasional marijuana. No ciga rettes. No other illicits. MEDICATIONS: Occasional Advil. ALLERGIES: Sulfa causes rash. REVIEW OF SYSTEMS: I completed a 10-point review of systems and negative. PHYSICAL EXAMINATION: VITAL SIGNS: Temperature 36.7, blood pressure 130/87, heart rate 99, 84% on r oom air, 94 on 2 L. GENERAL: He is disheveled. HEENT: Marcelino face. CARDIOVASCULAR: Regular rate and rhythm. No murmurs, gallops, or rubs. +2 to 3 pitting edema up to knees. LUNGS: Clear. No crabber ckles or wheezing. ABDOMEN: Mildly distended, nontender. No masses. : No Blunt. MUSCULOSKELET AL: Moving all 4 extremities. SKIN: Bilateral lower extremity erythema. Mildly warm to touch. A scabbed over lesion right lopez. NEURO: 2 through 12 intact. PSYCH: Alert and oriented x3. LABS: WBC 4, hemoglobin 12, hematocrit 37, platelets 138. Sodium 136, potassium 4.2, chloride 108, carbon dioxide 22, creatinine 0.7, glucose 97, calcium 7.4, total bilirubin 0.4, AST 142, ALT 60, alk bobby phosphatase 136, total protein 5.3, albumin 2.2. BNP is 24. CTA negative for PE. Positive li jack steatosis. Chest x-ray personally reviewed by me: Mild blunting of right costophrenic angle. ASSESSMENT AND PLAN: 1. Acute hypoxia: Suspect underlying asthma. No evidence of exacerbation. CTA negative for clots. No evidence of pneumonia or effusions. We will provide incentive spirometry and trial DuoNeb. 2. Bilateral lower extremity edema: Suspect due to cirrhosis. Normal echocardiogram January 2018. We will check a UA for protein as well as an abdominal ultrasound. We will continue diuresis. Leia ly weights and strict I's and O's. 2 g sodium and 2 L fluid restriction. 3. Alcohol dependence. Counseled on cessation. CIWA. 4. Bilateral leg cellulitis. Will treat with oral antibiotics. 5. Normocytic anemia/thrombocytopenia: Likely bone marrow suppression with alcohol. 6. Social issues. He is homeless, living on the streets. We will have case management assist. 7. Diet: 2 g sodium, 2 L fluid restriction. DISPOSITION: Observation admission for diuresis, oxygen. Reassess in morning. /[id number]/MODL
[2018-07-20] MEDS: THIAMINE HCL 100 MG TAB PO SCH (11:35)
[2018-07-20] MEDS: FUROSEMIDE 20 MG/2 ML VIAL IVP SCH (14:52)
[2018-07-20 16:12] LABS: HEPATITIS B SURFACE ANTIGEN NEGATIVE (NEGATIVE); HEPATITIS C ANTIBODY TOTAL NEGATIVE (NEGATIVE)
[2018-07-20] MEDS: LORazepam 2 MG/ML INJ IVP PRN ×2 (18:07→22:11)
[2018-07-20] MEDS: ACETAMINOPHEN 325 MG TAB PO PRN (19:57)
[2018-07-20] MEDS ORDERED: PROTOCOL POTASSIUM 1 DOSE MISC PRN (21:35)
[2018-07-20] MEDS ORDERED: PROTOCOL MAGNESIUM 1 DOSE IV PRN (21:35)
[2018-07-21] MEDS ORDERED: MAGNESIUM SULF 1 GM/DEXTROSE 100 ML IV ONE ×2 (01:24→08:13)
[2018-07-21] MEDS ORDERED: POTASSIUM CL 20 MEQ TAB PO ONE (01:24)
[2018-07-21] MEDS: ACETAMINOPHEN 325 MG TAB PO PRN ×3 (02:05→20:30)
[2018-07-21] MEDS ORDERED: POTASSIUM CL 10 MEQ TAB PO ONE (08:12)
[2018-07-21] MEDS: ENOXAPARIN 40 MG/0.4 ML SYR SC SCH (08:47)
[2018-07-21] MEDS: LORazepam 2 MG/ML INJ IVP PRN ×3 (08:47→17:39)
[2018-07-21] MEDS: FUROSEMIDE 20 MG/2 ML VIAL IVP SCH ×2 (08:47→15:33)
[2018-07-21] MEDS: THIAMINE HCL 100 MG TAB PO SCH (08:48)
[2018-07-21] MEDS ORDERED: LISINOPRIL 5 MG TAB PO SCH (09:00)
--- NOTE | 2018-07-21 10:37 | HOSPPROG ---
Hospitalist Progress Note Assessment/Plan: # Acute hypoxia: Suspect underlying asthma. No evidence of exacerbation. CTA negative for clots. No evidence of pneumonia or effusions. We will provide incentive spirometry and trial DuoNeb. #Bilateral lower extremity edema: swelling improved today no cirrhosis on US. Echo 01/2018 with normal EF, no VHD. Proteinuria on UA; spot protein/cr ratio 1.5g -cont IV lasix, low NA, 2L fluid restriction -add low-dose HARINDER-I #HTN: add HARINDER-I #.Alcohol dependence. Counseled on cessation. CIWA. # Bilateral leg erythema: improved. Likely from edema. Afebrile, no leukocytosis. Hold off on abx # Normocytic anemia/thrombocytopenia: Likely bone marrow suppression with alcohol. #. Social issues. He is homeless, living on the streets. We will have case management assist. #Diet: 2 g sodium, 2 L fluid restriction. #DVT ppx: Lovenox #Disp: inpatient admission for IV lasix, lytes Objective: Vital Signs Temp Pulse Resp BP Pulse Ox 36.9 C 94 18 144/101 H 96 07/21/18 07:06 07/21/18 07:06 07/21/18 07:06 07/21/18 07:06 07/21/18 07:06 Laboratory Results 07/21/18 05:20 07/20/18 07/21/18 07/22/18 05:59 05:59 05:59 Intake Total 985 240 Output Total 2400 950 Balance -1415 -710 ICD10 Worksheet Patient Problems: Problems Problem Status Onset Bilateral lower extremity edema Acute Cellulitis Acute Hypoalbuminemia Acute Hypoxia Acute Venous stasis Acute Acute alcohol intoxication Acute Acute bronchitis Acute Alcoholic intoxication Acute Closed head injury Acute Laceration of eyebrow, right, complicated Acute Unable to ambulate Acute
[2018-07-21] MEDS ORDERED: LISINOPRIL 2.5 MG TAB PO SCH (10:45)
--- NOTE | 2018-07-21 13:32 | ASMTCMCOM ---
CM Note CM Note Notes: Pt was brought to ED last night by police. He was in the process of being arrested and due to complaints of pain in bilateral lower legs, police brought him to ED and dropped charges. Pt states he had been on a course of Keflex about a month ago at [facility] but that it hadn't helped the cellulitis in his bilateral lower legs. Also admitted with hypoxemia. Upon reviewing chart, CM determined that pt has had 8 ED visits since March and 13 in 2018. Multiple attempts have been made during these visits to connect pt with resources. CM met with pt today in his room and gave him information about [facility], as he is homeless and is not registered with them. He states that he prefers to sleep outside rather than in a snf and probably will not use [facility], but information was left with him. Pt has been to [facility] in the past but not since August 2017. If he is agreeable to a follow-up appt with them upon discharge, CM may use the backline [phone]. (NOTE: Please do not give this # to the pt.) Pt's clothing is not in his room and he doesn't know where they are, but he does not want them back unless they are washed because a nurse noticed a bug on the clothing; they may have been discarded due to suspected lice. CM brought him a shirt, elastic pants, and coat in size XL per his request. He said he had shoes, but they don't appear to be in his room. He may need some if available upon discharge. Dr. Howard (hospitalist) gave pt information on alcohol cessation. At this time pt does not exhibit any desire to improve his situation or utilize offered resources. Pt states that he doesn't usually take any meds other than ibuprofen occasionally. He uses the local bus system and walks. While in the hospital he is on IV Lasix to help with edema in his legs, and IV electrolytes. CM will continue to follow. CARINA D/C plan: TBD Date Signed: 07/21/2018 01:30 PM Electronically Signed By:Ann Marie Barr
--- NOTE | 2018-07-21 15:48 | PDMN ---
Medical Necessity Medical necessity: Change to IP, as of 07/21/18, per & MCG [facility] General Discharge Criteria; los >2 mn for ongoing management of BLE edema & acute hypoxia; requiring further monitoring, IV Lasix, respiratory supportive care & CIWA protocol; hx homelessness
[2018-07-21] MEDS: chlordiazePOXIDE 25 MG CAP PO SCH (23:17)
[2018-07-21] MEDS: MELATONIN 3 MG TAB PO SCH (23:28)
[2018-07-22] MEDS: CYCLOBENZAPRINE 10 MG TAB PO PRN ×2 (02:32→21:13)
[2018-07-22] MEDS ORDERED: POTASSIUM CL 20 MEQ TAB PO ONE (06:16)
[2018-07-22] MEDS ORDERED: FUROSEMIDE 40 MG TAB PO SCH (09:00)
[2018-07-22] MEDS: THIAMINE HCL 100 MG TAB PO SCH (09:53)
[2018-07-22] MEDS: LISINOPRIL 5 MG TAB PO SCH (09:53)
[2018-07-22] MEDS: chlordiazePOXIDE 25 MG CAP PO SCH ×3 (09:53→21:11)
[2018-07-22] MEDS: FUROSEMIDE 20 MG TAB PO SCH ×2 (09:53→15:30)
[2018-07-22] MEDS: ENOXAPARIN 40 MG/0.4 ML SYR SC SCH (09:54)
--- NOTE | 2018-07-22 09:57 | HOSPPROG ---
Hospitalist Progress Note Assessment/Plan: # Acute hypoxia: resolved Suspect underlying asthma. No evidence of exacerbation. CTA negative for clots. No evidence of pneumonia or effusions. We will provide incentive spirometry and trial DuoNeb. #Bilateral lower extremity edema: swelling much improved no cirrhosis on US. Echo 01/2018 with normal EF, no VHD. Proteinuria on UA; spot protein/cr ratio 1.5g -added HARINDER-I -Transition to PO Lasix -check US left leg #Hypokalemia/hypomagnesium -from diuresis. Replete #HTN: add HARINDER-I #.Alcohol dependence. Counseled on cessation. CIWA. # Bilateral leg erythema: improved. Likely from edema. Afebrile, no leukocytosis. Hold off on abx # Normocytic anemia/thrombocytopenia: Likely bone marrow suppression with alcohol. #. Social issues. He is homeless, living on the streets. We will have case management assist. #Diet: 2 g sodium, 2 L fluid restriction. #DVT ppx: Lovenox #Disp: inpatient admission for diuresis, lytes. Can DC tomorrow if does well on oral Lasix Subjective: no SOB Objective: Vital Signs Temp Pulse Resp BP Pulse Ox 36.8 C 87 20 148/97 H 92 07/22/18 08:00 07/22/18 08:00 07/22/18 08:00 07/22/18 08:00 07/22/18 08:00 Laboratory Results 07/22/18 04:55 07/21/18 07/22/18 07/23/18 05:59 05:59 05:59 Intake Total 1280 Output Total 2750 200 Balance -1470 -200 - Time Spent With Patient Time Spent with Patient: greater than 35 minutes Time Spent with Patient: Greater than 35 minutes spent on this patients care, greater than 50% of time spent counseling, educating, and coordinating care regarding the above mentioned plan. - Physical Exam Constitutional: no apparent distress Eyes: PERRL Ears, Nose, Mouth, Throat: moist mucous membranes Cardiovascular: regular rate and rhythym, edema (swelling much improved. Left leg >right leg) Gastrointestinal: normoactive bowel sounds Genitourinary: no bladder fullness Skin: warm, other (minimal erythema over BL legs) Neurologic: AAOx3, CN II-XII Intact Psychiatric: interacting appropriately ICD10 Worksheet Patient Problems: Problems Problem Status Onset Bilateral lower extremity edema Acute Cellulitis Acute Hypoalbuminemia Acute Hypoxia Acute Venous stasis Acute Acute alcohol intoxication Acute Acute bronchitis Acute Alcoholic intoxication Acute Closed head injury Acute Laceration of eyebrow, right, complicated Acute Unable to ambulate Acute
[2018-07-22] MEDS: ATORVASTATIN CALCIUM 20 MG TAB PO SCH (10:06)
--- NOTE | 2018-07-22 10:27 | ASMTCAGE ---
CAGE Do you feel you ought to Answers: No cut down on your drinking or drug use? Do people annoy you by Answers: No criticizing your drinking or drug use? Do you feel guilty about Answers: No your drinking or drug use? Do you drink or use drugs Answers: No first thing in the morning ([employer])? Date Signed: 07/22/2018 10:26 AM Electronically Signed By:Ann Marie Barr
--- NOTE | 2018-07-22 10:28 | ASMTCMCOM ---
CM Note CM Note Notes: CAGE assessment completed per order. Date Signed: 07/22/2018 10:27 AM Electronically Signed By:Ann Marie Barr
--- NOTE | 2018-07-22 10:31 | ASMTCMCOM ---
CM Note CM Note Notes: Per Dr. Howard, pt can be discharged tomorrow if he does well on oral Lasix today. CARINA spoke with pt. His preference is to return to the streets rather than have us book him a room at the [facility]. CARINA D/C plan: Independent Date Signed: 07/22/2018 10:30 AM Electronically Signed By:Ann Marie Barr
[2018-07-22] MEDS ORDERED: MAGNESIUM SULF 2 GM/WATER 50 ML IV ONE (10:47)
[2018-07-22] MEDS ORDERED: PROTOCOL POTASSIUM 1 DOSE MISC PRN (14:09)
[2018-07-22] MEDS ORDERED: POTASSIUM CL 10 MEQ TAB PO ONE (19:20)
[2018-07-22] MEDS: ACETAMINOPHEN 325 MG TAB PO PRN (20:17)
[2018-07-22] MEDS: MELATONIN 3 MG TAB PO SCH (21:11)
[2018-07-23] MEDS: ACETAMINOPHEN 325 MG TAB PO PRN ×2 (05:57→10:42)
[2018-07-23] MEDS: CYCLOBENZAPRINE 10 MG TAB PO PRN ×3 (05:58→23:08)
[2018-07-23] MEDS ORDERED: POTASSIUM CL 10 MEQ TAB PO ONE ×3 (10:22→21:38)
[2018-07-23] MEDS ORDERED: MAGNESIUM SULF 1 GM/DEXTROSE 100 ML IV ONE (10:25)
[2018-07-23] MEDS: FUROSEMIDE 20 MG TAB PO SCH ×2 (10:41→14:02)
[2018-07-23] MEDS: chlordiazePOXIDE 25 MG CAP PO SCH ×3 (10:41→21:35)
[2018-07-23] MEDS: THIAMINE HCL 100 MG TAB PO SCH (10:41)
[2018-07-23] MEDS: LISINOPRIL 5 MG TAB PO SCH (10:41)
[2018-07-23] MEDS: ATORVASTATIN CALCIUM 20 MG TAB PO SCH (10:41)
[2018-07-23] MEDS: ENOXAPARIN 40 MG/0.4 ML SYR SC SCH (10:43)
--- NOTE | 2018-07-23 16:19 | HOSPPROG ---
Hospitalist Progress Note Assessment/Plan: DIAGNOSES: * Hypoxemia with Marked peripheral edema (no pulm edema), improving with diuresis (approx 6 L out so far and still edematous) * Etiology uncertain of both the edema and the hypoxemia uncertain (no PE or DVT , Echo not very remarkable, Abd US read as no cirrhosis but steatosis, patent portal vein, no ascites) * Albumin is low and proteinuria present - triglycerides 58, LDL 100, high LDL, and good renal fxn argue against nephrotic syndrome; ? etiology * hypokalemia/hypomagnesemia likley from etoh abuse * etoh abuse * htn PLANS: * continue lasix diuresis * await final echo reading * repeat UA to look at proteinuria, and if still + will begin a 24 hr collection in am, consult nephrology * if no findings in urine, ? if need further venous studies to look for bilateral May Saunders or other cause SUBJECTIVE: Still feels very weak and tired, still no real dyspnea No pain OBJECTIVE Vitals reviewed: Sats 90-93 on room air, mild intermittent hypertension otherwise normal vitals Exam: alert oriented looks very tired skin warm dry color ok resps not labored lungs clear BSs heart regular abd soft nondistended nontender, bowel sounds present limbs warm, still remarkable for pitting edema in both legs from knees to ankles and feet iv site ok I was present during his echocardiogram today which shows no pulmonary hypertension or right heart changes, good left ventricular systolic function though this is all preliminary reading with myself in the orthotic and prosthetic technician in the room , await Cardiology reading Lab data: Sodium 132 potassium 3.1 renal function normal magnesium 1.5 AST a bit better at 106 Objective: Vital Signs Temp Pulse Resp BP Pulse Ox 36.8 C 114 H 14 132/93 H 92 07/23/18 11:32 07/23/18 11:32 07/23/18 11:32 07/23/18 11:32 07/23/18 11:32 Laboratory Results 07/23/18 04:50 07/22/18 07/23/18 07/24/18 06:59 06:59 06:59 Intake Total 1280 1440 240 Output Total 2750 3800 500 Balance -3252 -7600 -195 - Time Spent With Patient Time Spent with Patient: greater than 35 minutes Time Spent with Patient: Greater than 35 minutes spent on this patients care, greater than 50% of time spent counseling, educating, and coordinating care regarding the above mentioned plan. ICD10 Worksheet Patient Problems: Problems Problem Status Onset Bilateral lower extremity edema Acute Cellulitis Acute Hypoalbuminemia Acute Hypoxia Acute Venous stasis Acute Acute alcohol intoxication Acute Acute bronchitis Acute Alcoholic intoxication Acute Closed head injury Acute Laceration of eyebrow, right, complicated Acute Unable to ambulate Acute
--- NOTE | 2018-07-23 18:05 | ECHO ---
[email or web address] [address] [address] Main: [phone] Echocardiography Examination Transthoracic Name: MAYURI WETZEL MR#: [id number] Study Date: 07/23/2018 Study Time: 03:48 PM Date of : 1965 Age: 53 year(s) Height: 182.9 cm (72 in.) Weight: 83.92 kg (185 lb.) BSA: 2.06 m2 Gender: Male Examination: Echo Contrast: Image Quality: Fair Rhythm: Heart Rate: BP: 132 mmHg/93 mmHg Indication: New CHF/question right vs left Procedure Staff Referring Physician: Emergency Services Professional: Amelia Joshua [facility] Reading Physician: Kayla Arana MD Requesting Provider: Ordering Physician: Mingo Monaco Indication: New CHF/question right vs left Measurements Chambers AV/MV Label Value Normal Value Label Value Normal Value LVDd, 2D 4.6 cm (4.2cm - 5.9cm) AV PGmean 2 mmHg LVEF, BP 59 % (55% - 70%) AV Vmax 0.94 m/s LA Volume, BP 43 ml (18ml - 58ml) MV E Vmax 0.36 m/s LAESV index, BP 20.9 ml/m2 MV A Vmax 0.61 m/s Additional Vessels MV E/A 0.59 Label Value Normal Value MV E/E' lateral 5.5 AoRoot, 2D 3.1 cm (1.4cm - 2.6cm) MV E/E' septal 8.7 (0.5 - 1.7) MV E' septal 0.04 m/s MV E' lateral 0.07 m/s MV E/E' mean 6.55 MV E' mean 0.06 m/s Findings 1 the left ventricle is normal in size and systolic function. Ejection fraction is 59%. There is inferior and inferoseptal hypokinesis.2. The right ventricle is normal in size and systolic function. 3. no significant valvular disease4. Compared with all 01/2018 wall motion abnormalities are now noted. Left Ventricle: There is inferior and inferosetpal wall hypokinesis. . Left ventricle is normal in size. The ejection fraction, measured by Simpsons method, is 59 %. EF range is estimated at 55 % - 60 %. Left ventricle wall thickness is normal. Regional wall Patient: MAYURI WETZEL Study Date: 07/23/2018 Page 1 of 2 03:48 PM motion abnormality noted. IVS: The septum is intact. Right Ventricle: Normal size right ventricle. Right ventricular systolic function is normal. Left Atrium: The left atrium is normal in size. IAS: Normal appearing atrial septum. Right Atrium: The right atrium is normal in size. Mitral Valve: E/a wave reversal.. Mitral valve appears structurally normal. Trivial mitral regurgitation. No mitral valve stenosis. Aortic Valve: Aortic leaflets exhibit normal cuspal separation. No aortic valve regurgitation. There is no aortic stenosis. Tricuspid Valve: Tricuspid valve leaflets are normal in appearance and function. No tricuspid regurgitation. No tricuspid valve stenosis. Pulmonic Valve: Pulmonic valve is poorly visualized. Pulmonic leaflets exhibit normal cuspal separation. No pulmonic valve regurgitation is evident. There is no pulmonic valve stenosis. Aorta: The aorta is normal. The aortic root size in 2D measures 3.1 cm. Aorta Measurements AoRoot, 2D is 3.1 cm. Pulmonary Artery: The pulmonary artery morphology appears normal. IVC: The inferior vena cava is normal in size and course. Pericardium: No pericardial effusion. No pleural effusion present. Exam Details Procedure Ordered: Echo Procedure Status: Routine study Image Quality: Fair Facility Location: Cardiac Echo 1 (No Signature Object) Patient: MAYURI WETZEL Study Date: 07/23/2018 Page 2 of 2 03:48 PM [id number]
[2018-07-23] MEDS: MELATONIN 3 MG TAB PO SCH (21:35)
[2018-07-24] MEDS ORDERED: POTASSIUM CL 10 MEQ TAB PO ONE ×2 (07:41→20:30)
[2018-07-24] MEDS ORDERED: MAGNESIUM SULF 1 GM/DEXTROSE 100 ML IV ONE (07:43)
[2018-07-24] MEDS: ATORVASTATIN CALCIUM 20 MG TAB PO SCH (08:28)
[2018-07-24] MEDS: chlordiazePOXIDE 25 MG CAP PO SCH ×3 (08:28→21:49)
[2018-07-24] MEDS: THIAMINE HCL 100 MG TAB PO SCH (08:28)
[2018-07-24] MEDS: FUROSEMIDE 20 MG TAB PO SCH ×2 (08:28→15:06)
[2018-07-24] MEDS: LISINOPRIL 5 MG TAB PO SCH (08:29)
[2018-07-24] MEDS: ENOXAPARIN 40 MG/0.4 ML SYR SC SCH (08:29)
--- NOTE | 2018-07-24 13:10 | CPEKG ---
Test Reason : chest pain Blood Pressure : / mmHG Vent. Rate : 095 BPM Atrial Rate : 095 BPM P-R Int : 179 ms QRS Dur : 111 ms QT Int : 367 ms P-R-T Axes : 075 089 060 degrees QTc Int : 462 ms Sinus rhythm Confirmed by Nitin Ramirez ([id number]) on 07/24/2018 1:10:22 PM Referred By: Dominique Howard Confirmed By:Nitin Ramirez
--- NOTE | 2018-07-24 17:19 | HOSPPROG ---
Hospitalist Progress Note Assessment/Plan: DIAGNOSES: * Hypoxemia with Marked peripheral edema (no pulm edema), improving with diuresis (approx 6 L out so far and still edematous) * Etiology uncertain of both the edema and the hypoxemia uncertain (no PE or DVT , Echo not very remarkable, Abd US read as no cirrhosis but steatosis, patent portal vein, no ascites) * Albumin is low and proteinuria present - triglycerides 58, LDL 100, high LDL, and good renal fxn argue against nephrotic syndrome; ? etiology * hypokalemia/hypomagnesemia likley from etoh abuse * inferior/septal hypokinesis on echo - ? CAD, needs further assessment once stabilized from resp/volume standpoint * alcoholic hepatitis, mild * etoh abuse * htn- not ideally controlled here PLANS: * continue lasix diuresis, follow electrolytes and fluid balance closely * repeat UA to look at proteinuria, and if still + will begin a 24 hr collection in am, consult nephrology * Will recommend cardiac stress testing with myocardial perfusion imaging to her discharge * Thiamine * Ongoing alcohol counseling * Physical occupational therapy * DVT prophylaxis * Will add amlodipine for blood pressure control SUBJECTIVE: Still feels very weak and tired, still no real dyspnea No pain OBJECTIVE Vitals reviewed: Still some mild hypertension overall otherwise stable Exam: alert oriented looks very tired skin warm dry color ok resps not labored lungs clear BSs heart regular abd soft nondistended nontender, bowel sounds present limbs warm, still remarkable for pitting edema in both legs from knees to ankles and feet iv site ok Echo final reading: inferior/septal hypokinesis, no other concerning findings, ( No pulm pressure estimate as no TR jet) Lab data: Sodium Mag now normal, potassium still slightly low this morning UA results pending Objective: Vital Signs Temp Pulse Resp BP Pulse Ox 36.6 C 118 H 16 111/83 H 92 07/24/18 16:02 07/24/18 16:02 07/24/18 16:02 07/24/18 16:02 07/24/18 16:02 Laboratory Results 07/24/18 04:49 07/23/18 07/24/18 07/25/18 06:59 06:59 06:59 Intake Total 1440 1050 Output Total 3800 500 250 Balance -2360 550 -250 - Time Spent With Patient Time Spent with Patient: greater than 35 minutes Time Spent with Patient: Greater than 35 minutes spent on this patients care, greater than 50% of time spent counseling, educating, and coordinating care regarding the above mentioned plan. ICD10 Worksheet Patient Problems: Problems Problem Status Onset Bilateral lower extremity edema Acute Cellulitis Acute Hypoalbuminemia Acute Hypoxia Acute Venous stasis Acute Acute alcohol intoxication Acute Acute bronchitis Acute Alcoholic intoxication Acute Closed head injury Acute Laceration of eyebrow, right, complicated Acute Unable to ambulate Acute
[2018-07-24] MEDS: amLODIPine BESYLATE 5 MG TAB PO SCH (21:49)
[2018-07-24] MEDS: MELATONIN 3 MG TAB PO SCH (21:49)
[2018-07-25] MEDS: ENOXAPARIN 40 MG/0.4 ML SYR SC SCH (09:43)
[2018-07-25] MEDS: LISINOPRIL 5 MG TAB PO SCH (09:44)
[2018-07-25] MEDS: chlordiazePOXIDE 25 MG CAP PO SCH ×3 (09:44→21:52)
[2018-07-25] MEDS: THIAMINE HCL 100 MG TAB PO SCH (09:44)
[2018-07-25] MEDS: FUROSEMIDE 20 MG TAB PO SCH ×2 (09:45→16:32)
[2018-07-25] MEDS: ATORVASTATIN CALCIUM 20 MG TAB PO SCH (09:45)
[2018-07-25] MEDS ORDERED: POTASSIUM CL 10 MEQ TAB PO ONE ×2 (10:02→19:14)
[2018-07-25] MEDS ORDERED: MAGNESIUM SULF 1 GM/DEXTROSE 100 ML IV ONE (10:11)
--- NOTE | 2018-07-25 13:27 | HOSPPROG ---
Hospitalist Progress Note Assessment/Plan: DIAGNOSES: * Hypoxemia with Marked peripheral edema (no pulm edema), improved after some diuresis sick L so far, however still with significant edema and switch to p.o. Diuretic has led to no further net output * Etiology uncertain of both the edema and the hypoxemia uncertain (no PE or DVT , Echo not very remarkable, Abd US read as no cirrhosis but steatosis, patent portal vein, no ascites) * Albumin is low and proteinuria present - triglycerides 58, LDL 100, high LDL, and "normal" creat fxn argue against nephrotic syndrome; ? etiology * Hematuria, microscopic, unknown etiology * hypokalemia/hypomagnesemia likley from etoh abuse * inferior/septal hypokinesis on echo - ? CAD, needs further assessment once stabilized from resp/volume standpoint * alcoholic hepatitis, mild * etoh abuse * htn- not ideally controlled here Still with proteinuria on repeat UA however has significant hematuria as well PLANS: * continue lasix diuresis but will change back to IV * Continue follow fluid balance and electrolytes closely * I have spoken to Dr. Anup Valentin about his case and he will see him in consultation * Will do cardiac stress testing with myocardial perfusion imaging to her discharge * Thiamine * Ongoing alcohol counseling approximately 10 min spent on that topic today * Physical occupational therapy * Will hold DVT prophylaxis for now with possibility of kidney biopsy * Continue amlodipine at current dose and follow blood pressure closely SUBJECTIVE: Strength getting better, eating well Little pain today OBJECTIVE Vitals reviewed: Blood pressure is better on amlodipine Notably he has not had any significant diuresis for a couple days now since switching to p.o. Diuretic Exam: alert oriented skin warm dry color ok resps not labored lungs very diminished breath sounds heart regular abd soft nondistended nontender, bowel sounds present limbs warm, still remarkable for pitting edema in both legs from knees to ankles and feet unchanged from yesterday iv site ok Echo final reading: inferior/septal hypokinesis, no other concerning findings, ( No pulm pressure estimate as no TR jet) Lab data: Repeat UA shows some microscopic hematuria as well as 2+ proteinuria Sodium slightly low but potassium remains in normal range now, creatinine 0.6, mild increase in hepatic transaminases today from 3 days ago Hepatitis B and C serologies are negative Objective: Vital Signs Temp Pulse Resp BP Pulse Ox 36.6 C 100 18 115/82 H 90 L 07/25/18 12:00 07/25/18 12:00 07/25/18 12:00 07/25/18 12:00 07/25/18 12:00 Laboratory Results 07/25/18 04:56 07/24/18 07/25/18 07/26/18 06:59 06:59 06:59 Intake Total 1050 1450 Output Total 500 625 700 Balance 550 825 -700 - Time Spent With Patient Time Spent with Patient: greater than 35 minutes Time Spent with Patient: Greater than 35 minutes spent on this patients care, greater than 50% of time spent counseling, educating, and coordinating care regarding the above mentioned plan. ICD10 Worksheet Patient Problems: Problems Problem Status Onset Bilateral lower extremity edema Acute Cellulitis Acute Hypoalbuminemia Acute Hypoxia Acute Venous stasis Acute Acute alcohol intoxication Acute Acute bronchitis Acute Alcoholic intoxication Acute Closed head injury Acute Laceration of eyebrow, right, complicated Acute Unable to ambulate Acute
--- NOTE | 2018-07-25 16:23 | ASMTCMCOM ---
CM Note CM Note Notes: Met with pt, he is concerned about his belongings, thinks he left them at the [facility] on [address]. Per Angel at [facility] security, pt's belongings were found to have bugs so they were double bagged and put into decontamination. He has one bag. Pt also states he will accept a reserved bed at the senior living at [place], CM to make f/u appointment at the [facility] before [place]. [place] Plan: Independent Date Signed: 07/25/2018 03:54 PM Electronically Signed By:Kirsten Perez RN
--- NOTE | 2018-07-25 19:04 | GCON ---
[f rep st] CONSULTATION DATE OF CONSULTATION: 07/25/2018 REASON FOR CONSULTATION: Opinion regarding proteinuria and hematuria. HISTORY OF PRESENT ILLNESS: The patient is a very pleasant 53-year-old gentleman with no prior histo ry of kidney disease. The patient has a history of ankylosing spondylitis; asthma; history of should er infection, status post I and D of both of his shoulders after a brown recluse spider bite; hyperli pidemia; as well as alcohol abuse. He was in his usual state of health until 3 or 4 weeks ago when h is legs began to swell. He was seen in the [facility] without relief. His edema worsened, and he came to the emergency department for further evaluation and management. His urinalysis showed a s pecific gravity of 1.017, pH 7, +2 protein, +3 blood, and the urine protein to creatinine ratio was 1 .5 g/g of creatinine. Over the course of the past 4 or 5 days, his serum creatinine has stayed stabl e; however, his edema has been somewhat recalcitrant. He has not had fevers, chills, nausea, vomiting, chest pain. He does have some shortness of breath a nd cough, occasional sputum production. No hemoptysis, hematemesis, epistaxis. Does have occasional abdominal discomfort. No melena, hematochezia, diarrhea, blurry vision, double vision, headache, or thopnea, paroxysmal nocturnal dyspnea, palpitations, or syncope. The patient has ankylosing spondyli tis and has been using nonsteroidal anti-inflammatory drugs for 30 or 35 years on a daily basis, mult iple times daily. CURRENT MEDICATIONS: Include: 1. Amlodipine 5 mg a day. 2. Lipitor 20 mg daily. 3. Librium 25 mg t.i.d. 4. Lasix 40 mg twice daily. 5. Lisinopril 5 mg daily. 6. Flexeril 10 mg 3 times daily. 7. Zofran. 8. Nonsteroidal anti-inflammatory drugs for 30 to 35 years. SOCIAL HISTORY: The patient is currently homeless. 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 He has a history of alcohol use/abuse. He drinks several bee rs a day. He also smokes some marijuana. Does not use tobacco, IV or other recreational drugs. He is currently not working. FAMILY HISTORY: Negative for renal failure. ALLERGIES: Sulfa. REVIEW OF SYSTEMS: A complete 12-point review of systems was performed with pertinent positives and negatives as per the previous sections. PHYSICAL EXAMINATION: VITAL SIGNS: Blood pressure 114/91, pulse 112, respirations 18, temperature 3 6.9. Urine output 700 cc today. GENERAL: He is alert, awake, cooperative, is in no acute distress. HEENT: Pupils are reactive to light. Extraocular movements are intact. Mucous membranes are mois t. NECK: Somewhat stiff due to his ankylosing spondylitis. HEART: Regular. No rub. No S3. He d oes have a grade 1/6 systolic murmur. LUNGS: No rhonchi or wheezes. He has some decreased breath s ounds in the bases bilaterally. ABDOMEN: Bowel sounds are positive. Soft, nontender, nondistended. No obvious organomegaly, masses, or bruits. EXTREMITIES: Positive for edema. No cyanosis or clubb ing. NEUROLOGIC: No asterixis. SKIN: No unusual rashes or lesions. LYMPH: No palpable lymphaden opathy or lymphedema. MUSCULOSKELETAL: No effusions or tenderness. LABORATORY: WBC 4.66, hemoglobin 12.9, hematocrit 38, platelet count 138. Serum sodium 132, potassi um 3.6, chloride 103, CO2 25. BUN 14, creatinine 0.6. Glucose 97. Calcium 7.9. Magnesium 1.7. AST is 202 and increasing. ALT is 111 and increasing. Albumin is 2.0. Triglycerides 58, cholesterol 2 50, LDL 101, HDL 137. Urine protein to creatinine ratio is 1.5 g/g of creatinine. JENISE is negative. Hepatitis B and C are negative. Urinalysis: Specific gravity of 1.017, pH 7, +2 protein, +3 blood. Echocardiogram done on 07/23/2018 showed an ejection fraction of 55% to 60%. No effusions. Normal v zambrano. Did have some inferior hypokinesis. IMPRESSION: 1. Chronic kidney disease, stage 1, with proteinuria and microhematuria. 2. 30 to 35 years of nonsteroidal anti-inflammatory drug use. 3. Ankylosing spondylitis. 4. Hyperlipidemia. RECOMMENDATIONS: We will work him up for glomerulonephritis. We will be checking glomerular basemen t membrane, JENISE, ANCA, complement levels, etc. However, I do suspect that his chronic kidney disease may well be due to 30 to 35 years of nonsteroidal anti-inflammatory drug use daily and on multiple t imes each day. That being said, I do think it is reasonable to proceed with percutaneous kidney biop sy. I have discussed biopsy with the patient, including its attendant risks and benefits. The benef it being that we would know what is going on in his kidney. The risks being infection and bleeding. We discussed the possibility of gross hematuria, the need for blood transfusion, the need for surgic al or radiologic repair of the damaged kidney, the need for possible nephrectomy, and possible . We had a nice discussion regarding biopsy, and all questions were answered to his satisfaction. I think we will try to proceed with a percutaneous kidney biopsy tomorrow. In the meantime, we will be getting some laboratory, both blood and urine; continue with his HARINDER inhibitor for now; and await bi opsy results. Thank you for allowing me to participate in the care of your patient. If there are any questions, pl ease do not hesitate to contact us. We will be following him along with you. /[id number]/MODL
[2018-07-25 19:54] LABS: PLATELET COUNT 200 10^3/uL (150-400)
[2018-07-25 19:59] LABS: INR 0.95 (0.83-1.16); PROTIME(PATIENT) 12.3 SEC (12.0-15.0)
[2018-07-25 20:14] LABS: CREATINE KINASE 49 IU/L (0-224)
[2018-07-25] MEDS: amLODIPine BESYLATE 5 MG TAB PO SCH (21:52)
[2018-07-25] MEDS: CYCLOBENZAPRINE 10 MG TAB PO PRN (21:52)
[2018-07-25] MEDS: MELATONIN 3 MG TAB PO SCH (21:52)
[2018-07-25] MEDS ORDERED: POTASSIUM CL 10 MEQ TAB ONE (21:53)
[2018-07-26 05:42] LABS: INR 0.98 (0.83-1.16); PROTIME(PATIENT) 12.6 SEC (12.0-15.0)
[2018-07-26] MEDS ORDERED: POTASSIUM CL 10 MEQ TAB PO ONE ×2 (08:02→10:30)
[2018-07-26] MEDS ORDERED: MAGNESIUM SULF 1 GM/DEXTROSE 100 ML IV ONE (08:45)
--- NOTE | 2018-07-26 10:28 | HOSPPROG ---
Hospitalist Progress Note Assessment/Plan: Patient is a 53-year-old male who has a history of asthma, alcohol dependence, and ankylosing spondylitis and several months of bilateral leg swelling. He was being arrested by the police so he was brought to the emergency room for further evaluation. Today is my 1st encounter with the patient chart reviewed. Discussed his care with Dr. Dr. Monaco who took care of him yesterday. * hypoxemia with associated marked peripheral edema - improved with IV diuretics, net output w oral -echocardiogram is unremarkable except show some inferior septal wall hypokinesis -swelling almost completely resolved, also, Amlodipine can cause swelling * chronic kidney disease stage 1 -has proteinuria and hematuria -to get a percutaneous kidney biopsy today -multiple labs are pending, appreciate nephrology's input -history of 30-35 years of NSAID use * alcohol use -thiamine ordered -no signs or symptoms of withdrawals, will lift the CIAK protocol * alcoholic hepatitis * hypertension * inferior/septal hypokinesis noted on echocardiogram -will need a myocardial perfusion imaging prior to discharge * homelessness -wants to get his mobile home back * electrolyte abnormality -cover per protocol * hyperlipidemia -statin *dvt prophylaxis: on HOLD for procedure above Subjective: Les has no complaints except he doesn't want to be homeless any more. Objective: Vital Signs Temp Pulse Resp BP Pulse Ox 36.3 C 77 14 118/82 H 91 L 07/26/18 08:00 07/26/18 08:00 07/26/18 08:00 07/26/18 08:00 07/26/18 08:00 Laboratory Results 07/25/18 19:32 07/26/18 05:25 07/25/18 07/26/18 07/27/18 05:59 05:59 05:59 Intake Total 1450 1500 Output Total 625 700 Balance 825 800 PT 12.6 SEC (12.0-15.0) 07/26/18 05:25 INR 0.98 (0.83-1.16) 07/26/18 05:25 - Physical Exam Constitutional: no apparent distress, not in pain Eyes: PERRL Ears, Nose, Mouth, Throat: hearing normal Cardiovascular: regular rate and rhythym Respiratory: no respiratory distress Gastrointestinal: normoactive bowel sounds Skin: warm Neurologic: AAOx3 Psychiatric: interacting appropriately, poor insight, poor judgement ICD10 Worksheet Patient Problems: Problems Problem Status Onset Bilateral lower extremity edema Acute Cellulitis Acute Hypoalbuminemia Acute Hypoxia Acute Venous stasis Acute Acute alcohol intoxication Acute Acute bronchitis Acute Alcoholic intoxication Acute Closed head injury Acute Laceration of eyebrow, right, complicated Acute Unable to ambulate Acute
[2018-07-26] MEDS: ATORVASTATIN CALCIUM 20 MG TAB PO SCH (10:33)
[2018-07-26] MEDS: chlordiazePOXIDE 25 MG CAP PO SCH ×3 (10:33→21:56)
[2018-07-26] MEDS: THIAMINE HCL 100 MG TAB PO SCH (10:34)
[2018-07-26] MEDS: FUROSEMIDE 20 MG TAB PO SCH ×2 (10:34→17:49)
[2018-07-26] MEDS: LISINOPRIL 5 MG TAB PO SCH (10:34)
--- NOTE | 2018-07-26 11:08 | SOAPPROG ---
SOAP Progress Note Assessment/Plan: Assessment/Plan: CKD 1: with Cr stable at 0.7, proteinuria and hematuria, also with swelling. He has had extensive NSAID usage for 30+ years that is likely contributing. - Pt getting renal biopsy today, results may be back late tomorrow afternoon but more likely Monday. - Serological workup pending. - Will continue to monitor. - Avoid hypotension and nephrotoxins. Hypervolemia: pt on Lasix. HTN: BP running a little lower today, will decrease amlodipine and continue to monitor. Anemia: Hgb 13, no need for epo. Will monitor in setting of renal biopsy. Subjective: No acute events overnight. Pt states that he is feeling the same, has no specific complaints today. Objective: Vital Signs Temp Pulse Resp BP Pulse Ox 36.3 C 77 14 118/82 H 91 L 07/26/18 08:00 07/26/18 08:00 07/26/18 08:00 07/26/18 10:34 07/26/18 08:00 Laboratory Results 07/25/18 19:32 07/26/18 05:25 07/25/18 07/26/18 07/27/18 05:59 05:59 05:59 Intake Total 1450 1500 Output Total 625 700 Balance 825 800 PT 12.6 SEC (12.0-15.0) 07/26/18 05:25 INR 0.98 (0.83-1.16) 07/26/18 05:25 General: alert and oriented, no acute distress Eyes: EOMI, PERRL OP: dry MM CV: RRR Resp: nonlabored respirations on RA Abd: Soft, NT Ext: +1 edema BLE Neuro: CN II-XII Grossly intact, no asterixis Pscyh: cooperative ICD10 Worksheet Patient Problems: Problems Problem Status Onset Bilateral lower extremity edema Acute Cellulitis Acute Hypoalbuminemia Acute Hypoxia Acute Venous stasis Acute Acute alcohol intoxication Acute Acute bronchitis Acute Alcoholic intoxication Acute Closed head injury Acute Laceration of eyebrow, right, complicated Acute Unable to ambulate Acute
[2018-07-26] MEDS: CYCLOBENZAPRINE 10 MG TAB PO PRN ×2 (11:46→21:57)
[2018-07-26] MEDS ORDERED: LIDOCAINE 1% 300 MG/30 ML SDV ONE (14:03)
[2018-07-26] MEDS ORDERED: FLUMAZENIL 0.5 MG/5 ML MDV IVP ONE (14:27)
[2018-07-26] MEDS ORDERED: MIDAZOLAM 2 MG/2 ML VIAL ONE (14:28)
[2018-07-26] MEDS ORDERED: NALOXONE HCL 0.4 MG/ML INJ ONE (14:28)
[2018-07-26] MEDS ORDERED: fentaNYL 100 MCG/2 ML INJ ONE (14:28)
--- NOTE | 2018-07-26 16:07 | PDPROPOC ---
Sedation Plan of Care Sedation Plan of Care: vital signs stable, mental status noted, patient educated of risks, benefits, alternatives, patient can tolerate sedation ASA Classification: ASA 3 Planned drugs: fentanyl, midazolam Mallampati Score: Class 2 Mallampati Reference Image: Patient passed 3-3-2 rule?: Yes
--- NOTE | 2018-07-26 16:07 | PDHPUP ---
History & Physical Update H&P update statement: This history and physical update is based on an assessment of the patient which was completed after admission or registration (within 24 hours), but prior to the surgery/procedure. Renal failure - Nephrology request renal biopsy H&P update: H&P reviewed & patient examined, no change in patient's condition since H&P completed
--- NOTE | 2018-07-26 16:08 | PDRADPN ---
Radiology Procedure Note Date of Procedure: 07/26/18 Radiologist: David Clinton Anesthesia: IV Sedation Pre-op Diagnosis: Renal failure Post-op Diagnosis: Renal failure Indication: Renal failure Procedure: US guided renal biopsy Finding(s): 18 ga cores sent to outside pathology dept. No immediate post procedure hemorrhage. Inf/Abcess present in the surg proc area at time of surgery?: No
[2018-07-26] MEDS ORDERED: MIDAZOLAM 2 MG/2 ML VIAL IVP PRN (16:50)
[2018-07-26] MEDS ORDERED: FLUMAZENIL 0.5 MG/5 ML MDV IVP PRN (16:50)
[2018-07-26] MEDS ORDERED: fentaNYL 100 MCG/2 ML INJ IVP PRN (16:50)
[2018-07-26] MEDS ORDERED: NALOXONE HCL 0.4 MG/ML INJ IVP PRN (16:50)
[2018-07-26] MEDS: MELATONIN 3 MG TAB PO SCH (21:55)
[2018-07-26] MEDS: ACETAMINOPHEN 325 MG TAB PO PRN (21:57)
[2018-07-27] MEDS: THIAMINE HCL 100 MG TAB PO SCH (09:59)
[2018-07-27] MEDS: FUROSEMIDE 20 MG TAB PO SCH ×2 (09:59→16:03)
[2018-07-27] MEDS: LISINOPRIL 5 MG TAB PO SCH (09:59)
[2018-07-27] MEDS: ATORVASTATIN CALCIUM 20 MG TAB PO SCH (10:00)
[2018-07-27] MEDS: ACETAMINOPHEN 325 MG TAB PO PRN ×2 (10:00→21:14)
[2018-07-27] MEDS: CYCLOBENZAPRINE 10 MG TAB PO PRN ×2 (10:00→21:15)
[2018-07-27] MEDS: chlordiazePOXIDE 25 MG CAP PO SCH ×3 (10:00→21:12)
--- NOTE | 2018-07-27 10:06 | SOAPPROG ---
SOAP Progress Note Assessment/Plan: Assessment/Plan: CKD 1: with Cr stable at 0.7, proteinuria and hematuria, also with swelling. He has had extensive NSAID usage for 30+ years that is likely contributing. - Pt had renal biopsy done yesterday, awaiting results, may be back tomorrow. - Serological workup pending. - Will continue to monitor. - Avoid hypotension and nephrotoxins. Hypervolemia: pt on Lasix. HTN: BP running a little lower today, will d/c amlodipine and continue to monitor. Anemia: Hgb just slightly down after biopsy at 12.3, no need for epo. Will monitor. Subjective: No acute events overnight. Pt had biopsy yesterday and went fine, has no pain. He feels sleepy today. Objective: Vital Signs Temp Pulse Resp BP Pulse Ox 36.6 C 82 16 100/54 L 90 L 07/27/18 08:00 07/27/18 08:00 07/27/18 08:00 07/27/18 08:00 07/27/18 08:00 Laboratory Results 07/27/18 05:21 07/27/18 05:21 07/26/18 07/27/18 07/28/18 05:59 05:59 05:59 Intake Total 1500 350 Output Total 700 Balance 800 350 PT 12.6 SEC (12.0-15.0) 07/26/18 05:25 INR 0.98 (0.83-1.16) 07/26/18 05:25 General: alert and oriented, no acute distress Eyes: EOMI, PERRL OP: Clear CV: RRR Resp: nonlabored respirations Abd: Soft, NT/ND Ext: +1 edema BLE Neuro: CN II-XII Grossly intact, no asterixis Psych: cooperative ICD10 Worksheet Patient Problems: Problems Problem Status Onset Bilateral lower extremity edema Acute Cellulitis Acute Hypoalbuminemia Acute Hypoxia Acute Venous stasis Acute Acute alcohol intoxication Acute Acute bronchitis Acute Alcoholic intoxication Acute Closed head injury Acute Laceration of eyebrow, right, complicated Acute Unable to ambulate Acute
--- NOTE | 2018-07-27 11:34 | GCON ---
[f rep st] CONSULTATION CARDIAC CONSULTATION DATE OF CONSULTATION: 07/27/2018 CHIEF COMPLAINT: Leg swelling. HISTORY OF PRESENT ILLNESS: The patient is a 53-year-old male with history of hypertension, hyperlipidemia, alcohol dependence, and ankylosing spondylitis who was being arrested and complained of lower extremity edema and therefore was brought to the emergency room. His edema began 3-to 4 weeks ago, but progressed over the past week. A year ago he was very active but was bit by a spider and has not been able to exercise since that time. He is able to walk regularly and denies any exertional chest discomfort or shortness of breath with walking, but has had some shortness of breath with walking up a flight of stairs. He had an echocardiogram, which revealed new inferior septal hypokinesis when compared to an echocardiogram in January 2018. His ejection fraction is within normal limits at 59%. BNP was within normal limits at 24. PAST MEDICAL HISTORY: Hypertension, hyperlipidemia, asthma, alcohol dependence , ankylosing spondylitis, chronic kidney disease. FAMILY HISTORY: He denies any family history of coronary artery disease. SOCIAL HISTORY: He is homeless. He has had heavy alcohol intake over the last 1 to 2 years. He denies any tobacco use. 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 HOME MEDICATIONS: None. ALLERGIES: Sulfa. REVIEW OF SYSTEMS: A 10-point review of systems is negative, except for what is stated in the H and P. PHYSICAL EXAMINATION: GENERAL: Patient appears in no acute distress. VITAL SIGNS: Blood pressure 100/54, heart rate 82, oxygen saturation 90% on room air , afebrile. NECK: No carotid bruits or JVD present. No evidence of enlarged thyroid. LUNGS: Clear to auscultation. No wheezes, rhonchi, or crackles auscultated. CARDIAC: Regular rate and rhythm, without any murmurs, rubs, or gallops appreciated. ABDOMEN: Soft, nontender, nondistended. Bowel sounds present. EXTREMITIES: Palpable pulses bilaterally without any evidence of edema. NEUROLOGIC: Nonfocal. PSYCHIATRIC: Mood and affect appropriate. SKIN: No obvious rashes or ecchymosis identified. LABORATORY: Sodium 133, potassium 3.7, chloride 103, bicarb 25, BUN 17, creatinine 0.7, calcium 8, magnesium 1.7, phosphorus 5. AST 174, ALT 117. BNP 24. Triglycerides 203, total cholesterol 253, LDL 145, HDL 67. DIAGNOSTIC STUDIES: Chest x-ray was negative for acute cardiopulmonary disease. EKG reveals normal sinus rhythm with minimal ST elevation in inferior leads. CT-A was negative for pulmonary embolus. An ultrasound of the lower extremities was negative for DVT. An echocardiogram showed new inferior septal hypokinesis when compared to an echocardiogram January 2018. He had no significant valvular disease and his ejection fraction was within normal limits at 59%. ASSESSMENT: The patient is a 53-year-old male who presents with lower extremity edema and echocardiogram, which shows new wall motion abnormality. PLAN: The patient has multiple risk factors for coronary artery disease, including hypertension and hyperlipidemia. An echocardiogram shows new inferior septal hypokinesis when compared to an echocardiogram in January 2018. He is also complaining of dyspnea on exertion with walking up a flight of stairs, which could be anginal equivalent. I would like him to have further assessment with a nuclear stress test, which will be performed today. I agree with medical therapy in the form of aspirin and statin therapy. He has a history of hypertension, which is being adequately controlled on his current medical regimen. Addendum: A nuclear stress test is a low risk study. No further cardiac testing is warranted at this time. /[id number]/MODL MTDD
[2018-07-27] MEDS ORDERED: MAGNESIUM SULF 1 GM/DEXTROSE 100 ML IV ONE (12:00)
[2018-07-27] MEDS ORDERED: REGADENOSON 0.4 MG/5 ML SYR IVP ONE (12:11)
--- NOTE | 2018-07-27 13:20 | CPR ---
[f rep st] NONINVASIVE CARDIAC PROCEDURE REPORT DATE OF PROCEDURE: 07/27/2018 PROCEDURE: Lexiscan nuclear stress test. INDICATION: The patient is a 53-year-old male who presented to the hospital with edema and dyspnea o n exertion. An echocardiogram showed inferior septal hypokinesis, which was new. His risk factors f or coronary artery disease include hypertension and hyperlipidemia. PROCEDURE IN DETAIL: Consent was obtained and the patient was placed on continuous telemetry. His r esting EKG reveals normal sinus rhythm with inferior Q-waves. The patient attempted to exercise on t he treadmill, but was felt to be unsafe and therefore, exercise portion of the study was discontinued . He was switched over to Lexiscan. He was infused with Lexiscan and complained of just overall fee ling off. He stated it was a symptom he is used to feeling. He remained in sinus rhythm, but was ta chycardic with the infusion and this remained persistent in the recovery phase. Of note, he was tach ycardic at rest as well. There were no significant ST-T wave changes with the infusion. His blood p ressure did drop with the infusion down to 80/60. It then increased to 92/56 and stayed fairly persi stent at that pressure. He denied any chest discomfort with the infusion. PLAN: Await nuclear images. /[id number]/MODL
--- NOTE | 2018-07-27 15:25 | HOSPPROG ---
Hospitalist Progress Note Assessment/Plan: Patient is a 53-year-old male who has a history of asthma, alcohol dependence, and ankylosing spondylitis and several months of bilateral leg swelling. He was being arrested by the police so he was brought to the emergency room for further evaluation. * hypoxemia with associated marked peripheral edema - improved with IV diuretics, now on oral -echocardiogram is unremarkable except show some inferior septal wall hypokinesis -swelling has completely resolved, also, Amlodipine can cause swelling * chronic kidney disease stage 1 -has proteinuria and hematuria -s/p percutaneous kidney biopsy yesterday, should have info tomorrow from this -multiple labs are pending, appreciate nephrology's input -history of 30-35 years of NSAID use * alcohol use -thiamine ordered -no signs or symptoms of withdrawals, will lift the [facility] protocol * alcoholic hepatitis * hypertension * inferior/septal hypokinesis noted on echocardiogram -had a myocardial perfusion imaging today-awaiting full report -appreciate cards seeing him * homelessness -wants to get his mobile home back * electrolyte abnormality -cover per protocol * hyperlipidemia -statin *dvt prophylaxis: left on hold due to recent biopsy *plan: if stress test is stable; he likely can dc in the morning Subjective: Les is tired, has no complaints, is happy his leg swelling has resolved. Objective: Vital Signs Temp Pulse Resp BP Pulse Ox 36.7 C 86 16 117/81 H 91 L 07/27/18 11:15 07/27/18 11:15 07/27/18 11:15 07/27/18 11:15 07/27/18 11:15 Laboratory Results 07/27/18 05:21 07/27/18 05:21 07/26/18 07/27/18 07/28/18 05:59 05:59 05:59 Intake Total 1500 350 Output Total 700 Balance 800 350 PT 12.6 SEC (12.0-15.0) 07/26/18 05:25 INR 0.98 (0.83-1.16) 07/26/18 05:25 - Physical Exam Constitutional: no apparent distress, appears nourished, not in pain Eyes: PERRL Ears, Nose, Mouth, Throat: hearing normal Cardiovascular: regular rate and rhythym Respiratory: no respiratory distress Skin: warm Musculoskeletal: full muscle strength Psychiatric: interacting appropriately ICD10 Worksheet Patient Problems: Problems Problem Status Onset Bilateral lower extremity edema Acute Cellulitis Acute Hypoalbuminemia Acute Hypoxia Acute Venous stasis Acute Acute alcohol intoxication Acute Acute bronchitis Acute Alcoholic intoxication Acute Closed head injury Acute Laceration of eyebrow, right, complicated Acute Unable to ambulate Acute
[2018-07-27] MEDS ORDERED: POTASSIUM CL 10 MEQ TAB PO ONE (15:49)
--- NOTE | 2018-07-27 17:24 | ASMTCMCOM ---
CM Note CM Note Notes: Pt will need letter from physician stating the Chest Xray was clear of TB in order to be admitted to the [facility]. Pt will need to go through [facility] intake process in order to sleep at the detention due to the severity of his infraction that led him to be banned in the past. Therefore he cannot have hospital reserved bed. Pt may call the main detention number to restart admission. Pt has been given the number. Pt also has a bag of belongings in security that were double bagged due to bugs. D/C Plan: [facility] intake, and appt with [facility] Date Signed: 07/27/2018 05:23 PM Electronically Signed By:Lolly Elkins
[2018-07-27] MEDS: MELATONIN 3 MG TAB PO SCH (21:12)
[2018-07-27] MEDS: oxyCODONE IR 5 MG TAB PO PRN (22:03)
[2018-07-28] MEDS ORDERED: MAGNESIUM SULF 1 GM/DEXTROSE 100 ML IV ONE (07:29)
[2018-07-28] MEDS: chlordiazePOXIDE 25 MG CAP PO SCH ×3 (08:36→22:00)
[2018-07-28] MEDS: THIAMINE HCL 100 MG TAB PO SCH (08:36)
[2018-07-28] MEDS: ATORVASTATIN CALCIUM 20 MG TAB PO SCH (08:36)
[2018-07-28] MEDS: FUROSEMIDE 20 MG TAB PO SCH ×2 (08:36→16:55)
[2018-07-28] MEDS: LISINOPRIL 5 MG TAB PO SCH (08:45)
[2018-07-28] MEDS: oxyCODONE IR 5 MG TAB PO PRN ×3 (11:25→16:54)
--- NOTE | 2018-07-28 12:55 | SOAPPROG ---
ONOFRE Progress Note Assessment/Plan: Assessment: 1. proteinuria: low-grade on quantification, doubt this is playing sig role in edema formation. S/p bx late 07/26, results not back therefore presumably won't be ready until Monday. Serologies negative thus far, I think it is very unlikely that any specific rx will be warranted based on bx results. I would be comfortable with him f/u with us in either [place] or [place] office in the next month or so. We can contact him via phone with bx results if any needed. Discussed importance of avoiding nsaids, asa for 2 weeks post-bx. 2. Edema: now s/p diuresis. Low-grade proteinuria unlikely to be playing sig role in this as outlined above. 3. htn: amlodipine held, I agree with this in light of edema. 4. dispo: out anytime from renal standpoint. Plan: 07/28/18 12:51 Subjective: No c/o. Objective: Vital Signs Temp Pulse Resp BP Pulse Ox 36.4 C 95 16 95/72 L 91 L 07/28/18 11:17 07/28/18 11:17 07/28/18 11:17 07/28/18 11:17 07/28/18 11:17 Laboratory Results 07/28/18 04:43 07/28/18 04:43 07/27/18 07/28/18 07/29/18 05:59 05:59 05:59 Intake Total 350 1500 Balance 350 1500 PT 12.6 SEC (12.0-15.0) 07/26/18 05:25 INR 0.98 (0.83-1.16) 07/26/18 05:25 Physical Exam - Physical Exam General Appearance: no apparent distress, other (disheveled) Respiratory: lungs clear Cardiac/Chest: regular rate, rhythm Abdomen: non-tender, soft Extremities: pedal edema (none) ICD10 Worksheet Patient Problems: Problems Problem Status Onset Bilateral lower extremity edema Acute Cellulitis Acute Hypoalbuminemia Acute Hypoxia Acute Venous stasis Acute Acute alcohol intoxication Acute Acute bronchitis Acute Alcoholic intoxication Acute Closed head injury Acute Laceration of eyebrow, right, complicated Acute Unable to ambulate Acute
--- NOTE | 2018-07-28 14:31 | HOSPPROG ---
Hospitalist Progress Note Assessment/Plan: Patient is a 53-year-old male who has a history of asthma, alcohol dependence, and ankylosing spondylitis and several months of bilateral leg swelling. He was being arrested by the police so he was brought to the emergency room for further evaluation. * hypoxemia with associated marked peripheral edema - improved with IV diuretics, now on oral -echocardiogram is unremarkable except show some inferior septal wall hypokinesis -swelling has completely resolved, also, Amlodipine can cause swelling * chronic kidney disease stage 1 -has proteinuria and hematuria -s/p percutaneous kidney biopsy yesterday, should have info tomorrow from this -multiple labs are pending, appreciate nephrology's input, current serologies are negative -history of 30-35 years of NSAID use * alcohol use -thiamine ordered -no signs or symptoms of withdrawals, will lift the [facility] protocol * alcoholic hepatitis * hypertension * inferior/septal hypokinesis noted on echocardiogram -had a myocardial perfusion imaging today-awaiting full report -appreciate cards seeing him * homelessness -wants to get his mobile home back * electrolyte abnormality -cover per protocol * hyperlipidemia -statin *dvt prophylaxis: left on hold due to recent biopsy *plan: ok from cards and nephrology to dc Subjective: Les is ready for dc, has no specific complaints. Objective: Vital Signs Temp Pulse Resp BP Pulse Ox 36.4 C 95 16 95/72 L 91 L 07/28/18 11:17 07/28/18 11:17 07/28/18 11:17 07/28/18 11:17 07/28/18 11:17 Laboratory Results 07/28/18 04:43 07/28/18 04:43 07/27/18 07/28/18 07/29/18 05:59 05:59 05:59 Intake Total 350 1500 480 Balance 350 1500 480 PT 12.6 SEC (12.0-15.0) 07/26/18 05:25 INR 0.98 (0.83-1.16) 07/26/18 05:25 - Physical Exam Constitutional: no apparent distress, appears nourished, not in pain Eyes: PERRL Ears, Nose, Mouth, Throat: hearing normal Respiratory: no respiratory distress Skin: warm Neurologic: AAOx3 Psychiatric: interacting appropriately ICD10 Worksheet Patient Problems: Problems Problem Status Onset Bilateral lower extremity edema Acute Cellulitis Acute Hypoalbuminemia Acute Hypoxia Acute Venous stasis Acute Acute alcohol intoxication Acute Acute bronchitis Acute Alcoholic intoxication Acute Closed head injury Acute Laceration of eyebrow, right, complicated Acute Unable to ambulate Acute
[2018-07-28] MEDS: MELATONIN 3 MG TAB PO SCH (22:00)
[2018-07-29] MEDS: THIAMINE HCL 100 MG TAB PO SCH (10:15)
[2018-07-29] MEDS: chlordiazePOXIDE 25 MG CAP PO SCH (10:15)
[2018-07-29] MEDS: FUROSEMIDE 20 MG TAB PO SCH (10:15)
[2018-07-29] MEDS: ATORVASTATIN CALCIUM 20 MG TAB PO SCH (10:15)
[2018-07-29] MEDS: LISINOPRIL 5 MG TAB PO SCH (10:17)
--- NOTE | 2018-07-29 10:50 | HOSPPROG ---
Hospitalist Progress Note Assessment/Plan: Patient is a 53-year-old male who has a history of asthma, alcohol dependence, and ankylosing spondylitis and several months of bilateral leg swelling. He was being arrested by the police so he was brought to the emergency room for further evaluation. * hypoxemia with associated marked peripheral edema - improved with IV diuretics, now on oral -echocardiogram is unremarkable except show some inferior septal wall hypokinesis -swelling has completely resolved, also, Amlodipine can cause swelling * chronic kidney disease stage 1 -has proteinuria and hematuria -s/p percutaneous kidney biopsy yesterday, should have info tomorrow from this -multiple labs are pending, appreciate nephrology's input, current serologies are negative -history of 30-35 years of NSAID use *hyponatremia -Na is 130 * alcohol use -thiamine ordered -no signs or symptoms of withdrawals, will lift the [facility] protocol * alcoholic hepatitis * hypertension * inferior/septal hypokinesis noted on echocardiogram -had a myocardial perfusion imaging today-awaiting full report -appreciate cards seeing him * homelessness -wants to get his mobile home back -has a warming area on and [place] he can stay at -was banned from the [facility] * electrolyte abnormality -cover per protocol * hyperlipidemia -statin *dvt prophylaxis: left on hold due to recent biopsy *plan:dc today, reviewed care w nephrology who recommended a repeat chemistry panel since creat trending up Subjective: Solo has no complaints. Objective: Vital Signs Temp Pulse Resp BP Pulse Ox 36.6 C 110 H 16 101/67 90 L 07/29/18 07:35 07/29/18 07:35 07/29/18 07:35 07/29/18 10:17 07/29/18 07:35 Laboratory Results 07/28/18 04:43 07/29/18 04:36 07/28/18 07/29/18 07/30/18 05:59 05:59 05:59 Intake Total 1500 1716 Output Total 800 Balance 1500 916 PT 12.6 SEC (12.0-15.0) 07/26/18 05:25 INR 0.98 (0.83-1.16) 07/26/18 05:25 - Physical Exam Constitutional: appears nourished, not in pain, chronically ill appearing Eyes: PERRL Ears, Nose, Mouth, Throat: hearing normal Respiratory: no respiratory distress Musculoskeletal: generalized weakness Neurologic: AAOx3 Psychiatric: interacting appropriately ICD10 Worksheet Patient Problems: Problems Problem Status Onset Bilateral lower extremity edema Acute Cellulitis Acute Hypoalbuminemia Acute Hypoxia Acute Venous stasis Acute Acute alcohol intoxication Acute Acute bronchitis Acute Alcoholic intoxication Acute Closed head injury Acute Laceration of eyebrow, right, complicated Acute Unable to ambulate Acute
--- NOTE | 2018-07-29 11:47 | SOAPPROG ---
SOAP Progress Note Assessment/Plan: Assessment: 1. proteinuria: low-grade on quantification, doubt this is playing sig role in edema formation. S/p bx late 07/26, results not back therefore presumably won't be ready until Monday. Creat has been normal, serologies negative thus far, I think it is very unlikely that any specific rx will be warranted based on bx results. I would be comfortable with him f/u with us in either [place] or [place] office in the next month or so. We can contact him via phone with bx results if any needed. Discussed importance of avoiding nsaids, asa for 2 weeks post-bx. Suspect today's labs may be erroneous, would simply repeat. 2. Edema: now s/p diuresis. Low-grade proteinuria unlikely to be playing sig role in this as outlined above. 3. htn: amlodipine held, I agree with this in light of edema and current bp. 4. dispo: out anytime from renal standpoint assuming renal fxn truly stable. Plan: 07/28/18 12:51 07/29/18 11:45 07/29/18 11:46 Subjective: Ambulating in room. D/c held yesterday due to unavailability of senior living. Objective: Vital Signs Temp Pulse Resp BP Pulse Ox 36.6 C 110 H 16 101/67 90 L 07/29/18 07:35 07/29/18 07:35 07/29/18 07:35 07/29/18 10:17 07/29/18 07:35 Laboratory Results 07/28/18 04:43 07/29/18 04:36 07/28/18 07/29/18 07/30/18 05:59 05:59 05:59 Intake Total 1500 1716 Output Total 800 Balance 1500 916 PT 12.6 SEC (12.0-15.0) 07/26/18 05:25 INR 0.98 (0.83-1.16) 07/26/18 05:25 Physical Exam - Physical Exam General Appearance: no apparent distress Respiratory: lungs clear Cardiac/Chest: tachycardia Extremities: pedal edema (perhaps trace) ICD10 Worksheet Patient Problems: Problems Problem Status Onset Bilateral lower extremity edema Acute Cellulitis Acute Hypoalbuminemia Acute Hypoxia Acute Venous stasis Acute Acute alcohol intoxication Acute Acute bronchitis Acute Alcoholic intoxication Acute Closed head injury Acute Laceration of eyebrow, right, complicated Acute Unable to ambulate Acute
[2018-07-29] MEDS ORDERED: NS 500 ML IV SCH (14:00)
--- NOTE | 2018-07-29 14:17 | ASMTCMCOM ---
CM Note CM Note Notes: [facility] director of programs. He also needs to go to [facility]. There is a note from the MD for group home and a bus pass for pt in the plastic sleave of chart. Pt's belongings are down in security. DC Plan: Independent Date Signed: 07/29/2018 02:16 PM Electronically Signed By:Kirsten Perez RN
[2018-07-29] MEDS: MELATONIN 3 MG TAB PO SCH (22:00)
[2018-07-30] MEDS: MELATONIN 3 MG TAB PO SCH (00:04)
[2018-07-30] MEDS: oxyCODONE IR 5 MG TAB PO PRN ×2 (00:05→10:13)
[2018-07-30] MEDS: CYCLOBENZAPRINE 10 MG TAB PO PRN (00:05)
[2018-07-30 07:37] VITALS: BP 127/82
[2018-07-30] MEDS ORDERED: FUROSEMIDE 40 MG TAB PO SCH (09:00)
[2018-07-30] MEDS: LISINOPRIL 5 MG TAB PO SCH (10:09)
[2018-07-30] MEDS: ATORVASTATIN CALCIUM 20 MG TAB PO SCH (10:09)
[2018-07-30] MEDS: THIAMINE HCL 100 MG TAB PO SCH (10:10)
[2018-07-30] MEDS ORDERED: FUROSEMIDE 20 MG TAB PO SCH (11:13)
--- NOTE | 2018-07-30 11:19 | SOAPPROG ---
SOAP Progress Note Assessment/Plan: Assessment/Plan: Proteinuria: pt with Cr stable at 0.7, came in with swelling and proteinuria and hematuria. He has had extensive NSAID usage for 30+ years that is likely contributing. Serological workup unrevealing. Repeat urine PCR <0.1g. - Renal biopsy done on 07/26, results still pending, can be relayed to him as outpatient. At this time, unlikely he will have anything that requires further intervention. - Recommend he avoid NSAIDs. - Avoid hypotension and nephrotoxins. KHADIJAH: likely due to diuretics, Cr up to 1.3 yesterday and with getting some fluids back Cr back down to 0.8, resolved. Hypervolemia: markedly improved, will cut down Lasix to 20mg daily. HTN: BP has been running a little lower during this hospitalization, amlodipine d/praneeth, and now also cutting down Lasix. Subjective: No acute events overnight. Pt notes his swelling is much improved. Objective: Vital Signs Temp Pulse Resp BP Pulse Ox 36.7 C 84 18 127/82 H 91 L 07/30/18 07:36 07/30/18 07:36 07/30/18 07:36 07/30/18 07:36 07/30/18 07:36 Laboratory Results 07/28/18 04:43 07/30/18 04:34 07/29/18 07/30/18 07/31/18 05:59 05:59 05:59 Intake Total 1716 1658 Output Total 800 425 Balance 916 1233 PT 12.6 SEC (12.0-15.0) 07/26/18 05:25 INR 0.98 (0.83-1.16) 07/26/18 05:25 General: alert and oriented, no acute distress Eyes: EOMI, PERRL OP: Clear CV: RRR Resp: nonlabored respirations on RA Abd: Soft, NT/ND Ext: trace edema BLE Neuro: CN II-XII Grossly intact, no asterixis ICD10 Worksheet Patient Problems: Problems Problem Status Onset Bilateral lower extremity edema Acute Cellulitis Acute Hypoalbuminemia Acute Hypoxia Acute Venous stasis Acute Acute alcohol intoxication Acute Acute bronchitis Acute Alcoholic intoxication Acute Closed head injury Acute Laceration of eyebrow, right, complicated Acute Unable to ambulate Acute
--- NOTE | 2018-07-30 12:22 | HOSPPROG ---
Hospitalist Progress Note Assessment/Plan: Patient is a 53-year-old male who has a history of asthma, alcohol dependence, and ankylosing spondylitis and several months of bilateral leg swelling. He was being arrested by the police so he was brought to the emergency room for further evaluation. * hypoxemia with associated marked peripheral edema - improved with IV diuretics, now on oral -echocardiogram is unremarkable except show some inferior septal wall hypokinesis -swelling has completely resolved, also, Amlodipine can cause swelling -hypoxemia is resolved * chronic kidney disease stage 1 -has proteinuria and hematuria -s/p percutaneous kidney biopsy yesterday, should have info tomorrow from this -multiple labs are pending, appreciate nephrology's input, current serologies are negative -history of 30-35 years of NSAID use *hyponatremia -Na is 133 * alcohol use -thiamine ordered -no signs or symptoms of withdrawals * alcoholic hepatitis * hypertension -bp has been a bit low * inferior/septal hypokinesis noted on echocardiogram -stable on perfusion scan -appreciate cards seeing him * homelessness -wants to get his mobile home back -has a warming area on and [place] he can stay at -was [facility] from the [facility] * electrolyte abnormality -cover per protocol * hyperlipidemia -statin *dvt prophylaxis: left on hold due to recent biopsy *plan:dc today Subjective: Les has no complaints. Objective: Vital Signs Temp Pulse Resp BP Pulse Ox 36.7 C 84 18 127/82 H 91 L 07/30/18 07:36 07/30/18 07:36 07/30/18 07:36 07/30/18 07:36 07/30/18 07:36 Laboratory Results 07/28/18 04:43 07/30/18 04:34 07/29/18 07/30/18 07/31/18 05:59 05:59 05:59 Intake Total 1716 1658 Output Total 800 425 Balance 916 1233 PT 12.6 SEC (12.0-15.0) 07/26/18 05:25 INR 0.98 (0.83-1.16) 07/26/18 05:25 - Physical Exam Constitutional: no apparent distress, appears nourished Eyes: PERRL Ears, Nose, Mouth, Throat: hearing normal Respiratory: no respiratory distress Skin: warm Musculoskeletal: generalized weakness Neurologic: AAOx3 Psychiatric: interacting appropriately ICD10 Worksheet Patient Problems: Problems Problem Status Onset Bilateral lower extremity edema Acute Cellulitis Acute Hypoalbuminemia Acute Hypoxia Acute Venous stasis Acute Acute alcohol intoxication Acute Acute bronchitis Acute Alcoholic intoxication Acute Closed head injury Acute Laceration of eyebrow, right, complicated Acute Unable to ambulate Acute
--- NOTE | 2018-07-30 14:58 | GDS ---
[f rep st] DISCHARGE SUMMARY DISCHARGE DIAGNOSES: 1. Hypoxemia with associated marked peripheral edema. 2. Chronic kidney disease, stage I. 3. Hyponatremia. 4. Alcohol use. 5. Alcoholic hepatitis. 6. Hypertension. 7. Inferior septal hypokinesis noted on echocardiogram. 8. Homelessness. 9. Hyperlipidemia. CONSULTATION: 1. Dr. Anup Valentin. 2. Cheyanne Rothman, physician automotive service assistant with Cardiology. HISTORY: Briefly, Mr. Al is a 53-year-old gentleman who is currently homeless. He has a history of ankylosing spondylitis, asthma, and history of shoulder infection status post I and D of both of his shoulders. He was in his usual state of health until about 3 to 4 weeks ago, his legs began swelling. He was seen at [facility] for further evaluation. His edema continued to get worse. He was subsequently seen by Nephrology, who did an extensive evaluation including a renal biopsy. Most of his labs are pending, but overall his kidney function has remained stable and he has improved. He had an echocardiogram also performed to further evaluate his lower extremity swelling. It showed a new inferior septal hypokinesis when compared to his echocardiogram in January 2018. He has no significant valvular disease and his EF was within normal limits at 59%. He subsequently had a myocardial perfusion scan. This showed a normal perfusion, it showed no evidence of stress -induced ischemia or myocardial infarction. It was noted that he had normal myocardial contractility and LVEF could not be assessed due to the irregular heartbeat during the stay. Cardiology cleared him and felt he was safe to be discharged. He will follow up with Dr. Anup Valentin in regard to many multiple labs that are pending. His kidney function increased a bit over the last few days. I suspect this is secondary to being diuresed too much. This improved. His Lasix was cut down to 20 mg daily. Also, amlodipine has been discontinued because of causing lower extremity swelling. HOSPITAL COURSE PER PROBLEM: 1. Hypoxemia with associated marked peripheral edema. The swelling has resolved as well as hypoxemia. Will continue him on Lasix 20 mg daily. 2. Chronic kidney disease. This is stage I. He is status post percutaneous kidney biopsy. Multiple labs are pending. He also has a history of 30 to 35 years of nonsteroidal anti-inflammatory drug use. Recommending stopping all nonsteroidal anti-inflammatory drugs. 3. Hyponatremia. Sodium is 133. 4. Alcohol use. He has had no signs or symptoms with withdrawals. Encouraged him to abstain from all alcohol. 5. Alcoholic hepatitis. 6. Hypertension, stable. 7. Inferior septal hypokinesis. It is noted that he is stable on the perfusion scan. 8. Homelessness. He is re-applying to see if he can stay at the senior living. 9. Hyperlipidemia, statin therapy. DISCHARGE CONDITION: Stable. Blood pressure is 127/82, heart rate of 84, respiratory rate of 18, O2 sats on room air 92%, temperature 36.7 Celsius. MEDICATIONS AT DISCHARGE: Please see the EMR. DISCHARGE INSTRUCTIONS: 1. Follow up with Dr. Valentin in regard to his pending labs. 2. Recommending that he stop taking NSAIDs. This is likely causing his swelling, in addition it has also affected his kidneys. 3. Scripts were sent to [facility] in the hospital pharmacy. They will bring them up to him. 4. A script for Flexeril was given to him to see if it helps with his back. 5. He has a followup appointment with [facility] on August 07, at 2:20. Greater than 30 minutes discharging and coordinating his care. Copy requested to: [facility] /[id number]/MODL MTDD
--- NOTE | 2018-07-30 15:27 | ASDISCHSUM ---
Discharge Information Plan Status:Homeless/Senior Living Medically Cleared to Leave:07/30/2018 Discharge Date:07/30/2018 CM D/C Disposition:Streets (Homeless) ADT D/C Disposition:Home, Routine, Self-Care Projected Discharge Date:07/30/2018 Transportation at D/C:Medicaid Transportation Discharge Delay Reason: Follow-Up Date:07/30/2018 Discharge Slot: Final Diagnosis:cellulitis, CHF Placement Information Patient Contact Information Contact Name:MUSTAPHA Relationship: Address: Home Phone: Work Phone: City: Alternate Phone: State/[place] Code: Email: Financial Information Financial Class:Medicaid Primary Plan Desc:[employer] [place] Primary Plan Number:[id number] Secondary Plan Desc: Secondary Plan Number: Assessment Information [facility] Progress Note CM Note CM Note Notes: Patient is a homeless gentleman admitted with hypoxia. Patient has visited this ER 8 times since March and had 13 visits last year. Please see various CM notes regarding attempts to connect patient with services at the chcf and [facility]. This CM contacted [facility] this morining and confirmed that patient has seen CESAR Giraldo in the past and that patient has not been seen at the clinic since August of 2017. Per chart review (CM notes) patient has not consistently utilized chcf services and prefers to stay outdoors. CM to follow and assess for resources prior to discharge. [facility] has patient as "active" in their system and CM to contact clinic to schedule a follow up appointment at discharge and/or update the clinic at time of discharge. [facility] backline for CM ONLY . Please do NOT give number to patient's Date Signed: 07/20/2018 10:30 AM Electronically Signed By:Michelle Stewart RN LACE LACE Comorbidities - select Answers: Moderate or severe liver all that apply or renal disease # of Emergency department Answers: 5-8 visits in the last 6 months Social determinants Answers: History of substance abuse (ETOH, street drugs, prescription drugs, etc.) Homelessness (street, chcf) Score: 14 Date Signed: 07/20/2018 10:31 AM Electronically Signed By:Michelle Stewart RN [facility] CARINA Progress Note CARINA Note CARINA Note Notes: Pt was brought to ED last night by police. He was in the process of being arrested and due to complaints of pain in bilateral lower legs, police brought him to ED and dropped charges. Pt states he had been on a course of Keflex about a month ago at [facility] but that it hadn't helped the cellulitis in his bilateral lower legs. Also admitted with hypoxemia. Upon reviewing chart, CARINA determined that pt has had 8 ED visits since March and 13 in 2017. Multiple attempts have been made during these visits to connect pt with resources. CARINA met with pt today in his room and gave him information about [facility], as he is homeless and is not registered with them. He states that he prefers to sleep outside rather than in a chcf and probably will not use [facility], but information was left with him. Pt has been to [facility] in the past but not since August 2017. If he is agreeable to a follow-up appt with them upon discharge, CARINA may use the backline [phone]. (NOTE: Please do not give this # to the pt.) Pt's clothing is not in his room and he doesn't know where they are, but he does not want them back unless they are washed because a nurse noticed a bug on the clothing; they may have been discarded due to suspected lice. CARINA brought him a shirt, elastic pants, and coat in size XL per his request. He said he had shoes, but they don't appear to be in his room. He may need some if available upon discharge. Dr. Howard (hospitalist) gave pt information on alcohol cessation. At this time pt does not exhibit any desire to improve his situation or utilize offered resources. Pt states that he doesn't usually take any meds other than ibuprofen occasionally. He uses the local bus system and walks. While in the hospital he is on IV Lasix to help with edema in his legs, and IV electrolytes. CM will continue to follow. CM D/C plan: TBD Date Signed: 07/21/2018 01:30 PM Electronically Signed By:Ann Marie Barr CAGE Questionnaire CAGE Do you feel you ought to Answers: No cut down on your drinking or drug use? Do people annoy you by Answers: No criticizing your drinking or drug use? Do you feel guilty about Answers: No your drinking or drug use? Do you drink or use drugs Answers: No first thing in the morning ([facility]rapist)? Date Signed: 07/22/2018 10:26 AM Electronically Signed By:Ann Marie Barr [facility] CM Progress Note CM Note CM Note Notes: CAGE assessment completed per order. Date Signed: 07/22/2018 10:27 AM Electronically Signed By:Ann Marie Barr [facility] Progress Note CM Note CM Note Notes: Per Dr. Howard, pt can be discharged tomorrow if he does well on oral Lasix today. spoke with pt. His preference is to return to the streets rather than have us book him a room at the chcf. D/C plan: Independent Date Signed: 07/22/2018 10:30 AM Electronically Signed By:Ann Marie Barr [facility] CM Progress Note CM Note CM Note Notes: Met with pt, he is concerned about his belongings, thinks he [facility] them [facility] [address]. Per Angel at [facility] security, pt's belongings were found to have bugs so they were double bagged and put into decontamination. He has one bag. Pt also states he will accept a reserved bed at the chcf at [place], CM to make f/u appointment at the [facility] before or. [place] Plan: Independent Date Signed: 07/25/2018 03:54 PM Electronically Signed By:Kirsten Perez RN [facility] Progress Note CM Note CM Note Notes: Pt will need letter from physician stating the Chest Xray was clear of TB in order to be admitted to the [facility]. Pt will need to go through [facility] intake process in order to sleep at the chcf due to the severity of his infraction that led him to be banned in the past. Therefore he cannot have hospital reserved bed. Pt may call the main chcf number to restart admission. Pt has been given the number. Pt also has a bag of belongings in security that were double bagged due to bugs. D/C Plan: [facility] intake, and appt with [facility] Date Signed: 07/27/2018 05:23 PM Electronically Signed By:Lolly Elkins [facility] CM Progress Note CM Note CM Note Notes: Pt is not allowed back at [facility] until he makes an appointment with the director of programs. He also needs to go to [facility]. There is a note from the MD for chcf and a bus pass for pt in the plastic sleave of chart. Pt's belongings are down in security. DC Plan: Independent Date Signed: 07/29/2018 02:16 PM Electronically Signed By:Kirsten Perez RN Case Management Discharge Plan Note Case Management Discharge Discharge Order Complete? Answers: Yes Patient to Obtain Answers: Other Notes: Bedside delivery Medications Transportation Arranged Answers: Other Notes: [facility] will Pick (Date 07/30/2018 02:30 PM & Time) Family Notified Answers: No Notes: none Discharge Comments Notes: Pt to discharge today to [facility] and the [facility] which is open tonight. Pt requested [facility] transport to the [employer] where he last saw his grocery cart of belongings. Pt also given bus pass to get to his follow up PCP appoint which was scheduled by CM at the [facility] and typed in his discharge instructions. Pt was also given letter proving that he is clear of TB and given the admissions number for the [facility] where he can reestablish admissions after being banned. No further CM needs noted at this time. Date Signed: 07/30/2018 02:34 PM Electronically Signed By:Lolly Elkins Intervention Information
--- NOTE | 2018-07-30 15:33 | ASMTDCNOTE ---
Case Management Discharge Discharge Order Complete? Answers: Yes Patient to Obtain Answers: Other Notes: Bedside delivery Medications Transportation Arranged Answers: Other Notes: [facility] will Pick (Date 07/30/2018 02:30 PM & Time) Family Notified Answers: No Notes: none Discharge Comments Notes: Pt to discharge today to [facility] and the [facility] which is open tonight. Pt requested [facility] transport to the [employer] where he last saw his grocery cart of belongings. Pt also given bus pass to get to his follow up PCP appoint which was scheduled by CM at the [facility] and typed in his discharge instructions. Pt was also given letter proving that he is clear of TB and given the admissions number for the [facility] where he can reestablish admissions after being banned. No further CM needs noted at this time. Date Signed: 07/30/2018 02:34 PM Electronically Signed By:Lolly Elkins
--- NOTE | 2018-07-30 18:40 | ASMTCMCOM ---
CM Note CM Note Notes: ADDENDUM: Pt was also referred to [facility]. Date Signed: 07/30/2018 04:08 PM Electronically Signed By:Lolly Elkins
== END 2018-07-30 16:37 | disposition home or self-care (01) | DRG 144 ==
LOC: F3E 10:00 → OBSVTOIN 07-21 11:30
PROVIDERS: ADMIT Internal Medicine; ATTEND Internal Medicine
DX: R09.02 Hypoxemia (principal); K70.10 Alcoholic hepatitis without ascites; E87.1 Hypo-osmolality and hyponatremia; N18.1 Chronic kidney disease, stage 1; I12.9 Hypertensive chronic kidney disease with stage 1 through stage 4 chronic kidney disease, or unspecified chronic kidney disease; F10.288 Alcohol dependence with other alcohol-induced disorder; I51.89 Other ill-defined heart diseases; E78.5 Hyperlipidemia, unspecified; L03.115 Cellulitis of right lower limb; L03.116 Cellulitis of left lower limb; D64.9 Anemia, unspecified; M45.9 Ankylosing spondylitis of unspecified sites in spine; Z59.0 Homelessness; Z79.1 Long term (current) use of non-steroidal anti-inflammatories (NSAID)
CPT/HCPCS: 83010-90; 83520-90; 86255-90; 86334-90; 88305-90; 88313-90; 88346-90; 88348-90; 96374; 97161-GP; A9500; G0378; G0472; J0690; J1650; J1940; J2060; J2250; J2310; J2785; J3010; J3475; Q9967